=== PATIENT | male | born 1940 | race Caucasian/White ===

== ENCOUNTER 2023-10-03 14:05 | Outpatient (OUT) | payer SELFPAY ==
--- NOTE | 2023-10-03 | XR_ITS ---
[facility] [id number] Patient Name: JOJO LEWIS MRN: [id number] date: 1940 Sex: M Assigned Patient Location: RAD Current Patient Location: RAD Accession/Order Number: [id number] Exam Date: 10/03/2023 14:06 Report Date: 10/03/2023 15:14 At the request of: KATHY HERZOG Procedure: XR foot RT min 3V PROCEDURE: XR foot RT min 3V COMPARISON: None. HISTORY: RIGHT FOOT PAIN FINDINGS: BONES:No acute fracture or dislocation. Mild degenerative changes most significant at the first metatarsal-phalangeal joint with marginal osteophyte formation SOFT TISSUES:Negative. No visible soft tissue swelling. EFFUSION:None visible. OTHER: Scattered calcifications XR/XR foot RT min 3V IMPRESSION: Mild degenerative changes Electronically authenticated by: EUSEBIO WATTS Date: 10/03/2023 15:14
== END 2023-10-03 14:06 | disposition home or self-care (01) ==
LOC: RAD 14:05
PROVIDERS: Visit Provider Podiatrist Foot & Ankle Surgery
DX: M79.671 Pain in right foot (principal)
CPT/HCPCS: 73630

== ENCOUNTER 2023-11-17 06:52 | Outpatient (OUT) | payer MEDICARE, OTHER, SELFPAY ==
--- OUTSIDE RECORDS SUMMARY | 2023-11-15 10:13 | XMS_ITS | CCD ---
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 Name Role Phone ELTAHAWY, EHAB A Unavailable Unavailable ELTAHAWY, EHAB A Unavailable Unavailable CIFUENTES, KEYONNA Unavailable Unavailable CIFUENTES, KEYONNA Unavailable Unavailable Mandeep Owen Unavailable Sheree Ryan Primary Care Physician [phone] CIFUENTES ., DR KEYONNA Turner Consulting Unavailable CIFUENTES ., DR KEYONNA Turner Attending Unavailable CIFUENTES ., DR KEYONNA Turner Admitting Unavailable CIFUENTES ., DR KEYONNA Turner Primary Care Unavailable CIFUENTES ., DR KEYONNA Turner Attending Unavailable CIFUENTES ., DR KEYONNA Turner Admitting Unavailable CIFUENTES ., DR KEYONNA Turner Primary Care Unavailable BESSIE PRICE Consulting Unavailable CIFUENTES ., DR KEYONNA Turner Consulting Unavailable CIFUENTES ., DR KEYONNA Turner Attending Unavailable CIFUENTES ., DR KEYONNA Turner Admitting Unavailable CIFUENTES ., DR KEYONNA Turner Primary Care Unavailable BLESSING MARSHALL Consulting Unavailable CIFUENTES ., DR KEYONNA Turner Consulting Unavailable CIFUENTES ., DR KEYONNA Turner Attending Unavailable CIFUENTES ., DR KEYONNA Turner Admitting Unavailable CIFUENTES ., DR KEYONNA Turner Primary Care Unavailable ZIEBER, DR STACI Valdes Consulting Unavailable ELTAHAWY, EHAB Attending Unavailable ELTAHAWY, EHAB Attending Unavailable ALBERTBESSIE Attending Unavailable Connor, Sheree Hines Attending Unavailable Connor, Sheree Hines Attending Unavailable Connor, Sheree Hines Attending Unavailable Connor, Sheree Hines Attending Unavailable Connor, Sheree Hines Attending Unavailable Connor, Sheree Hines Attending Unavailable Connor, Sheree Hines Admitting Unavailable Connor, Sheree Hines Attending Unavailable Connor, Sheree Hines Admitting Unavailable Connor, Sheree Hines Attending Unavailable Connor, Sheree Hines Admitting Unavailable Connor, Sheree Hines Attending Unavailable Connor, Sheree Hines Admitting Unavailable Connor, Sheree Hines Admitting Unavailable Connor, Sheree Hines Attending Unavailable Connor, Sheree Hines Attending Unavailable Connor, Sheree Hines Attending Unavailable CIFUENTESKEYONNA Attending Unavailable Connor, Sheree Hines Attending Unavailable Connor, Sheree Hines Attending Unavailable Connor, Sheree Hines Attending Unavailable Allergies Allergy Classification Reported Allergen(s) Allergy Type Date of Onset Reaction(s) Facility (4 sources) glipiZIDE; Translations: [glipizide] Drug Allergy Unknown (qualifier value) [facility] (4 sources) Nuts (not including peanuts); Translations: [Nuts] Food allergy Unknown (qualifier value) [facility] (4 sources) Omeprazole; Translations: [omeprazole] Drug Allergy Unknown (qualifier value) [facility] Medications Current Medications Medication Drug Class(es) Dates Sig (Normalized) Sig (Original) Aspirin (1 source) Platelet Aggregation Inhibitor, Nonsteroidal Anti-inflammatory Drug Aspirin Active Aspirin Enteric Coated 81 mg oral delayed release tablet (3 sources) Start: 12-06-2022 take 1 tablet by mouth once daily Aspirin Enteric Coated 81 mg oral delayed release tablet 81 mg = 1 tab(s), Oral, Daily, Refills(s) 0 Start Date: 12/06/22 Status: Ordered atorvastatin 80 mg oral tablet (4 sources) HMG-CoA Reductase Inhibitor Start: 12-06-2022 take 1 tablet by mouth once daily atorvastatin 80 mg Tab 80 mg = 1 tab(s), Oral, Daily, # 90 tab(s), Refills(s) 3, Pharmacy: [facility] Start Date: 12/06/22 Status: Ordered Lipitor Active chlorthalidone 25 mg oral tablet (4 sources) Thiazide-like Diuretic Start: 12-28-2022 take 1 tablet by mouth once daily chlorthalidone 25 mg Tab 25 mg = 1 tab(s), Oral, Daily, # 90 tab(s), Refills(s) 3, Pharmacy: [facility], 169, cm, 12/28/22 8:48:00 EDT, Height/Length Dosing, 77.9, kg, 12/28/22 8:48:00 EDT, Weight Dosing Start Date: 12/28/22 Status: Ordered Chlorthalidone A ctive clopidogrel 75 mg oral tablet (4 sources) P2Y12 Platelet Inhibitor Start: 12-28-2022 take 1 tablet by mouth once daily clopidogrel 75 mg Tab 75 mg = 1 tab(s), Oral, Daily, # 90 tab(s), Refills(s) 3, Pharmacy: [facility], 169, cm, 12/28/22 8:48:00 EDT, Height/Length Dosing, 77.9, kg, 12/28/22 8:48:00 EDT, Weight Dosing Start Date: 12/28/22 Status: Ordered Clopidogrel Bisu lfate Active diclofenac sodium 75 mg delayed release oral tablet (1 source) Nonsteroidal Anti-inflammatory Drug take 1 tablet by mouth every twelve hours Diclofenac Sodium 75 MG 1 tablet with food or milk Orally Twice a day for 90 Active glyBURIDE 5 mg oral tablet (2 sources) Sulfonylurea take 1 tablet by mouth twice daily glyBURIDE 5 MG TAKE 1 TABLET BY MOUTH TWICE A DAY Oral for 90 Active glyBURIDE Active 3 ml insulin detemir 100 unt/ml pen injector (3 sources) Insulin Analog Start: 12-28-2022 inject 30 [IU] by subcutaneous injection twice daily, then inject 30 [IU] by subcutaneous injection twice daily at bedtime Levemir FlexTouch 100 units/mL subcutaneous solution 30 unit(s), SubCutaneous, BID, INJECT 30 UNITS TWICE A DAY ( IN THE MORNING AND AT BEDTIME ), # 15 mL, Refills(s) 3, Pharmacy: [facility], 169, cm, 12/28/22 8:48:00 EDT, Height/Length Dosing, 77.9, kg, 12/28/22 8:48:00 EDT, Weight Dosing Start Date: 12/28/22 Status: Ordered levothyroxine sodium 0.125 mg oral tablet (4 sources) l-Thyroxine Start: 12-28-2022 take 1 tablet by mouth once daily levothyroxine 125 mcg (0.125 mg) Tab 125 mcg = 1 tab(s), Oral, Daily, # 90 tab(s), Refills(s) 3, Pharmacy: [facility], 169, cm, 12/28/22 8:48:00 EDT, Height/Length Dosing, 77.9, kg, 12/28/22 8:48:00 EDT, Weight Dosing Start Date: 12/28/22 Status: Ordered Levothyroxine So dium Active lisinopril 20 mg oral tablet (2 sources) Angiotensin Converting Enzyme Inhibitor take 1 tablet by mouth once daily in the morning Lisinopril 20 MG TAKE 1 TABLET BY MOUTH EVERY MORNING Oral for 90 Active Lisinopril Activ e losartan potassium 100 mg oral tablet (3 sources) Angiotensin 2 Receptor Nila Start: 12-28-2022 take 1 tablet by mouth once daily losartan 100 mg Tab 100 mg = 1 tab(s), Oral, Daily, # 90 tab(s), Refills(s) 3, Pharmacy: [facility], 169, cm, 12/28/22 8:48:00 EDT, Height/Length Dosing, 77.9, kg, 12/28/22 8:48:00 EDT, Weight Dosing Start Date: 12/28/22 Status: Ordered metFORMIN hydrochloride 500 mg oral tablet (1 source) Biguanide Start: 04-04-2023 End: 03-29-2024 take 1 tablet by mouth twice daily metformin 500 mg Tab 500 mg = 1 tab(s), Oral, BID, X 90 day(s), # 180 tab(s), Refills(s) 3, Pharmacy: [facility], 169, cm, 04/04/23 9:12:00 EDT, Height/Length Dosing, 78.9, kg, 04/04/23 9:12:00 EDT, Weight Dosing Start Date: 04/04/23 Stop Date: 03/29/24 Status: Ordered 24 hr metoprolol succinate 50 mg extended release oral tablet (3 sources) beta-Adrenergic Nila Start: 12-28-2022 take 1 tablet by mouth once daily metoprolol 50 mg ER Tab 50 mg = 1 tab(s), Oral, Daily, # 90 tab(s), Refills(s) 0 Start Date: 12/28/22 Status: Ordered take 1 tablet by mouth twice trell ly Metoprolol Tartrate 25 MG TAKE ONE TABLET BY MOUTH TWICE DAILY Oral for 90 Active Vitamin D3 2000 intl units oral Tab (3 sources) Start: 12-28-2022 take 1 tablet by mouth once daily Vitamin D3 2000 intl units oral Tab 50 mcg, Oral, Daily, # 90 cap(s), Refills(s) 3, Pharmacy: [facility], 169, cm, 12/28/22 8:48:00 EDT, Height/Length Dosing, 77.9, kg, 12/28/22 8:48:00 EDT, Weight Dosing Start Date: 12/28/22 Status: Ordered Completed/Discontinued Medications Medication Drug Class(es) Dates Sig (Normalized) Sig (Original) carvedilol 12.5 mg oral tablet (1 source) alpha-Adrenergic Nila, beta-Adrenergic Nila Start: 04-04-2023 take 1 tablet by mouth twice daily at dinner carvedilol 12.5 mg Tab 180 EA, TAKE ONE TABLET BY MOUTH TWICE A DAY (WITH BREAKFAST AND EVENING MEAL), Refills(s) 0 Start Date: 04/04/23 Status: Ordered dexamethasone 1 mg/ml / neomycin 3.5 mg/ml / polymyxin b 60849 unt/ml ophthalmic suspension (1 source) Aminoglycoside Antibacterial, Polymyxin-class Antibacterial, Corticosteroid Neomycin-Polymyxi n-Dexameth [id number] PLACE 1 DROP INTO THE LEFT EYE FOUR TIMES A DAY FOR 1 WEEK Ophthalmic for 7 Not-Taking liothyronine sodium 0.005 mg oral tablet (4 sources) l-Triiodothyronine Start: 12-28-2022 take 2 tablets by mouth once daily in the morning liothyronine 5 mcg Tab 10 mcg = 2 tab(s), Oral, Daily, TAKE TWO TABLETS BY MOUTH ONCE DAILY IN THE MORNING, # 180 tab(s), Refills(s) 3, Pharmacy: [facility], 169, cm, 12/28/22 8:48:00 EDT, Height/Length Dosing, 77.9, kg, 12/28/22 8:48:00 EDT, Weight Dosing Start Date: 12/28/22 Status: Ordered take 1 tablet by mouth in the mo rning Liothyronine Sodium 5 MCG TAKE 1 TABLET BY MOUTH IN THE MORNING AND AFTERNOON Oral for 90 Active SITagliptin 100 mg oral tablet (1 source) Dipeptidyl Peptidase 4 Inhibitor take 1 tablet by mouth once daily Januvia 100 MG TAKE 1 TABLET BY MOUTH EVERY DAY Oral for 90 Not-Taking zzzzzeuflexxa (4 sources) Start: zzzzzeuflexxa January, 2 mL Start: 02-01-2017 zzzzzeuflexxa January, 2 mL Problems Active Problems Problem Classification Problem Date Documented Da te Episodic/Chronic Abdominal pain (1 source) Abdominal pain; Translations: [Unspecified abdominal pain] Episodic Aortic; peripheral; and visceral artery aneurysms (3 sources) Aortic aneurysm of unspecified site, without rupture; Translations: [Aneurysm of aortic root] Onset: 2 Chronic Comment on above: Noted in 12/27/[address] Cifuentes, added per outpatient CDI policy. Cardiac and circulatory congenital anomalies (4 sources) Congenital aneurysm of aorta; Translations: [CONGENITAL ANEURYSM OF AORTA] Onset: 3 Chronic Coronary atherosclerosis and other heart disease (3 sources) Atherosclerotic heart disease of [place] coronary artery with unspecified angina pectoris; Translations: [Atherosclerotic heart disease of [place] coronary artery without angina pectoris] Onset: 7 Chronic Deficiency and other anemia (1 source) Iron deficiency anemia; Translations: [Iron deficiency anemia, unspecified] Episodic Diabetes mellitus with complications (4 sources) Neuropathy due to diabetes mellitus; 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] Onset: 2 12-28-2022 Chronic Diabetes mellitus without complication (8 sources) Type 2 diabetes mellitus without complications; Translations: [Type 1 diabetes mellitus] Onset: 7 12-06-2022 Chronic Disorders of lipid metabolism (6 sources) Hyperlipidemia, unspecified; Translations: [Hypercholesterolemia] Onset: 7 12-06-2022 Chronic Diverticulosis and diverticulitis (4 sources) Diverticula of intestine; Translations: [Diverticulosis of intestine, part unspecified, without perforation or abscess with bleeding] 12-06-2022 Chronic Essential hypertension (5 sources) Essential hypertension; Translations: [Essential (primary) hypertension] Onset: 2 12-28-2022 Chronic Gout and other crystal arthropathies (4 sources) Gout, unspecified; Translations: [GOUT UNSPECIFIED] Onset: 2 Chronic Heart valve disorders (3 sources) Rheumatic disorders of both mitral and tricuspid valves; Translations: [Nonrheumatic aortic (valve) insufficiency] Onset: 2 Chronic Osteoarthritis (2 sources) Arthritis of right knee; Translations: [Unilateral primary osteoarthritis, right knee] Chronic Other gastrointestinal disorders (1 source) Constipation; Translations: [Constipation, unspecified] Episodic Other nutritional; endocrine; and metabolic disorders (1 source) Loss of appetite; Translations: [Anorexia] Episodic Peripheral and visceral atherosclerosis (3 sources) Arteriosclerotic vascular disease 12-06-2022 Chronic Thyroid disorders (3 sources) Hypothyroidism 12-06-2022 Chronic Unclassified (1 source) residential (current) use of oral hypoglycemic drugs; Translations: [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] Onset: 7 Unclassified (2 sources) Unknown / UNK(Unknown) Onset: 7 Unclassified (1 source) Stenosis of coronary artery stent, initial encounter; Translations: [STENOSIS OF CORONARY ARTERY STENT, INITIAL ENCOUNTER] Onset: 7 Unclassified (1 source) Patient encounter status 07-06-2023 Past or Other Problems Problem Classification Problem Date Documented Date Episodic/Chronic Cardiac dysrhythmias (3 sources) Tachycardia, unspecified; Translations: [TACHYCARDIA, UNSPECIFIED] Onset: 05-16-2017 Episodic Malaise and fatigue (4 sources) Weakness; Translations: [WEAKNESS] Onset: 02-16-2022 Episodic Other aftercare (2 sources) residential (current) use of aspirin; Translations: [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/antip latelets] Onset: 05-16-2017 Episodic Other connective tissue disease (1 source) Other bursitis of knee, right knee Onset: 01-18-2022 Resolved: 01-18-2022 Episodic Other connective tissue disease (1 source) Pain in left toe(s); Translations: [PAIN IN LEFT TOES] Onset: 02-17-2022 Episodic Other lower respiratory disease (1 source) Shortness of breath; Translations: [SHORTNESS OF BREATH] Onset: 05-16-2017 Episodic Other non-traumatic joint disorders (1 source) Pain in right knee Onset: 01-18-2022 Resolved: 01-18-2022 Episodic Screening or history of mental health and substance abuse (1 source) Personal history of nicotine dependence; Translations: [PERSONAL HISTORY OF NICOTINE DEPENDENCE] Onset: 05-16-2017 Episodic Unclassified (4 sources) Abnormal result of other cardiovascular function study; Translations: [ABNORMAL RESULT OF OTHER CARDIOVASCULAR FUNCTION STUDY] Onset: 05-16-2017 Episodic Results Test Name Value Interpretation Reference Range Facil ity Ambulatory Visit Summaryon 0 10-27-2023 Ambulatory Visit Summary JOJO LEWIS JR :1940 Visit Date:10/27/2023 Ambulatory Visit Instructions Your Diagnosis BMI 26.0-26.9,adult Former smoker Your Care Team Attending Physician - Sheree Caraballo Primary Care Physician - Sheree Caraballo [facility] (BD UF mini pen needle 5mm/31g) aspirin (Aspirin Enteric Coated 81 mg oral delayed release tablet) atorvastatin (atorvastatin 80 mg Tab) carvedilol (carvedilol 12.5 mg Tab) chlorthalidone (chlorthalidone 25 mg Tab) cholecalciferol (Vitamin D3 2000 intl units oral Tab) clopidogrel (clopidogrel 75 mg Tab) insulin detemir (Levemir FlexTouch 100 units/mL subcutaneous solution) levothyroxine (levothyroxine 125 mcg (0.125 mg) Tab) liothyronine (liothyronine 5 mcg Tab) losartan (losartan 100 mg Tab) metformin (metformin 500 mg Tab) Procedures Performed Colonoscopy (2017), EGD (esophagogastroduodenosc opy) gastric outlet reduction (2017), Cardiac catheter (2014), Cardiac catheter (2000), Appendectomy (1947). Discharge Vitals Heart Rate (Peripheral) 88 Respiratory Rate 18 Blood Pressure 130/74 Height 170 cm Height 67 in Weight 77.2 kg Weight 169.84 lb BMI 26.71 What to do next Scheduled Follow-Up Appointments Tuesday 8:40 AM EDT With: Sheree Carabalol Where: [facility] [address] [id number] \.br\ Medications\.br\ What How Much When Instructions\.br \ Unchanged aspirin (Aspirin Enteric Coated 81 mg oral delayed release tablet) 1 Tablets By Mouth Every day\.br\ Unchanged atorvastatin (atorvastatin 80 mg Tab) 1 Tablets By Mouth Every day\.br\ Unchanged carvedilol (carvedilol 12.5 mg Tab) 180 EA, TAKE ONE TABLET BY MOUTH TWICE A DAY (WITH BREAKFAST AND EVENING MEAL) \.br\ Unchanged chlorthalidone (chlorthalidone 25 mg Tab) 1 Tablets By Mouth Every day\.br\ Unchanged cholecalciferol (Vitamin D3 2000 intl units oral Tab) 50 Microgram By Mouth Every day\.br\ Unchanged clopidogrel (clopidogrel 75 mg Tab) 1 Tablets By Mouth Every day\.br\ Unchanged insulin detemir (Levemir FlexTouch 100 units/ mL subcutaneous solution) 30 Units Subcutaneous 2 times a day INJECT 30 UNITS TWICE A DAY ( IN THE MORNING AND AT BEDTIME ) \.br\ Unchanged levothyroxine (levothyroxine 125 mcg (0.125 mg) Tab) 1 Tablets By Mouth Every day\.br\ Unchanged liothyronine (liothyronine 5 mcg Tab) 2 Tablets By Mouth Every day TAKE TWO TABLETS BY MOUTH ONCE DAILY IN THE MORNING \.br\ Unchanged losartan (losartan 100 mg Tab) 1 Tablets By Mouth Every day\.br\ Unchanged metformin (metformin 500 mg Tab) 1 Tablets By Mouth 2 times a day Duration: 90 Days\.br\ Unchanged Misc Prescription (BD UF mini pen needle 5mm/ 31g) See instructions use twice daily \.br\ Allergies\.br\ Nuts (Unknown)\.br\ glipiZIDE (Unknown)\.br\ omeprazole (Unknown)\.br\ Problems\.br\ Ongoing - Any problem that you are currently receiving treatment for.\.br\ Aneurysm of aortic root\.br\ ASCVD (arterioscleroti c cardiovascular disease)\.br\ Diverticulosis\. br\ Encounter for diabetic foot exam\.br\ Essential hypertension\.br \ Hypercholesterol emia\.br\ Hypothyroid\.br\ Infected nail bed of toe\.br\ Type 1 diabetes mellitus with diabetic neuropathy\.br\ Type 1 diabetes mellitus with hypercholesterol emia\.br\ Patient Survey\.br\ You may receive a survey via text or e-mail asking about your office visit. Please share your experience with us by completing your survey. We appreciate your feedback and thank you for choosing us for your care.\.br\ \.br\ [facility] Family Medicine Office/Clini c Noteon 10-27-2023 Family Medicine Office/Clinic Note IVONE Amezcua is a 83 year old male presenting for 1 month follow up Infected Nail bed of right great toe: PARVIZ 09/29/23 started on Cephalexin 500mg QID x 7 days pt states not having anymore started walking 3 days ago. pt states it is looking a lot better pt brought in letter insurance is not longer covering levemir unless pt has tried basaglar/ lantus/ toujeo or tresiba. History of Present Illness pt presents today for follow up on infected ingrown toe nail and elevated BP Review of Systems PHQ Score Initial Depression Screen Score: 0 SCORE ROS - Provider Constitutional: no fever, no chills, no sweats, no fatigue Respiratory: no shortness of breath, no cough, no orthopnea, no wheezing. Cardiovascular: no chest pain, no palpitations, no edema. Neurologic: no headache, no dizziness, no numbness, no weakness. Physical Exam Vitals & Measurements HR: 88(Peripheral) RR: 18 BP: 130/74 SpO2: 99% HT: 67 in HT: 170 cm WT: 77.2 kg WT: 169.84 lb BMI: 26.71 General: alert, no acute distress ENMT: oral mucosa moist, no pharyngeal erythema or exudate Cardiovascular: regular rate and rhythm, normal peripheral perfusion Respiratory: Lungs CTA, respirations non labored Extremities: no deformity, no trauma Neurological: oriented x 4, LOC appropriate for age, CN II-XII intact, motor strength equal & normal bilaterally, speech normal right great toe healing well from toenail removal, no swelling , redness or oozing Assessment/Plan 1. Type 1 diabetes mellitus with diabetic neuropathy (E10.40: Type 1 diabetes mellitus with diabetic neuropathy, unspecified) pt brings in paper from insurance company stating that they won't cover the levemir he has been taking for years. will change it to lantus with same dosing. all questions answered. RTC as needed Ordered: insulin glargine, 30 unit(s), SubCutaneous, BID, # 15 mL, Refills(s) 3, Pharmacy: [facility], 170, cm, 10/27/23 9:53:00 EST, Height/Length Dosing, 77.2, kg, 10/27/23 9:53:00 EST, Weight Dosing 2. Infected nail bed of toe (L03.039: Cellulitis of unspecified toe) pt was seen by Keyonna HERNANDEZ at Dr. Sosa office and had toe nail removed. area has healed very well. no oozing 3. Former smoker (Z87.891: Personal history of nicotine dependence) continue not smoking Ordered: insulin glargine, 30 unit(s), SubCutaneous, BID, # 15 mL, Refills(s) 3, Pharmacy: [facility], 170, cm, 10/27/23 9:53:00 EST, Height/Length Dosing, 77.2, kg, 10/27/23 9:53:00 EST, Weight Dosing 4. BMI 26.0-26.9,adult (Z68.26: Body mass index [BMI] 26.0-26.9, adult) BMI education complete Ordered: insulin glargine, 30 unit(s), SubCutaneous, BID, # 15 mL, Refills(s) 3, Pharmacy: [facility], 170, cm, 10/27/23 9:53:00 EST, Height/Length Dosing, 77.2, kg, 10/27/23 9:53:00 EST, Weight Dosing 5. Essential hypertension (I10: Essential (primary) hypertension) BP at goal today. pt has been monitoring it at home and it has been running normal since he recovered from having influenza Follow-up No qualifying data available Problem List/Past Medical History Ongoing Aneurysm of aortic root ASCVD (arteriosclerotic cardiovascular disease) Diverticulosis Encounter for diabetic foot exam Essential hypertension Hypercholesterolemia Hypothyroid Infected nail bed of toe Type 1 diabetes mellitus with diabetic neuropathy Type 1 diabetes mellitus with hypercholesterolemia Historical No qualifying data Procedure/Surgical History Colonoscopy (2017), EGD (esophagogastroduodenosc opy) gastric outlet reduction (2017), Cardiac catheter (2014), Cardiac catheter (2000), Appendectomy (1947). Medications Aspirin Enteric Coated 81 mg oral delayed release tablet, 81 mg= 1 tab(s), Oral, Daily atorvastatin 80 mg Tab, 80 mg= 1 tab(s), Oral, Daily, 3 refills BD UF mini pen needle 5mm/31g, See Instructions, 1 refills carvedilol 12.5 mg Tab chlorthalidone 25 mg Tab, 25 mg= 1 tab(s), Oral, Daily, 3 refills clopidogrel 75 mg Tab, 75 mg= 1 tab(s), Oral, Daily, 3 refills Lantus Solostar Pen 100 units/mL subcutaneous solution, 30 unit(s), SubCutaneous, BID, 3 refills Levemir FlexTouch 100 units/mL subcutaneous solution, 30 unit(s), SubCutaneous, BID, 3 refills levothyroxine 125 mcg (0.125 mg) Tab, 125 mcg= 1 tab(s), Oral, Daily, 3 refills liothyronine 5 mcg Tab, 10 mcg= 2 tab(s), Oral, Daily, 3 refills losartan 100 mg Tab, 100 mg= 1 tab(s), Oral, Daily, 3 refills metformin 500 mg Tab, 500 mg= 1 tab(s), Oral, BID, 3 refills Vitamin D3 2000 intl units oral Tab, 50 mcg, Oral, Daily, 3 refills Allergies Nuts (Unknown) glipiZIDE (Unknown) omeprazole (Unknown) Social History Alcohol - Low Risk, 12/28/2022 Current, Beer, 1-2 times per week, Household alcohol concerns: No., 12/28/2022 Substance Abuse - Denies Substance Abuse, 12/28/2022 Household substance abuse concerns: No., 12/28/2022 Tobacco - Denies Tobacco Use, 12/28/2022 Never (less than 100 in lifetime) T (more content not included)... [facility] Comment on above: Result Comment: Elec tronically Signed By: Sheree Caraballo\.br\Date and Time Signed: 10/27/23 11:25 EST Consultation Noteon 10-20-19 Consultation Note [id number] [facility] Consultation Noteon 10-07-19 Consultation Note [id number]#[id number] [facility] Physician Referralon 024 Physician Referral [id number] F [facility] Family Medicine Office/Clini c Noteon 09-29-2023 Family Medicine Office/Clinic Note IVONE Amezcua is a 83 year old male presenting for acute visit started around 09/19/23 Right foot big nail is infected pt is feeling feverish. pt having yellow/clear drainage. Has been putting JOELLEN on toe. Pt states was cutting toes nails and was trying to get ingrown toenail out. pt doesn't see podiatry. Yesterday started having headache with uneasy dizziness . Blood sugar after breakfast was 140 History of Present Illness pt presents today with c/o right big toe being infected Review of Systems PHQ Score Initial Depression Screen Score: 0 SCORE ROS - Provider Constitutional: no fever, no chills, no sweats, no fatigue Respiratory: no shortness of breath, no cough, no orthopnea, no wheezing. Cardiovascular: no chest pain, no palpitations, no edema. Neurologic: no headache, no dizziness, no numbness, no weakness. Physical Exam Vitals & Measurements T: 38.3 ?C(Tympanic) HR: 102(Peripheral) RR: 20 BP: 180/88 SpO2: 92% HT: 67 in HT: 170 cm WT: 77.5 kg WT: 170.5 lb BMI: 26.82 General: alert, no acute distress ENMT: oral mucosa moist, no pharyngeal erythema or exudate Cardiovascular: regular rate and rhythm, normal peripheral perfusion Respiratory: Lungs CTA, respirations non labored Extremities: no deformity, no trauma Neurological: oriented x 4, LOC appropriate for age, CN II-XII intact, motor strength equal & normal bilaterally, speech normal Assessment/Plan 1. Infected nail bed of toe (L03.039: Cellulitis of unspecified toe) right great toe is red and swollen. pt is running a fever. 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 will refer to Dr. Michael. BP is elevated in office today. pt will monitor BP at home. will return in 4 weeks with BP log. may consider increasing or adding med. will send keflex for infection Ordered: cephalexin, 500 mg = 1 cap(s), Oral, QID, X 7 day(s), # 28 cap(s), Refills(s) 0, Pharmacy: [facility], 170, cm, 09/29/23 14:30:00 EST, Height/Length Dosing, 77.5, kg, 09/29/23 14:30:00 EST, Weight Dosing [facility] External Ambulatory Referral 2. Diabetes (E11.9: Type 2 diabetes mellitus without complications) pt referred to Dr. Michael. Ordered: cephalexin, 500 mg = 1 cap(s), Oral, QID, X 7 day(s), # 28 cap(s), Refills(s) 0, Pharmacy: [facility], 170, cm, 09/29/23 14:30:00 EST, Height/Length Dosing, 77.5, kg, 09/29/23 14:30:00 EST, Weight Dosing [facility] External Ambulatory Referral 3. BMI 26.0-26.9,adult (Z68.26: Body mass index [BMI] 26.0-26.9, adult) BMI education complete Ordered: cephalexin, 500 mg = 1 cap(s), Oral, QID, X 7 day(s), # 28 cap(s), Refills(s) 0, Pharmacy: [facility], 170, cm, 09/29/23 14:30:00 EST, Height/Length Dosing, 77.5, kg, 09/29/23 14:30:00 EST, Weight Dosing [facility] [place] [facility] External Ambulatory Referral 4. Non-smoker (Z78.9: Other specified health status) continue not smoking Ordered: cephalexin, 500 mg = 1 cap(s), Oral, QID, X 7 day(s), # 28 cap(s), Refills(s) 0, Pharmacy: [facility], 170, cm, 09/29/23 14:30:00 EST, Height/Length Dosing, 77.5, kg, 09/29/23 14:30:00 EST, Weight Dosing [facility] [place] External Ambulatory Referral Follow-up No qualifying data available Problem List/Past Medical History Ongoing Aneurysm of aortic root ASCVD (arteriosclerotic cardiovascular disease) Diverticulosis Encounter for diabetic foot exam Essential hypertension Hypercholesterolemia Hypothyroid Infected nail bed of toe Type 1 diabetes mellitus with diabetic neuropathy Type 1 diabetes mellitus with hypercholesterolemia Historical No qualifying data Procedure/Surgical History Colonoscopy (2017), EGD (esophagogastroduodenosc opy) gastric outlet reduction (2017), Cardiac catheter (2014), Cardiac catheter (2000), Appendectomy (194). Medications Aspirin Enteric Coated 81 mg oral delayed release tablet, 81 mg= 1 tab(s), Oral, Daily atorvastatin 80 mg Tab, 80 mg= 1 tab(s), Oral, Daily, 3 refills BD UF mini pen needle 5mm/31g, See Instructions, 1 refills carvedilol 12.5 mg Tab cephalexin 500 mg Cap, 500 mg= 1 cap(s), Oral, QID chlorthalidone 25 mg Tab, 25 mg= 1 tab(s), Oral, Daily, 3 refills clopidogrel 75 mg Tab, 75 mg= 1 tab(s), Oral, Daily, 3 refills Levemir FlexTouch 100 units/mL subcutaneous solution, 30 unit(s), SubCutaneous, BID, 3 refills levothyroxine 125 mcg (0.125 mg) Tab, 125 mcg= 1 tab(s), Oral, Daily, 3 refills liothyronine 5 mcg Tab, 10 mcg= 2 tab(s), Oral, Daily, 3 refills losartan 100 mg Tab, 100 mg= 1 tab(s), Oral, Daily, 3 refills metformin 500 mg Tab, 500 mg= 1 tab(s), Oral, BID, 3 refills Vitamin D3 2000 intl units oral Tab, 50 mcg, Oral, Daily, 3 refills Allergies Nuts (Unknown) glipiZIDE (Unknown) omeprazole (Unknown) Social History Alcohol - Low Risk, 12/28/2022 Current, Beer, 1-2 times per week, Household alcohol concerns: No., 12/28/2022 Substance Abuse - Denies Substance Abuse, 12/28/2022 Household substance abuse concerns: No. (more content not included)... [facility] Comment on above: Result Comment: Elec tronically Signed By: Sheree Caraballo\.br\Date and Time Signed: 09/29/23 14:49 EST Medication Refillon 08-25-20 23 Medication Refill [id number] F [facility] Pre-Visit Planningon 023 Pre-Visit Planning - From: Nunu Rodriguez RN To: Sheree Caraballo; Sent: 07/05/2023 08:28:06 EDT Subject: Pre-Visit Planning Due Date/Time: 07/05/2023 08:28:00 EDT Caller Name: JOSHUA JOJO LOUIS; Caller Number: , M Aiden Bentley, *Based on your response below, can you please update the chronic problem list and address during this visit if appropriate?* During a pre-visit planning chart review, I noted the following documentation in the medical record: Problem list- Diabetes mellitus type 1, Type 2 diabetes mellitus with diabetic neuropathy 12/28/2022 office note- History: Any previous diagnosis: Thyroid, DM2, HTN, hypothyroidism, hypercholesteremia, diabetic neuropathy Patient is here for follow up on Diabetes. Pt has a chronic dx of T1D. He currently takes 30 units of insulin BID however pt does not recall what type of insulin he is currently taking. Based on your medical judgment, can you further clarify the following since there is conflicting data on if type 1 or type 2? -Type 2 diabetes mellitus -Type 1 diabetes mellitus -Other (please specify): I can update the problem list with your specified response if you would like. In responding to this request, please exercise your independent professional judgement. The fact that a question is asked does not imply that any particular answer is desired or expected. If you have any questions, please feel free to contact me at extension [phone]. Thank you! KAVITHA Westbrook, RN, CCM, CCDS, CCDS-O From: Sheree Caraballo To: Jennifer PEREZ, Nunu; Sent: 08/03/2023 15:23:48 EST Subject: RE: Pre-Visit Planning Caller Name: JOJO LEWIS JR; Caller Number: , M Type 1 diabetes mellitus Normal [address] [facility] Ambulatory Visit Summaryon 1 Ambulatory Visit Summary JOJO LEWIS JR :1940 Visit Date:07/06/2023 Ambulatory Visit Instructions Your Diagnosis Diabetes mellitus type I Encounter for diabetic foot exam Your Care Team Attending Physician - Sheree Caraballo Primary Care Physician - Sheree Caraballo This Is Your Medications List Misc Prescription (BD PEN NEEDLE MINI ULTRA-FINE 31G X 5MM) aspirin (Aspirin Enteric Coated 81 mg oral delayed release tablet) atorvastatin (atorvastatin 80 mg Tab) carvedilol (carvedilol 12.5 mg Tab) chlorthalidone (chlorthalidone 25 mg Tab) cholecalciferol (Vitamin D3 2000 intl units oral Tab) clopidogrel (clopidogrel 75 mg Tab) insulin detemir (Levemir FlexTouch 100 units/mL subcutaneous solution) levothyroxine (levothyroxine 125 mcg (0.125 mg) Tab) liothyronine (liothyronine 5 mcg Tab) losartan (losartan 100 mg Tab) metformin (metformin 500 mg Tab) Procedures Performed Colonoscopy (2017), EGD (esophagogastroduodenosc opy) gastric outlet reduction (2017), Cardiac catheter (2014), Cardiac catheter (2000), Appendectomy (1947). Discharge Vitals Heart Rate (Peripheral) 70 Respiratory Rate 18 Blood Pressure 136/68 Height 170 cm Height 67 in Weight 78.19 kg Weight 172.018 lb BMI 27.06 What to do next Scheduled Follow-Up Appointments Tuesday 9:00 AM EDT With: Sheree Caraballo Where: [place] [id number]- \.br\ Medications\.br\ What How Much When Instructions\.br \ Unchanged aspirin (Aspirin Enteric Coated 81 mg oral delayed release tablet) 1 Tablets By Mouth Every day\.br\ Unchanged atorvastatin (atorvastatin 80 mg Tab) 1 Tablets By Mouth Every day\.br\ Unchanged carvedilol (carvedilol 12.5 mg Tab) 180 EA, TAKE ONE TABLET BY MOUTH TWICE A DAY (WITH BREAKFAST AND EVENING MEAL) \.br\ Unchanged chlorthalidone (chlorthalidone 25 mg Tab) 1 Tablets By Mouth Every day\.br\ Unchanged cholecalciferol (Vitamin D3 2000 intl units oral Tab) 50 Microgram By Mouth Every day\.br\ Unchanged clopidogrel (clopidogrel 75 mg Tab) 1 Tablets By Mouth Every day\.br\ Unchanged insulin detemir (Levemir FlexTouch 100 units/ mL subcutaneous solution) 30 Units Subcutaneous 2 times a day INJECT 30 UNITS TWICE A DAY ( IN THE MORNING AND AT BEDTIME ) \.br\ Unchanged levothyroxine (levothyroxine 125 mcg (0.125 mg) Tab) 1 Tablets By Mouth Every day\.br\ Unchanged liothyronine (liothyronine 5 mcg Tab) 2 Tablets By Mouth Every day TAKE TWO TABLETS BY MOUTH ONCE DAILY IN THE MORNING \.br\ Unchanged losartan (losartan 100 mg Tab) 1 Tablets By Mouth Every day\.br\ Unchanged metformin (metformin 500 mg Tab) 1 Tablets By Mouth 2 times a day Duration: 90 Days\.br\ Unchanged Misc Prescription (BD PEN NEEDLE MINI ULTRA-FINE 31G X 5MM) USE TWICE A DAY DIRECTED (DXE10.8) \.br\ Allergies\.br\ Nuts (Unknown)\.br\ glipiZIDE (Unknown)\.br\ omeprazole (Unknown)\.br\ Problems\.br\ Ongoing - Any problem that you are currently receiving treatment for.\.br\ Aneurysm of aortic root\.br\ ASCVD (arterioscleroti c cardiovascular disease)\.br\ Diabetes mellitus type I\.br\ Diabetic neuropathy\.br\ Diverticulosis\. br\ Encounter for diabetic foot exam\.br\ Essential hypertension\.br \ Hypercholesterol emia\.br\ Hypothyroid\.br\ \.br\ [facility] CHEMISTRYOrdered By: Linsey pierson on 07-06-2023 Albumin DL <= 20 mg/L (U) [Mass/Vol] 108.9 microgram/mL High 0.0 - 19.0 mcg/mL [facility] Albumin Elph (U) [Mass fraction] 18.6 mg/dL Invalid Interpretation Code [facility] Comment on above: Interpretive Data: T he reference range and other method performance specifications have not been established for this test; results should be integrated into the clinical context for interpretation. Creatinine (U) [Mass/Vol] 128.9 mg/dL Invalid Interpretation Code [facility] Comment on above: Interpretive Data: T he reference range and other method performance specifications have not been established for this test; results should be integrated into the clinical context for interpretation. U Prot/Creat Ratio 144.30 mg/gm Cr Normal 0.00 - 200.00 mg/gm Cr [facility] CHEMISTRYOrdered By: Shantal Vasquez on 07-06-2023 HbA1c (Bld) [Mass fraction] 6.3 % High <=5.9% [facility] ChemAutoSS Family Medicine Office/Clini c Noteon 07-06-2023 Family Medicine Office/Clinic Note HPI Staff Amezcua is a 83 year old male presenting for 3 month follow up Patient is here for follow up on Diabetes. How often are you checking your blood sugars? pt states doesn't hardly check blood sugars What are your average readings? today was 104 fasting Paresthesias, Ulcerations or sores? no Lisinopril, aspirin, statin therapy? Yes Foot Exam: due Eye Exam: 4 months ago Last A1c: Hgb A1C %: 8.1 % High (04/04/23 09:43:00) Microalbumin: U Microalb: 98.2 mcg/mL High (12/28/22 11:09:00) Started on Metformin 12/29/22 Questions/Concerns: none History of Present Illness pt presents today for follow up on diabetes Review of Systems PHQ Score Initial Depression Screen Score: 0 ROS - Provider Constitutional: no fever, no chills, no sweats, no fatigue Respiratory: no shortness of breath, no cough, no orthopnea, no wheezing. Cardiovascular: no chest pain, no palpitations, no edema. Neurologic: no headache, no dizziness, no numbness, no weakness. Physical Exam Vitals & Measurements HR: 70(Peripheral) RR: 18 BP: 136/68 SpO2: 98% HT: 67 in HT: 170 cm WT: 78.19 kg WT: 172.018 lb BMI: 27.06 General: alert, no acute distress ENMT: oral mucosa moist, no pharyngeal erythema or exudate Cardiovascular: regular rate and rhythm, normal peripheral perfusion Respiratory: Lungs CTA, respirations non labored Extremities: no deformity, no trauma Neurological: oriented x 4, LOC appropriate for age, CN II-XII intact, motor strength equal & normal bilaterally, speech normal Assessment/Plan 1. Diabetes mellitus type I (E10.9: Type 1 diabetes mellitus without complications) pt presents today for follow up on Diabetes. will draw HGBA1C in office today. pt is doing well denies needs. states fasting glucose this morning was 103. pt continues exercising and making good food choices. will notify pt of results. RTC 6 months Ordered: Diabetic Foot Exam HgbA1c Lab Specimen Collect [id number] Microalbumin Level Urine U Protein/Creat Ratio 2. Encounter for diabetic foot exam (E11.9: Type 2 diabetes mellitus without complications) mono filament test negative in all areas except 2nd toe and arch of both feet. Ordered: Diabetic Foot Exam Lab Specimen Collect [id number] 3. BMI 27.0-27.9,adult (Z68.27: Body mass index [BMI] 27.0-27.9, adult) BMI education complete Ordered: Diabetic Foot Exam 4. Non-smoker (Z78.9: Other specified health status) continue not smoking Ordered: Diabetic Foot Exam Follow-up No qualifying data available Problem List/Past Medical History Ongoing Aneurysm of aortic root ASCVD (arteriosclerotic cardiovascular disease) Diabetes mellitus type I Diabetic neuropathy Diverticulosis Encounter for diabetic foot exam Essential hypertension Hypercholesterolemia Hypothyroid Historical No qualifying data Procedure/Surgical History Colonoscopy (2017), EGD (esophagogastroduodenosc opy) gastric outlet reduction (2017), Cardiac catheter (2014), Cardiac catheter (2000), Appendectomy (1947). Medications Aspirin Enteric Coated 81 mg oral delayed release tablet, 81 mg= 1 tab(s), Oral, Daily atorvastatin 80 mg Tab, 80 mg= 1 tab(s), Oral, Daily, 3 refills BD PEN NEEDLE MINI ULTRA-FINE 31G X 5MM carvedilol 12.5 mg Tab chlorthalidone 25 mg Tab, 25 mg= 1 tab(s), Oral, Daily, 3 refills clopidogrel 75 mg Tab, 75 mg= 1 tab(s), Oral, Daily, 3 refills Levemir FlexTouch 100 units/mL subcutaneous solution, 30 unit(s), SubCutaneous, BID, 3 refills levothyroxine 125 mcg (0.125 mg) Tab, 125 mcg= 1 tab(s), Oral, Daily, 3 refills liothyronine 5 mcg Tab, 10 mcg= 2 tab(s), Oral, Daily, 3 refills losartan 100 mg Tab, 100 mg= 1 tab(s), Oral, Daily, 3 refills metformin 500 mg Tab, 500 mg= 1 tab(s), Oral, BID, 3 refills Vitamin D3 2000 intl units oral Tab, 50 mcg, Oral, Daily, 3 refills Allergies Nuts (Unknown) glipiZIDE (Unknown) omeprazole (Unknown) Social History Alcohol - Low Risk, 12/28/2022 Current, Beer, 1-2 times per week, Household alcohol concerns: No., 12/28/2022 Substance Abuse - Denies Substance Abuse, 12/28/2022 Household substance abuse concerns: No., 12/28/2022 Tobacco - Denies Tobacco Use, 12/28/2022 Never (less than 100 in lifetime) Tobacco Use:. Never Smokeless Tobacco Use:. Household tobacco concerns: No., 07/06/2023 Family History Alcoholism: Father. Congenital heart disease: Brother. Diabetes mellitus type 2: Father. Heart failure: Mother and Father. Immunizations Vaccine Date Status Comments influenza virus vaccine, inactivated 06/30/2022 Recorded SARS-CoV-2 (COVID-19) [id number] 06/15/2022 Recorded 2022-12-28: [id number] SARS-CoV-2 (COVID-19) mRNA-1273 vaccine 02/17/2022 Recorded 2022-12-28: TPV80 SARS-CoV-2 (COVID-19) mRNA-1273 vaccine 07/21/2021 Recorded 2022-12-28: [id number] influenza virus vaccine, inactivated 06/30/2021 Recorded SARS-CoV-2 (COVID-19) mRNA-1273 vaccine 11/18/2020 Recorded SARS-CoV-2 (COVI (more content not included)... Normal [facility] Comment on above: Result Comment: Elec tronically Signed By: Sheree Caraballo\.br\Date and Time Signed: 07/06/23 14:39 EDT [id number] 07-06-2023 HbA1c (Bld) [Mass fraction] 6.3 % High <=5.9 [facility] Comment on above: Performed By: #### [id number] ####[facility] [id number] [place] [address] U Microalbon 07-06-2023 Albumin DL <= 20 mg/L (U) [Mass/Vol] 108.9 microgram/mL High 0.0-19.0 [facility] Comment on above: Performed By: #### 1 [id number] ####[facility] [address] [place] [address] U Protein/Creat Ratioon 06-26 Albumin Elph (U) [Mass fraction] 18.6 mg/dL Invalid Interpretation Code [facility] Comment on above: Result Comment: The reference range and other method performance specifications have not been established for this test; results should be integrated into the clinical context for interpretation. Performed By: #### 1 [id number] ####[facility] [address] [place] [address] Creatinine (U) [Mass/Vol] 128.9 mg/dL Invalid Interpretation Code [facility] Comment on above: Result Comment: The reference range and other method performance specifications have not been established for this test; results should be integrated into the clinical context for interpretation. Performed By: #### 1 [id number], [id number] ####[facility] [address] [place] [address] U Prot/Creat Ratio 144.30 mg/gm Cr Normal .00-200.00 F [facility] Comment on above: Performed By: #### 1 [id number] ####[facility] [id number] [place] [address] Ambulatory Visit Summaryon 0 05-17-2023 Ambulatory Visit Summary JOJO LEWIS JR :1940 Visit Date:05/17/2023 Ambulatory Visit Instructions Your Diagnosis Annual visit for general adult medical examination without abnormal findings Diabetes mellitus type I Diabetic neuropathy ASCVD (arteriosclerotic cardiovascular disease) Essential hypertension Hypercholesterolemia Hypothyroid Overweight with body mass index (BMI) of 26 to 26.9 in adult Your Care Team Attending Physician - Sheree Caraballo Primary Care Physician - Sheree Caraballo This Is Your Medications List [facility] Prescription (BD PEN NEEDLE MINI ULTRA-FINE 31G X 5MM) aspirin (Aspirin Enteric Coated 81 mg oral delayed release tablet) atorvastatin (atorvastatin 80 mg Tab) carvedilol (carvedilol 12.5 mg Tab) chlorthalidone (chlorthalidone 25 mg Tab) cholecalciferol (Vitamin D3 2000 intl units oral Tab) clopidogrel (clopidogrel 75 mg Tab) insulin detemir (Levemir FlexTouch 100 units/mL subcutaneous solution) levothyroxine (levothyroxine 125 mcg (0.125 mg) Tab) liothyronine (liothyronine 5 mcg Tab) losartan (losartan 100 mg Tab) metformin (metformin 500 mg Tab) Procedures Performed Colonoscopy (2017), EGD (esophagogastroduodenosc opy) gastric outlet reduction (2018), Cardiac catheter (2014), Cardiac catheter (2000), Appendectomy (1948). Discharge Vitals Heart Rate (Peripheral) 56 Blood Pressure 132/64 Height 170 cm Height 67 in Weight 77 kg Weight 169.4 lb BMI 26.64 What to do next Scheduled Follow-Up Appointments Tuesday 9:00 AM EDT With: Sheree Caraballo Where: [address] [id number]- \.br\ Medications\.br\ What How Much When Instructions\.br \ Unchanged aspirin (Aspirin Enteric Coated 81 mg oral delayed release tablet) 1 Tablets By Mouth Every day\.br\ Unchanged atorvastatin (atorvastatin 80 mg Tab) 1 Tablets By Mouth Every day\.br\ Unchanged carvedilol (carvedilol 12.5 mg Tab) 180 EA, TAKE ONE TABLET BY MOUTH TWICE A DAY (WITH BREAKFAST AND EVENING MEAL) \.br\ Unchanged chlorthalidone (chlorthalidone 25 mg Tab) 1 Tablets By Mouth Every day\.br\ Unchanged cholecalciferol (Vitamin D3 2000 intl units oral Tab) 50 Microgram By Mouth Every day\.br\ Unchanged clopidogrel (clopidogrel 75 mg Tab) 1 Tablets By Mouth Every day\.br\ Unchanged insulin detemir (Levemir FlexTouch 100 units/ mL subcutaneous solution) 30 Units Subcutaneous 2 times a day INJECT 30 UNITS TWICE A DAY ( IN THE MORNING AND AT BEDTIME ) \.br\ Unchanged levothyroxine (levothyroxine 125 mcg (0.125 mg) Tab) 1 Tablets By Mouth Every day\.br\ Unchanged liothyronine (liothyronine 5 mcg Tab) 2 Tablets By Mouth Every day TAKE TWO TABLETS BY MOUTH ONCE DAILY IN THE MORNING \.br\ Unchanged losartan (losartan 100 mg Tab) 1 Tablets By Mouth Every day\.br\ Unchanged metformin (metformin 500 mg Tab) 1 Tablets By Mouth 2 times a day Duration: 90 Days\.br\ Unchanged Misc Prescription (BD PEN NEEDLE MINI ULTRA-FINE 31G X 5MM) USE TWICE A DAY DIRECTED (DXE10.8) \.br\ Allergies\.br\ Nuts (Unknown)\.br\ glipiZIDE (Unknown)\.br\ omeprazole (Unknown)\.br\ Problems\.br\ Ongoing - Any problem that you are currently receiving treatment for.\.br\ ASCVD (arterioscleroti c cardiovascular disease)\.br\ Diabetes mellitus type I\.br\ Diabetic neuropathy\.br\ Diverticulosis\. br\ Essential hypertension\.br \ Hypercholesterol emia\.br\ Hypothyroid\.br\ Education Materials\.br\ Fall Prevention in the Home, Adult\.br\ Falls can cause injuries and affect people of all ages. There are many simple things that you can do to make your home safe and to help prevent falls. Ask for help when making these changes, if needed.\.br\ What actions can I take to prevent falls?\.br\ General instructions\.br \ ? \.br\ Use good lighting in all rooms. Replace any light bulbs that burn out, turn on lights if it is dark, and use night-lights.\.b r\ ? \.br\ Place frequently used items in [id number] places. Lower the shelves around your home if necessary.\.br\ ? \.br\ Set up furniture so that there are clear paths around it. Avoid moving your furniture around.\.br\ ? \.br\ Remove throw rugs and other tripping hazards from the floor.\.br\ ? \.br\ Avoid walking on wet floors.\.br\ ? \.br\ Fix any uneven floor surfaces.\.br\ ? \.br\ Add color or contrast paint or tape to grab bars and handrails in your home. Place contrasting color strips on the first and last steps of staircases.\.br\ ? \.br\ When you use a stepladder, make sure that it is completely opened and that the sides and supports are firmly locked. Have someone hold the ladder while you are using it. Do not climb a closed stepladder.\.br\ ? \.br\ Know where your pets are when moving through your home.\.br\ What can I do in the bathroom?\.br\ \.br\ \.br\ ? \.br\ Keep the floor dry. Immediately clean up any water that is on the floor.\.br\ ? \.br\ Remove soap buildup in the tub or shower regularly.\.br\ ? \.br\ Use nonskid mats or decals on the floor of the tub or shower.\.br\ ? \.br\ Attach bath mats securely with double-sided, nonslip rug tape.\.br\ ? \.br\ If you need to sit down while you are in the shower, use a plastic, nonslip stool.\.br\ ? \.br\ Install grab bars by the toilet and in the tub and shower. Do not use towel bars as grab bars.\.br\ What can I do in the bedroom?\.br\ ? \.br\ Make sure that a bedside light is easy to reach.\.br\ ? \.br\ Do not use oversized bedding that reaches the floor.\.br\ ? \.br\ Have a firm chair that has side arms to use for getting dressed.\.br\ What can I do in the kitchen?\.br\ ? \.br\ Clean up any spills right away.\.br\ ? \.br\ If you need to reach for something above you, use a sturdy step stool that has a grab bar.\.br\ ? \.br\ Keep electrical cables out of the way.\.br\ ? \.br\ Do not use floor urdu or wax that makes floors slippery. If you must use wax, make sure that it is non-skid floor wax.\.br\ What can I do with my stairs?\.br\ ? \.br\ Do not leave any items on the stairs.\.br\ ? \.br\ Make sure that you have a light switch at the top and the bottom of the stairs. Have them installed if you do not have them.\.br\ ? \.br\ Make sure that there are handrails on both sides of the stairs. Fix handrails that are broken or loose. Make sure that handrails are as long as the staircases.\.br\ ? \.br\ Install non-slip stair treads on all stairs in your home.\.br\ ? \.br\ Avoid having throw rugs at the top or bottom of stairs, or secure the rugs with carpet tape to prevent them from moving.\.br\ ? \.br\ Choose a carpet design that does not hide the edge of steps on the stairs.\.br\ ? \.br\ Check any carpeting to make sure that it is firmly attached to the stairs. Fix any carpet that is loose or worn.\.br\ What can I do on the outside of my home?\.br\ ? \.br\ Use bright outdoor lighting.\.br\ ? \.br\ Regularly repair the edges of walkways and driveways and fix any cracks.\.br\ ? \.br\ Remove high doorway thresholds.\.br\ ? \.br\ Trim any shrubbery on the main path into your home.\.br\ ? \.br\ Regularly check that handrails are securely fastened and in good repair. Both sides of all steps should have handrails.\.br\ ? \.br\ Install guardrails along the edges of any raised decks or porches.\.br\ ? \.br\ Clear walkways of debris and clutter, including tools and rocks.\.br\ ? \.br\ Have leaves, snow, and ice cleared regularly.\.br\ ? \.br\ Use sand or salt on walkways during winter months.\.br\ ? \.br\ In the garage, clean up any spills right away, including grease or oil spills.\.br\ What other actions can I take?\.br\ ? \.br\ Wear closed-toe shoes that fit well and support your feet. Wear shoes that have rubber soles or low heels.\.br\ ? \.br\ Use mobility aids as needed, such as canes, walkers, scooters, and crutches.\.br\ ? \.br\ Review your medicines with your health care provider. Some medicines can cause dizziness or changes in blood pressure, which increase your risk of falling.\.br\ Talk with your health care provider about other ways that you can decrease your risk of falls. This may include working with a physical therapist or emr trainer to improve your strength, balance, and endurance.\.br\ Where to find more information\.br\ ? \.br\ Centers for Disease Control and Prevention, HAM: www.cdc.gov\.br\ ? \.br\ National [place] on Aging: www.gilberto.nih.gov\ .br\ Contact a health care provider if:\.br\ ? \.br\ You are afraid of falling at home.\.br\ ? \.br\ You feel weak, drowsy, or dizzy at home.\.br\ ? \.br\ You fall at home.\.br\ Summary\.br\ ? \.br\ There are many simple things that you can do to make your home safe and to help prevent falls.\.br\ ? \.br\ Ways to make your home safe include removing tripping hazards and installing grab bars in the bathroom.\.br\ ? \.br\ Ask for help when making these changes in your home.\.br\ This information is not [facility] Family Medicine Office/Clini c Noteon 05-17-2023 Family Medicine Office/Clinic Note Chief Complaint Subsequent Medicare Wellness Visit Review of Systems PHQ Score Initial Depression Screen Score: 0 Physical Exam Vitals & Measurements HR: 56(Peripheral) BP: 132/64 SpO2: 94% HT: 170 cm HT: 67 in WT: 77 kg WT: 169.4 lb BMI: 26.64 Assessment/Plan 1. Annual visit for general adult medical examination without abnormal findings (Z00.00: Encounter for general adult medical examination without abnormal findings) The patient was given a customized and personalized print out of all the current AHRQ USPSTF?s recommendations for preventative services and all current CDC recommended immunizations, relevant risk recommendations and the following patient brochures were given. Reviewed Medicare preventative services checklist. CDC-Falls Prevention and home safety screening reviewed. Patient denies any falls in last 12 months, voices no worry about falling, exhibits no problems with sitting and standing. Pt voices understanding with keeping walk way area free of clutter to prevent tripping and/or falling. [place] Advance Directives reviewed, patient has copy at home, encouraged to bring to office for scanning to chart. Patient denies any problems with ADL?s and Instrumental ADL?s. Cognitive screening completed with memory and clock face drawing, no deficits noted. Immunization Record reviewed with the patient. Discussed Shingrix vaccine with educational handout and availability. COVID vaccines have been administered, with 3 boosters, immunization record is up to date. Allergies and medications reviewed and up to date. Patient denies concerns with taking medication as prescribed, reviewed OTC medications with patient, medication list up to date. Blood tests were reviewed: up to date at this time. Colonoscopy up to date, aged out. Reviewed pain symptoms with patient: denies pain or discomfort concerns. Reviewed all outside providers that patient follows. Last visit summary notes available in chart and/or have been requested. Follow up scheduled, 07/04/2023 AWV has been scheduled, 05/17/2024 Medicare provides yearly screening for alcohol and depression concerns. This is completed during our Medicare Wellness visit for those who do not have a current diagnosis of depression or concerns with alcohol use. I spent a total of 17 minutes on this date of service which included preparing to see the patient, face to face patient care, completing clinical documentation, obtaining and/or reviewing separately obtained history, counseling and educating the patient with handouts. Explanations were provided with reviewing questionnaires. AUDIT risk assessment screening completed, risk score 3 with patient denying concerns with use. Completed PHQ-2 risk assessment for depression with risk score 0, negative findings. Patient has been reminded to notify the provider if there would be a change or concerns with symptoms with fear, unable to sleep, worrying too much or feeling down and/or sad with lost of interest with daily activities. Will continue to monitor with screening yearly during Medicare wellness visits. 2. Diabetes mellitus type I (E10.9: Type 1 diabetes mellitus without complications) Patient is compliant on current DM medications: Metformin and Levemir. Currently on an ARB, does monitors BS at home: DM stoplight handout reviewed with s/s to monitor for and report to PCP. Discussed ADA dietary recommendations with low carbs and reduce sugar intake. Patient encouraged to continue daily physical activity, adequate water intake and maintain a healthy weight. Pt follows up with PCP with yearly DM foot checks, is due at time of next office visit. Reminded patient to perform at home foot checks to prevent future complications, wash with soap and water, apply lotion to bilateral feet and in-between toes to prevent dryness and/or cracking. Wear proper fitting shoes and loose fitting socks and/or hose. Follows up with yearly DM eye exams at [facility], has yearly appointment in near future, last notes have been requested. 3. Diabetic neuropathy (E11.40: Type 2 diabetes mellitus with diabetic neuropathy, unspecified) Patient denies any pain or discomfort to extremities and remains active. Patient ambulates without concern. Patient will continue to follow with PCP as needed. 4. ASCVD (arteriosclerotic cardiovascular disease) (I25.10: Atherosclerotic heart disease of [place] coronary artery without angina pectoris) Patient follows up with [facility], every 6 months. Last visit summary notes are available in chart and have been reviewed. Denies concerns with SOB, chest pain, or tightness. Taking medications daily as directed. Reviewed Cardiac nutritional recommendations with handout provided. Patient voices understanding with signs and symptoms to monitor for and report to provider. Patient walks or rides his bike daily with out any issues or concerns. 5. Essential hypertension (I10: Essential (primary) hypertension) Patient is taking Losartan, Chlorthalidon (more content not included)... [facility] Comment on above: Result Comment: Elec tronically Signed By: Sheree Caraballo\.br\Date and Time Signed: 05/17/23 12:20 EDT\.br\Electronically Co-Signed By: Issa Payan\.br\Date and Time Co-Signed: 05/17/23 09:15 EDT Patient Educationon 05-17-20 23 Patient Education Caregiving Fall Prevention in the Home, Adult Falls can cause injuries and affect people of all ages. There are many simple things that you can do to make your home safe and to help prevent falls. Ask for help when making these changes, if needed. What actions can I take to prevent falls? General instructions ? Use good lighting in all rooms. Replace any light bulbs that burn out, turn on lights if it is dark, and use night-lights. ? Place frequently used items in pydo-cm-wjgik places. Lower the shelves around your home if necessary. ? Set up furniture so that there are clear paths around it. Avoid moving your furniture around. ? Remove throw rugs and other tripping hazards from the floor. ? Avoid walking on wet floors. ? Fix any uneven floor surfaces. ? Add color or contrast paint or tape to grab bars and handrails in your home. Place contrasting color strips on the first and last steps of staircases. ? When you use a stepladder, make sure that it is completely opened and that the sides and supports are firmly locked. Have someone hold the ladder while you are using it. Do not climb a closed stepladder. ? Know where your pets are when moving through your home. What can I do in the bathroom? ? Keep the floor dry. Immediately clean up any water that is on the floor. ? Remove soap buildup in the tub or shower regularly. ? Use nonskid mats or decals on the floor of the tub or shower. ? Attach bath mats securely with double-sided, nonslip rug tape. ? If you need to sit down while you are in the shower, use a plastic, nonslip stool. ? Install grab bars by the toilet and in the tub and shower. Do not use towel bars as grab bars. What can I do in the bedroom? ? Make sure that a bedside light is easy to reach. ? Do not use oversized bedding that reaches the floor. ? Have a firm chair that has side arms to use for getting dressed. What can I do in the kitchen? ? Clean up any spills right away. ? If you need to reach for something above you, use a sturdy step stool that has a grab bar. ? Keep electrical cables out of the way. ? Do not use floor urdu or wax that makes floors slippery. If you must use wax, make sure that it is non-skid floor wax. What can I do with my stairs? ? Do not leave any items on the stairs. ? Make sure that you have a light switch at the top and the bottom of the stairs. Have them installed if you do not have them. ? Make sure that there are handrails on both sides of the stairs. Fix handrails that are broken or loose. Make sure that handrails are as long as the staircases. ? Install non-slip stair treads on all stairs in your home. ? Avoid having throw rugs at the top or bottom of stairs, or secure the rugs with carpet tape to prevent them from moving. ? Choose a carpet design that does not hide the edge of steps on the stairs. ? Check any carpeting to make sure that it is firmly attached to the stairs. Fix any carpet that is loose or worn. What can I do on the outside of my home? ? Use bright outdoor lighting. ? Regularly repair the edges of walkways and driveways and fix any cracks. ? Remove high doorway thresholds. ? Trim any shrubbery on the main path into your home. ? Regularly check that handrails are securely fastened and in good repair. Both sides of all steps should have handrails. ? Install guardrails along the edges of any raised decks or porches. ? Clear walkways of debris and clutter, including tools and rocks. ? Have leaves, snow, and ice cleared regularly. ? Use sand or salt on walkways during winter months. ? In the garage, clean up any spills right away, including grease or oil spills. What other actions can I take? ? Wear closed-toe shoes that fit well and support your feet. Wear shoes that have rubber soles or low heels. ? Use mobility aids as needed, such as canes, walkers, scooters, and crutches. ? Review your medicines with your health care provider. Some medicines can cause dizziness or changes in blood pressure, which increase your risk of falling. Talk with your health care provider about other ways that you can decrease your risk of falls. This may include working with a physical therapist or emr trainer to improve your strength, balance, and endurance. Where to find more information ? Centers for Disease Control and Prevention, STEADI: www.cdc.gov ? National [place] on Aging: www.gilberto.nih.gov Contact a health care provider if: ? You are afraid of falling at home. ? You feel weak, drowsy, or dizzy at home. ? You fall at home. Summary ? There are many simple things that you can do to make your home safe and to help prevent falls. ? Ways to make your home safe include removing tripping hazards and installing grab bars in the bathroom. ? Ask for help when making these changes in your home. This information is not intended to replace advice given to you by your health ca (more content not included)... [facility] Screenson 05-17-2023 Screens [id number]: 127 [facility] Ambulatory Visit Summaryon 0 04-04-2023 Ambulatory Visit Summary JOJO LEWIS JR :1940 Visit Date:04/04/2023 Ambulatory Visit Instructions Your Diagnosis Diabetes mellitus type I BMI 27.0-27.9,adult Non-smoker Your Care Team Attending Physician - Sheree Caraballo Primary Care Physician - Sheree Caraballo [facility] Is [facility]ations [facility] (BD PEN NEEDLE MINI ULTRA-FINE 31G X 5MM) aspirin (Aspirin Enteric Coated 81 mg oral delayed release tablet) atorvastatin (atorvastatin 80 mg Tab) carvedilol (carvedilol 12.5 mg Tab) chlorthalidone (chlorthalidone 25 mg Tab) cholecalciferol (Vitamin D3 2000 intl units oral Tab) clopidogrel (clopidogrel 75 mg Tab) insulin detemir (Levemir FlexTouch 100 units/mL subcutaneous solution) levothyroxine (levothyroxine 125 mcg (0.125 mg) Tab) liothyronine (liothyronine 5 mcg Tab) losartan (losartan 100 mg Tab) metformin (metformin 500 mg Tab) Procedures Performed Colonoscopy (2017), EGD (esophagogastroduodenosc opy) gastric outlet reduction (2017), Cardiac catheter (2014), Cardiac catheter (2000), Appendectomy (1947). Discharge Vitals Temperature (Oral) 36.9 ?C Heart Rate (Peripheral) 60 Respiratory Rate 16 Blood Pressure 146/78 Height 169 cm Height 67 in Weight 78.9 kg Weight 173.58 lb BMI 27.63 What to do next Scheduled Follow-Up Appointments Tuesday 8:00 AM EDT With: Where: [facility] Normal [address] [place] [address]- \.br\ Medications\.br\ What How Much When Instructions\.br \ New metformin (metformin 500 mg Tab) 1 Tablets By Mouth 2 times a day Duration: 90 Days Refills: 3 Pickup at [facility]\.br\ Unchanged aspirin (Aspirin Enteric Coated 81 mg oral delayed release tablet) 1 Tablets By Mouth Every day\.br\ Unchanged atorvastatin (atorvastatin 80 mg Tab) 1 Tablets By Mouth Every day\.br\ Unchanged carvedilol (carvedilol 12.5 mg Tab) 180 EA, TAKE ONE TABLET BY MOUTH TWICE A DAY (WITH BREAKFAST AND EVENING MEAL) \.br\ Unchanged chlorthalidone (chlorthalidone 25 mg Tab) 1 Tablets By Mouth Every day\.br\ Unchanged cholecalciferol (Vitamin D3 2000 intl units oral Tab) 50 Microgram By Mouth Every day\.br\ Unchanged clopidogrel (clopidogrel 75 mg Tab) 1 Tablets By Mouth Every day\.br\ Unchanged insulin detemir (Levemir FlexTouch 100 units/ mL subcutaneous solution) 30 Units Subcutaneous 2 times a day INJECT 30 UNITS TWICE A DAY ( IN THE MORNING AND AT BEDTIME ) \.br\ Unchanged levothyroxine (levothyroxine 125 mcg (0.125 mg) Tab) 1 Tablets By Mouth Every day\.br\ Unchanged liothyronine (liothyronine 5 mcg Tab) 2 Tablets By Mouth Every day TAKE TWO TABLETS BY MOUTH ONCE DAILY IN THE MORNING \.br\ Unchanged losartan (losartan 100 mg Tab) 1 Tablets By Mouth Every day\.br\ Unchanged Misc Prescription (BD PEN NEEDLE MINI ULTRA-FINE 31G X 5MM) USE TWICE A DAY DIRECTED (DXE10.8) \.br\ Pharmacy Information\.br\ [facility]: [address], [place] [id number] [phone]\.br\ Allergies\.br\ Nuts (Unknown)\.br\ glipiZIDE (Unknown)\.br\ omeprazole (Unknown)\.br\ Problems\.br\ Ongoing - Any problem that you are currently receiving treatment for.\.br\ ASCVD (arterioscleroti c cardiovascular disease)\.br\ Diabetes mellitus type I\.br\ Diabetic neuropathy\.br\ Diverticulosis\. br\ Essential hypertension\.br \ Hypercholesterol emia\.br\ Hypothyroid\.br\ \.br\ [facility] Family Medicine Office/Clini c Fredy 04-04-2023 Family Medicine Office/Clinic Note Chief Complaint pt here for 3 month follow up HPI Staff Jojo is a 83 year old male presenting 3 month follow up Diabetes pt seen in office 12/29/22 labs reviewed pt was started on Metformin 500mg daily Patient is here for follow up on Diabetes. How often are you checking your blood sugars? pt checks blood sugar once a month What are your average readings? unknown Do you have low blood sugar readings/symptoms? will feel shakey and dizzy doesn't happen often Do you have high blood sugar readings/symptoms? Are you compliant with your diet? yes Do you exercise? yes Are you compliant with your medicationsyes Difficulty affording your medications? no Do you have any of the following symptoms? Vision problems? no Sexual dysfunction? no GI-Nausea/committing/blo ating? no Lightheadedness? no Paresthesias, Ulcerations or sores? no Lisinopril, aspirin, statin therapy? Yes Foot Exam: no Eye Exam: has appointment this month Microalbumin: U Microalb: 98.2 mcg/mL High (12/28/22 11:09:00) A1c: Hgb A1C %: 9.6 % High (12/28/22 09:21:00) Pt hasn't taken metformin in about 2-3 weeks states didn't have any refills on bottle History of Present Illness pt presents today for follow up on elevated HGBA1C. Review of Systems PHQ Score Initial Depression Screen Score: 0 ROS - Provider Constitutional: no fever, no chills, no sweats, no fatigue Respiratory: no shortness of breath, no cough, no orthopnea, no wheezing. Cardiovascular: no chest pain, no palpitations, no edema. Neurologic: no headache, no dizziness, no numbness, no weakness. Physical Exam Vitals & Measurements T: 36.9 ?C(Oral) HR: 60(Peripheral) RR: 16 BP: 146/78 SpO2: 98% HT: 67 in HT: 169 cm WT: 78.9 kg WT: 173.58 lb BMI: 27.63 General: alert, no acute distress ENMT: oral mucosa moist, no pharyngeal erythema or exudate Cardiovascular: regular rate and rhythm, normal peripheral perfusion Respiratory: Lungs CTA, respirations non labored Extremities: no deformity, no trauma Neurological: oriented x 4, LOC appropriate for age, CN II-XII intact, motor strength equal & normal bilaterally, speech normal Assessment/Plan 1. Diabetes mellitus type I (E10.9: Type 1 diabetes mellitus without complications) pt presents today for follow up on DM. Last HGBA1C was 9.6. pt states he is eating well, and exercises daily. he does not check his BS very often. He did not get refills on metformin. will send with refills. pt denies needs for any other refills. will drawn HGBA1C in office today. all questions answered. RTC 3 months. 2. BMI 27.0-27.9,adult (Z68.27: Body mass index [BMI] 27.0-27.9, adult) BMI education complete Ordered: HgbA1c 3. Non-smoker (Z78.9: Other specified health status) continue not smoking Ordered: HgbA1c Orders: metformin, 500 mg = 1 tab(s), Oral, BID, X 90 day(s), # 180 tab(s), Refills(s) 3, Pharmacy: [facility], 169, cm, 04/04/23 9:12:00 EDT, Height/Length Dosing, 78.9, kg, 04/04/23 9:12:00 EDT, Weight Dosing metformin, 500 mg = 1 tab(s), Oral, BID, # 60 tab(s), Refills(s) 0, Pharmacy: [facility], 169, cm, 12/28/22 8:48:00 EDT, Height/Length Dosing, 77.9, kg, 12/28/22 8:48:00 EDT, Weight Dosing Follow-up No qualifying data available Problem List/Past Medical History Ongoing ASCVD (arteriosclerotic cardiovascular disease) Diabetes mellitus type I Diabetic neuropathy Diverticulosis Essential hypertension Hypercholesterolemia Hypothyroid Historical No qualifying data Procedure/Surgical History Colonoscopy (2017), EGD (esophagogastroduodenosc opy) gastric outlet reduction (2017), Cardiac catheter (2014), Cardiac catheter (2000), Appendectomy (194). Medications Aspirin Enteric Coated 81 mg oral delayed release tablet, 81 mg= 1 tab(s), Oral, Daily atorvastatin 80 mg Tab, 80 mg= 1 tab(s), Oral, Daily, 3 refills BD PEN NEEDLE MINI ULTRA-FINE 31G X 5MM carvedilol 12.5 mg Tab chlorthalidone 25 mg Tab, 25 mg= 1 tab(s), Oral, Daily, 3 refills clopidogrel 75 mg Tab, 75 mg= 1 tab(s), Oral, Daily, 3 refills Levemir FlexTouch 100 units/mL subcutaneous solution, 30 unit(s), SubCutaneous, BID, 3 refills levothyroxine 125 mcg (0.125 mg) Tab, 125 mcg= 1 tab(s), Oral, Daily, 3 refills liothyronine 5 mcg Tab, 10 mcg= 2 tab(s), Oral, Daily, 3 refills losartan 100 mg Tab, 100 mg= 1 tab(s), Oral, Daily, 3 refills metformin 500 mg Tab, 500 mg= 1 tab(s), Oral, BID, 3 refills Vitamin D3 2000 intl units oral Tab, 50 mcg, Oral, Daily, 3 refills Allergies Nuts (Unknown) glipiZIDE (Unknown) omeprazole (Unknown) Social History Alcohol - Low Risk, 12/28/2022 Current, Beer, 1-2 times per week, Household alcohol concerns: No., 12/28/2022 Substance Abuse - Denies Substance Abuse, 12/28/2022 Household substance abuse concerns: No., 12/28/2022 Tobacco - Denies Tobacco Use, 12/28/2022 Never (less than 100 in lifetime) Tobacco Use:. Never Smokeless Tobacco Use:. Household tobacco concern (more content not included)... [facility] Comment on above: Result Comment: Elec tronically Signed By: Sheree Caraballo\.br\Date and Time Signed: 04/04/23 09:29 EDT [id number] 04-04-2023 HbA1c (Bld) [Mass fraction] 8.1 % High <=5.9 [facility] Comment on above: Performed By: #### [id number] ####[facility] [address] [place] [address] Office Visiton 03-21-2023 Follow-up visit [id number] Pillo Lewis Jr. 1940 M Date Provider Department Center 03/21/2023 LUCRETIA ACEVEDO [facility] Family History Problem Relation Age of Onset Heart disease Mother Heart disease Father Alcohol abuse Father Diabetes Brother Family Status - Relation Status Age at Mother Father Brother Level of Service:[address] [place] OFFICE/OUTPATIENT ESTABLISHED LOW MDM 20-29 MIN [facility] Coding Summary.on 01-06-2023 Coding Summary. CD:[id number] Ww+P GhlYWQ+HU4NQXRvC24zjXVpz F8xC8XXGZdSDecjDQQRWUuDQ cIwzuWcGZ8fqLZpHEXt IC8+OM7oYRHfAxopwMZwc2Q7 qHM3I85lza1lWWyezYQ4EINo HpPhjpinx5pezRw1BEyuHwrx OyBt VQGsgK78CSB5cI75Wj64gMZb zUTzb6hbrPz6BfDaZGPkZDM9 kWmmWOycd1ItCSMdD72tuCEv c2U6 RLXbqMzheQErUbRbgHI7kQ8q NXjwxszyt0qulqbgJlo2pi94 yGRpo7J1lNU6P4GuzcT5DCEc bGQg UmgrtUSRyR5xxobqr8aspzrs MnSeHHMvLQz2ZXc3VIKmoTaa XuYuXA98DNL2OAQpuaKyZ6Yz LWFs wLsrDkF0g0C2Sc1LD7PZKybu A3XZJVFICZnvmPY+JQ47os16 L9HfTbddCks9SEPdSBD5tUP6 aD0n YLQyYSsba4S4sYQ5D6MnikJa hk1du4wcUZLkFNiyT38ttMOv o8L8KDIqzNO0OTMipAfxZlSf aG93 Oyc+PRFyxRoid3NfCxmkz3qj e2auvKs6MvxbHIRcwaDlfVbq ZLO6h3NvBx5nTUHfmXL9lIV2 aD0i JdNuWbG1BMbxN846WeImkTUm KvczZ98yB4EhdGF+PHRyPjx0 ARJkyNvnSR0vK2BxEFRcchvn bGVm nXlhTI1fTYAeyjrrBZEifA5k MZSiT2i6UnVuPuX4BJitT9Mo GQQbirktWl11eG3rVeTtCwI3 MGlu A8CzzcG3TBHxtMFbOMlhAXQ4 O82zc4H4FZIsHBZlGWY7zFU7 pA7cxFzrvhxgoGXciGqaprMx dGlj KWotFEkeS868DGRmbSxyHdEw ZGluZyBEYXRlOiAgMDQvMTMv MjAyMzwvdGQ+CWDrTGX5jOra PSAn ySTzMCehZo1sqCwrzGeaGY7h IRSvuktmEWNhnH7eCHBlqFZz gHssKH2oKCLlgaxxd810ZnCw MHB0 SOFfgRZuV8ZspC1mHsXxODQa GKZvR0NooVDmQSsjO860NZtw FxG4RSVkdvYtH4RqWRFdxWmr OiB0 o4Q0Il7Xr9BipamtF1VihOWu VdPjLxjlQKy9K1BnMhxkvQN+ ZI31UIZbMN04DOi3BZO6tWsp PSdi PTQaU0DpjU6mOnMwNKRySODz Oyc+PHRhYmxlIHdpZHRoPScx CSWiQyDewOznDA3nDw1qSIKd LWNv aQblgSXuEfEqe4zhQXMiVYdb UM3swNvwO0QfjWY8BMQow7j7 Ji60Q24wU2OevLL+PGNvbCB3 aWR0 tY1dCrOqNvT6NBjbC074QjZu iUNcZengd8lfo1ktfOe4StT6 KWNgjtLpvDtxKUG5l0EjEk89 Y29s IHdpZHRoPSIxNSUiIHZhbGln qo7urW1cDk3+SURbnXP2nHT3 cP7vJnOfQjN7ZZrbV237MpVp cCIv Wjgae9olb1qkdWt0DzWxKBAr sfTjoTvlYSI3l7VhOs43I7Fi aVczl5NyAwh3kx67iVUjr7E5 bGU9 B7ZjTKUkbpoamMCboLfaDS5s NPRryzxnYPHoeB5pPVJuO2v0 UaMaNjF2CYbzN0LzxzP6VHYr bGQg HOPusBWJhZ3fybcwd4kfuunq ZdRoIFKiVVx9ZDz9NJAkgZwv QvNrYPK1LvX7YDB0gNKseL4e bGln hwqyxG3cNfn+RNJ3wJVsvUPY XY0tDvmagYQ+KJMyYGR6vTeu KGibPGJkyE9kZLPvO8t9McOm LjA1 TFrvY0MuquA6KKCrtBDtUWFy tSYTcY7ywwavd4bplorcQuHm CDFaLYb5RFa1YFHmzFzzGdRt ZWZ0 MrN9KGU1dROcvB3tyFhhtubh iM3qCcz+WxduwAedQIK1KHl7 V2RyQmb0CQRnmSulXJ3rrVSr ZGlu Pa5pfRmnhIgkLZ7aUENapvfv n664FaWda2ccGXKtqZKvLPkh AJT8L52ma0X6JSGoAIRpOXU5 dGV4 xL1wcVihzkfheYBetSlhnrGq qMdvSUcyIGjpS821URGmnCbr KfRiFFo1X6DlCmm6XACctXfw ZT0n dNKgKXqvXl9lvSggoGukER4j CLQucjxbi426SlIuw5qdLVAf bXQcSItbVPH9T59gv0W1HHDl MDAw WTB8oRQ9uE0iyObeniexfYDm bZkywhFtmDpxKFnpPFpnU784 KRNbcMxrGaEvoDf4I0KkVoz1 ZCBz eDznHH2cjIGjILiiJq3zyTfv lMafVZ9gYIDewxkrb497IaXt l5arTPHogSRiZZcnAKL3Y09z b3I6 JIFxCUCfEAB8zFJ7gY7lxXbn bjogbGVmdDsgdmVydGljYWwt GUxdN092EWFsoLzzSvXoaKgh bnQg ZSmvMLw2A2DuHrhbrTJ+PC90 ULEbBI38hXNsdTDzs6ffrPd5 ExRpVVRhLOT7eRblMZqpr2Fv ZXIt G18ehKHti4X3LTSjzQuhqBPf BtUseIC4qW4lOLkdpyjwf6mx pfkfEuafn2tjsv61wD64S91j IHdp GGUlOUVkNJVtQLOhiYcesh8v pR2eVw9+YNOnzHT0xFX2tB4y BWKhRnP4ZOaiK180EjFhjGDg Pjxj n4ing3hbvEu8QcT9VJEgleTi gOgiJAF5f8QdQu42Q02eXDxx FVUuATQaTMTmCYGcrJnhuy1l dG9w Ii8+BRWbkIW9nFB4rP6aUkLe MaI8EQvrE192YqRgdEEkQnld Z93mQ2HazZB+MDMkHrj9GXKq dHls SZ9yqNYiNWwjOh4kPYH9LbSd ItGtAHynM2XwSVBgnwdvpywl kYS9GPEcQQKkwD44Wo5ytByd MTBw lAZCcK7icqtnu4msczfgKtZd LZCkLWc1OYl9DSQfdThkEhUp TXV4TyX4VMS3mKHdqP7qkGtd bjog yF7yD7QuVYVzufheVt18gG1m SmZyIrA3EJanTvw+FaDGP15f SYESRL0IIVBZUaiaxXH+PHRk IHN0 nRapBDfkNKFfkH2sOZRrS0e5 YvFjBkN7ZUhdC0EqUZOtmwbz Vb40aU8iUdTkQpX9QAgjJ7Ht bnQ6 YMKdxLTiQFfhJPC1K91od4A1 RFNlQHNrZYA9hFR3kI6kpEwy bjogbGVmdDsgdmVydGljYWwt YWxp X845OCTeqXswYaF6AeH6NrR3 DOL9P2FrNrq2CWKywWzeCI6j iRRfMOgrYa4vbEtukGglCM6b NTBp ksadYELepK2cUIUngGRpbNhs OQ0rPJDhlzeht895HaZcBCF7 QDIloCHwJ9FaaO4pLvJkLSVz MDAw R4RspEEuOIrrY089TNfmJvX4 ETRbkxKdC9WdATXhnLvkHmF5 r0S6Wz75IaKMCWBaqrhopGU+ PHRk QPV6uTxlEPaeJLVngF2qMYCv E3m9UzPqWjB7FGkkU7StQNMw qolmBi01oK3pKkJrOuU9RLgy O2Zv gyD3WEHhqTJuZWefMRM6G31x v3R8KRUqZBNnLLB2pVE2rS1w bGlnbjogbGVmdDsgdmVydGlj YWwt PZktF372MXXkzNxjVu0vnRP9 R8CwHjs7BRPihSaeRC9ssYIa XQmpRe4foGngfLvqFF8rLDQu bjtw ZAQprX8vWCRywBCdfWhsQU2l YURuyllxl042UpIoGDL4JZFy mCUoS3SczY7iGrAcMTIhFOKc O3Rl uMXhZGjuM221IJahXtI6OPYc ysKhN3EbVUBkwVvdNrX0q3Y6 Vp5WWXQyVPVqnLPwIoW9A1Gw Pjwv dHI+EN67FOPaAI09zPFghSXe m1vgfOw7ZuEtFNItOMF1aZlz ZOpif6AhQMDtI96hkGEjr2T9 IGNv nUrjqSDkJwJvwXW5lR6sBUqd bncyx0abhqwxThmhb2pptg37 sM32I38kPNhhFPXaBCNcLNBl IHZh qUtukq0eyL0jNg3+PGNvbCB3 rDV6jN7yTsTuZkG8YCvcP828 BuLkrIJrOcqms3vim5vbiVh6 IjIw LSZzcnHqcJgpNFB9w7VaVx54 F44kBOgaOKPxWYRpJEUqSTKs eAnsit5fmS0dXu1+JJ7tj0dm cm91 fC04lTQ+GRGeHZJ3dFytNFsr SWWutC9dKHdqVyI1AQZzSyJt sH70iVAnTQdfQr6moUganTug MC4w WKZoqqmqd592HfXvm2iwYAUx fLKpIDmpJSB1R91nf0S5YWJm LTYnPFW7mFQ7zN9jyRjbulan bGVm iKtktlMjlMjgGKgrUHveO901 ELPhbAjtOqQrbYOaY1jsdfIZ PN9qMeuutTT+VCHyNMI1rGje PSdw HSRtjP5cYMYvT3j5MpXnByP9 HLwsQ3OhruC8PHTfyWDuCRAo sGMMcV4wbzequ2katpumDcIw MDAw QHi2CUj3IBGmeWtdVwFjRVC2 DtO1NUX0bKVtvT7mjMncgzhy jJ1rBwj+RklOOjwvdGQ+PHRk IHN0 qEhsQLmaEOOjoU7nVVZsN0l5 MfJbZrH2PRkbA7ZiafN4JUVx bBYnUQMesGFKvP5mxkxrp7ne cjog SwEtCGGrXFl4ZBq9EQEchNix JaZeGLW8ZjK6ELK2iSJtvW0r pDxcomyowS4sZsz+TVJOOjwv dGQ+ KMToUGS2cBnkTYdcYHKffI1i VLJdV0n3UtHqRiP4FDxjD6Hv mdA5AHTdlUFiMOOcqEJKaN5z cztj k0oecsfhZnHzQJItMRp4UTd6 IRQggCiyBeIdRLU7ZtV3ARN3 pPVfgQ1bbNzdlccswM3qZwd+ UGF5 WYC2BR83TK63Q6WjAoianJPs bGU+PHRhYmxlIHdpZHRoPScx NLYbZnKnmFqkFW1zWh6qMWWm LWNv bGxhcHNl (more content not included)... Normal [facility] Echocardiographyon Echocardiography [id number]: 127 Normal [facility] Follow-Upon 01-05-2023 Follow-Up [id number] Pillo Lewis Jr. 1940 Date Provider Department [place] 01/05/2023 271-EDWARD, LUCRETIA CARD Cecilia Hos Family History Problem Relation Age of Onset Heart disease Mother Heart disease Father Alcohol abuse Father Diabetes Brother Family Status - Relation Status Age at Mother Father Brother Level of Service:22413 [place] OFFICE/OUTPATIENT ESTABLISHED MOD MDM 30-39 MIN Reason for Visit and Comments: Coronary Artery Disease [187] Hypertension [981823] Hyperlipidemia [182] aneurysm of aortic root [Other] Valve Disorder [3372] Normal [facility] T3 Freeon 12-30-2022 Free T3 [Mass/Vol] 3.3 pg/mL Invalid Interpretation Code 2.0-4.4 [facility] Comment on above: Result Comment: Perf ormed at: CB [facility] [address] [id number] PhD Chandler Dacosta Performed By: #### 1 [id number], 1948255, 2620172, 8720434, 10677602, 09439530, 7641547, 6758356, [id number] ####[facility] [address] [place] [address] Ambulatory Visit Summaryon 0 12-28-2022 Ambulatory Visit Summary JOJO LEWIS :1940 Visit Date:12/28/2022 Ambulatory Visit Instructions Your Diagnosis Diabetes mellitus type I Essential hypertension Hypercholesterolemia Hypothyroid ASCVD (arteriosclerotic cardiovascular disease) BMI 27.0-27.9,adult Non-smoker Your Care Team Attending Physician - Sheree Caraballo Primary Care Physician - Sheree Caraballo This Is Your Medications List [facility] [place] Prescription (BD PEN NEEDLE MINI ULTRA-FINE 31G X 5MM) aspirin (Aspirin Enteric Coated 81 mg oral delayed release tablet) atorvastatin (atorvastatin 80 mg Tab) chlorthalidone (chlorthalidone 25 mg Tab) cholecalciferol (Vitamin D3 2000 intl units oral Tab) clopidogrel (clopidogrel 75 mg Tab) insulin detemir (Levemir FlexTouch 100 units/mL subcutaneous solution) levothyroxine (levothyroxine 125 mcg (0.125 mg) Tab) liothyronine (liothyronine 5 mcg Tab) losartan (losartan 100 mg Tab) metoprolol (metoprolol 50 mg ER Tab) Procedures Performed Colonoscopy (2017), EGD (esophagogastroduodenosc opy) gastric outlet reduction (2017), Cardiac catheter (2014), Cardiac catheter (2000), Appendectomy (1947). Discharge Vitals Heart Rate (Peripheral) 67 Blood Pressure 130/72 Height 169 cm Height 67 in Weight 77.9 kg Weight 171.38 lb BMI 27.27 Medications What How Much When Instructions Changed chlorthalidone (chlorthalidone 25 mg Tab) 1 Tablets By Mouth Every day Pickup at [facility] Changed cholecalciferol (Vitamin D3 2000 intl units oral Tab) 50 Microgram By Mouth Every day Pickup at [facility] Changed clopidogrel (clopidogrel 75 mg Tab) 1 Tablets By Mouth Every day Pickup at [facility] Changed insulin detemir (Levemir FlexTouch 100 units/ mL subcutaneous solution) 30 Units Subcutaneous 2 times a day INJECT 30 UNITS TWICE A DAY ( IN THE MORNING AND AT BEDTIME ) Pickup at [facility] Changed levothyroxine (levothyroxine 125 mcg (0.125 mg) Tab) 1 Tablets By Mouth Every day Pickup at [facility] Changed liothyronine (liothyronine 5 mcg Tab) 2 Tablets By Mouth Every day TAKE TWO TABLETS BY MOUTH ONCE DAILY IN THE MORNING Pickup at [facility] Changed losartan (losartan 100 mg Tab) 1 Tablets By Mouth Every [facility] Unchanged aspirin (Aspirin Enteric Coated 81 mg oral delayed release tablet) 1 Tablets By Mouth Every day Unchanged atorvastatin (atorvastatin 80 mg Tab) 1 Tablets By Mouth Every day Unchanged metoprolol (metoprolol 50 mg ER Tab) 1 Tablets By Mouth Every day Unchanged Misc Prescription (BD PEN NEEDLE MINI ULTRA-FINE 31G X 5MM) USE TWICE A DAY DIRECTED (DXE10.8) Pharmacy Information [facility]: [address], [place] [phone] Allergies Nuts (Unknown) glipiZIDE (Unknown) omeprazole (Unknown) Problems Ongoing - Any problem that you are currently receiving treatment for. ASCVD (arteriosclerotic cardiovascular disease) Diabetes mellitus type I Diabetic neuropathy Diverticulosis Essential hypertension Hypercholesterolemia Hypothyroid Normal [facility] Auto Diffon 12-28-2022 Basophils/100 WBC (Bld) 0.7 % Normal 0.0-2.0 [facility] Comment on above: Order Comment: Order Added by Discern Expert. Performed By: #### 1 4076277, 4268142, 5455268, 7545115, 55821507, 58065784, 7325984, 3250519, 020682948 ####[facility] [address] [place] [address] Basophils/Leukocyte s Auto (Bld) [Pure # fraction] 0.1 E9/L Normal 0.0-0.2 [facility] Comment on above: Order Comment: Order Added by Discern Expert. Performed By: #### 1 0074087, 3469212, 2912279, 3508574, 47071976, 09390908, 3053198, 0410505, 372602620 ####[facility] [address] [place] [address] Eosinophils/100 WBC (Bld) 11.6 % High 0.0-8.0 [facility] Comment on above: Order Comment: Order Added by Discern Expert. Performed By: #### 1 6627459, 6160491, 3618170, 5619332, 67444023, 92306258, 0596626, 1246275, 517523830 ####[facility] [address] [place] [address] Eosinophils/Leukocy patsy Auto (Bld) [Pure # fraction] 1.0 E9/L High 0.0-0.5 [facility] Comment on above: Order Comment: Order Added by Discern Expert. Performed By: #### 1 2602674, 4444083, 8475164, 0407023, 78201382, 14707796, 0963740, 5400420, 983641974 ####[address] [place] [address] Lymphocytes/100 WBC (Bld) 16.2 % Normal 14.0-50.0 [facility] Comment on above: Order Comment: Order Added by Discern Expert. Performed By: #### 1 1650803, 0805278, 8327411, 7789674, 93279466, 09889346, 7945428, 1923022, 883631777 ####[address] [place] [address] Lymphocytes/Leukocy patsy Auto (Bld) [Pure # fraction] 1.4 E9/L Normal 1.0-4.0 [facility] Comment on above: Order Comment: Order Added by Discern Expert. Performed By: #### 1 7621488, 9825991, 0324891, 0945457, 14474446, 21788940, 1497175, 6400816, 886130445 ####[facility] [address] [place] [address] Monocytes/100 WBC (Bld) 8.0 % Normal 4.0-14.0 [facility] Comment on above: Order Comment: Order Added by Yoselin Expert. Performed By: #### 1 8981855, 8383190, 7455046, 4383694, 40383510, 17436320, 5801925, 2964144, 864611309 ####[facility] [address] [place] [address] Monocytes/Leukocyte s Auto (Bld) [Pure # fraction] 0.7 E9/L Normal 0.2-1.0 [facility] Comment on above: Order Comment: Order Added by Discern Expert. Performed By: #### 1 2041260, 4357853, 3131855, 8520142, 58332008, 09237238, 0781340, 2564645, 580418002 ####[address] [place] [address] Neutrophils/100 WBC (Bld) 63.5 % Normal 36.0-75.0 [facility] Comment on above: Order Comment: Order Added by Discern Expert. Performed By: #### 1 3642101, 8269767, 0817757, 0533195, 19436456, 91348275, 7164522, 2362114, 967836788 ####[address] [place] [address] Neutrophils/Leukocy patsy Auto (Bld) [Pure # fraction] 5.6 E9/L Normal 2.0-7.5 [facility] Comment on above: Order Comment: Order Added by Discern Expert. Performed By: #### 1 9979009, 4864938, 6589523, 2590823, 55510955, 35730439, 5353687, 8296174, 341770032 ####[address] [place] [address] CBC w/ Auto Diffon 3 Erythrocyte distribution width (RBC) [Ratio] 14.0 % Normal 10.9-14.2 [facility] Comment on above: Performed By: #### 1 7463766, 7067774, 1068125, 2093517, 49984627, 62223012, 6959611, 8042930, 130848307 ####[address] [place] [address] Hematocrit (Bld) [Volume fraction] 38.2 % Normal 37.7-49.0 [facility] Comment on above: Performed By: #### 1 7900995, 4997270, 1218723, 5247310, 49419676, 26230635, 9806118, 6894958, 445492172 ####[facility] [address] [place] [address] Hemoglobin (Bld) [Mass/Vol] 12.9 g/dL Low 13.5-17.5 [facility] Comment on above: Performed By: #### 1 4072484, 6589034, 1241151, 0293093, 85932703, 85118916, 1451591, 3406622, 141923942 ####[address] [place] [address] MCH (RBC) [Entitic mass] 31.3 pg Normal 27.0-34.0 [facility] Comment on above: Performed By: #### 1 9859661, 7882518, 6373791, 4746145, 80041581, 66941964, 4526030, 5050613, 019531499 ####[facility] [address] [place] [address] MCHC (RBC) [Mass/Vol] 33.9 g/dL Normal 31.4-36.0 [facility] Comment on above: Performed By: #### 1 1782822, 4201589, 0974426, 3118645, 78001557, 35431948, 9500421, 5026310, 492985255 ####[address] [place] [address] MCV (RBC) [Entitic vol] 92.4 fL Normal 80.0-100.0 [facility] Comment on above: Performed By: #### 1 2694935, 2021788, 6392686, 8429256, 35239659, 03678448, 9933563, 8719210, 570185021 ####[facility] [address] [place] [address] Platelet mean volume (Bld) [Entitic vol] 8.7 fL Normal 6.4-10.8 [facility] Comment on above: Performed By: #### 1 1497616, 6276493, 1893092, 9453845, 33701081, 77443894, 2099441, 3167898, 556743788 ####[facility] [address] [place] [address] Platelets (Bld) [#/Vol] 303.0 E9/L Normal 150.0-500.0 [facility] Comment on above: Performed By: #### 1 6167866, 2046588, 8610568, 3314836, 51578984, 76038946, 5495969, 1795840, 676242354 ####[facility] [address] [place] [address] RBC (Bld) [#/Vol] 4.1 E12/L Low 4.3-5.9 [facility] Comment on above: Performed By: #### 1 5427478, 2046992, 1532673, 9368584, 86240333, 18395321, 3204013, 9369139, 079592593 ####[facility] [address] [place] [address] WBC corrected for nucl RBC Auto (Bld) [#/Vol] 8.8 E9/L Normal 4.0-11.0 [facility] Comment on above: Result Comment: Slid e reviewed by ts . Performed By: #### 1 9912988, 1242237, 8852990, 4749048, 48600610, 46569331, 0194092, 1282258, 548817166 ####[facility] [address] [place] [address] CHEMISTRYOrdered By: Juan arcoster on 12-28-2022 Albumin DL <= 20 mg/L (U) [Mass/Vol] 98.2 microgram/mL High 0.0 - 19.0 mcg/mL [facility] CHEMISTRYOrdered By: SYSTEM SYSTEM on 12-28-2022 Albumin [Mass/Vol] 4.5 g/dL Normal 3.3 - 5.0 gm/dL F [facility] Albumin/Globulin [Mass ratio] 1.4 {ratio} Normal 1.1 - 2.2 [facility] ALP [Catalytic activity/Vol] 95 [iU]/d Normal 21 - 98 Int._Unit/L [facility] ALT No additional P-5'-P [Catalytic activity/Vol] 13 [iU]/d Normal 6 - 46 Int._Unit/L [facility] Anion gap [Moles/Vol] 12 mmol/L Normal 6 - 16 mEq/L [facility] AST [Catalytic activity/Vol] 20 [iU]/d Normal 5 - 43 Int._Unit/L [facility] Bilirubin [Mass/Vol] 0.8 mg/dL Normal 0.0 - 1.1 mg/dL [facility] Calcium [Mass/Vol] 9.4 mg/dL Normal 8.9 - 11.1 mg/dL [facility] Chloride [Moles/Vol] 102 mmol/L Normal 101 - 111 mmol/L [facility] Cholesterol [Mass/Vol] 132 mg/dL Normal 120 - 200 mg/dL [facility] Cholesterol in HDL [Mass/Vol] 29 mg/dL Invalid Interpretation Code [facility] Cholesterol in LDL [Mass/Vol] 64 mg/dL Normal <=129mg/dL [facility] Cholesterol in VLDL [Mass/Vol] 35 mg/dL Normal 7 - 40 mg/dL [facility] CO2 [Moles/Vol] 26 mmol/L Normal 21 - 31 mmol/L [facility] Creatinine [Mass/Vol] 1.5 mg/dL High 0.5 - 1.3 mg/dL [facility] GFR/1.73 sq M.predicted among blacks MDRD (S/P/Bld) [Vol rate/Area] 54 mL/min/1.73 m2 Low >=59mL/min/1.73 m2 [facility] Chem S GFR/1.73 sq M.predicted among non-blacks MDRD (S/P/Bld) [Vol rate/Area] 45 mL/min/1.73 m2 Low >=59mL/min/1.73 m2 [facility] Chem S Globulin (S) [Mass/Vol] 3.2 g/dL Normal 1.4 - 4.0 gm/dL [facility] Glucose [Mass/Vol] 183 mg/dL Normal 55 - 199 mg/dL [facility] Potassium [Moles/Vol] 4.3 mmol/L Normal 3.5 - 5.3 mmol/L [facility] Prostate specific Ag [Mass/Vol] 1.2 ng/mL Normal 0.1 - 3.5 ng/mL [facility] Protein [Mass/Vol] 7.7 g/dL Normal 6.0 - 7.8 gm/dL F [facility] [place] Remisol Sodium [Moles/Vol] 136 mmol/L Normal 135 - 145 mmol/L [facility] Triglyceride [Mass/Vol] 176 mg/dL High <=149mg/dL [facility] TSH Qn 3.45 m[IU]/L Normal 0.34 - 5.60 mcIU/mL [facility] Urea nitrogen [Mass/Vol] 32 mg/dL High 5 - 21 mg/dL [facility] [place] Remisol Urea nitrogen/Creatinine [Mass ratio] 21 mg/mg High 10 - 20 [facility] CHEMISTRYOrdered By: Sena Jacobsen on 12-28-2022 HbA1c (Bld) [Mass fraction] 9.6 % High <=5.9% [facility] [place] ChemAutoSS CMPon 12-28-2022 Albumin [Mass/Vol] 4.5 g/dL Normal 3.3-5.0 [facility] Comment on above: Performed By: #### 1 1671743, 0523213, 2982266, 7020409, 49669768, 85384520, 6268378, 1365758, 649817150 ####[facility] [address] [place] [address] Albumin/Globulin (S) [Mass conc ratio] 1.4 Normal 1.1-2.2 [facility] Comment on above: Performed By: #### 1 7136649, 2601186, 2036667, 4952384, 41359263, 40891873, 8502100, 5680270, 694167351 ####[facility] [address] [place] [address] ALP [Catalytic activity/Vol] 95 Int._Unit/L Normal 21-98 [facility] Comment on above: Performed By: #### 1 0305984, 5008567, 3795402, 7310683, 12631364, 14028516, 5292793, 6936071, 373706471 ####[facility] [address] [place] [address] ALT No additional P-5'-P [Catalytic activity/Vol] 13 Int._Unit/L Normal 6-46 [facility] Comment on above: Performed By: #### 1 8776178, 5588404, 1015626, 9972767, 51756036, 69389032, 3987913, 2149161, 369364424 ####[address] [place] [address] Anion gap [Moles/Vol] 12 mmol/L Normal 6-16 [facility] Comment on above: Performed By: #### 1 5664110, 5646908, 7358912, 9755758, 91758786, 42101002, 3014655, 2524940, 498903512 ####[address] [place] [address] AST [Catalytic activity/Vol] 20 Int._Unit/L Normal 5-43 [facility] Comment on above: Performed By: #### 1 5581706, 1435692, 3417064, 4032064, 63245519, 38201056, 2007216, 4369276, 092351984 ####[address] [place] [address] Bilirubin [Mass/Vol] 0.8 mg/dL Normal 0.0-1.1 [facility] Comment on above: Performed By: #### 1 1678225, 5739033, 5289643, 0197047, 07748103, 06459225, 9853654, 5155935, 706768233 ####[facility] [address] [place] [address] Calcium [Mass/Vol] 9.4 mg/dL Normal 8.9-11.1 [facility] Comment on above: Performed By: #### 1 8340067, 5809124, 1628206, 1354565, 95360874, 00809960, 4368198, 1355614, 966938830 ####[facility] [address] [place] [address] Chloride [Moles/Vol] 102 mmol/L Normal 101-111 [facility] Comment on above: Performed By: #### 1 3621319, 0203773, 9443868, 0669422, 13783437, 74963569, 2374546, 9113564, 263308726 ####[facility] [address] [place] [address] CO2 [Moles/Vol] 26 mmol/L Normal 21-31 [facility] Comment on above: Performed By: #### 1 6921963, 9919229, 3745168, 2840675, 65554669, 32952611, 3518655, 3198260, 101762869 ####[facility] [address] [place] [address] Creatinine [Mass/Vol] 1.5 mg/dL High 0.5-1.3 [facility] Comment on above: Performed By: #### 1 0686098, 3648502, 5110084, 2373413, 57735903, 95266105, 5951289, 6372480, 908567837 ####[facility] [address] [place] [address] Globulin (S) [Mass/Vol] 3.2 g/dL Normal 1.4-4.0 [facility] Comment on above: Performed By: #### 1 2133177, 1841227, 1414629, 3685169, 30909385, 50852256, 8859532, 8759132, 037410646 ####[facility] [address] [place] [address] Glucose [Mass/Vol] 183 mg/dL Normal 55-199 [facility] Comment on above: Result Comment: If t his glucose result represents a fasting glucose, interpretation should refer to the following reference range: 55-99 mg/dL Performed By: #### 1 9085943, 9905297, 7859048, 3691442, 56659672, 48406971, 3920164, 5759356, 466710238 ####[facility] [address] [place] [address] Potassium [Moles/Vol] 4.3 mmol/L Normal 3.5-5.3 [facility] Comment on above: Performed By: #### 1 1515244, 6128899, 4354522, 2194110, 08914955, 11467697, 1644348, 1638780, 382983282 ####[address] [place] [address] Protein [Mass/Vol] 7.7 g/dL Normal 6.0-7.8 [facility] Comment on above: Performed By: #### 1 2664726, 6020050, 4721940, 7863378, 52258457, 58203848, 9500633, 2317796, 140621603 ####[address] [place] [address] Sodium [Moles/Vol] 136 mmol/L Normal 135-145 [facility] Comment on above: Performed By: #### 1 1796015, 5993378, 5076827, 3027454, 75133136, 60768579, 3546972, 0369044, 499736720 ####[address] [place] [address] Urea nitrogen [Mass/Vol] 32 mg/dL High 5-21 [facility] Comment on above: Performed By: #### 1 9561190, 0758059, 6980136, 0874181, 78249432, 52905989, 3237481, 1431245, 068603362 ####[facility] [address] [place] [address] Urea nitrogen/Creatinine [Mass ratio] 21 No Units High 10-20 [facility] Comment on above: Performed By: #### 1 8902403, 1445683, 1956812, 2205988, 09526540, 63312029, 7409807, 3682064, 527417793 ####[facility] [address] [place] [address] Family Medicine Office/Clini c Noteon 12-28-2022 Family Medicine Office/Clinic Note Chief Complaint establish care IVONE Amezcua is an 82 year old male who presents to establish care and discuss his chronic diagnosis. 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 Cifuentes Any recent labs: a long time pt cannot recall Acute: Current issues/complaints: He had a stress test completed with his glass edger yesterday at [facility]. He also reports having a rash on his skin that looks as though someone has scratched him on his legs and he had a small outbreak of a rash near the right side of the corner of his mouth Patient is here for follow up on Diabetes. Pt has a chronic dx of T1D. He currently takes 30 units of insulin BID however pt does not recall what type of insulin he is currently taking. How often are you checking your blood sugars? He admits to not checking this very often Are you compliant with your diet? yes Do you exercise? yes 5-7 days a week Are you compliant with your medications? yes Do you have any of the following symptoms? Vision problems? no GI-Nausea/vomitting/bloa ting? no Lightheadedness? no Paresthesias, Ulcerations or sores? no Lisinopril, aspirin, statin therapy? Okg07vd ASA and Atorvastatin 80mg QD Foot Exam: Due, pt has never had one completed Eye Exam: [facility] [place] every year around December, pt is due Microalbumin: Due A1C: Due Patient is here for follow up on Thyroid Disease. Do you have any of the following symptoms? Pt has a chronic dx of hypothyroidism, he currently takes 125mcg of levothyroxine QD and liothyronine 5mcg, two tablets QD as directed without adverse effects. Change in energy level? yes Pt states his energy is very low but relates this to his age. Weight change? no Heat/cold intolerance? no Hair/skin/nail changes? no Change in bowels? no Last TSH: Due Patient is here for follow up on hypertension. Chronic dx of HTN, he currently takes Chlorthalidone 25mg QD, Losartan 100mg QD, and Metoprolol 50mg QD as directed without adverse reactions. How often are you checking your blood pressure? not often Are you compliant with your diet? yes Do you exercise? yes Are you compliant with your medications?yes Difficulty affording your medications? no Do you have side effects from the medication? None Do you have any of the following symptoms? Chest Pain? no Palpitations? no YOUNGBLOOD/SOB? no Headache? no Peripheral Edema? no Light Headed-ness? no Health Maintenance UTD: Colonoscopy: 2018 PSA: Due History of Present Illness pt presents today to establish care. needs labs a refills on meds Review of Systems PHQ Score Initial Depression Screen Score: 0 ROS - Provider Constitutional: no fever, no chills, no sweats, no weakness. Skin: no Jaundice, no rash, no lesions, no petechiae. ENMT: no ear pain, no sore throat, no congestion, no hoarseness,no swelling of lymph nodes Respiratory: no shortness of breath, no cough, no orthopnea, no wheezing. Cardiovascular: no chest pain, no palpitations, no edema. Gastrointestinal: no nausea, no vomiting, no diarrhea, no GI bleeding. Genitourinary: no dysuria, no hematuria, no discharge, no pain. Musculoskeletal: no back pain, no trauma. Neurologic: no headache, no dizziness, no numbness, no weakness. Psychiatric: noDepressionno Anxietyno sleeping problems, no Suicidal thoughts or ideationsno mood swings Additional ROS info: Except as noted in the above Review of Systems and in the History of Present Illness all other systems have been reviewed and are negative or noncontributory. Physical Exam Vitals & Measurements HR: 67(Peripheral) BP: 130/72 SpO2: 99% HT: 67 in HT: 169 cm WT: 77.9 kg WT: 171.38 lb BMI: 27.27 General: alert, no acute distress Skin: warm, dry Head: no trauma, normocephalic Neck: Trachea midline, thyroid not enlarged Eye: normal conjunctiva, sclera clear ENMT: oral mucosa moist, yes Cardiovascular: regular rate and rhythm, normal Respiratory: respirations non labored Chest wall: no deformity. Gastrointestinal: soft, non distended, no tenderness Back: No tenderness Extremities: no edema, no wound Neurological: awake, alert, oriented, speech normal Psychiatric: cooperative, affect appropriate for age Assessment/Plan 1. Annual visit for general adult medical examination without abnormal findings (Z00.00: Encounter for general adult medical examination without abnormal findings) 2. Diabetes mellitus type I (E10.9: Type 1 diabetes mellitus without complications) pt presents today for lab work and to establish care. pt denies symptoms at this time. he states he eats right and exercises daily. Labs drawn in office. meds refilled. all questions answered. RTC as needed Ordered: CBC w/ Auto Diff Comprehensive Metabolic Panel (more content not included)... Normal [facility] Comment on above: Result Comment: Elec tronically Signed By: Sheree Caraballo\.br\Date and Time Signed: 12/28/22 11:08 EDT HEMATOLOGYOrdered By: SYSTEM SYSTEM on 12-28-2022 Basophils/100 WBC (Bld) 0.7 % Normal 0.0 - 2.0 % [facility] HemeAutoSS Basophils/Leukocyte s Auto (Bld) [Pure # fraction] 0.1 E9/L Normal 0.0 - 0.2 E9/L [facility]eAutoSS Eosinophils/100 WBC (Bld) 11.6 % High 0.0 - 8.0 % [facility]eAutoSS Eosinophils/Leukocy patsy Auto (Bld) [Pure # fraction] 1.0 E9/L High 0.0 - 0.5 E9/L [facility]eAutoSS Lymphocytes/100 WBC (Bld) 16.2 % Normal 14.0 - 50.0 % [facility] HemeAutoSS Lymphocytes/Leukocy patsy Auto (Bld) [Pure # fraction] 1.4 E9/L Normal 1.0 - 4.0 E9/L [facility]eAutoSS Monocytes/100 WBC (Bld) 8.0 % Normal 4.0 - 14.0 % [facility] HemeAutoSS Monocytes/Leukocyte s Auto (Bld) [Pure # fraction] 0.7 E9/L Normal 0.2 - 1.0 E9/L [facility]eAutoSS Neutrophils/100 WBC (Bld) 63.5 % Normal 36.0 - 75.0 % [facility] HemeAutoSS Neutrophils/Leukocy patsy Auto (Bld) [Pure # fraction] 5.6 E9/L Normal 2.0 - 7.5 E9/L [facility] HemeAutoSS HEMATOLOGYOrdered By: Ping Arellano on 12-28-2022 Erythrocyte distribution width (RBC) [Ratio] 14.0 % Normal 10.9 - 14.2 % [facility]eAutoSS Hematocrit (Bld) [Volume fraction] 38.2 % Normal 37.7 - 49.0 % [facility] HemeAutoSS Hemoglobin (Bld) [Mass/Vol] 12.9 g/dL Low 13.5 - 17.5 gm/dL [facility] HemeAutoSS MCH (RBC) [Entitic mass] 31.3 pg Normal 27.0 - 34.0 pg [facility]eAutoSS MCHC (RBC) [Mass/Vol] 33.9 g/dL Normal 31.4 - 36.0 gm/dL [facility]eAutoSS MCV (RBC) [Entitic vol] 92.4 fL Normal 80.0 - 100.0 fL [facility]eAuto[facility] Platelet mean volume (Bld) [Entitic vol] 8.7 fL Normal 6.4 - 10.8 fL [facility]eAutoSS Platelets (Bld) [#/Vol] 303.0 E9/L Normal 150.0 - 500.0 E9/L [facility]eAutoSS RBC (Bld) [#/Vol] 4.1 E12/L Low 4.3 - 5.9 E12/L [facility] HemeAutoSS WBC corrected for nucl RBC Auto (Bld) [#/Vol] 8.8 E9/L Normal 4.0 - 11.0 E9/L [facility] HemeAutoSS Comment on above: Result Comment: Slid e reviewed by valentina Kilpatrick [id number] 12-28-2022 HbA1c (Bld) [Mass fraction] 9.6 % High <=5.9 [facility] Comment on above: Performed By: #### 1 [id number], 6233097, 0282400, 3467396, 50002947, 39571572, 4445895, 7680490, [id number] ####[facility] [address] [place] [address] Lipid Panelon 12-28-2022 Cholesterol [Mass/Vol] 132 mg/dL Normal 120-200 [facility] Comment on above: Performed By: #### 1 [id number], 9700416, 4634150, 3244794, 36093433, 09358707, 6618263, 3941120, [id number] ####[facility] [address] [place] [address] Cholesterol in HDL [Mass/Vol] 29 mg/dL Invalid Interpretation Code [facility] Comment on above: Result Comment: HDL > or equal to 60 mg/dL: Low cardiovascular risk HDL < 40 mg/dL : High cardiovascular risk Performed By: #### 1 [id number], 0890396, 6678692, 8467400, 47275405, 62707908, 0497552, 8303217, 824173075 ####[facility] [address] [place] [address] Cholesterol in LDL [Mass/Vol] 64 mg/dL Normal <=129 [facility] Comment on above: Performed By: #### 1 9578373, 1651924, 2533681, 1070785, 38872912, 95847127, 5205872, 0807889, [id number] ####[facility] [address] [place] [address] Cholesterol in VLDL [Mass/Vol] 35 mg/dL Normal 7-40 [facility] Comment on above: Performed By: #### 1 0999623, 5471164, 0287763, 6470903, 72777904, 14678322, 9780474, 7250729, 167564948 ####[facility] [address] [place] [address] Triglyceride [Mass/Vol] 176 mg/dL High <=149 [facility] Comment on above: Performed By: #### 1 4403360, 9046618, 7721345, 7339978, 84999479, 95044032, 3858109, 8137573, [id number] ####[facility] [address] [place] [address] PSA Screen, Totalon 12-29-19 23 Prostate specific Ag [Mass/Vol] 1.2 ng/mL Normal 0.1-3.5 [facility] Comment on above: Result Comment: The concentration of PSA determined by different manufacturers can vary due to differences in assay methods and reagent specificity. Values obtained from different assay methods cannot be used interchangeably. The methodology used for this result was chemiluminescence using [employer]'s Access Hy[employer]itech PSA reagent. Performed By: #### 1 1006816, 1478436, 1153966, 2986339, 05629968, 49600884, 5451323, 8506887, [id number] ####[facility] [address] [place] [address] TSH With T4fr Reflexon 12-28 TSH Qn 3.45 m[IU]/L Normal 0.34-5.60 [facility] Comment on above: Performed By: #### 1 8897567, 9735560, 4392955, 6342799, 01009538, 07672113, 7611168, 8961431, 335886393 ####[facility] [address] [place] [address] U Microalbon 12-28-2022 Albumin DL <= 20 mg/L (U) [Mass/Vol] 98.2 microgram/mL High 0.0-19.0 [facility] Comment on above: Performed By: #### 1 [id number] ####[facility] [address] [place] [address] eGFRon 12-28-2022 GFR/1.73 sq M.predicted among blacks MDRD (S/P/Bld) [Vol rate/Area] 54 mL/min/1.73 m2 Low >=59 [facility] Comment on above: Order Comment: Order added by Discern Expert. Result Comment: eGFR is race adjusted. AA=. Performed By: #### 1 8641055, 7760345, 1987844, 1492653, 97467272, 47036970, 2604675, 6025098, [id number] ####[facility] [address] [place] [address] GFR/1.73 sq M.predicted among non-blacks MDRD (S/P/Bld) [Vol rate/Area] 45 mL/min/1.73 m2 Low >=59 [facility] Comment on above: Order Comment: Order added by Discern Expert. Result Comment: Leather Sprayer estrada kidney disease could be indicated at eGFR's of less than 60 mL/min/1.73m2. Kidney failure is indicated at less than 15 mL/min/1.73m2. Performed By: #### 1 9454176, 3656461, 4062890, 8599568, 88207602, 62487854, 4872798, 3404859, 617466616 ####[facility] [address] [place] [address] ECHOCARDIO M/2D COMPLETEon 0 12-27-2022 ECHOCARDIO M/2D COMPLETE Patient: JOJO LEWIS Exam Date: 12/27/2022 : 1940 Gender:M Ordering : BESSIE PRICE Admission #: [id number] Family : DR KEYONNA CIFUENTES . Order #: [id number] CLICK HERE TO VIEW EXAM ECHOCARDIOGRAM REPORT PROCEDURE: CARDIO PULMONARY ECHOCARDIO M/2D COMP INDICATIONS: Aneurysm of arotic root COMPARISON: None. DESCRIPTION: COMPLETE ECHOCARDIOGRAM Real-time transthoracic echocardiography with 2D, M-mode, spectral and color flow Doppler performed. QUALITY: Technical quality was good. LEFT VENTRICLE: Normal chamber size. Moderate concentric left ventricular hypertrophy. Global left ventricular systolic function is normal. LV EF: Visual estimation of left ventricular ejection fraction is 55-60% DIASTOLIC: ATRIAL SEPTUM: LEFT ATRIUM: Mild dilatation. RIGHT ATRIUM: Mild dilatation. RIGHT VENTRICLE: Normal chamber size. Normal right ventricular systolic function. TRICUSPID VALVE: Normal mobility and thickness. No stenosis with mild regurgitation. No evidence of pulmonary hypertension. RVSP 31 mmHg MITRAL VALVE: Normal mobility and thickness. No mitral valve prolapse. No evidence of mitral valve stenosis. There is no mitral annular calcification. Mild mitral regurgitation. AORTIC VALVE: Bicuspid appearance Ale type I, with fusion of the right and left coronary cusps. Mildly calcified aortic valve. Mildly diminished mobility. Doppler velocity suggest no significant aortic valve stenosis. Mild aortic regurgitation. AORTIC ROOT: Mildly moderately dilated measuring 4.1 cm, Ascending aorta is normal in size measuring 3.6 cm. PULMONIC VALVE: Normal thickness and mobility. No stenosis. Trivial regurgitation. PERICARDIUM: No evidence of pericardial effusion. IVC: Collapses with inspirations. Normal size, PLEURA: CONCLUSION: 1. Left ventricle exhibits moderate concentric hypertrophy. Systolic function is normal. LVEF is 55 to 60%. 2. The right ventricle is normal in size with normal systolic function. 3. Bicuspid aortic valve, Ale type I, with mild regurgitation and no significant stenosis. 4. Mild to moderate dilatation of the aortic root, measuring 4.1 cm with normal size ascending aorta. 5. Mild mitral and tricuspid regurgitation. 6. Normal right-sided pressures. Adult Echocardiography Procedure Report Left Ventricle LVEDD (3.7 - 5.6 cm): 4.43 cm LVESD (2.2 - 4.0 cm): 3.21 cm LVIVS thickness (0.6 - 1.2 cm): 1.57 cm LVPW thickness (0.5 - 1.0 cm): 1.40 cm e': 0.08 m/s E - e': 10.46 LVOT Max Gradient: 1.85 mm[Hg], 2.03 mm[Hg] Peak Velocity (LVOT): 0.68 m/s, 0.71 m/s Mean Velocity (LVOT): 0.48 m/s, 0.54 m/s LVOT Diameter 2.26 cm Left Ventricular Ejection Fraction: 55-60 % Left Atrium LA Volume Index (2D A2C): 90.26 ml, 90.26 ml Left Atrium Systolic Dimension: 3.71 cm Mitral Valve MV E to A Ratio: 0.86 Mitral Valve A-Wave Peak Velocity: 0.94 m/s Mitral Valve E-Wave Peak Velocity: 0.80 m/s Right Ventricle RV Internal Diastolic Dimension: 3.05 cm Aorta AO Root Diam: 4.12 cm Ascending Ao Diam: 3.61 cm Aortic Valve AoV Area (Peak Vijay): 1.93 cm2, 1.89 cm2 AoV Area (VTI): 1.82 cm2, 1.88 cm2 Deceleration Crawford: 1.50 m/s2 Pressure Half-Time: 594.47 ms Peak Velocity(Antegrade Flow): 1.45 m/s Peak Gradient(Antegrade Flow): 8.40 mm[Hg] Mean Velocity(Antegrade Flow): 1.05 m/s Mean Gradient(Antegrade Flow): 4.97 mm[Hg] Velocity Time Integral: 39.82 cm Tricuspid Valve Peak Velocity (Regurgitant Flow): 2.20 m/s, 2.66 m/s, 2.50 m/s Pulmonic Valve Mean Gradient: 2.32 mm[Hg], 2.40 mm[Hg] Mean Velocity: 0.71 m/s, 0.73 m/s Peak Velocity: 1.01 m/s, 1.01 m/s Peak Gradient: 4.10 mm[Hg], 4.10 mm[Hg] Right Atrium Right Atrium Systolic Pressure: 36.55 ml, 36.55 ml Dictated by: Nj Moore M.D. on 12/30/2022 at 13:18 Approved by: Nj Moore M.D. on 12/30/2022 at 13:24 [facility] Follow-Upon 06-23-2022 Follow-Up [id number] Pillo Leiws [facility] 1940 [facility] Provider Department Center 06/23/2022 BESSIE COPE ANDREW [facility] Family History Problem Relation Age of Onset Heart disease Mother Heart disease Father Alcohol abuse Father Diabetes Brother Family Status - Relation Status Age at Mother Father Brother Level of Service:42746 [place] OFFICE/OUTPATIENT ESTABLISHED MOD MDM 30-39 MIN Reason for Visit and Comments: Coronary Artery Disease [187] Hypertension [422685] Hyperlipidemia [182] Valve Disorder [3372] Normal [facility] Abstracton 06-03-2022 Abstract [id number] Pillo Lewis [facility] 1940 Date Provider Department Center 06/03/2022 MUMTAZ PENA ANDREW Luna Family History Problem Relation Age of Onset Heart disease Mother Heart disease Father Alcohol abuse Father Diabetes Brother Family Status - Relation Status Age at Mother Father Brother Normal [facility] Abstracton 05-28-2022 Abstract [id number] Pillo Lewis [facility] 1940 Date Provider Department Center 05/28/2022 MUMTAZ PENA ANDREW Luna Family History Problem Relation Age of Onset Heart disease Mother Heart disease Father Alcohol abuse Father Diabetes Brother Family Status - Relation Status Age at Mother Father Brother Normal [facility] MRI BRAIN WO CONon MRI BRAIN WO CON EXAM: MRI BRAIN WO C ON HISTORY: Weakness of right hand COMPARISON: None. TECHNIQUE: T1 sagittal, axial flair, T2, gradient echo axial and diffusion weighted images FINDINGS: The ventricles and basilar cisterns are mildly dilated consistent with atrophy with mild bitemporal atrophy. Marked areas of T2/FLAIR signal hyperintensity within the periventricular regions and centrum semiovale and subcortical white matter of the bilateral frontoparietal lobes consistent with microangiopathic change and previous vascular insult Gradient echo images demonstrate susceptibility artifact involving the basal ganglion likely relates to mineralization. Susceptibility artifact within the left cerebral peduncle may relate to mineralization. 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 The cervical medullary junction is normal. Cerebellar tonsils are in normal position. Diffusion-weighted images demonstrate no restricted diffusion to suggest acute infarct 8-10 days of age or less. The 7th and 8th nerve complexes are normal Paranasal sinuses are clear Normal flow void within the distal vertebral and basilar arteries and distal internal carotid artery IMPRESSION: Atrophy and microangiopathic change. No acute hemorrhage No acute infarct. Electronically authenticated by: BLESSING MARSHALL Date: 2022-02-16 10:31 Normal [facility] URIC ACID SERUMon 02-12-2022 Urate [Mass/Vol] 7.9 mg/dL Critically high 3.5-7.2 [facility] Comment on above: Performed By: #### U SHAWANDA #### [facility] [address] [address] [address] Ale So XR knee RT 2Von 01-18-2022 XR knee RT 2V [facility] [address] [place] [address] XRay Report Signed Patient: Jojo Lewis MR#: [id number] : 1940 Acct:[id number] Age/Sex: 81 / M ADM Date: 01/18/22 Loc: SOXD Room: Type: [facility] CLI Attending Dr: Mandeep Owen MD Ordering Provider: Mandeep Owen MD Date of Service: 01/18/22 XR/XR knee RT 2V: Acute pain of right knee Copies to: Mandeep Owen MD RIGHT KNEE - 2 views COMPARISON: 01/25/2017 CLINICAL DATA: Medial right knee pain, greater with weightbearing. No reported injury. AP and lateral standing views were obtained. There is osteopenia. There is no acute fracture or dislocation. There is minor marginal spurring, greatest at the posterior patella. There is an enthesophyte at the insertion of the quadriceps tendon. There is no knee effusion or focal soft tissue swelling. Atherosclerotic disease is visualized at the leg. XR/XR knee RT 2V IMPRESSION: MINOR DEGENERATIVE CHANGE. Impression dictated by: Claudia Boone M.D.01/18/2022 4:46 PM Dictation Location: [place] [address] Transcribed By: [facility] 01/18/221645 Dictated By: Claudia Boone MD 01/18/221643 Signed By: 01/18/221645 [facility] GLYCOHEMOGLOBIN A1Con 2021 ADA RECOMMENDATION ADA THERAPEUTIC TARG ET 6.0 - 7.0 ACTION SUGGESTED > 7.0 Normal [facility] Comment on above: Performed By: #### A 1C #### [facility] [address] [address] [address] Ale So Glucose [Mass/Vol] 194 mg/dL Normal [facility] Comment on above: Performed By: #### A 1C #### [facility] [address] [address] [address] Ale So HbA1c (Bld) [Mass fraction] 8.4 % Critically high <=6.0 [facility] Comment on above: Performed By: #### A 1C #### [facility] [address] [address] [address] Ale So POC GLUCOSE LABon 05-17-2017 Glucose mass conc 149 mg/dL High 70-100 [facility] Comment on above: Performed By: #### 8 5499 ####[facility] Cardiovascular Lab Reporton 05-16-2017 Cardiovascular Lab Report [facility] Patient Name: Joshua [facility] MR #: [id number] Physician: Lucretia Leno,Department of M.D.Medicine Service Date: 05/16/2017Division of Birthdate: 1940Cardiology Room #: 3CD [id number] [facility]Services[facility] [facility], [place] [address]Skzjn Fax Cardiovascular Laboratory ReportFINAL IMPRESSION:1. Severe stenosis of the right coronary artery successfully treated by balloon angioplasty and Synergy drug-eluting stent placement.2. Patent stents in the left anterior descending and left circumflex coronary artery with mild to moderate in-stent restenosis.3. Moderate disease of the proximal left anterior descending.4. Severe disease of a moderate-sized 2nd obtuse marginal branch and the distal left anterior descending in a small caliber portion of the vessel.RECOMMENDATIONS:1 . Aspirin 81 mg lifelong.2. Plavix 75 mg daily for a minimum of 6 months preferably long-term.3. Aggressive cardiovascular risk factor modification.4. Optimization of medical management; a beta-nila, a statin and an angiotensin-converting enzyme inhibitor are indicated.5. Follow up with me in the [facility] in the next 2-4 weeks; should the patient's symptoms persist, the second obtuse marginal may be a target for revascularization.6. Follow up with Dr. Cifuentes as scheduled.PROCEDURES: Limited femoral angiography, bilateral selective coronaryangiography, percutaneous balloon angioplasty and Synergy drug-elutingstent placement in the right coronary artery, placement of a 6-Niuean VIPAngio-Seal device.METHODS: After risks, benefits, and alternatives were explained, writteninformed consent was obtained. The patient was prepped and draped in theusual sterile fashion over both groins. Using 1% lidocaine solution, localinfiltration anesthesia was achieved. Using a modified Seldingertechnique, access to the right common femoral artery was obtained and a6-Niuean 11 cm sheath inserted without difficulty. Baseline femoralangiography was performed.Bilateral selective coronary angiography was then performed using JL4 andJR4 catheters. After reviewing the images, it was elected to proceed withan interventional procedure.A 6-Niuean JR4 guide catheter was advanced over a J-tip guidewire and coagsengaged into the right coronary ostium. A 0.014 run-through NS wire wasadvanced through the catheter across the target lesion and positioneddistally. A 0.014 run-through NS wire was advanced through the catheteracross the target lesion and positioned distally. Balloon angioplasty wasperformed using a 2.0 x 15 mm noncompliant balloon followed by 2.5 x 15 mmnoncompliant balloon. An inadequate result was treated using a 3.0 x 32 mmSynergy drug-eluting stent with postdilation using a 3.5 x 15 mmnoncompliant balloon. Repeat imaging showed an optimal result. The wirewas removed. Final images showed JOANNA-3 flow with no dissection, thrombus,or distal wire trauma. At this point, it was elected to conclude theprocedure.A 6-Niuean VIP Angio-Seal device was deployed per protocol achievingoptimal hemostasis. Overall, the patient tolerated the procedure well.There were no overt complications. He was to be [facility] the [facility] in stable condition.FINDINGS: Hemodynamics:AO 154/56 (95).Left ventriculography:This was not performed. Ejection fraction is normal by noninvasiveimaging.Coron bailey arteries:Left main coronary artery. This arises from the left coronary cusp. Itbifurcates into the left anterior descending and left circumflex coronaryarteries. It shows plaque disease.Left anterior descending coronary artery:This shows a long segment 50% stenosis proximally followed by a patentstent in the midportion of the vessel with mild to moderate in-stentrestenosis estimated to be 30-40%. The diagonal branches are of extremelysmall caliber with diffuse disease. The distal left anterior descendingshows a 90-95% stenosis in a small caliber portion of the vessel.Left circumflex coronary artery:This is a codominant vessel giving rise to posterolateral branches. Theproximal to mid portion shows a 30% to 40% stenosis. A moderate-sizedbranching 2nd obtuse marginal shows a 70-80% proximal stenosis, which iscalcific. There is a stent in the distal portion of the left circumflexwhich is widely patent.Right coronary artery:This is a codominant vessel giving rise to the posterior descending artery.Baseline imaging shows a long segment stenosis in the midportion of thevessel with maximum stenosis of 80% in the distal end of the narrowing.This segment was reduced to 0% by balloon angioplasty placement of a 3.0 x32 mm Synergy stent and postdilation as described above. Final imagesshowed JOANNA-3 flow with no dissection, thrombus, or distal wire trauma.The posterior descending artery shows a 50% to 60% proximal stenosis.Limited femoral angiography:This shows mild plaque and anatomy suitable for closure device.INDICATIONS: Angina and abnormal stress test.Electronically Signed by:Lucretia Leon M.D. 05/17/2017 08:19 A Lucretia Leon M.D.Date Dict: 05/16/2017/09:33 A/Lucretia Leon M.D.Date Trans: 05/16/2017 11:11 A/[id number]: Keyonna Cifuentes M.D. [address] [place] [address] Chris Palomino M.D. [address] [place] [address] Normal [facility] POC GLUCOSE LABon 05-16-2017 Glucose mass conc 139 mg/dL High 70-100 [facility] Comment on above: Performed By: #### 8 5499 ####[facility] [place] [address], [facility] Glucose mass conc 161 mg/dL High 70-100 [facility] Comment on above: Performed By: #### 8 5499 ####[facility] [place] [address], [facility] Glucose mass conc 149 mg/dL High 70-100 [facility] Comment on above: Performed By: #### 8 5499 ####[facility] [place] [address], [facility] Vital Signs Date Time Vital Sign Value Performing Clinician Germaine zhang 01-18-2022 14:30-0400 Body height 172.72 cm Mandeep Owen Other Source MDx Other Encounters Encounter Date Encounter Type Care Provider Facility Start: 05-18-2024 ambulatory Sheree L Connor Facility: [facility] Start: 01-04-2024 ambulatory Sheree L Connor Facility: [facility] Cecilia Start: 11-15-2023 ambulatory Sheree L Connor Facility: [facility] Start: 10-27-2023 End: 10-28-2023 ambulatory Sheree L Connor Facility:[facility] Cherry mary Start: 09-29-2023 End: 09-30-2023 ambulatory Sheere L Connor Facility:[facility] Cherry mary Start: 07-06-2023 End: 07-07-2023 ambulatory Sheree L Connor Facility:[facility] Start: 07-06-2023 End: 07-06-2023 Lab Drop off Sheree L Connor [facility] Start: 05-17-2023 End: 05-18-2023 ambulatory Sheree L Connor Facility:[facility] Cherry mary Start: 04-04-2023 End: 04-05-2023 ambulatory Sheree L Connor Facility:[facility] Start: 03-31-2023 End: 04-01-2023 ambulatory Sheree L Connor Facility:[facility] Cherry hernandez Start: 03-21-2023 End: 03-21-2023 ambulatory [address] [facility] Start: 01-05-2023 End: 01-05-2023 ambulatory [facility] Start: 12-28-2022 End: 12-29-2022 ambulatory Sheree L Connor Facility:[facility] [place] Start: 12-28-2022 End: 12-28-2022 Lab Drop off Sheree L Connor [facility] Start: 12-28-2022 End: 12-29-2022 ambulatory Sheree L Connor Facility:[facility] [place] Start: 12-28-2022 End: 12-28-2022 Lab Drop off Sheree L Connor [facility] Start: 12-27-2022 End: 12-28-[address] KEYONNA CIFUENTES . Facility:[facility] Start: 12-06-2022 ambulatory KEYONNA CIFUENTES Facility:[facility] Start: 06-23-2022 End: 06-23-2022 ambulatory BESSIE PRICE [facility] Start: 02-16-2022 End: 02-17-[address] KEYONNA CIFUENTES . Facility:[facility] Start: 02-12-2022 End: 02-13-[address] KEYONNA CIFUENTES . Facility:[facility] Start: 01-18-2022 End: 01-18-2022 ambulatory Mandeep Owen Other Source MDx Other Start: 01-18-2022 Office outpatient ne w 30 minutes Mandeep Owen [facility] Start: 01-05-2022 End: 01-06-[address] KEYONNA CIFUENTES . Facility:[facility] Start: 05-16-2017 End: 05-17-2017 Ambulatory LUCRETIA LEON Facility:[facility] Procedures Date Procedure Procedure Detail Performing Clinician Start: 09-26-2017 Colonoscopy [employer] Start: 09-26-2017 Esophagogastroduodenoscopy gastric outlet reduction [employer] Start: 09-26-2014 Cardiac catheter (physical object) [employer] Comment on above: stent X 2 Start: 09-26-2000 Cardiac catheter (physical object) [employer] Comment on above: LAD stent Start: 09-26-1947 Appendectomy [employer] Immunizations Immunization Date Immunization Notes Care Provider Fa cili 06-30-2022 influenza virus vaccine, unspecified formulation [employer] [facility] 06-15-2022 SARS-CoV-2 (COVID-19 ) [id number] [employer] [facility] Comment on above: Result Comment: 2022: [id number] 02-17-2022 SARS-CoV-2 (COVID-19 ) mRNA-1273 vaccine Sheree Connor [facility] Comment on above: Result Comment: 2022: [id number] 07-21-2021 SARS-CoV-2 (COVID-19 ) mRNA-1273 vaccine Sheree Connor [facility] Comment on above: Result Comment: 2022: [id number] 06-30-2021 influenza virus vaccine, unspecified formulation Shreee Connor [facility] 11-18-2020 SARS-CoV-2 (COVID-19 ) mRNA-1273 vaccine Sheree Connor [facility] 10-22-2020 SARS-CoV-2 (COVID-19 ) mRNA-1273 vaccine Sheree Connor [facility] 06-11-2020 influenza virus vaccine, unspecified formulation Sheree Connor [facility] 08-28-2019 influenza virus vaccine, unspecified formulation Sheree Connor [facility] Payers Date Payer Category Payer Medicare [id number] 2.1 [id number] 1959 Private Health Insurance [id number] 1940 Unknown [id number] 2.16.84 [id number] 1940 Unknown [id number] 2.16.84 [id number] 1940 Unknown [id number] 2.16.84 0.1.105123.3.579.2.593 1940 Unknown [id number] 2.16.84 0.1.143305.3.579.2.593 1940 Unknown [id number] 2.16.8 40.1.192622.3.579.2.727 1940 Unknown [id number] 2.16.8 40.1.114050.3.579.2.727 1940 Unknown [id number] 2.16.8 40.1.489240.3.579.2.727 1940 Unknown [id number] 2.16.8 40.1.455615.3.579.2.727 1940 Unknown [id number] 2.16.8 40.1.568750.3.579.2.727 1940 Unknown [id number] 2.16.8 40.1.939742.3.579.2.727 1940 Unknown [id number] 2.16.8 40.1.567389.3.579.2.727 1940 Unknown [id number] 2.16.8 40.1.397255.3.579.2.727 1940 Unknown [id number] 2.16.8 40.1.275111.3.579.2.727 1940 Unknown [id number] 2.16.8 40.1.826076.3.579.2.727 1940 Unknown [id number] 2.16.8 40.1.432566.3.579.2.727 1940 Unknown [id number] 2.16.8 40.1.799873.3.579.2.727 1940 Unknown [id number] 2.16.8 40.1.944686.3.579.2.727 1940 Unknown [id number] 2.16.8 40.1.905262.3.579.2.727 1940 Unknown [id number] 2.16.8 40.1.644893.3.579.2.727 Medicare [id number] Social History Date Type Detail Facility Unknown if ever smoked Source MDx Other Sex Assigned At [facility] Start: 12-28-2022 End: 07-06-2023 Tobacco smoking status Never smoked tobacco (finding) [facility] Tobacco smoking status Never [facility] Medical Equipment Procedure Code Equipment Code Equipment Origin al Text Equipment Identifier Dates USE TWICE A DAY DIRECTED (DXE10.8) Start: 12-28-2022 USE TWICE A DAY DIRECTED (DXE10.8) Start: 12-28-2022 USE TWICE A DAY DIRECTED (DXE10.8) Start: 12-28-2022 Clinical Notes 01-18-2022 to 03-21-2023 Note Date & Type Note Facility 03-21-2023 Note [facility] Cardiology Clinic Note Chief Complaint: Patient here for 2 mo follow up hypertension and CAD. He was switched from metoprolol to carvedilol at last apt in December 2022. Says his BP still goes high and low . HPI: Jojo Lewis Jr. is a 83 y.o. male With a history of hypertension coronary artery disease. He is here in follow-up. He is doing well. He has no significant symptoms. He denies chest pain, shortness of breath, orthopnea, paroxysmal tunnel dyspnea or lower extremity edema Cardiology ROS: Review of Systems Neurological: Positive for light-headedness (not often). All other systems reviewed and are negative. Past Medical History He has a past medical history of Aneurysm ([facility]), CAD (coronary artery disease) (05/11/2022), Cardiovascular stress test abnormal (05/11/2022), Diabetes mellitus (CMS/HCC) (05/11/2022), Dyslipidemia (05/11/2022), Heart valve disease, Hyperlipidemia, Hypertension, Single vessel coronary artery disease (05/11/2022), Sinus tachycardia (05/11/2022), Stented coronary artery (05/11/2022), and Tachycardia, unspecified (05/11/2022). Surgical History He has a past surgical history that includes Cardiac catheterization (05/16/2017); Cataract extraction, extracapsular w/ intraocular lens implant (Bilateral); and Coronary stent placement. Social History He reports that he has quit smoking. His smoking use included cigarettes. He does not have any smokeless tobacco history on file. He reports that he does not currently use alcohol. No history on file for drug use. Family History Family History Problem Relation Name Age of Onset Heart disease Mother Heart disease Father Alcohol abuse Father Diabetes Brother Allergies Patient has no known allergies. Medications Current Outpatient Medications: aspirin 81 mg EC tablet, Take 81 mg by mouth in the morning., Disp: , Rfl: atorvastatin (Lipitor) 80 mg tablet, Take 80 mg by mouth in the evening., Disp: , Rfl: carvedilol (Coreg) 12.5 mg tablet, Take 1 tablet (12.5 mg) by mouth with breakfast and with evening meal., Disp: 180 tablet, Rfl: 3 chlorthalidone (Hygroton) 25 mg tablet, Take by mouth in the morning., Disp: , Rfl: cholecalciferol (Vitamin D-3) 50 MCG (2000 UT) tablet, Take by mouth in the morning., Disp: , Rfl: clopidogrel (Plavix) 75 mg tablet, Take 1 tablet by mouth in the morning., Disp: , Rfl: insulin detemir (Levemir) 100 unit/mL (3 mL) pen, Inject under the skin at bedtime., Disp: , Rfl: levothyroxine (Synthroid, Levoxyl) 125 mcg tablet, Take 125 mcg by mouth before breakfast., Disp: , Rfl: liothyronine (Cytomel) 5 mcg tablet, Take 2 tablets by mouth in the morning., Disp: , Rfl: losartan (Cozaar) 100 mg tablet, Take 100 mg by mouth in the morning., Disp: , Rfl: metFORMIN (Glucophage) 500 mg tablet, Take 500 mg by mouth with breakfast and with evening meal., Disp: , Rfl: metoprolol succinate XL (Toprol-XL) 50 mg 24 hr tablet, Take 1 tablet (50 mg) by mouth in the morning. Do not crush or chew., Disp: 90 tablet, Rfl: 3 Last Recorded Vitals BP 132/72 (BP Location: Left arm, Patient Position: Sitting) Pulse 61 Ht 1.676 m (5' 6 ) Wt 78.5 kg (173 lb) SpO2 99% BMI 27.92 kg/m??? Physical Examination: GENERAL: alert and oriented x3, well developed, in no acute distress. HEAD: atraumatic, normocephalic. EYES: ETTA, EOMI. NECK: trachea midline, no JVD present, no carotid bruits present. CARDIAC: S1, S2 present. RRR. No murmur, rubs, or gallops. RESPIRATORY: CTAB, no increased effort of breathing, no rales, rhonchi, or wheezing. ABDOMEN: soft, nontender, nondistended. EXTREMITIES: no lower extremity edema, peripheral pulses are 2+ bilaterally. No rash/skin discoloration present. NEURO: strength/sensation equal and symmetric in bilateral upper and lower extremities. PSYCH: appropriate mood, affect, and judgement. Assessment: coronary arteriosclerosis - PCI/stents in LAD, LCx and RCA dyslipidemia diabetes mellitus essential hypertension - Uncontrolled aortic root dilatation aortic valve regurgitation Plan: His blood pressure appears to be better controlled; continue current medical regimen. Consider increasing Coreg to 25 mg p.o. twice daily as needed. Guideline directed medical therapy should include continued dual antiplatelet therapy, high intensity statin therapy, beta-nila and given his diabetic status a RAAS inhibitor Given diabetes mellitus and history of coronary artery disease, would strongly recommend addition of an SGLT2 inhibitor or a GLP-1 receptor agonist; will defer to his family physician Return to clinic in a year or sooner should problems arise Lucretia Leon MD, MPH, FACC, [facility], [facility] Interventional Cardiology Pager Email: [email or web address] 01-05-2023 Note [facility] Cardiology Clinic Note Chief Complaint: Patient here for follow up echo done last week. Denies chest pain, SOB, and palpitations. HPI: Jojo Lewis is a 82 y.o. male here for Coronary Artery Disease, Hypertension, Hyperlipidemia, and Valve Disorder HPI Patient here for 1 year follow up CAD, hypertension, hyperlipidemia, and aortic valve regurgitation. Had labs in Oct 2021. Denies chest pain and SOB. Doing very well. HR is elevated in the office today. He thinks he's only taking metoprolol once daily in the morning. Denied chest pain, shortness of breath, orthopnea, palpitations. Does admit the his heart rate has been faster lately and b/p elevated at home. Denied any recent illness, hospitalization. Denied lightheadedness/dizziness or syncope. Cardiology ROS: Review of Systems All other systems reviewed and are negative. Past Medical History He has a past medical history of Tachycardia, unspecified (05/11/2022), CAD (coronary artery disease) (05/11/2022), Cardiovascular stress test abnormal (05/11/2022), Diabetes mellitus (CMS/HCC) (05/11/2022), Dyslipidemia (05/11/2022), Hyperlipidemia, Hypertension, Single vessel coronary artery disease (05/11/2022), Sinus tachycardia (05/11/2022), and Stented coronary artery (05/11/2022). Surgical History He has a past surgical history that includes Cardiac catheterization (05/16/2017); Cataract extraction, extracapsular w/ intraocular lens implant (Bilateral); and Coronary stent placement. Social History He reports that he has quit smoking. His smoking use included cigarettes. He does not have any smokeless tobacco history on file. He reports that he does not currently use alcohol. No history on file for drug use. Family History Family History Problem Relation Name Age of Onset Heart disease Mother Heart disease Father Alcohol abuse Father Diabetes Brother Allergies Patient has no known allergies. Medications Current Outpatient Medications: aspirin 81 mg EC tablet, Take 81 mg by mouth in the morning., Disp: , Rfl: atorvastatin (Lipitor) 80 mg tablet, Take 80 mg by mouth in the evening., Disp: , Rfl: chlorthalidone (Hygroton) 25 mg tablet, Take by mouth in the morning., Disp: , Rfl: clopidogrel (Plavix) 75 mg tablet, Take 1 tablet by mouth in the morning., Disp: , Rfl: insulin detemir (Levemir) 100 unit/mL (3 mL) pen, Inject under the skin at bedtime., Disp: , Rfl: levothyroxine (Synthroid, Levoxyl) 125 mcg tablet, Take 125 mcg by mouth before breakfast., Disp: , Rfl: liothyronine (Cytomel) 5 mcg tablet, Take 2 tablets by mouth in the morning., Disp: , Rfl: losartan (Cozaar) 100 mg tablet, Take 100 mg by mouth in the morning., Disp: , Rfl: metoprolol succinate XL (Toprol-XL) 50 mg 24 hr tablet, Take 1 tablet (50 mg) by mouth in the morning. Do not crush or chew., Disp: 90 tablet, Rfl: 3 Last Recorded Vitals Patient Vitals for the past 24 hrs: BP Pulse SpO2 Height Weight 01/05/23 1404 (!) 187/79 84 96 % 1.676 m (5' 6 ) 78.5 kg (173 lb) Physical Examination: GENERAL: alert and oriented x3, well developed, in no acute distress. HEAD: atraumatic, normocephalic. EYES: ETTA, EOMI. NECK: trachea midline, no JVD present, no carotid bruits present. CARDIAC: S1, S2 present. RRR. No murmur, rubs, or gallops. RESPIRATORY: CTAB, no increased effort of breathing, no rales, rhonchi, or wheezing. ABDOMEN: soft, nontender, nondistended. EXTREMITIES: no lower extremity edema, peripheral pulses are 2+ bilaterally. No rash/skin discoloration present. NEURO: strength/sensation equal and symmetric in bilateral upper and lower extremities. PSYCH: appropriate mood, affect, and judgement. Investigations: Echocardiogram 12/27/2022: Global left ventricular systolic function is normal; EF 55 to 60%. Moderate left ventricular hypertrophy. The right ventricle is normal in size and systolic function. Bicuspid aortic valve Ale type I with mild regurgitation. No significant stenosis. Mild to moderate dilatation of the aortic root measuring 4.1 cm. Mild mitral and tricuspid regurgitation. Normal right-sided pressures. Assessment: coronary arteriosclerosis - PCI/stents in LAD, LCx and RCA dyslipidemia diabetes mellitus essential hypertension - Uncontrolled aortic root dilatation aortic valve regurgitation Plan: We will discontinue Toprol and start Coreg 12.5 mg p.o. twice daily Continue optimal medical therapy for coronary artery disease including aspirin, statin, beta-nila and an angiotensin receptor nila. He is also on Plavix. He is to monitor his blood pressure at home a.m. and p.m. an hour after medications and to keep a log. Return to clinic in 2 months to evaluate his response to the above change. Lucretia Leon MD, MPH, FACC, [facility], [facility] Interventional Cardiology Pager Email: [email or web address] 12-28-2022 Evaluation + Plan note Diagnostic Tests PendingT3 Free 12/28/22 [facility] 06-23-2022 Note Increase metoprolol to toprol 50 mg daily, will re-evaluate at next visit ECG today- Sinus tachycardia with 1st degree AV block, with PVC and non specific ST-T wave changes No acute concerns. HR 104 bpm at rest. [facility] 06-23-2022 Note Continue lipitor Staff to ask Dr Cifuentes's office for recent labs, lipid profile this year. [facility] 06-23-2022 Note B/P remains uncontro lled with metoprolol tartrate- he is only taking once daily, chlorthalidone, losartan. Will change metoprolol tartrate to toprol 50 mg- considered coreg but I don't believe he will take coreg bid. RTC 1 month to review b/p log and re-evaluate Renal function stable for him with CR 1.4-1.5- continue to monitor. [facility] 06-23-2022 Note Continue GDMT- ASA, lipitor, plavix, toprol No concerning symptoms today, good functional/aerobic capacity- walks a 5K daily without limiting symptoms. [facility] 06-23-2022 Note Will increase and ch elenita metoprolol to toprol 50mg in light he is only taking once a day, to better manage HTN. Repeat echo to evaluate AO root in light of uncontrolled HTN since last visit [facility] 06-23-2022 Note HPI: Jojo Lewis is a 82 y.o. male here for Coronary Artery Disease, Hypertension, Hyperlipidemia, and Valve Disorder HPI Patient here for 1 year follow up CAD, hypertension, hyperlipidemia, and aortic valve regurgitation. Had labs in Oct 2021. Denies chest pain and SOB. Doing very well. HR is elevated in the office today. He thinks he's only taking metoprolol once daily in the morning. Denied chest pain, shortness of breath, orthopnea, palpitations. Does admit the his heart rate has been faster lately and b/p elevated at home. Denied any recent illness, hospitalization. Denied lightheadedness/dizziness or syncope. Review of Systems All other systems reviewed and are negative Visit Vitals BP 177/83 (BP Location: Left arm, Patient Position: Sitting) Pulse (!) 111 Ht 1.676 m (5' 6 ) Wt 78.5 kg (173 lb) SpO2 98% BMI 27.92 kg/m??? Smoking Status Former BSA 1.91 m??? Medications: Current Outpatient Medications on File Prior to Visit Medication Sig Dispense Refill aspirin 81 mg EC tablet Take 81 mg by mouth in the morning. atorvastatin (Lipitor) 80 mg tablet Take 80 mg by mouth in the evening. chlorthalidone (Hygroton) 25 mg tablet Take by mouth in the morning. clopidogrel (Plavix) 75 mg tablet Take 1 tablet by mouth in the morning. insulin detemir (Levemir) 100 unit/mL (3 mL) pen Inject under the skin at bedtime. levothyroxine (Synthroid, Levoxyl) 125 mcg tablet Take 125 mcg by mouth before breakfast. liothyronine (Cytomel) 5 mcg tablet Take 2 tablets by mouth in the morning. losartan (Cozaar) 100 mg tablet Take 100 mg by mouth in the morning. [DISCONTINUED] metoprolol tartrate (Lopressor) 25 mg tablet Take 25 mg by mouth in the morning. [DISCONTINUED] glipiZIDE (Glucotrol) 10 mg tablet Take 10 mg by mouth before breakfast and before evening meal. No current facility-administered medications on file prior to visit. Physical Exam: Constitutional: Appearance: Normal appearance. Without apparent distress HENT: Head: Normocephalic and atraumatic. Nose: Nose normal. Mouth/Throat: Mouth: Mucous membranes are moist. Eyes: Extraocular Movements: Extraocular movements intact. Conjunctiva/sclera: Conjunctivae normal. Neck: Vascular: No JVD. Cardiovascular: Heart sounds: Normal heart sounds, S1 normal and S2 normal. Tachycardia. Pulses: Dorsalis pedis pulses are 3 on the right side and 3on the left side. Posterior tibial pulses are 3 on the right side and 3 on the left side. Pulmonary: Effort: Pulmonary effort is normal. Breath sounds: Normal breath sounds. Abdominal: General: Bowel sounds are normal. Palpations: Abdomen is soft. Musculoskeletal: General: Normal range of motion. Cervical back: Normal range of motion. Right lower leg: No edema. Left lower leg: No edema. Skin: General: Skin is warm and dry. Capillary Refill: Capillary refill takes less than 2 seconds. Neurological: General: No focal deficit present. Mental Status: She is alert and oriented to person, place, and time. Psychiatric: Mood and Affect: Mood normal. Behavior: Behavior normal. Thought Content: Thought content normal. Judgment: Judgment normal. Labs: 11/04/21- BUN 35, CR 1.51, K+ 4.7 LFT normal TSH normal CBC stable Last lab values have been reviewed CV Testing: Investigations: 05/27/21 Echo Normal LVSF Mild LVH Mild AO stenosis/Regurg Mod Dilatation AO root 4.3 cm, Ascending aorta 3.8 cm Echocardiogram 2014 Global left ventricular systolic function is normal. Mild left ventricular hypertrophy. Mild diastolic dysfunction. Mildly calcific aortic valve with mild regurgitation. Mildly dilated aortic root. Stress test 01/2020 nonischemic Assessment/Plan: Aneurysm of aortic root (CMS/HCC) Will increase and change metoprolol to toprol 50mg in light he is only taking once a day, to better manage HTN. Repeat echo to evaluate AO root in light of uncontrolled HTN since last visit CAD, multiple vessel Continue GDMT- ASA, lipitor, plavix, toprol No concerning symptoms today, good functional/aerobic capacity- walks a 5K daily without limiting symptoms. Hypertensive disorder B/P remains uncontrolled with metoprolol tartrate- he is only taking once daily, chlorthalidone, losartan. Will change metoprolol tartrate to toprol 50 mg- considered coreg but I don't believe he will take coreg bid. RTC 1 month to review b/p log and re-evaluate Renal function stable for him with CR 1.4-1.5- continue to monitor. Dyslipidemia Continue lipitor Staff to ask Dr Cifuentes's office for recent labs, lipid profile this year. Sinus tachycardia Increase metoprolol to toprol 50 mg daily, will re-evaluate at next visit ECG today- Sinus tachycardia with 1st degree AV block, with PVC and non specific ST-T wave changes No acute concerns. HR 104 bpm at rest. RTC 1 month [facility] 06-23-2022 Note Subjective Jojo Lewis is a 82 y.o. male. Chief Complaint: Patient here for 1 year follow up CAD, hypertension, hyperlipidemia, and aortic valve regurgitation. Had labs in Oct 2021. Denies chest pain and SOB. Doing very well. HR is elevated in the office today. He thinks he's only taking metoprolol once daily in the morning. Review of Systems All other systems reviewed and are negative. Objective Physical Exam Vital Signs Ht 1.676 m (5' 6 ) BMI 28.89 kg/m??? Lab Review: Assessment/Plan There were no encounter diagnoses. [facility] 02-12-2022 Note PROCEDURE: XR FOOT R T MIN 3 VIEWS HISTORY: Polyneuropathy due to type 1 diabetes mellitus ; acute right foot and first toe pain; no known injury COMPARISON: None. FINDINGS: BONES:Slight narrowing of the first metatarsophalangeal joint. No fracture, dislocation, bone lesion. Small calcaneal degenerative enthesophytes. SOFT TISSUES: Moderate marked atherosclerotic disease. No visible soft tissue swelling. EFFUSION:None visible. OTHER: Negative. IMPRESSION: 1. No acute bone abnormality or suspicious findings to account for patient's symptoms. 2. Mild early degenerative changes of the first metatarsophalangeal joint. 3. Atherosclerotic disease.. Electronically authenticated by: STACI KLEIN Date: 2022-02-12 16:27 [facility] 01-18-2022 Evaluation note Encounter Date Diagnosis Assessment Notes Dec, Acute pain of right knee (ICD-10 - M25.561) Dec, Bursitis of right knee, unspecified bursa (ICD-10 - M70.51) Radiographs reviewed with patient. Advised that based on his described history, he may have been experiencing a bursitis that has resolved. Continue motion and strengthening. Activity as tolerated. Call with questions/chaya rns. Source MDx Other Evaluation + Plan note Future Appointments Appointment Date:01/04/2024 09:00:00 AM Scheduled Provider:Sheree Caraballo Location:[facility] Appointment Type: Open Appointment Date:05/18/2024 08:00:00 AM Scheduled Provider: Location:[facility] Appointment Type: Medicare Wellness [facility] - Reported* Type Description Date Medical History Diabetic Medical History Heart attack Medical History Hypertension Surgical History Heart Stent Surgical History Appendectomy Hospitalization History see above Source MDx Other Hospital course Narrative No data available for this section [facility] No data available for this section [facility] No data available for this section [facility] Summary Purpose Family History No Family History Records FoundNo Family History Records FoundNo Family History Records FoundNo Family History Records Found No data available for this section No Family History Records Found Advance Directives No Advanced Directives Records FoundNo Advanced Directives Records FoundNo Advanced Directives Records FoundNo Advanced Directives Records FoundNo Advanced Directives Records Found Additional Source Comments (unrecognized sect ion and content) No Status Records FoundNo Status Records FoundNo Status Records FoundNo Status Records FoundNo Status Records Found INFORMATION SOURCE (unrecogn ized section and content) DATE CREATED AUTHOR 03/22/2018 [facility] DATE CREATED AUTHOR AUTHOR'S ORGANIZ ATION 01/19/2022 [facility] DATE CREATED AUTHOR AUTHOR'S ORGANIZ ATION 01/01/2023 [facility] DATE CREATED AUTHOR AUTHOR'S ORGANIZ ATION 03/21/2023 [facility] DATE CREATED AUTHOR AUTHOR'S ORGANIZ ATION 11/15/2023 [facility] REASON FOR VISIT (unrecogniz ed section and content) Right Knee Pain Patient Care team informatio n (unrecognized section and content) Personnel Name: Sheree Caraballo Address: Address: [address] [place] [address]- Personnel Name: Sheree Caraballo Address: Address: [address] [place] [address]- Personnel Name: Sheree Caraballo Address: Address: [address] [place] [address]- FOR RECORDS PERTAINING TO PATIENTS WHO ARE OR HAVE BEEN ENROLLED IN A CHEMICAL DEPENDENCY/SUBSTANCEABUSE PROGRAM, SOME INFORMATION MAY BE OMITTED. This clinical summary was aggregated from multiple sources. Caution should be exercised in using it in the provision of clinical care. This summary normalizes information from multiple sources, and as a consequence, information in this document may materially change the coding, format and clinical context of patient data. In addition, data may be omitted in some cases. CLINICAL DECISIONS SHOULD BE BASED ON THE PRIMARY CLINICAL RECORDS. [facility]. provides no warranty or guarantee of the accuracy or completeness of information in this document.
--- OUTSIDE RECORDS SUMMARY | 2023-11-17 06:55 | XMS_ITS | CCD ---
Author Name Unknown Address [address] 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 Name Role Phone ELTAHAWY, EHAB A Unavailable Unavailable ELTAHAWY, EHAB A Unavailable Unavailable CIFUENTES, DEEPA Unavailable Unavailable CIFUENTES, DEEPA Unavailable Unavailable Mandeep Owen Unavailable Sheree Ryan Primary Care Physician CIFUENTES ., DR DEEPA Turner Consulting Unavailable CIFUENTES ., DR DEEPA Turner Attending Unavailable CIFUENTES ., DR DEEPA Turner Admitting Unavailable CIFUENTES ., DR DEEPA Turner Primary Care Unavailable CIFUENTES ., DR DEEPA Turner Attending Unavailable CIFUENTES ., DR DEEPA Turner Admitting Unavailable CIFUENTES ., DR DEEPA Turner Primary Care Unavailable BESSIE PRICE Consulting Unavailable CIFUENTES ., DR DEEPA Turner Consulting Unavailable CIFUENTES ., DR DEEPA Turner Attending Unavailable CIFUENTES ., DR DEEPA Turner Admitting Unavailable CIFUENTES ., DR DEEPA Turner Primary Care Unavailable BLESSING MARSHALL Consulting Unavailable CIFUENTES ., DR DEEPA Turner Consulting Unavailable CIFUENTES ., DR DEEPA Turner Attending Unavailable CIFUENTES ., DR DEEPA Turner Admitting Unavailable CIFUENTES ., DR DEEPA Turner Primary Care Unavailable ZIEBER, DR STACI [...] Attending Unavailable Connor, Sheree Hines Attending Unavailable CIFUENTESDEEPA Attending Unavailable Connor, Sheree Hines Attending Unavailable Connor, Sheree Hines Attending Unavailable Connor, Sheree Hines Attending Unavailable Allergies Allergy Classification Reported Allergen(s) Allergy Type Date of Onset Reaction(s) Facility (4 sources) glipiZIDE; Translations: [glipizide] Drug Allergy Unknown (qualifier value) [facility] (4 sources) Nuts (not including peanuts); Translations: [Nuts] Food allergy Unknown (qualifier value) [facility] (4 sources) Omeprazole; Translations: [omeprazole] Drug Allergy Unknown (qualifier value) [facility] Medications Current Medications Medication Drug Class(es) [...] Daily, # 90 tab(s), Refills(s) 3, Pharmacy: [facility] Start Date: 12/06/22 Status: Ordered Lipitor Active chlorthalidone 25 mg oral tablet (4 sources) Thiazide-like Diuretic Start: 12-28-2022 take 1 tablet by mouth once daily chlorthalidone 25 mg Tab 25 mg = 1 tab(s), Oral, Daily, # 90 tab(s), Refills(s) 3, Pharmacy: [facility], 169, cm, 12/28/22 8:48:00 EDT, Height/Length Dosing, 77.9, kg, 12/28/22 8:48:00 EDT, Weight Dosing Start Date: 12/28/22 Status: Ordered Chlorthalidone A ctive clopidogrel 75 mg oral tablet (4 sources) P2Y12 Platelet Inhibitor Start: 12-28-2022 take 1 tablet by mouth once daily clopidogrel 75 mg Tab 75 mg = 1 tab(s), Oral, Daily, # 90 tab(s), Refills(s) 3, Pharmacy: [facility], 169, cm, 12/28/22 8:48:00 EDT, [...] ), # 15 mL, Refills(s) 3, Pharmacy: [facility], 169, cm, 12/28/22 8:48:00 EDT, Height/Length Dosing, 77.9, kg, 12/28/22 8:48:00 EDT, Weight Dosing Start Date: 12/28/22 Status: Ordered levothyroxine sodium 0.125 mg oral tablet (4 sources) l-Thyroxine Start: 12-28-2022 take 1 tablet by mouth once daily levothyroxine 125 mcg (0.125 mg) Tab 125 mcg = 1 tab(s), Oral, Daily, # 90 tab(s), Refills(s) 3, Pharmacy: [facility], 169, cm, 12/28/22 8:48:00 EDT, [...] oral tablet (3 sources) Angiotensin 2 Receptor Isi Start: 12-28-2022 take 1 tablet by mouth once daily losartan 100 mg Tab 100 mg = 1 tab(s), Oral, Daily, # 90 tab(s), Refills(s) 3, [facility]acy: [email or web address], 169, cm, 12/28/22 8:48:00 EDT, Height/Length Dosing, 77.9, kg, 12/28/22 8:48:00 EDT, Weight Dosing Start Date: 12/28/22 Status: Ordered metFORMIN hydrochloride 500 mg oral tablet (1 source) Biguanide Start: 04-04-2023 End: 03-29-2024 take 1 tablet by mouth twice daily metformin 500 mg Tab 500 mg = 1 tab(s), Oral, BID, X 90 day(s), # 180 tab(s), Refills(s) 3, [facility], 169, cm, 04/04/23 9:12:00 EDT, Height/Length Dosing, 78.9, kg, 04/04/23 9:12:00 EDT, Weight Dosing Start Date: 04/04/23 Stop Date: 03/29/24 Status: Ordered 24 hr metoprolol succinate 50 mg extended release oral tablet (3 sources) beta-Adrenergic Isi Start: 12-28-2022 take 1 tablet by mouth [...] 12.5 mg oral tablet (1 source) alpha-Adrenergic Isi, beta-Adrenergic Isi Start: 04-04-2023 take 1 tablet by mouth twice daily at dinner carvedilol 12.5 mg Tab 180 EA, TAKE ONE TABLET BY MOUTH TWICE A DAY (WITH BREAKFAST AND EVENING MEAL), Refills(s) 0 Start Date: 04/04/23 Status: Ordered dexamethasone 1 mg/ml / neomycin 3.5 mg/ml / polymyxin b 42938 unt/ml ophthalmic suspension (1 source) Aminoglycoside Antibacterial, Polymyxin-class Antibacterial, Corticosteroid Neomycin-Polymyxi n-Dexameth 3.5-70522-1.1 PLACE 1 DROP INTO THE LEFT EYE [...] disease (3 sources) Atherosclerotic heart disease of [place] coronary artery with unspecified angina pectoris; Translations: [Atherosclerotic heart disease of [place] coronary artery without angina pectoris] Onset: 7 [...] sources) Hypothyroidism 12-06-2022 Chronic Unclassified (1 source) senior living (current) use of oral hypoglycemic drugs; Translations: [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 (CURRENT) USE OF ORAL HYPOGLYCEMIC DRUGS] Onset: [...] Onset: 02-16-2022 Episodic Other aftercare (2 sources) senior living (current) use of aspirin; Translations: [medical terminologist (current) use of antithrombotics/antip latelets] Onset: 05-16-2017 [...] Range Facil ity Ambulatory Visit Summaryon 0 11-15-2023 Ambulatory Visit Summary JOJO LEWIS JR :1940 Visit Date:11/15/2023 Ambulatory Visit Instructions Your Diagnosis Overweight (BMI 25.0-29.9) Your Care Team Attending Physician - Sheree Caraballo Primary Care Physician - Sheree Caraballo This Is Your Medications List [facility] [place] (BD UF mini pen needle 5mm/31g) aspirin (Aspirin Enteric Coated 81 mg oral delayed release tablet) atorvastatin (atorvastatin 80 mg Tab) carvedilol (carvedilol 12.5 mg Tab) chlorthalidone (chlorthalidone 25 mg Tab) cholecalciferol (Vitamin D3 2000 intl units oral Tab) clopidogrel (clopidogrel 75 mg Tab) insulin glargine (Lantus Solostar Pen 100 units/mL subcutaneous solution) levothyroxine (levothyroxine 125 mcg (0.125 mg) Tab) liothyronine (liothyronine 5 mcg Tab) losartan (losartan 100 mg Tab) metformin (metformin 500 mg Tab) Procedures Performed Colonoscopy (2017), EGD (esophagogastroduodenosc opy) gastric outlet reduction (2017), Cardiac catheter (2014), Cardiac catheter (2000), Appendectomy (1947). Discharge Vitals Heart Rate (Peripheral) 64 Blood Pressure 132/60 Height 170 cm Height 67 in Weight 74.70 kg Weight 164.34 lb BMI 25.85 What to do next Scheduled Follow-Up Appointments Tuesday 8:40 AM EDT With: Sheree Caraballo Where: [facility] [address] [place] [address]- \.br\ Medications\.br\ What How Much When Why Instructions\.br \ Unchanged aspirin (Aspirin Enteric Coated [...] Tablets By Mouth Every day\.br\ Unchanged insulin glargine (Lantus Solostar Pen 100 units/ mL subcutaneous solution) 30 Units Subcutaneous 2 times a day BMI 26.0-26.9,adult Former smoker Type 1 diabetes mellitus with diabetic neuropathy\.br\ Unchanged levothyroxine (levothyroxine 125 mcg (0.125 mg) [...] aortic root\.br\ ASCVD (arterioscleroti c cardiovascular disease)\.br\ Cardiovascular stress test abnormal\.br\ Coronary arteriosclerosis \.br\ Diabetes mellitus\.br\ Diverticulosis\. br\ Dyslipidemia\.br \ Encounter for diabetic foot exam\.br\ Essential hypertension\.br \ Hypercholesterol emia\.br\ Hypothyroid\.br\ Infected nail bed of toe\.br\ Overweight (BMI 25.0-29.9)\.br\ Secondary diabetes mellitus\.br\ Single coronary vessel disease\.br\ Sinus tachycardia\.br\ Stented artery\.br\ Tachycardia\.br\ Type 1 diabetes mellitus with diabetic neuropathy\.br\ Type 1 diabetes mellitus with hypercholesterol emia\.br\ Patient Survey\.br\ You may receive a survey via text or e-mail asking about your office visit. Please share your experience with us by completing your survey. We appreciate your feedback and thank you for choosing us for your care.\.br\ \.br\ [facility] Medicine Office/Clini c Noteon 11-15-2023 Family Medicine Office/Clinic Note Chief Complaint leg cramping HPI Staff Patient presents for leg cramping. Pain characteristics: Pain location: left calf -more with an incline Intensity:6/10 Onset: week ago Medication used: heating pain, tylenol prescise cream- not effective Opioids prescribed: Medication agreement UTD: _ Urine drug screen performed:_ History of Present Illness pt presents today for left calf pain Review of Systems PHQ Score Initial Depression Screen Score: 0 SCORE ROS - Provider Constitutional: no fever, no chills, no sweats, no fatigue Respiratory: no shortness of breath, no cough, no orthopnea, no wheezing. Cardiovascular: no chest pain, no palpitations, no edema. Neurologic: no headache, no dizziness, no numbness, no weakness. Physical Exam Vitals & Measurements HR: 64(Peripheral) BP: 132/60 SpO2: 98% HT: 67 in HT: 170 cm WT: 74.70 kg WT: 164.34 lb BMI: 25.85 General: alert, no acute distress ENMT: oral mucosa moist, no pharyngeal erythema or exudate Cardiovascular: regular rate and rhythm, normal peripheral perfusion Respiratory: Lungs CTA, respirations non labored Extremities: no deformity, no trauma Neurological: oriented x 4, LOC appropriate for age, CN II-XII intact, motor strength equal & normal bilaterally, speech normal Assessment/Plan 1. Pain of left calf (M79.662: Pain in left lower leg) patient was walking the other day and had severe calf pain (spasm) so much that he couldn't continue his walk. he has tried going for walks since this happened and it continues to hurt too much to take his daily walk. + patty's sign. will send to [facility] for doppler to rule of DVT. pt given voltaran cream. offered anti inflammatory but he declines at this time. all meds refilled. RTC in December for annual wellness visit and labs. 2. Overweight (BMI 25.0-29.9) (E66.3: Overweight) BMI education complete Ordered: Body Mass Index (BMI) documented 3008F Current tobacco non-user 1036F Depression Screening Negative 3352F Medication list documented in medical record 1159F Patient screen for fall risk: no falls in last year or 1 fall with no injury in last year 1101F Orders: atorvastatin, 80 mg = 1 tab(s), Oral, Daily, # 90 tab(s), Refills(s) 0, Pharmacy: [facility], 170, cm, 11/15/23 9:08:00 EST, Height/Length Dosing, 74.7, kg, 11/15/23 9:08:00 EST, Weight Dosing atorvastatin, 80 mg = 1 tab(s), Oral, Daily, # 90 tab(s), Refills(s) 3, Pharmacy: [facility] carvedilol, 12.5 mg = 1 tab(s), Oral, BID, # 180 tab(s), Refills(s) 0, [facility], 170, cm, 11/15/23 9:08:00 EST, Height/Length Dosing, 74.7, kg, 11/15/23 9:08:00 EST, Weight Dosing chlorthalidone, 25 mg = 1 tab(s), Oral, Daily, # 90 tab(s), Refills(s) 0, [facility], 170, cm, 11/15/23 9:08:00 EST, Height/Length Dosing, 74.7, kg, 11/15/23 9:08:00 EST, Weight Dosing chlorthalidone, 25 mg = 1 tab(s), Oral, Daily, # 90 tab(s), Refills(s) 3, [facility], 169, cm, 12/28/22 8:48:00 EDT, Height/Length Dosing, 77.9, kg, 12/28/22 8:48:00 EDT, Weight Dosing clopidogrel, 75 mg = 1 tab(s), Oral, Daily, # 90 tab(s), Refills(s) 0, [facility], 170, cm, 11/15/23 9:08:00 EST, Height/Length Dosing, 74.7, kg, 11/15/23 9:08:00 EST, Weight Dosing clopidogrel, 75 mg = 1 tab(s), Oral, Daily, # 90 tab(s), Refills(s) 3, [facility]: [facility], 169, cm, 12/28/22 8:48:00 EDT, Height/Length Dosing, 77.9, kg, 12/28/22 8:48:00 EDT, Weight Dosing levothyroxine, 125 mcg = 1 tab(s), Oral, Daily, # 90 tab(s), Refills(s) 3, Pharmacy: [facility], 169, cm, 12/28/22 8:48:00 EDT, Height/Length Dosing, 77.9, kg, 12/28/22 8:48:00 EDT, Weight Dosing levothyroxine, 125 mcg = 1 tab(s), Oral, Daily, # 90 tab(s), Refills(s) 0, Pharmacy: [facility], 170, cm, 11/15/23 9:08:00 EST, Height/Length Dosing, 74.7, kg, 11/15/23 9:08:00 EST, Weight Dosing losartan, 100 mg = 1 tab(s), Oral, Daily, # 90 tab(s), Refills(s) 3, Pharmacy: [facility], 169, cm, 12/28/22 8:48:00 EDT, Height/Length Dosing, 77.9, kg, 12/28/22 8:48:00 EDT, Weight Dosing losartan, 100 mg = 1 tab(s), Oral, Daily, # 90 tab(s), Refills(s) 0, Pharmacy: [facility], 170, cm, 11/15/23 9:08:00 EST, Height/Length Dosing, 74.7, kg, 11/15/23 9:08:00 EST, Weight Dosing Follow-up No qualifying data available Problem List/Past Medical History Ongoing Aneurysm of aortic root ASCVD (arteriosclerotic cardiovascular disease) Cardiovascular stress test abnormal Coronary arteriosclerosis Diabetes mellitus Diverticulosis Dyslipidemia Encounter for diabetic foot exam Essential hypertension Hypercholesterolemia Hypothyroid Infected nail bed of toe Overweight (BMI 25.0-29.9) Pain of left calf Secondary diabetes mellitus Single coronary vessel disease Sinus tachycardia Stented artery Tachycardia Type 1 diabetes mellitus with diabetic neuropathy Type 1 diabetes mellitus with hypercholesterolemia (more content not included)... Normal [facility] Comment on above: Result Comment: Elec tronically Signed By: Sheree Caraballo\.br\Date and Time Signed: 11/15/23 09:51 EST Physician Orderon 11-15-2023 Physician Order [id number] [id number]#1.00TIF F [facility] Ambulatory Visit Summaryon 0 10-27-2023 Ambulatory Visit Summary JOJO LEWIS JR :1940 Visit Date:10/27/2023 Ambulatory Visit Instructions Your Diagnosis BMI 26.0-26.9,adult Former smoker Your Care Team Attending Physician - Sheree Caraballo Primary Care Physician - Sheree Caraballo [facility] (BD [facility]F mini pen [...] Appointments Tuesday 8:40 AM EDT With: Sheree Caraballo Where: [facility] [place] [facility] [address] [place] [phone]- \.br\ Medications\.br\ What How Much When Instructions\.br [...] for choosing us for your care.\.br\ \.br\ [facility] Family Medicine Office/Clini c Noteon 10-27-2023 Family Medicine Office/Clinic Note HPI Staff Amezcua [...] of unspecified toe) pt was seen by Deepa HERNANDEZ at Dr. Sosa office and had toe nail removed. area has healed very well. no oozing 3. Former smoker (Z87.891: Personal history of nicotine dependence) continue not smoking Ordered: insulin glargine, 30 unit(s), SubCutaneous, BID, # 15 mL, Refills(s) 3, Pharmacy: [facility], 170, cm, 10/27/23 9:53:00 EST, Height/Length Dosing, 77.2, kg, 10/27/23 9:53:00 EST, Weight Dosing 4. BMI 26.0-26.9,adult (Z68.26: Body mass index [BMI] 26.0-26.9, adult) BMI education complete Ordered: insulin glargine, 30 unit(s), SubCutaneous, BID, # 15 mL, Refills(s) 3, Pharmacy: [facility], 170, cm, 10/27/23 9:53:00 EST, Height/Length [...] in lifetime) T (more content not included)... [facility] Comment on above: Result Comment: Elec tronically Signed By: Sheree Caraballo\.br\Date and Time Signed: 10/27/23 11:25 EST Consultation Noteon 10-20-19 Consultation Note [id number]#[id number] [facility] Consultation Noteon 10-07-19 Consultation Note [id number]#[id number] [facility] Physician Referralon 024 Physician Referral [id number]#1.00TIF F [facility] Family Medicine Office/Clini c Noteon 09-29-2023 Family Medicine Office/Clinic Note HPI Staff Jojo is a 83 year [...] educated pt on 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 will refer [...] 09/29/23 14:30:00 EST, Height/Length Dosing, 77.5, kg, 01/04/24 14:30:00 EST, Weight Dosing [facility] External Ambulatory Referral 2. Diabetes (E11.9: Type 2 diabetes mellitus without complications) pt referred to Dr. Michael. Ordered: cephalexin, 500 mg = 1 cap(s), Oral, QID, X 7 day(s), # 28 cap(s), Refills(s) 0, Pharmacy: [facility], 170, cm, 09/29/23 14:30:00 EST, Height/Length Dosing, 77.5, kg, 09/29/23 14:30:00 EST, Weight Dosing [facility] External Ambulatory Referral 3. BMI 26.0-26.9,adult (Z68.26: Body mass index [BMI] 26.0-26.9, adult) BMI education complete Ordered: cephalexin, 500 mg = 1 cap(s), Oral, QID, X 7 day(s), # 28 cap(s), Refills(s) 0, Pharmacy: [facility], 170, cm, 09/29/23 14:30:00 EST, Height/Length Dosing, 77.5, kg, 09/29/23 14:30:00 EST, Weight Dosing [facility] External Ambulatory Referral 4. Non-smoker (Z78.9: Other specified health status) continue not smoking Ordered: cephalexin, 500 mg = 1 cap(s), Oral, QID, X 7 day(s), # 28 cap(s), Refills(s) 0, Pharmacy: [facility], 170, cm, 09/29/23 14:30:00 EST, Height/Length Dosing, 77.5, kg, 09/29/23 14:30:00 EST, Weight Dosing [facility] External Ambulatory Referral Follow-up No qualifying data [...] abuse concerns: No. (more content not included)... [facility] Comment on above: Result Comment: Elec tronically Signed By: Sheree Caraballo\.br\Date and Time Signed: 09/29/23 14:49 EST Medication Refillon 08-25-20 23 Medication Refill [id number]#1.00TIF F [facility] Pre-Visit Planningon 023 Pre-Visit Planning - From: Jennifer PEREZ, Nunu To: Sheree Caraballo; Sent: 07/05/2023 08:28:06 EDT Subject: Pre-Visit Planning Due Date/Time: 07/05/2023 08:28:00 EDT Caller Name: JOJO LEWIS JR; Caller Number: Kayla , M Aiden Bentley, *Based on your [...] feel free to contact me at extension [phone]. Thank you! KAVITHA Westbrook, RN, CCM, CCDS, CCDS-O From: Sheree Caraballo To: Jennifer PEREZ, Nunu; Sent: 08/03/2023 15:23:48 EST Subject: RE: Pre-Visit Planning Caller Name: JOJO LEWIS JR; Caller Number: Kayla , Enedina Type 1 diabetes mellitus Normal [address] [facility] Ambulatory Visit Summaryon 1 Ambulatory Visit Summary JOJO LEWIS JR :1940 Visit Date:07/06/2023 Ambulatory Visit Instructions Your Diagnosis Diabetes mellitus type I Encounter for diabetic foot exam Your Care Team Attending Physician - Sheree Caraballo Primary Care Physician - Sheree Caraballo This Is Your Medications List [facility] [place] (BD PEN NEEDLE MINI ULTRA-FINE 31G [...] 9:00 AM EDT With: Sheree Caraballo [place] [phone]- \.br\ Medications\.br\ What How Much When Instructions\.br [...] Essential hypertension\.br \ Hypercholesterol emia\.br\ Hypothyroid\.br\ \.br\ [facility] CHEMISTRYOrdered By: Linsey pierson on 07-06-2023 Albumin DL <= 20 mg/L (U) [Mass/Vol] 108.9 microgram/mL High 0.0 - 19.0 mcg/mL [facility] Remisol Albumin Elph (U) [Mass fraction] 18.6 mg/dL Invalid Interpretation Code [facility] Remisol Comment on above: Interpretive Data: T he reference range and other method performance specifications have not been established for this test; results should be integrated into the clinical context for interpretation. Creatinine (U) [Mass/Vol] 128.9 mg/dL Invalid Interpretation Code [facility] Remiso Comment on above: Interpretive Data: T he reference range and other method performance specifications have not been established for this test; results should be integrated into the clinical context for interpretation. U Prot/Creat Ratio 144.30 mg/gm Cr Normal 0.00 - 200.00 mg/gm Cr [facility] Remisol CHEMISTRYOrdered By: Shantal Vasquez on 07-06-2023 HbA1c (Bld) [Mass fraction] 6.3 % High <=5.9% [facility] ChemAutoSS Family Medicine Office/Clini c Noteon 07-06-2023 [...] Diabetic Foot Exam HgbA1c Lab Specimen Collect [id number] Microalbumin Level Urine U Protein/Creat Ratio 2. Encounter for diabetic foot exam (E11.9: Type 2 diabetes mellitus without complications) mono filament test negative in all areas except 2nd toe and arch of both feet. Ordered: Diabetic Foot Exam Lab Specimen Collect [id number] 3. BMI 27.0-27.9,adult (Z68.27: Body mass index [...] virus vaccine, inactivated 06/30/2022 Recorded SARS-CoV-2 (COVID-19) [id number] 06/15/2022 Recorded 2022-12-28: TPV80 SARS-CoV-2 (COVID-19) mRNA-1273 vaccine 02/17/2022 Recorded 2022-12-28: TPV80 SARS-CoV-2 (COVID-19) mRNA-1273 vaccine 07/21/2021 Recorded 2022-12-28: TPV80 influenza virus vaccine, inactivated 06/30/2021 Recorded SARS-CoV-2 (COVID-19) mRNA-1273 vaccine 11/18/2020 Recorded SARS-CoV-2 (COVI (more content not included)... Normal [facility] Comment on above: Result Comment: Elec tronically Signed By: Sheree Caraballo\.jan\Date and Time Signed: 07/06/23 14:39 EDT [id number] 07-06-2023 HbA1c (Bld) [Mass fraction] 6.3 % High <=5.9 [facility] Comment on above: Performed By: #### 7 [id number] ####[facility] [address] [place] [address] U Microalbon 07-06-2023 Albumin DL <= 20 mg/L (U) [Mass/Vol] 108.9 microgram/mL High 0.0-19.0 [facility] Comment on above: Performed By: #### 1 [id number] ####[facility] [address] [place] [address] U Protein/Creat Ratioon 10 Albumin Elph (U) [Mass fraction] 18.6 mg/dL Invalid Interpretation Code [facility] Comment on above: Result Comment: The reference range and other method performance specifications have not been established for this test; results should be integrated into the clinical context for interpretation. Performed By: #### 1 [id number], [id number] ####[facility] [address] [place] [address] Creatinine (U) [Mass/Vol] 128.9 mg/dL Invalid Interpretation Code [facility] Comment on above: Result Comment: The reference range and other method performance specifications have not been established for this test; results should be integrated into the clinical context for interpretation. Performed By: #### 1 [id number], [id number] ####[facility] [address] [place] [address] U Prot/Creat Ratio 144.30 mg/gm Cr Normal .00-200.00 [facility] Comment on above: Performed By: #### 1 [id number], [id number] ####[facility] [address] [place] [address] Ambulatory Visit Summaryon 0 05-17-2023 Ambulatory Visit [...] 9:00 AM EDT With: Sheree Caraballo Where: [place] [phone] \.br\ Medications\.br\ What How Much When Instructions\.br [...] ? \.br\ Place frequently used items in mieg-st-jtatf places. Lower the shelves around your home [...] way.\.br\ ? \.br\ Do not use floor thai or wax that makes floors slippery. If [...] include working with a physical therapist or sap trainer to improve your strength, balance, and endurance.\.br\ Where to find more information\.br\ ? \.br\ Centers for Disease Control and Prevention, [place]: www.cdc.gov\.br\ ? \.br\ National [place] on Aging: www.gilberto.nih.gov\ .br\ Contact a health [...] your home.\.br\ This information is not [facility] Family Medicine Office/Clini c Noteon 05-17-2023 [...] of clutter to prevent tripping and/or falling. [place] Advance Directives reviewed, patient has copy at [...] up with yearly DM eye exams at [facility], has yearly appointment in near future, last notes have been requested. 3. Diabetic neuropathy (E11.40: Type 2 diabetes mellitus with diabetic neuropathy, unspecified) Patient denies any pain or discomfort to extremities and remains active. Patient ambulates without concern. Patient will continue to follow with PCP as needed. 4. ASCVD (arteriosclerotic cardiovascular disease) (I25.10: Atherosclerotic heart disease of [place] coronary artery without angina pectoris) Patient follows up with [facility] Foreman, every 6 months. Last visit summary notes [...] Losartan, Chlorthalidon (more content not included)... Normal [facility] Comment on above: Result Comment: Elec tronically [...] night-lights. ? Place frequently used items in aaya-cc-imuxz places. Lower the shelves around your home [...] the way. ? Do not use floor thai or wax that makes floors slippery. If [...] include working with a physical therapist or sap trainer to improve your strength, balance, and endurance. Where to find more information ? Centers for Disease Control and Prevention, [place]: www.cdc.gov ? National [place] on Aging: www.gilberto.nih.gov Contact a health care [...] health ca (more content not included)... Normal [facility] Screenson 05-17-2023 Screens [id number]: [address] [facility] Ambulatory Visit Summaryon 0 04-04-2023 Ambulatory Visit Summary JOJO LEWIS JR :1940 Visit Date:04/04/2023 Ambulatory Visit Instructions Your Diagnosis Diabetes mellitus type I BMI 27.0-27.9,adult Non-smoker Your Care Team Attending Physician - Sheree Caraballo Primary Care Physician - Sheree Caraballo This Is Your Medications List [facility] [place] (BD PEN NEEDLE MINI ULTRA-FINE 31G [...] Appointments Tuesday 8:00 AM EDT With: Where: [facility] Normal [address] [place] [address]- \.br\ Medications\.br\ What How Much When Instructions\.br [...] \.br\ Pharmacy Information\.br\ [facility]: [address] [place], [place] [id number] [phone]\.br\ Allergies\.br\ Nuts (Unknown)\.br\ glipiZIDE (Unknown)\.br\ omeprazole (Unknown)\.br\ Problems\.br\ Ongoing - Any problem that you are currently receiving treatment for.\.br\ ASCVD (arterioscleroti c cardiovascular disease)\.br\ Diabetes mellitus type I\.br\ Diabetic neuropathy\.br\ Diverticulosis\. br\ Essential hypertension\.br \ Hypercholesterol emia\.br\ Hypothyroid\.br\ \.br\ [facility] Medicine Office/Clini c Noteon 04-04-2023 Family Medicine Office/Clinic Note Chief Complaint pt here for 3 month follow up HPI Staff Amezcua is a 83 year [...] day(s), # 180 tab(s), Refills(s) 3, Pharmacy: [facility], 169, cm, 04/04/23 9:12:00 EDT, Height/Length Dosing, 78.9, kg, 04/04/23 9:12:00 EDT, Weight Dosing metformin, 500 mg = 1 tab(s), Oral, BID, # 60 tab(s), Refills(s) 0, Pharmacy: [facility], 169, cm, 12/28/22 8:48:00 EDT, Height/Length Dosing, 77.9, kg, 12/28/22 8:48:00 EDT, Weight Dosing Follow-up No qualifying data available Problem List/Past Medical History Ongoing ASCVD (arteriosclerotic cardiovascular disease) Diabetes mellitus type I Diabetic neuropathy Diverticulosis Essential hypertension Hypercholesterolemia Hypothyroid Historical No qualifying data Procedure/Surgical History Colonoscopy (2017), EGD (esophagogastroduodenosc opy) gastric outlet reduction (2017), Cardiac catheter (2014), Cardiac catheter (2000), Appendectomy (1948). Medications Aspirin Enteric Coated 81 mg oral [...] tobacco concern (more content not included)... Normal [facility] Comment on above: Result Comment: Elec tronically Signed By: Sheree Caraballo\.br\Date and Time Signed: 04/04/23 09:29 EDT [id number] 04-04-2023 HbA1c (Bld) [Mass fraction] 8.1 % High <=5.9 [facility] Comment on above: Performed By: #### 7 [id number] ####[facility] [address] [place] [address] Office Visiton 03-21-2023 Follow-up visit [id number] Pillo Lewis Jr. 1940 M Date Provider Department Center 03/21/2023 [facility]YWARRENKulwinderDELF[facility] Family History Problem Relation Age of Onset Heart disease Mother Heart disease Father Alcohol abuse Father Diabetes Brother Family Status - Relation Status Age at Mother Father Brother Level of Service:29011 [place] OFFICE/OUTPATIENT ESTABLISHED LOW MDM 20-29 MIN Normal [facility] Coding Summary.on 01-06-2023 Coding Summary. CD:[id number] Ww+P GhlYWQ+VK0GODTxS13qcHNik C9qQ5WMNVjSJqsxHFPZTPeMA wUmaxRpXG1vhJSjMJTg IC8+IB3rAGXxPchavLAxb3R9 iOA2O03edc3tYBuehAB8GPTf PmWzrirez6suqWk7IAxmSobh OyBt DUOojE35PJS1jM86Xf50kSJx pEJnx8gqgMd0QlFcQMElKRX7 kDjxFMunq9QeFBFbV00xuEMv c2U6 WRRpjPrkrJHgOyApuRX4xZ1p EDtpfydkp4zrmcedHkb5kj98 kZEhb1F2tJW7E2WejkT5DUGq bGQg SodlwSGTdG9egqcze1lwhlyo IuPhUKHaKXp4CCm5FDZqxAuk WcZrUP23WQZ3PZQtupGjJ9Rw LWFs qIjiMpN4d3U5Bz4QL2ANWihd F3REDRIDWAjvvNR+KP41kj46 N6OhFohvJob4CDRyHSI9uPW3 aD0n RBTkQEdtu8O6bEV6N1WronXp nq0gg5axAZMsRKbhC51dvYHd q2L8VJXytUC0PRZfhQnzYpEy aG93 Oyc+ZYUgvViye8EfUmxor4po l9hxfJw3WllqLNEjkbSjiRqo YYR1c6RuBf4eYJIsiLT5mTA1 aD0i UiMsHqC3CHiyI029OqYeeHTa JwtuQ19eJ3LagCU+PHRyPjx0 LXOakLfmQL4oK3VoRAXrfnkw bGVm oRogXB4bRCSyvoffIUXcrK6a ZKNmC4a3VgGbQjR6ZDkpL9Nh LIAchyzrIm65dW5rTpNyTdG0 MGlu L1AataA4UNJgsKEnRSieBVH3 D02ip2J3VLGoCYObWWK3fNF5 wT7phVmhrjurhQHwlMrafbHz dGlj CEctSBmcK574AXGdjPwfRrMp ZGluZyBEYXRlOiAgMDQvMTMv MjAyMzwvdGQ+OVKmLXW4pWoc PSAn vIBsQAnnVq5kzHtqkGdeQC9q VSNvjjhwLOWtiS4wYUGpoRLw iMjnEW2fDMFspneqa255FhUm MHB0 VZJlbFQsE5IovR8dSqUmQQGg HRPqH9BgqZZwWUedP433HLni OfK1TAIlfeHsZ1SxWRCbxJnm OiB0 s7N8Xl9Xb5NylidzJ7TnkREw BoHoKxklUIs2N7OuHsdbgEI+ BG13SLPdOF74TTr6ELX3wNry PSdi UDKxX4FvpL2dZeMqFYAwHYRo Oyc+PHRhYmxlIHdpZHRoPScx BCPsOeWpbWumMU7tZv9mNXPt LWNv gJaooHLzRbEpf8gaHKUpWQwe ZA2knXwaY0XbdPD0ZUBgi1j6 Im78X50mA1WhbFK+PGNvbCB3 aWR0 dB4rGkTeArS7MFsxG846TrLg dPMlXfhpu6ujx3qsuGm3VwP7 SBUqhyUkdEgkQAV8t8NzAz19 Y29s IHdpZHRoPSIxNSUiIHZhbGln vm9riY3nRs2+NZQdsVG3gIY9 iI4gUrWlGvI4KBxlS551UdFm cCIv Qdehc4mjf1ylxNb5UiCwAGCd lxLzsKbeGAK6w3RuZf27E3Ij bMkbs8JvXog9cu12nPXjp4V5 bGU9 X5XiLCRsqderlKDbuSweCD8o LQHfzazmAMNxeK9iIGDvS3z8 HvXeCjQ8UIchL8VnauF3WTEm bGQg USErtRCFwO8xytydx1zeztil EdYnIWAvNQy4KPc0CTNvhPgh CpOwWUE3BoD4UYH9rWNvuA3d bGln qgwtbY4bPrc+HLG1dVBbkZRN BL4cNmblbPH+GRExBED5rJur JHehZBXprO7bJILfQ0y9RsRc LjA1 PXnmA3IptaO0SRVuoNQyCIVl qGXSkV4jvsdhz5vgvutcAsDp ZJIjLWa5RIv6MHDxhMjhTnSo ZWZ0 RkM9BPM0iBVveE6wtMmbjsly vS5vGfg+EjoojEfaZYG9KTe6 H4JpFwu4IBPdtTusMM8xcEIu ZGlu Bs7taTivfLiuWW4tEUBpanil b173CaWii3hnYFLgzYMjYOpy VPD8N96ah0K3SXRsQADnFNR1 dGV4 mP9paKdshouehEYwmOsedqZn yMnqYNfnYAhoV792RZBlnGku KaEmPYj2I9SuAyi5KCOezDmf ZT0n dHSnFCwoJs1xtUoqdVkfCR7p LWNudkjca790QwSjh1mkWCSt jGBbYPogVGF0E41cq1T1YBRq MDAw XBC7uSZ5gY1jgAldrtsbkNUf jMuzgoEaqSzlZFduSZkeD251 UYZvyXkoBnZobSr8U1ZeFoy9 ZCBz zUjdQZ1pfGXrFPubTa5exVnc cMdeDM5yQRAkoaudp828OkOa w5qjETNzdAXhYZynHYG6Q93r b3I6 TOYoJUThLXZ6rCB5yO0ufKbd bjogbGVmdDsgdmVydGljYWwt GKelG058HZZlbXlhKaAzxFht bnQg OYjbCFw7F1NtUguwmKB+PC90 LFDiWN75nIYsoDZkj8ewjHy6 FgTqDGKeQDD8qYftKIydv0Kt ZXIt G31ayBEbg6W3GAElrZlvnKDu UyPiyTD3iF8sUQjtogllh6kv nvxrHedel5nkip90pP35A12r IHdp ZIWeGROkZNWjHZWwiSouzv8t mD9lRf6+QVBhkZM2hRO0kT3p MAWsOxG9VUqeT619MtLxmIYe Pjxj c8dmk4scxXu1SjS8ATAjoxSm fNekOEB8w1NmZk54T06nNDox SZGwPBIyMXUiTMFbdDjzew1h dG9w Ii8+MDXkyCE0eRA3lD6sFhAw OrC8TKhoC159KwCpzIRlRzcr L25rY9ZkyZG+XVPhCxo5LTGn dHls TR6awQJgNXmvOe9xHHZ0OcPg SwJnHIjwK0BbPUNccnzhoghi lBZ2UOHgEKKvzD21Rq5vlHwi MTBw bONRlG0jcnies4qqekreNoXl TDCgONx5LTm2QZMaaNqkTyHf CGO1HzF7ETL7vYSuoZ1zxJmk bjog aU8nL7CbBJUpndnrXu88gG6q ReWnTcV1LOzkFdy+LwQOM37w JBSXZI8LLNTIZzzsfWC+PHRk IHN0 zObvVZmlHUYacE1oYLInY5u9 BmSmNxC8POnfI4UdLUDpnqdx Rt81zF5iCtWpYwE4TSxzQ4Ip bnQ6 TXIlpWQnMIhwTIK9K17ty7Q9 WODzIQEbUBC8tIV1qR6rgJfk bjogbGVmdDsgdmVydGljYWwt YWxp S431SPHvhYdoYkQ5HfK9GgP0 ZJC8Z0WzZtq8HCNdgWttPN0v dHGePOhrNd7tdMchfQgaER6d NTBp rhejUIIbxF3hYGAegCLcxGcg NA9oPMWgxoumv791EfPoVIA2 VEUlaJDfW5OxbV9jFcXjIKGt MDAw E7PczPUnYEbcR386HHmlHcE6 SUNnjmKuY2TxIWRwvDrsQdD3 k5X3Ds11TnQTVBWaqoskwDT+ PHRk NFJ9kXbpMCprENQobM8uBXLa I1w9UsXxFxN2NLfeG9RwBVXe qwcjYp22fR8zGmAcMjV6TIbq O2Zv kmY0AXYypJOvDHreEEM2H73b e0P5WPOqVPCaZBW0bED7zB7s bGlnbjogbGVmdDsgdmVydGlj YWwt GFceY462OORzyFrxHx4rsIG4 Q9VxVag4MCUvcItgPL0rlBAd DRfuPa8ryKlnnWppDP4oEOSp bjtw CPAmmA1xHVDnmGZgjVcmYY9o TRUtqcogd336YgVpHXZ3BWJc bQIfS4KerE9wMjZsTLQoMAGt O3Rl uUEhCHdvI017UTznUwR7WUAm sdYyG9OnUACidCfuGvE8e8U0 Lj7KZZTqSOWcwFLaLtS6Y4Up Pjwv dHI+YK39WVSlNC14iQUpkKIe k7gzzTn2AaYqNGMyKHS1lPfx WTpnw8BjACXqC62vvJFcf9L8 IGNv qSvbfNVlFvXcoQM0aY7pHZfm vqgpr5gkktgoNueqx6zyzp16 lS40Y78wUVheXBZiZCZsQYWv IHZh fPfgwa4dtU9tBo4+PGNvbCB3 iRM1qV8lOrRfLoA0ASyeG248 NwSwyFWoUffmw4ovi3fqbMg8 IjIw EOXoycFhdJkcZJW3y5OnWn19 Z20fUIpcBPOlTIOnBWAyPJVx yJmnvr8qfS1pFz6+IO4wf7wz cm91 hA91mDZ+FMEgJQI1zTkmSFzf NMCteP0tDVxvBpE3PWXcSmBp dK52xRRdWOddDn4gsXdcrWbf MC4w OVIqaceqn705ToDgm8mqQGLd sVCyMDdvOMC1B64hm1D5BHLz IPHqHRI2bZI3mS6dvZvtyihh bGVm dAimxyUypPcwCXzjJHpqV443 EWMotPrsKlKwlPZoP7fdmmKR ND8jDlcsfNZ+YCJaKHZ0eEts PSdw LBXxwY1mPIFzX6d1WdEaUpD9 VRsfJ5SjnkX8IBSdwSDlNTEj oVMBoN0oxlabd0uuaqcoAbMt MDAw CCt7UFr7KLRocImaWvJuIZT7 MuB3OEY5mSVqjU8wrKqdotwf kT2pKoa+RklOOjwvdGQ+PHRk IHN0 gAgeKTivEKUfcZ7zFMTeC6x5 HmVeCjD2EObwI0SpjbZ3FRZk wULyDSEbvSAUfS2mxgncb8za cjog NdUlFQLtNUi3SKl0AHAsoDvw QxBcEQE6PbF8HDQ3xHKkiH4d zOjxczsahC3iMmj+TVJOOjwv dGQ+ NCWrZLL9oCsqOJndNXOsxE1o XNGiB6c6EvOwGjR7WMdeS1Xy vpN7VAVimHGtWJSldXGMiW8x cztj o9ughyyzOdHsKFVdHYb5UZr1 AITgcKpqOuCtOZC5RrI0EXA1 oOMioF0amZiisfcapA9pLgn+ UGF5 GMZ0AY70CY90J4FfBiburFRv bGU+PHRhYmxlIHdpZHRoPScx LCMcCmRgyVpuYG7oIw3rLSEx LWNv bGxhcHNl (more content not included)... Normal [facility] Echocardiographyon Echocardiography [id number]: [address] [facility] Follow-Upon 01-05-2023 Follow-Up [id number] Pillo Lewis Jr. 1940 M Date Provider Department Center 01/05/2023 [facility]-LUCRETIA [facility] Family History Problem Relation Age of Onset Heart disease Mother Heart disease Father Alcohol abuse Father Diabetes Brother Family Status - Relation Status Age at Mother Father Brother Level of Service:60721 [place] OFFICE/OUTPATIENT ESTABLISHED MOD MDM 30-39 MIN Reason for Visit and Comments: Coronary Artery Disease [187] Hypertension [637732] Hyperlipidemia [182] aneurysm of aortic root [Other] Valve Disorder [3372] Normal [facility] T3 Freeon 12-30-2022 Free T3 [Mass/Vol] 3.3 pg/mL Invalid Interpretation Code 2.0-4.4 [facility] Comment on above: Result Comment: Perf ormed at: [facility] [id number] PhD Chandler Dacosta Performed By: #### 1 [id number], 5243224, 4629497, 8141615, 09156792, 16047953, 6895814, 3325323, [id number] ####[facility] [address] [place] [address] Ambulatory Visit Summaryon 0 12-28-2022 Ambulatory Visit Summary JOJO LEWIS :1940 Visit Date:12/28/2022 Ambulatory Visit Instructions Your Diagnosis Diabetes mellitus type I Essential hypertension Hypercholesterolemia Hypothyroid ASCVD (arteriosclerotic cardiovascular disease) BMI 27.0-27.9,adult Non-smoker Your Care Team Attending Physician - Sheree Caraballo Primary Care Physician - Sheree Caraballo This Is Your Medications List [facility] [place] (BD PEN NEEDLE MINI ULTRA-FINE 31G [...] MORNING AND AT BEDTIME ) Pickup at [place] [address] Changed levothyroxine (levothyroxine 125 mcg (0.125 mg) Tab) 1 Tablets By Mouth Every day Pickup at [place] [address] Changed liothyronine (liothyronine 5 mcg Tab) 2 Tablets By Mouth Every day TAKE TWO TABLETS BY MOUTH ONCE DAILY IN THE MORNING Pickup at [place] [address] Changed losartan (losartan 100 mg Tab) 1 [facility] [place] [address] Unchanged aspirin (Aspirin Enteric Coated 81 mg oral delayed release tablet) 1 Tablets By Mouth Every day Unchanged atorvastatin (atorvastatin 80 mg Tab) 1 Tablets By Mouth Every day Unchanged metoprolol (metoprolol 50 mg ER Tab) 1 Tablets By Mouth Every day Unchanged Misc Prescription (BD PEN NEEDLE MINI ULTRA-FINE 31G X 5MM) USE TWICE A DAY DIRECTED (DXE10.8) Pharmacy Information [place] [address]: [address] [place], [place] [id number] [phone] Allergies Nuts (Unknown) glipiZIDE (Unknown) omeprazole (Unknown) Problems Ongoing - Any problem that you are currently receiving treatment for. ASCVD (arteriosclerotic cardiovascular disease) Diabetes mellitus type I Diabetic neuropathy Diverticulosis Essential hypertension Hypercholesterolemia Hypothyroid Normal [facility] Auto Diffon 12-28-2022 Basophils/100 WBC (Bld) 0.7 % Normal 0.0-2.0 [facility] Comment on above: Order Comment: Order Added by Discern Expert. Performed By: #### 1 [id number], 7040424, 9673324, 4218026, 17162055, 71458324, 4755812, 9516648, 146713802 ####[facility] [address] [place] [address] Basophils/Leukocyte s Auto (Bld) [Pure # fraction] 0.1 E9/L Normal 0.0-0.2 [facility] Comment on above: Order Comment: Order Added by Discern Expert. Performed By: #### 1 1280284, 1209012, 6493362, 1599810, 55708871, 08640196, 0175597, 3133389, 694851216 ####[facility] [address] [place] [address] Eosinophils/100 WBC (Bld) 11.6 % High 0.0-8.0 [facility] Comment on above: Order Comment: Order Added by Discern Expert. Performed By: #### 1 8514107, 9155985, 4301445, 2480611, 30198296, 96576825, 6982675, 4297147, 752838112 ####[place] [address] [place] [address] Eosinophils/Leukocy patsy Auto (Bld) [Pure # fraction] 1.0 E9/L High 0.0-0.5 [facility] Comment on above: Order Comment: Order Added by Discern Expert. Performed By: #### 1 3942907, 3777464, 4419985, 3643501, 36645055, 37897901, 2489143, 8821391, 874136928 ####[place] [address] [place] [address] Lymphocytes/100 WBC (Bld) 16.2 % Normal 14.0-50.0 [facility] Comment on above: Order Comment: Order Added by Discern Expert. Performed By: #### 1 3216118, 6918772, 4147197, 3720816, 94956135, 41960802, 5215325, 8707800, 827706736 ####[place] [address] [place] [address] Lymphocytes/Leukocy patsy Auto (Bld) [Pure # fraction] 1.4 E9/L Normal 1.0-4.0 [facility] Comment on above: Order Comment: Order Added by Discern Expert. Performed By: #### 1 1184067, 3762950, 3088933, 7255366, 57941268, 98200752, 6873575, 4900135, 930541363 ####[place] [address] [place] [address] Monocytes/100 WBC (Bld) 8.0 % Normal 4.0-14.0 [facility] Comment on above: Order Comment: Order Added by Discern Expert. Performed By: #### 1 6978098, 9657651, 1807978, 6827506, 07912671, 68762250, 4044241, 0256787, [id number] ####[facility] [address] [place] [address] Monocytes/Leukocyte s Auto (Bld) [Pure # fraction] 0.7 E9/L Normal 0.2-1.0 [facility] Comment on above: Order Comment: Order Added by Discern Expert. Performed By: #### 1 5650215, 6870524, 9209724, 7590083, 03674746, 59991937, 8484617, 8793383, 624351683 ####[address] [address] Neutrophils/100 WBC (Bld) 63.5 % Normal 36.0-75.0 [facility] Comment on above: Order Comment: Order Added by Discern Expert. Performed By: #### 1 8564348, 5492181, 2805513, 9506264, 55537931, 44718593, 1046851, 1488309, 560728837 ####[place] [address] [place] [address] Neutrophils/Leukocy patsy Auto (Bld) [Pure # fraction] 5.6 E9/L Normal 2.0-7.5 [facility] Comment on above: Order Comment: Order Added by Discern Expert. Performed By: #### 1 2954694, 8007183, 9423371, 2389930, 68889421, 75373429, 0266654, 2391589, 207805139 ####[place] [address] [place] [address] CBC w/ Auto Diffon 3 Erythrocyte distribution width (RBC) [Ratio] 14.0 % Normal 10.9-14.2 [facility] Comment on above: Performed By: #### 1 8348802, 8215248, 3564479, 4608256, 46511461, 24195405, 8512063, 1259633, 140506431 ####[place] [address] [place] [address] Hematocrit (Bld) [Volume fraction] 38.2 % Normal 37.7-49.0 [facility] Comment on above: Performed By: #### 1 8960093, 7381332, 9010036, 6388799, 20757861, 89140197, 8702087, 9707858, 815552958 ####[place] [address] [place] [address] Hemoglobin (Bld) [Mass/Vol] 12.9 g/dL Low 13.5-17.5 [facility] Comment on above: Performed By: #### 1 0446133, 6486566, 0099249, 4427841, 97786660, 19934501, 3246690, 9289156, 559681749 ####[address] [address] MCH (RBC) [Entitic mass] 31.3 pg Normal 27.0-34.0 [facility] Comment on above: Performed By: #### 1 8557425, 0362908, 3110447, 8079610, 56592280, 20442730, 7446317, 8132439, 603741043 ####[address] [address] MCHC (RBC) [Mass/Vol] 33.9 g/dL Normal 31.4-36.0 [facility] Comment on above: Performed By: #### 1 2393070, 9337968, 4602667, 7091212, 81181165, 28239479, 0698050, 4519749, 390432566 ####[place] [address] [place] [address] MCV (RBC) [Entitic vol] 92.4 fL Normal 80.0-100.0 [facility] Comment on above: Performed By: #### 1 6830494, 9171057, 0486783, 6387063, 38775569, 67117626, 1818736, 2468012, 055254549 ####[facility] [address] [place] [address] Platelet mean volume (Bld) [Entitic vol] 8.7 fL Normal 6.4-10.8 [facility] Comment on above: Performed By: #### 1 8713737, 2221829, 1293399, 8373041, 59176093, 46921923, 1411416, 5297714, 843384117 ####[facility] [address] [place] [address] Platelets (Bld) [#/Vol] 303.0 E9/L Normal 150.0-500.0 [facility] Comment on above: Performed By: #### 1 4847217, 1148812, 2891637, 3547183, 78728204, 85768141, 0391472, 3413256, 590819297 ####[facility] [address] [place] [address] RBC (Bld) [#/Vol] 4.1 E12/L Low 4.3-5.9 [facility] Comment on above: Performed By: #### 1 3800307, 3805776, 5627344, 9379496, 42769689, 88926580, 2733686, 4686544, 563572840 ####[facility] [address] [place] [address] WBC corrected for nucl RBC Auto (Bld) [#/Vol] 8.8 E9/L Normal 4.0-11.0 [facility] Comment on above: Result Comment: Slid e reviewed by ts . Performed By: #### 1 9303719, 4883898, 5425220, 4793105, 81479881, 82906347, 3713401, 9174012, 690552784 ####[facility] [address] [place] [address] CHEMISTRYOrdered By: Juan palafox on 12-28-2022 Albumin DL <= 20 mg/L [...] rate/Area] 45 mL/min/1.73 m2 Low >=59mL/min/1.73 m2 [facility] Chem S Globulin (S) [Mass/Vol] 3.2 g/dL Normal 1.4 - 4.0 gm/dL FT [facility] Glucose [Mass/Vol] 183 mg/dL Normal 55 - 199 mg/dL FT [facility] Potassium [Moles/Vol] 4.3 mmol/L Normal 3.5 - 5.3 mmol/L FT [facility] Prostate specific Ag [Mass/Vol] 1.2 ng/mL Normal 0.1 - 3.5 ng/mL FT [facility] Protein [Mass/Vol] 7.7 g/dL Normal 6.0 - 7.8 gm/dL F [facility] Remisol Sodium [Moles/Vol] 136 mmol/L Normal 135 - 145 mmol/L FT [facility] Triglyceride [Mass/Vol] 176 mg/dL High <=149mg/dL [facility] TSH Qn 3.45 m[IU]/L Normal 0.34 - 5.60 mcIU/mL [facility] Urea nitrogen [Mass/Vol] 32 mg/dL High 5 - 21 mg/dL [facility] Urea nitrogen/Creatinine [Mass ratio] 21 mg/mg High 10 - 20 [facility] CHEMISTRYOrdered By: Sena Jacobsen on 12-28-2022 HbA1c (Bld) [Mass fraction] 9.6 % High <=5.9% [facility] ChemAutoSS CMPon 12-28-2022 Albumin [Mass/Vol] 4.5 g/dL Normal 3.3-5.0 [facility] Comment on above: Performed By: #### 1 9769135, 1231446, 1551990, 7238544, 15087295, 64261860, 9611541, 7954028, 396905080 ####[facility] [address] [place] [address] Albumin/Globulin (S) [Mass conc ratio] 1.4 Normal 1.1-2.2 [facility] Comment on above: Performed By: #### 1 2869112, 3704849, 4184425, 6998565, 05973496, 02646190, 8015317, 2650937, 108610973 ####[facility] [address] [place] [address] ALP [Catalytic activity/Vol] 95 Int._Unit/L Normal 21-98 [facility] Comment on above: Performed By: #### 1 3686815, 8111287, 5481746, 8903676, 37684141, 22114940, 7452283, 2834392, 622190859 ####[address] [place] [address] ALT No additional P-5'-P [Catalytic activity/Vol] 13 Int._Unit/L Normal 6-46 [facility] Comment on above: Performed By: #### 1 9984824, 9100588, 5338499, 2039923, 15239556, 46654845, 5946365, 2989127, 607381768 ####[address] [address] Anion gap [Moles/Vol] 12 mmol/L Normal 6-16 [facility] Comment on above: Performed By: #### 1 1813576, 8501521, 1696970, 4398894, 24664802, 67928952, 7974179, 9119610, 430243398 ####[address] [place] [address] AST [Catalytic activity/Vol] 20 Int._Unit/L Normal 5-43 [facility] Comment on above: Performed By: #### 1 0808995, 1743568, 8726531, 0335636, 65644041, 44439998, 0785584, 0171619, 803569508 ####[address] [place] [address] Bilirubin [Mass/Vol] 0.8 mg/dL Normal 0.0-1.1 [facility] Comment on above: Performed By: #### 1 1604037, 0336542, 1333136, 5074196, 93797441, 89717413, 2231053, 0344120, 966906377 ####[facility] [address] [place] [address] Calcium [Mass/Vol] 9.4 mg/dL Normal 8.9-11.1 [facility] Comment on above: Performed By: #### 1 5724885, 3217373, 8928788, 2305896, 43633620, 24381921, 9931537, 0834275, 980503820 ####[facility] [address] [place] [address] Chloride [Moles/Vol] 102 mmol/L Normal 101-111 [facility] Comment on above: Performed By: #### 1 2934560, 6351316, 8436781, 6531481, 29225290, 02963922, 1597091, 5499039, 933688164 ####[facility] [address] [place] [address] CO2 [Moles/Vol] 26 mmol/L Normal 21-31 [facility] Comment on above: Performed By: #### 1 4646061, 1811129, 7088492, 9607703, 00908174, 12220386, 6185139, 9397673, 724090237 ####[facility] [address] [place] [address] Creatinine [Mass/Vol] 1.5 mg/dL High 0.5-1.3 [facility] Comment on above: Performed By: #### 1 2619280, 8175533, 8316062, 1292038, 14429857, 63190697, 2245119, 1126615, 362486356 ####[facility] [address] [place] [address] Globulin (S) [Mass/Vol] 3.2 g/dL Normal 1.4-4.0 [facility] Comment on above: Performed By: #### 1 3758917, 2980342, 8566143, 7395271, 11783559, 53188080, 9591386, 0788631, 482086576 ####[facility] [address] [place] [address] Glucose [Mass/Vol] 183 mg/dL Normal 55-199 [facility] Comment on above: Result Comment: If t his glucose result represents a fasting glucose, interpretation should refer to the following reference range: 55-99 mg/dL Performed By: #### 1 2213905, 1349796, 9188526, 5563124, 54644185, 89963036, 1130311, 1661626, 546156654 ####[facility] [address] [place] [address] Potassium [Moles/Vol] 4.3 mmol/L Normal 3.5-5.3 [facility] Comment on above: Performed By: #### 1 0092938, 2232832, 7632278, 8821910, 14392780, 53509290, 7538897, 3013831, 696219673 ####[facility] [address] [place] [address] Protein [Mass/Vol] 7.7 g/dL Normal 6.0-7.8 [facility] Comment on above: Performed By: #### 1 8822144, 0209506, 9350121, 6690997, 60842521, 67423882, 5436984, 8798362, 734264725 ####[facility] [address] [place] [address] Sodium [Moles/Vol] 136 mmol/L Normal 135-145 [facility] Comment on above: Performed By: #### 1 8492755, 5754035, 6645334, 7389131, 78434268, 96881948, 6251098, 0973335, 814243714 ####[facility] [address] [place] [address] Urea nitrogen [Mass/Vol] 32 mg/dL High 5-21 [facility] Comment on above: Performed By: #### 1 1360251, 7210042, 0172148, 9179008, 88432629, 96448682, 1034925, 8307046, 691060048 ####[facility] [address] [place] [address] Urea nitrogen/Creatinine [Mass ratio] 21 No Units High 10-20 [facility] Comment on above: Performed By: #### 1 4829979, 2287408, 9951041, 2739418, 38334236, 24288394, 5449773, 5076123, 327577886 ####[facility] [address] [place] [address] Family Medicine Office/Clini c Noteon 12-28-2022 Family Medicine Office/Clinic Note Chief Complaint establish care HPI Staff Amezcua is an 82 year old male who presents to [facility] and discuss his chronic diagnosis. Establish Care: History: Any previous diagnosis: Thyroid, DM2, HTN, hypothyroidism, hypercholesteremia, diabetic neuropathy History of seeing any specialist: Carpenter Foreman When was your last doctors visit: Over a year ago Last provider: Dr. Cifuentes Any recent labs: a long time pt cannot recall Acute: Current issues/complaints: He had a stress test completed with his rn surgical yesterday at [facility]. He also reports having a rash on [...] or sores? no Lisinopril, aspirin, statin therapy? [id number] ASA and Atorvastatin 80mg QD Foot Exam: Due, pt has never had one completed Eye Exam: [facility] [place] every year around December, pt is due [...] Metabolic Panel (more content not included)... Normal [facility] Comment on above: Result Comment: Elec tronically [...] 38.2 % Normal 37.7 - 49.0 % [facility] HemeAutoSS Hemoglobin (Bld) [Mass/Vol] 12.9 g/dL Low 13.5 - 17.5 gm/dL [facility] HemeAutoSS MCH (RBC) [Entitic mass] 31.3 pg Normal 27.0 - 34.0 pg [facility] HemeAutoSS MCHC (RBC) [Mass/Vol] 33.9 g/dL Normal 31.4 - 36.0 gm/dL [facility] HemeAutoSS MCV (RBC) [Entitic vol] 92.4 fL Normal 80.0 - 100.0 fL [facility]Auto[facility] Platelet mean volume (Bld) [Entitic vol] 8.7 fL Normal 6.4 - 10.8 fL [facility]eAutoSS Platelets (Bld) [#/Vol] 303.0 E9/L Normal 150.0 - 500.0 E9/L [facility]eAuto[facility] RBC (Bld) [#/Vol] 4.1 E12/L Low 4.3 - 5.9 E12/L [facility] HemeAutoSS WBC corrected for nucl RBC Auto (Bld) [#/Vol] 8.8 E9/L Normal 4.0 - 11.0 E9/L [facility] Comment on above: Result Comment: Slid e reviewed by valentina Kilpatrick [email or web address] 12-28-2022 HbA1c (Bld) [Mass fraction] 9.6 % High <=5.9 [facility] Comment on above: Performed By: #### 1 [id number], 9077949, 1478389, 0817989, 39332257, 37708571, 1548435, 3679822, [id number] ####[facility] [address] [place] [address] Lipid Panelon 12-28-2022 Cholesterol [Mass/Vol] 132 mg/dL Normal 120-200 [facility] Comment on above: Performed By: #### 1 8549307, 8730948, 9229536, 5120365, 93453774, 74813874, 8439589, 9025361, [id number] ####[facility] [address] [place] [address] Cholesterol in HDL [Mass/Vol] 29 mg/dL Invalid Interpretation Code [facility] Comment on above: Result Comment: HDL > or equal to 60 mg/dL: Low cardiovascular risk HDL < 40 mg/dL : High cardiovascular risk Performed By: #### 1 [id number], 4284583, 8454418, 0784273, 53795116, 78338152, 3280713, 9758819, 798463901 ####[facility] [address] [place] [address] Cholesterol in LDL [Mass/Vol] 64 mg/dL Normal <=129 [facility] Comment on above: Performed By: #### 1 7667432, 8576236, 5837200, 2932353, 52059103, 25379367, 1318684, 8670626, 549913372 ####[facility] [address] [place] [address] Cholesterol in VLDL [Mass/Vol] 35 mg/dL Normal 7-40 [facility] Comment on above: Performed By: #### 1 8995128, 5765244, 5258579, 0672387, 05474010, 23741632, 9657703, 0138148, 852815130 ####[facility] [address] [place] [address] Triglyceride [Mass/Vol] 176 mg/dL High <=149 [facility] Comment on above: Performed By: #### 1 9420050, 8752617, 0810916, 1918204, 08190920, 46725406, 1562906, 5121324, 167945172 ####[facility] [address] [place] [address] PSA Screen, Totalon 12-29-19 23 Prostate specific Ag [Mass/Vol] 1.2 ng/mL Normal 0.1-3.5 [facility] Comment on above: Result Comment: The concentration of PSA determined by different manufacturers can vary due to differences in assay methods and reagent specificity. Values obtained from different assay methods cannot be used interchangeably. The methodology used for this result was chemiluminescence using [employer]'s Access Hybritech PSA reagent. Performed By: #### 1 3387033, 1053157, 6566153, 7210964, 94924715, 55507513, 2618019, 8046649, [id number] ####[facility] [address] [place] [address] TSH With T4fr Reflexon 12-28 TSH Qn 3.45 m[IU]/L Normal 0.34-5.60 [facility] Comment on above: Performed By: #### 1 4261545, 1435331, 7382460, 1268450, 86637683, 61793530, 5576473, 3026165, 444909479 ####[facility] [address] [place] [address] U Microalbon 12-28-2022 Albumin DL <= 20 mg/L (U) [Mass/Vol] 98.2 microgram/mL High 0.0-19.0 [facility] Comment on above: Performed By: #### 1 4361100 ####[facility] [address] [place] [address] eGFRon 12-28-2022 GFR/1.73 sq M.predicted among blacks MDRD (S/P/Bld) [Vol rate/Area] 54 mL/min/1.73 m2 Low >=59 [facility] Comment on above: Order Comment: Order added by Discern Expert. Result Comment: eGFR is race adjusted. AA=. Performed By: #### 1 9806212, 8211754, 2352507, 3219343, 48480248, 49259324, 0907372, 2526641, 195687379 ####[facility] [address] [place] [address] GFR/1.73 sq M.predicted among non-blacks MDRD (S/P/Bld) [Vol rate/Area] 45 mL/min/1.73 m2 Low >=59 [facility] Comment on above: Order Comment: Order added by Discern Expert. Result Comment: Communications Professor estrada kidney disease could be indicated at eGFR's of less than 60 mL/min/1.73m2. Kidney failure is indicated at less than 15 mL/min/1.73m2. Performed By: #### 1 4115570, 9548791, 1603807, 6326706, 17261536, 15002122, 5527709, 1003783, 545650256 ####[facility] [address] [place] [address] ECHOCARDIO M/2D COMPLETEon 0 12-27-2022 ECHOCARDIO M/2D COMPLETE Patient: JOJO LEWIS Exam Date: 12/27/2022 : 1940 Gender:M Ordering : BESSIE TresaShonna PRICE Admission #: [id number] Family : DR DEEPA CIFUENTES . Order #: [id number] CLICK HERE TO VIEW EXAM ECHOCARDIOGRAM REPORT [...] Area (VTI): 1.82 cm2, 1.88 cm2 Deceleration [place]: 1.50 m/s2 Pressure Half-Time: 594.47 ms Peak [...] Nj Moore M.D. on 12/30/2022 at 13:24 [facility] Follow-Upon 06-23-2022 Follow-Up [id number] Pillo [facility] 1940 Date Provider Department Center 06/23/2022 BESSIE COPE ANDREW [facility] Family History Problem Relation Age of Onset Heart disease Mother Heart disease Father Alcohol abuse Father Diabetes Brother Family Status - Relation Status Age at Mother Father Brother Level of Service:89741 [place] OFFICE/OUTPATIENT ESTABLISHED MOD MDM 30-39 MIN Reason for Visit and Comments: Coronary Artery Disease [187] Hypertension [312770] Hyperlipidemia [182] Valve Disorder [3372] Normal [facility] Abstracton 06-03-2022 Abstract [id number] Pillo [facility] 1940 M Date Provider Department Center 06/03/2022 MUMTAZ PENA Family History Problem Relation Age of Onset Heart disease Mother Heart disease Father Alcohol abuse Father Diabetes Brother Family Status - Relation Status Age at Mother Father Brother Normal [facility] Abstracton 05-28-2022 Abstract [id number] Pillo [facility] 1940 M Date Provider Department Center 05/28/2022 MUMTAZ PENA CARD [facility] Family History Problem Relation Age of Onset Heart disease Mother Heart disease Father Alcohol abuse Father Diabetes Brother Family Status - Relation Status Age at Mother Father Brother Normal [facility] MRI BRAIN WO CONon 2 MRI BRAIN WO CON EXAM: MRI BRAIN [...] by: BLESSING MARSHALL Date: 2022-02-16 10:31 Normal [facility] URIC ACID SERUMon 02-12-2022 Urate [Mass/Vol] 7.9 mg/dL Critically high 3.5-7.2 [facility] Comment on above: Performed By: #### U SHAWANDA #### [facility] [address] [address] [address] Ale So XR knee RT 2Von 01-18-2022 XR knee RT [address]V [facility] [place] [address] [place] [address] XRay Report Signed Patient: Jojo Lewis MR#: [id number] : 1940 Acct:[id number] Age/Sex: 81 / M ADM Date: 01/18/22 Loc: SOXD Room: Type: [facility] CLI Attending Dr: Mandeep Owen MD [...] Claudia Boone M.D.01/18/2022 4:46 PM Dictation Location: [place] [address] Transcribed By: [facility] 01/18/221645 Dictated By: Claudia Boone MD 01/18/221643 Signed By: 01/18/221645 [facility] GLYCOHEMOGLOBIN A1Con 2021 ADA RECOMMENDATION ADA THERAPEUTIC TARG ET 6.0 - 7.0 ACTION SUGGESTED > 7.0 Normal [facility] Comment on above: Performed By: #### A 1C #### [facility] [address] [place] [address] Dr. Ale So Glucose [Mass/Vol] 194 mg/dL Normal [facility] Comment on above: Performed By: #### A 1C #### [facility] [address] [place] [address] Dr. Ael So HbA1c (Bld) [Mass fraction] 8.4 % Critically high <=6.0 [facility] Comment on above: Performed By: #### A 1C #### [facility] [address] [address] [address] Ale So POC GLUCOSE LABon 05-17-2017 Glucose mass conc 149 mg/dL High 70-100 [facility] Comment on above: Performed By: #### 8 5499 ####[place] [address] Cardiovascular Lab Reporton 05-16-2017 Cardiovascular Lab Report [facility] Patient Name: [facility] MR #: [id number] Physician: Lucretia Truong,Department of M.D.Medicine Service Date: 05/16/2017Division of Birthdate: 1940Cardiology Room #: 3CD [id number] [facility] [place], [place] [address]Llqvg Fax Cardiovascular Laboratory ReportFINAL IMPRESSION:1. Severe stenosis [...] factor modification.4. Optimization of medical management; a beta-isi, a statin and an angiotensin-converting enzyme inhibitor are indicated.5. Follow up with me in the [facility] in the next 2-4 weeks; should the patient's symptoms persist, the second obtuse marginal may be a target for revascularization.6. Follow up with Dr. Cifuentes as scheduled.PROCEDURES: Limited femoral angiography, bilateral selective coronaryangiography, percutaneous balloon angioplasty and Synergy drug-elutingstent placement in the right coronary artery, placement of a 6-Monegasque VIPAngio-Seal device.METHODS: After risks, benefits, and alternatives were explained, writteninformed consent was obtained. The patient was prepped and draped in theusual sterile fashion over both groins. Using 1% lidocaine solution, localinfiltration anesthesia was achieved. Using a modified Seldingertechnique, access to the right common femoral artery was obtained and a6-Monegasque 11 cm sheath inserted without difficulty. Baseline femoralangiography was performed.Bilateral selective coronary angiography was then performed using JL4 andJR4 catheters. After reviewing the images, it was elected to proceed withan interventional procedure.A 6-Monegasque JR4 guide catheter was advanced over a [...] point, it was elected to conclude theprocedure.A 6-Monegasque VIP Angio-Seal device was deployed per protocol achievingoptimal hemostasis. Overall, the patient tolerated the procedure well.There were no overt complications. He was to be transferred to the [facility] in stable condition.FINDINGS: Hemodynamics:AO 154/56 (95).Left [...] Angina and abnormal stress test.Electronically Signed by:Lucretia Truong M.D. 05/17/2017 08:19 A Lucretia Truong M.D.Date Dict: 05/16/2017/09:33 Carlie/Lucretia Truong M.D.Date Trans: 05/16/2017 11:11 A/Audra_JN:[id number] 1cc: Deepa Cifuentes M.D. [address] [place], [place] [address] Chris Palomino M.D. [facility] [place] [address] Normal [facility] POC GLUCOSE LABon 05-16-2017 Glucose mass conc 139 mg/dL High 70-100 [facility] Comment on above: Performed By: #### 8 5499 ####[place] [address] [facility] [place] [address], [facility] Glucose mass conc 161 mg/dL High 70-100 [facility] Comment on above: Performed By: #### 8 5499 ####[facility] [facility] [place] [address], [facility] Glucose mass conc 149 mg/dL High 70-100 [facility] Comment on above: Performed By: #### 8 5499 ####[facility] [facility] [place] [address], [facility] Vital Signs Date Time Vital Sign Value Performing Clinician Faci lity 01-18-2022 14:30-4920 Body height 172.72 cm Mandeep Castellanoschani Other [place] [employer] Other Encounters Encounter Date Encounter Type Care Provider Facility Start: 11-15-2023 End: 11-16-2023 ambulatory Sheree L Connor [facility] Start: 10-27-2023 End: 10-28-2023 ambulatory Sheree L Connor [facility] Start: 09-29-2023 End: 09-30-2023 ambulatory Sheree L Connor [facility] Start: 07-06-2023 End: 07-07-2023 ambulatory Sheree L Connor Facility:[facility] Start: 07-06-2023 End: 07-06-2023 Lab Drop off Sheree L Connor [facility] Start: 05-17-2023 End: 05-18-2023 ambulatory Sheree L Connor [facility] Start: 04-04-2023 End: 04-05-2023 ambulatory Sheree L Connor Facility:[facility] Start: 03-31-2023 End: 04-01-2023 ambulatory Sheree L Connor Facility:[facility] Start: 03-21-2023 End: 03-21-2023 ambulatory E[facility] Start: 01-05-2023 End: 01-05-2023 ambulatory AB [facility] Start: 12-28-2022 End: 12-29-2022 ambulatory Sheere L Connor Facility:[facility] Start: 12-28-2022 End: 12-28-2022 Lab Drop off Sheree L Connor [facility] Start: 12-28-2022 End: 12-29-2022 ambulatory Sheree L Connor Facility:[facility] Start: 12-28-2022 End: 12-28-2022 Lab Drop off Sheree L Connor [facility] Start: 12-27-2022 End: 12-28-[address] DEEPA CIFUENTES . Facility:[facility] Start: 12-06-2022 ambulatory DEEPA CIFUENTES Facility:[facility] Start: 06-23-2022 End: 06-23-[address] [facility] Start: 02-16-2022 End: 02-17-[address] DEEPA CIFUENTES . Facility:[facility] Start: 02-12-2022 End: 02-13-[address] DEEPA CIFUENTES . Facility:[facility] Start: 01-18-2022 End: 01-18-2022 ambulatory Mandeep Owen Other [employer] Other Start: 01-18-2022 Office outpatient ne w 30 minutes Mandeep Owen [facility] Start: 01-05-2022 End: 01-06-[address] DEEPA CIFUENTES . Facility: Start: 05-16-2017 End: 05-17-2017 Ambulatory LUCRETIA TRUONG Facility:[facility] Procedures Date Procedure Procedure Detail Performing Clinician Start: 09-26-2017 Colonoscopy Sheree Connor Start: 09-26-2017 Esophagogastroduodenoscopy gastric outlet reduction Sheree Connor Start: 09-26-2014 Cardiac catheter (physical object) Sheree Connor Comment on above: stent X 2 Start: 09-26-2000 Cardiac catheter (physical object) Shreee Connor Comment on above: LAD stent Start: 09-26-1947 Appendectomy Sheree Connor Plan of Treatment Date Care Activity Detail Author Start: 05-18-2024 ambulatory Ambulatory Facility:[facility] Start: 01-04-2024 ambulatory Ambulatory Facility:[facility] Immunizations Immunization Date Immunization Notes Care Provider Fa cility 06-30-2022 influenza virus vaccine, unspecified formulation Sheree Connor [facility] 06-15-2022 SARS-CoV-2 (COVID-19 ) [id number] Sheree Connor [facility] Comment on above: Result Comment: 2022: [id number] 02-17-2022 SARS-CoV-2 (COVID-19 ) mRNA-1273 vaccine Sheree Connor [facility] Comment on above: Result Comment: 2022: [id number] 07-21-2021 SARS-CoV-2 (COVID-19 ) mRNA-1273 vaccine Sheree Connor [facility] Comment on above: Result Comment: 2022: [id number] 06-30-2021 influenza virus vaccine, unspecified formulation Sheree Connor [facility] 11-18-2020 SARS-CoV-2 (COVID-19 ) mRNA-1273 vaccine Sheree Connor [facility] 10-22-2020 SARS-CoV-2 (COVID-19 ) mRNA-1273 vaccine Sheree Connor [facility] 06-11-2020 influenza virus vaccine, unspecified formulation Sheree Connor [facility] 08-28-2019 influenza virus vaccine, unspecified formulation Sheree Connor [facility] Payers Date Payer Category Payer Medicare [id number] 2.1 [id number] 1959 Private Health Insurance [id number] 1940 Unknown [id number] 2.16.84 0.1.945892.3.579.2.593 1940 Unknown [id number] 2.16.84 0.1.670323.3.579.2.593 1940 Unknown [id number] 2.16.84 0.1.326166.3.579.2.593 1940 Unknown [id number] 2.16.84 0.1.902762.3.579.2.593 1940 Unknown [id number] 2.16.8 40.1.022092.3.579.2.727 1940 Unknown [id number] 2.16.8 40.1.042038.3.579.2.727 1940 Unknown [id number] 2.16.8 40.1.229670.3.579.2.727 1940 Unknown [id number] 2.16.8 40.1.410015.3.579.2.727 1940 Unknown [id number] 2.16.8 40.1.861503.3.579.2.727 1940 Unknown [id number] 2.16.8 40.1.006251.3.579.2.727 1940 Unknown [id number] 2.16.8 40.1.193665.3.579.2.727 1940 Unknown [id number] 2.16.8 40.1.677837.3.579.2.727 1940 Unknown [id number] 2.16.8 40.1.033804.3.579.2.727 1940 Unknown [id number] 2.16.8 40.1.182137.3.579.2.727 1940 Unknown [id number] 2.16.8 40.1.095957.3.579.2.727 1940 Unknown [id number] 2.16.8 40.1.125636.3.579.2.727 1940 Unknown [id number] 2.16.8 40.1.636930.3.579.2.727 1940 Unknown [id number] 2.16.8 40.1.955230.3.579.2.727 1940 Unknown [id number] 2.16.8 40.1.971363.3.579.2.727 Medicare [id number] Social History Date Type Detail Facility Unknown if ever smoked [employer] Other Sex Assigned At [facility] Start: 12-28-2022 End: 07-06-2023 Tobacco smoking status Never smoked tobacco (finding) [facility] Tobacco smoking status Never [facility] Medical Equipment Procedure Code Equipment Code Equipment Origin al Text Equipment Identifier Dates USE TWICE A DAY DIRECTED (DXE10.8) Start: 12-28-2022 USE TWICE A DAY DIRECTED (DXE10.8) Start: 12-28-2022 USE TWICE A DAY DIRECTED (DXE10.8) Start: 12-28-2022 Clinical Notes 01-18-2022 to 03-21-2023 Note Date & Type Note Facility 03-21-2023 Note [facility] Cardiology Clinic Note Chief Complaint: Patient here [...] has a past medical history of Aneurysm (CMS/HCC), CAD (coronary artery disease) (05/11/2022), Cardiovascular stress [...] dual antiplatelet therapy, high intensity statin therapy, beta-isi and given his diabetic status a RAAS inhibitor Given diabetes mellitus and history of coronary artery disease, would strongly recommend addition of an SGLT2 inhibitor or a GLP-1 receptor agonist; will defer to his family physician Return to clinic in a year or sooner should problems arise Lucretia Truong MD, MPH, [facility], [facility], [facility] Interventional Cardiology Pager Email: [email or web address] 01-05-2023 Note [facility] Cardiology Clinic Note Chief Complaint: Patient here [...] for coronary artery disease including aspirin, statin, beta-isi and an angiotensin receptor isi. He is also on Plavix. He is to monitor his blood pressure at home a.m. and p.m. an hour after medications and to keep a log. Return to clinic in 2 months to evaluate his response to the above change. Lucretia Truong MD, MPH, [facility], [facility], [facility] Interventional Cardiology Pager Email: [email or web address] 12-28-2022 Evaluation + Plan note Diagnostic Tests PendingT3 Free 12/28/22 [facility] 06-23-2022 Note Increase metoprolol to toprol 50 mg daily, will re-evaluate at next visit ECG today- Sinus tachycardia with 1st degree AV block, with PVC and non specific ST-T wave changes No acute concerns. HR 104 bpm at rest. [facility] 06-23-2022 Note Continue lipitor Staff to ask Dr Cifuentes's office for recent labs, lipid profile this year. [facility] 06-23-2022 Note B/P remains uncontro lled with metoprolol tartrate- he is only taking once daily, chlorthalidone, losartan. Will change metoprolol tartrate to toprol 50 mg- considered coreg but I don't believe he will take coreg bid. RTC 1 month to review b/p log and re-evaluate Renal function stable for him with CR 1.4-1.5- continue to monitor. [facility] 06-23-2022 Note Continue GDMT- ASA, lipitor, plavix, toprol No concerning symptoms today, good functional/aerobic capacity- walks a 5K daily without limiting symptoms. [facility] 06-23-2022 Note Will increase and ch elenita metoprolol to toprol 50mg in light he is only taking once a day, to better manage HTN. Repeat echo to evaluate AO root in light of uncontrolled HTN since last visit [facility] 06-23-2022 Note HPI: Jojo Lewis is [...] 104 bpm at rest. RTC 1 month [facility] 06-23-2022 Note Natalya Lewis is a 82 y.o. male. Chief [...] Review: Assessment/Plan There were no encounter diagnoses. [facility] 02-12-2022 Note PROCEDURE: XR FOOT R [...] authenticated by: STACI KLEIN Date: 2022-02-12 16:27 [facility] 01-18-2022 Evaluation note Encounter Date Diagnosis Assessment Notes Dec, Acute pain of right knee (ICD-10 - M25.561) Dec, Bursitis of right knee, unspecified bursa (ICD-10 - M70.51) Radiographs reviewed with patient. Advised that based on his described history, he may have been experiencing a bursitis that has resolved. Continue motion and strengthening. Activity as tolerated. Call with questions/chaya rns. [employer] Other Evaluation + Plan note Future Appointments Appointment Date:01/04/2024 09:00:00 AM Scheduled Provider:Sheree Caraballo Location:[facility] Appointment Type: Open Appointment Date:05/18/2024 08:00:00 AM Scheduled Provider: Location:[facility] Appointment Type:FM Medicare Wellness Subsequent [facility] N[facility]ative - Reported* Type Description Date Medical History Diabetic Medical History Heart attack Medical History Hypertension Surgical History Heart Stent Surgical History Appendectomy Hospitalization History see above [employer] Other Hospital course Narrative No data available for this section [facility] instructions No data available for this section [facility] No data available for this section [facility] Summary Purpose Family History No Family History [...] section and content) DATE CREATED AUTHOR 03/22/2018 [facility] DATE CREATED AUTHOR AUTHOR'S ORGANIZ ATION 01/19/2022 [facility] DATE CREATED AUTHOR AUTHOR'S ORGANIZ ATION 01/01/2023 [facility] DATE CREATED AUTHOR AUTHOR'S ORGANIZ ATION 03/21/2023 [facility] DATE CREATED AUTHOR AUTHOR'S ORGANIZ ATION 11/16/2023 [facility] REASON FOR VISIT (unrecogniz ed section and content) Right Knee Pain Patient Care team informatio n (unrecognized section and content) Personnel Name: Sheree Caraballo Address: Address: [address] [place] [address]- Personnel Name: Sheree Caraballo Address: Address: [address] [place] [address]- Personnel Name: Sheree Caraballo Address: Address: [address] [place] [address]- FOR RECORDS PERTAINING TO PATIENTS WHO ARE [...] BE BASED ON THE PRIMARY CLINICAL RECORDS. [facility] [employer] [facility]. provides no warranty or guarantee of the accuracy or completeness of information in this document.
--- NOTE | 2023-11-17 06:56 | US_ITS ---
The [address] [address] Patient Name: JOJO LEWIS MRN: [id number] date: 1940 Sex: M Assigned Patient Location: US Current Patient Location: Accession/Order Number: [id number] Exam Date: 11/17/2023 07:01 Report Date: 11/17/2023 09:34 At the request of: NAT CHAWLA Procedure: US venous doppler LE LT EXAMINATION: US venous doppler LE LT HISTORY: Left Calf Pain COMPARISON: No relevant comparison available. FINDINGS: REGION: Left lower extremity THROMBI: None. COMPRESSIBILITY: Normal compressibility. FLOW: Normal waveform and antegrade flow between 5 and 20 cm/s. OTHER: None. US/US venous doppler LE LT IMPRESSION: 1. No deep vein thrombus within the left lower extremity. Electronically authenticated by: STACI KLEIN Date: 11/17/2023 09:34
== END 2023-11-17 06:53 | disposition home or self-care (01) ==
LOC: US 06:52
PROVIDERS: Visit Provider Nurse Practitioner
DX: M79.662 Pain in left lower leg (principal)
CPT/HCPCS: 93971

== ENCOUNTER 2024-03-08 12:35 | Outpatient (OUT) | payer MEDICARE, OTHER, SELFPAY ==
--- OUTSIDE RECORDS SUMMARY | 2024-03-08 12:54 | XMS_ITS | CCD ---
Author Organization [facility] Care Team Providers Care Insurance Policy Clerk Name Role Phone ELTAHAWY, EHAB A Unavailable Unavailable ELTAHAWY, EHAB A Unavailable Unavailable CIFUENTES, KEYONNA Unavailable Unavailable CIFUENTES, KEYONNA Unavailable Unavailable Mandeep Owen Unavailable Sheree Ryan Primary Care Physician CIFUENTES ., DR KEYONNA Callejas Consulting Unavailable CIFUENTES ., DR KEYONNA Callejas Attending Unavailable CIFUENTES ., DR KEYONNA Callejas Admitting Unavailable CIFUENTES ., DR KEYONNA Callejas Primary Care Unavailable CIFUENTES ., DR KEYONNA Callejas Attending Unavailable CIFUENTES ., DR KEYONNA Callejas Admitting Unavailable CIFUENTES ., DR KEYONNA Callejas Primary Care Unavailable BESSIE PRICE Consulting Unavailable CIFUENTES ., DR KEYONNA Callejas Consulting Unavailable CIFUENTES ., DR KEYONNA Callejas Attending Unavailable CIFUENTES ., DR KEYONNA Callejas Admitting Unavailable CIFUENTES ., DR KEYONNA Callejas Primary Care Unavailable BLESSING MARSHALL Consulting Unavailable CIFUENTES ., DR KEYONNA Callejas Consulting Unavailable CIFUENTES ., DR KEYONNA Callejas Attending Unavailable CIFUENTES ., DR KEYONNA Callejas Admitting Unavailable CIFUENTES ., DR KEYONNA Callejas Primary Care Unavailable ZIEBER, DR STACI Valdes Consulting Unavailable ELTAHAWY, EHAB Attending Unavailable ELTAHAWY, EHAB Attending Unavailable Connor, ELECTRONIC WARFARE LINGUIST Sheree L Attending Unavailable Connor, ELECTRONIC WARFARE LINGUIST Sheree L Attending Unavailable Connor, ELECTRONIC WARFARE LINGUIST Sheree L Attending Unavailable Connor, ELECTRONIC WARFARE LINGUIST Sheree L Attending Unavailable Connor, ELECTRONIC WARFARE LINGUIST Sheree L Attending Unavailable Connro, ELECTRONIC WARFARE LINGUIST Sheree L Admitting Unavailable Connor, ELECTRONIC WARFARE LINGUIST Sheree L Attending Unavailable Connor, ELECTRONIC WARFARE LINGUIST Sheree L Attending Unavailable Connor, ELECTRONIC WARFARE LINGUIST Sheree L Admitting Unavailable Connor, ELECTRONIC WARFARE LINGUIST Sheree L Attending Unavailable Connor, ELECTRONIC WARFARE LINGUIST Sheree L Admitting Unavailable Connor, ELECTRONIC WARFARE LINGUIST Sheree L Attending Unavailable Connor, ELECTRONIC WARFARE LINGUIST Sheree L Admitting Unavailable Connor, ELECTRONIC WARFARE LINGUIST Sheree L Attending Unavailable Connor, ELECTRONIC WARFARE LINGUIST Sheree L Attending Unavailable Connor, ELECTRONIC WARFARE LINGUIST Sheree L Attending Unavailable Connor, ELECTRONIC WARFARE LINGUIST Sheree L Attending Unavailable Connor, ELECTRONIC WARFARE LINGUIST Sheree L Attending Unavailable Connor, ELECTRONIC WARFARE LINGUIST Sheree L Attending Unavailable Connor, ELECTRONIC WARFARE LINGUIST Sheree L Attending Unavailable Allergies Allergy Classification Reported Allergen(s) Allergy Type Date of Onset Reaction(s) Facility (5 sources) glipiZIDE; Translations: [glipizide] Drug Allergy Unknown (qualifier value) [facility] (5 sources) Nuts (not including peanuts); Translations: [Nuts] Food allergy Unknown (qualifier value) [facility] (5 sources) Omeprazole; Translations: [omeprazole] Drug Allergy Unknown (qualifier value) [facility] Medications Current Medications Medication Drug Class(es) Dates Sig (Normalized) Sig (Original) Aspirin (1 source) Platelet Aggregation Inhibitor, Nonsteroidal Anti-inflammatory Drug Aspirin Active Aspirin Enteric Coated 81 mg oral delayed release tablet (4 sources) Start: 12-06-2022 take 1 tablet by mouth once daily Aspirin Enteric Coated 81 mg oral delayed release tablet 81 mg = 1 tab(s), Oral, Daily, Refills(s) 0 Start Date: 12/06/22 Status: Ordered atorvastatin 80 mg oral tablet (5 sources) HMG-CoA Reductase Inhibitor Start: 11-15-2023 take 1 tablet by mouth once daily atorvastatin 80 mg Tab 80 mg = 1 tab(s), Oral, Daily, # 90 tab(s), Refills(s) 0, Pharmacy: [facility], 170, cm, 11/15/23 9:08:00 EST, Height/Length Dosing, 74.7, kg, 11/15/23 9:08:00 EST, Weight Dosing Start Date: 11/15/23 Status: Ordered Start: 12-06-2022 take 1 tablet by marly th once daily atorvastatin 80 mg Tab 80 mg = 1 tab(s), Oral, Daily, # 90 tab(s), Refills(s) 3, Pharmacy: [facility] Start Date: 12/06/22 Status: Ordered Lipitor Active carvedilol 12.5 mg oral tablet (2 sources) alpha-Adrenergic Nila, beta-Adrenergic Nila Start: 11-15-2023 take 1 tablet by mouth twice daily carvedilol 12.5 mg Tab 12.5 mg = 1 tab(s), Oral, BID, # 180 tab(s), Refills(s) 0, Pharmacy: [facility], 170, cm, 11/15/23 9:08:00 EST, Height/Length Dosing, 74.7, kg, 11/15/23 9:08:00 EST, Weight Dosing Start Date: 11/15/23 Status: Ordered Start: 04-04-2023 take 1 tablet by marly th twice daily at dinner carvedilol 12.5 mg Tab 180 EA, TAKE ONE TABLET BY MOUTH TWICE A DAY (WITH BREAKFAST AND EVENING MEAL), Refills(s) 0 Start Date: 04/04/23 Status: Ordered chlorthalidone 25 mg oral tablet (5 sources) Thiazide-like Diuretic Start: 11-15-2023 take 1 tablet by mouth once daily chlorthalidone 25 mg Tab 25 mg = 1 tab(s), Oral, Daily, # 90 tab(s), Refills(s) 0, Pharmacy: [facility], 170, cm, 11/15/23 9:08:00 EST, Height/Length Dosing, 74.7, kg, 11/15/23 9:08:00 EST, Weight Dosing Start Date: 11/15/23 Status: Ordered Start: 12-28-2022 take 1 tablet by marly th once daily chlorthalidone 25 mg Tab 25 mg = 1 tab(s), Oral, Daily, # 90 tab(s), Refills(s) 3, Pharmacy: [facility], 169, cm, 12/28/22 8:48:00 EDT, Height/Length Dosing, 77.9, kg, 12/28/22 8:48:00 EDT, Weight Dosing Start Date: 12/28/22 Status: Ordered Chlorthalidone A ctive clopidogrel 75 mg oral tablet (5 sources) [id number] Platelet Inhibitor Start: 11-15-2023 take 1 tablet by mouth once daily clopidogrel 75 mg Tab 75 mg = 1 tab(s), Oral, Daily, # 90 tab(s), Refills(s) 0, Pharmacy: [facility], 170, cm, 11/15/23 9:08:00 EST, Height/Length Dosing, 74.7, kg, 11/15/23 9:08:00 EST, Weight Dosing Start Date: 11/15/23 Status: Ordered Start: 12-28-2022 take 1 tablet by marly th once daily clopidogrel 75 mg Tab 75 mg = 1 tab(s), Oral, Daily, # 90 tab(s), Refills(s) 3, Pharmacy: [facility], 169, cm, 12/28/22 8:48:00 EDT, Height/Length Dosing, 77.9, kg, 12/28/22 8:48:00 EDT, Weight Dosing Start Date: 12/28/22 Status: Ordered Clopidogrel Bisu lfate Active colchicine 0.6 mg oral tablet (1 source) Start: 12-14-2023 take 1 tablet by mouth three times daily as needed for pain colchicine 0.6 mg Tab See Instructions, TAKE ONE TABLET BY MOUTH THREE TIMES A DAY NEEDED FOR GOUT PAIN, # 30 EA, Refills(s) 1, Pharmacy: [facility], 170, cm, 12/14/23 12:50:00 EDT, Height/Length Dosing, 76.2, kg, 12/14/23 12:46:00 EDT, Weight Dosing Start Date: 12/14/23 Status: Ordered cyclobenzaprine hydrochloride 7.5 mg oral tablet (1 source) Muscle Relaxant Start: 11-18-2023 take 1 tablet by mouth twice daily as needed for muscle spasms cyclobenzaprine 7.5 mg oral tablet 7.5 mg = 1 tab(s), Oral, BID, PRN for spasm, # 20 tab(s), Refills(s) 0, Pharmacy: [facility], 170, cm, 11/15/23 9:08:00 EST, Height/Length Dosing, 74.7, kg, 11/15/23 9:08:00 EST, Weight Dosing Start Date: 11/18/23 Status: Ordered diclofenac sodium 75 mg delayed release oral [...] DAY Oral for 90 Active glyBURIDE Active indomethacin 50 mg oral capsule (1 source) Nonsteroidal Anti-inflammatory Drug Start: 12-14-2023 take 1 capsule by mouth three times daily as needed for pain indomethacin 50 mg oral capsule 50 mg = 1 cap(s), Oral, TID, PRN for pain, # 30 cap(s), Refills(s) 0, Pharmacy: [facility], 170, cm, 12/14/23 12:50:00 EDT, Height/Length Dosing, 76.2, kg, 12/14/23 12:46:00 EDT, Weight Dosing Start Date: 12/14/23 Status: Ordered 3 ml insulin detemir 100 unt/ml pen injector (3 sources) Insulin Analog Start: 12-28-2022 inject 30 [IU] by subcutaneous injection twice daily, then inject 30 [IU] by subcutaneous injection twice daily at bedtime Levemir FlexTouch 100 units/mL subcutaneous solution 30 unit(s), SubCutaneous, BID, INJECT 30 UNITS TWICE A DAY ( IN THE MORNING AND AT BEDTIME ), # 15 mL, Refills(s) 3, Pharmacy: [facility], 169, cm, 12/28/22 8:48:00 EDT, Height/Length Dosing, 77.9, kg, 12/28/22 8:48:00 EDT, Weight Dosing Start Date: 12/28/22 Status: Ordered 3 ml insulin glargine 100 unt/ml pen injector (1 source) Insulin Analog Start: 10-27-2023 Lantus Solostar Pen 100 units/mL subcutaneous solution 30 unit(s), SubCutaneous, BID, # 15 mL, Refills(s) 3, Pharmacy: [facility], 170, cm, 10/27/23 9:53:00 EST, Height/Length Dosing, 77.2, kg, 10/27/23 9:53:00 EST, Weight Dosing Start Date: 10/27/23 Status: Ordered levothyroxine sodium 0.125 mg oral tablet (5 sources) l-Thyroxine Start: 11-15-2023 take 1 tablet by mouth once daily levothyroxine 125 mcg (0.125 mg) Tab 125 mcg = 1 tab(s), Oral, Daily, # 90 tab(s), Refills(s) 0, Pharmacy: [facility], 170, cm, 11/15/23 9:08:00 EST, Height/Length Dosing, 74.7, kg, 11/15/23 9:08:00 EST, Weight Dosing Start Date: 11/15/23 Status: Ordered Start: 12-28-2022 take 1 tablet by marly th once daily levothyroxine 125 mcg (0.125 mg) [...] e losartan potassium 100 mg oral tablet (4 sources) Angiotensin 2 Receptor Nila Start: 11-15-2023 take 1 tablet by mouth once daily losartan 100 mg Tab 100 mg = 1 tab(s), Oral, Daily, # 90 tab(s), Refills(s) 0, Pharmacy: [facility], 170, cm, 11/15/23 9:08:00 EST, Height/Length Dosing, 74.7, kg, 11/15/23 9:08:00 EST, Weight Dosing Start Date: 11/15/23 Status: Ordered Start: 12-28-2022 take 1 tablet by marly th once daily losartan 100 mg Tab 100 mg = 1 tab(s), Oral, Daily, # 90 tab(s), Refills(s) 3, Pharmacy: [facility], 169, cm, 12/28/22 8:48:00 EDT, Height/Length Dosing, 77.9, kg, 12/28/22 8:48:00 EDT, Weight Dosing Start Date: 12/28/22 Status: Ordered metFORMIN hydrochloride 500 mg oral tablet (2 sources) Biguanide Start: 04-04-2023 End: 03-29-2024 take 1 tablet by mouth twice daily metformin 500 mg Tab 500 mg = 1 tab(s), Oral, BID, X 90 day(s), # 180 tab(s), Refills(s) 3, Pharmacy: [facility], 169, cm, 04/04/23 9:12:00 EDT, Height/Length [...] Vitamin D3 2000 intl units oral Tab (4 sources) Start: 12-28-2022 take 1 tablet by mouth once daily Vitamin D3 2000 intl units oral Tab 50 mcg, Oral, Daily, # 90 cap(s), Refills(s) 3, Pharmacy: [facility], 169, cm, 12/28/22 8:48:00 EDT, Height/Length Dosing, 77.9, kg, 12/28/22 8:48:00 EDT, Weight Dosing Start Date: 12/28/22 Status: Ordered Completed/Discontinued Medications Medication Drug Class(es) Dates Sig (Normalized) Sig (Original) dexamethasone 1 mg/ml / neomycin 3.5 mg/ml / polymyxin b 61634 unt/ml ophthalmic suspension (1 source) Aminoglycoside Antibacterial, Polymyxin-class Antibacterial, Corticosteroid Neomycin-Polymyxi n-Dexameth [id number] PLACE 1 DROP INTO THE LEFT EYE FOUR TIMES A DAY FOR 1 WEEK Ophthalmic for 7 Not-Taking liothyronine sodium 0.005 mg oral tablet (5 sources) l-Triiodothyronine Start: 12-28-2022 take 2 tablets by mouth once daily in the morning liothyronine 5 mcg Tab 10 mcg = 2 tab(s), Oral, Daily, TAKE TWO TABLETS BY MOUTH ONCE DAILY IN THE MORNING, # 180 tab(s), Refills(s) 3, Pharmacy: [facility], [...] for 90 Not-Taking zzzzzeuflexxa (4 sources) Start: 7 zzzzzeuflexxa January, 2 mL Start: 02-01-2017 zzzzzeuflexxa January, 2 mL Problems Active Problems Problem Classification Problem Date Documented Da te Episodic/Chronic Abdominal pain (1 source) Abdominal pain; Translations: [Unspecified abdominal pain] Episodic Aortic; peripheral; and visceral artery aneurysms (2 sources) 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 Cifuentes, added per outpatient CDI policy. Cardiac and circulatory congenital anomalies (4 sources) Congenital aneurysm of aorta; Translations: [CONGENITAL ANEURYSM OF AORTA] Onset: 3 Chronic Cardiac dysrhythmias (3 sources) Tachycardia, unspecified; Translations: [Sinus tachycardia] Onset: 7 11-14-2023 Episodic Coronary atherosclerosis and other heart disease (5 sources) Atherosclerotic heart disease of [place] coronary artery with unspecified angina pectoris; Translations: [Coronary arteriosclerosis] Onset: 7 11-14-2023 Chronic Deficiency and other anemia (1 source) Iron deficiency anemia; Translations: [Iron deficiency anemia, unspecified] Episodic Diabetes mellitus with complications (4 sources) Neuropathy due to diabetes mellitus; 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] Onset: 2 12-28-2022 Chronic Diabetes mellitus without complication (12 sources) Type 2 diabetes mellitus without complications; Translations: [Type 1 diabetes mellitus] Onset: 7 12-06-2022 Chronic Disorders of lipid metabolism (6 sources) Hyperlipidemia, unspecified; Translations: [Hypercholesterolemia] Onset: 7 12-06-2022 Chronic Diverticulosis and diverticulitis (5 sources) Diverticula of intestine; Translations: [Diverticulosis of intestine, part unspecified, without perforation or abscess with bleeding] 12-06-2022 Chronic Essential hypertension (6 sources) Essential hypertension; Translations: [Essential (primary) hypertension] Onset: 4 12-28-2022 Chronic Gout and other crystal arthropathies (5 sources) Gout, unspecified; 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 Heart valve disorders (1 source) Rheumatic disorders of both mitral and tricuspid valves; Translations: [RHEUMATIC D/O MITRAL TRICUSPID VALV] Onset: 3 Chronic Osteoarthritis (2 sources) Arthritis of right knee; Translations: [Unilateral primary osteoarthritis, right knee] Chronic Other circulatory disease (1 source) Stented artery Onset: 1 11-14-2023 Chronic Comment on above: Outside Source Comme nt: AVE Coronary Stent Implant Other connective tissue disease (1 source) Pain in calf 11-15-2023 Episodic Other gastrointestinal disorders (1 source) Constipation; Translations: [Constipation, unspecified] Episodic Other nutritional; endocrine; and metabolic disorders (1 source) Loss of appetite; Translations: [Anorexia] Episodic Other nutritional; endocrine; and metabolic disorders (1 source) Body mass index 25-29 - overweight 11-15-2023 Episodic Peripheral and visceral atherosclerosis (4 sources) Arteriosclerotic vascular disease 12-06-2022 Chronic Skin and subcutaneous tissue infections (1 source) Infection of toe 09-29-2023 Episodic Thyroid disorders (4 sources) Hypothyroidism 12-06-2022 Chronic Unclassified (5 sources) Abnormal result of other cardiovascular function study; Translations: [Cardiovascular stress test abnormal] Onset: 7 11-14-2023 Episodic Unclassified (1 source) 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; Translations: [NURSING HOME (CURRENT) USE OF ORAL HYPOGLYCEMIC DRUGS] Onset: 7 Unclassified (2 sources) Unknown / UNK(Unknown) Onset: 7 Unclassified (1 source) Stenosis of coronary artery stent, initial encounter; Translations: [STENOSIS OF CORONARY ARTERY STENT, INITIAL ENCOUNTER] Onset: 7 Unclassified (6 sources) Patient encounter status 07-06-2023 Unclassified (1 source) Non-smoker 01-04-2024 Past or Other Problems Problem Classification Problem Date Documented Da te Episodic/Chronic Malaise and fatigue (4 sources) Weakness; Translations: [WEAKNESS] Onset: 02-16-2022 Episodic Other aftercare (2 sources) 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 Does take insulin. BID. Sugar levels have been running low. Admits to doing a lot of exercise, then gets fatigued. Ongoing for the past month. History of Present Illness pt presents today having difficulty regulating blood sugars Review of Systems PHQ Score Initial Depression Screen Score: 0 SCORE Physical Exam Vitals & Measurements HR: 68(Peripheral) RR: 16 BP: 110/78 HT: 67 in HT: 170 cm WT: 79.7 kg WT: 175.34 lb BMI: 27.58 General: alert, no acute distress ENMT: oral mucosa moist, no pharyngeal erythema or exudate Cardiovascular: regular rate and rhythm, normal peripheral perfusion Respiratory: Lungs CTA, respirations non labored Extremities: no deformity, no trauma Neurological: oriented x 4, LOC appropriate for age, CN II-XII intact, motor strength equal & normal bilaterally, speech normal Assessment/Plan 1. Type 1 diabetes mellitus with diabetic neuropathy (E10.40: Type 1 diabetes mellitus with diabetic neuropathy, unspecified) pt presents today having difficulty regulating blood sugars. has had a few episodes that his blood sugar was too low. down to the 60's. and he was symptomatic. encouraged him to decrease insulin to 27units BID instead of 30 units. also encouraged him to eat protein before taking his daily walk and before bed. pt will continue checking blood sugars. refills sent to pharmacy. RTC as needed if insulin needs adjusted. repeat HGBA1C in March. Ordered: Misc Prescription, LANCETS OF CHOICE OR SPECIFIED BY INSURANCE., See Instructions, 100 EA, 11, USE TO TEST BLOOD GLUCOSE ONCE DAILY FOR DX E11.9, [facility], [facility], 170, cm, 02/24/24 8:06:00 EDT, Height/Length Dosing, 79.7, kg, 02/24/24 8:06:00 EDT, Weight... Misc Prescription, contour test strips, See Instructions, 100 EA, 1, check blood sugar daily and as needed, [facility], 170, cm, 02/24/24 8:06:00 EDT, Height/Length Dosing, 79.7, kg, 02/24/24 8:06:00 EDT, Weight Dosing 2. Overweight (BMI 25.0-29.9) (E66.3: Overweight) pt making good food choices. Orders: atorvastatin, 80 mg = 1 tab(s), Oral, Daily, # 90 tab(s), Refills(s) 0, Pharmacy: [facility], 170, cm, 11/15/23 9:08:00 EST, Height/Length Dosing, 74.7, kg, 11/15/23 9:08:00 EST, Weight Dosing atorvastatin, 80 mg = 1 tab(s), Oral, Daily, X 90 day(s), # 90 tab(s), Refills(s) 3, Pharmacy: [facility], 170, cm, 02/24/24 8:06:00 EDT, Height/Length Dosing, 79.7, kg, 02/24/24 8:06:00 EDT, Weight Dosing chlorthalidone, 25 mg = 1 tab(s), Oral, Daily, # 90 tab(s), Refills(s) 0, Pharmacy: [facility], 170, cm, 11/15/23 9:08:00 EST, Height/Length Dosing, 74.7, kg, 11/15/23 9:08:00 EST, Weight Dosing chlorthalidone, 25 mg = 1 tab(s), Oral, Daily, X 90 day(s), # 90 tab(s), Refills(s) 3, Pharmacy: [facility], 170, cm, 02/24/24 8:06:00 EDT, Height/Length Dosing, 79.7, kg, 02/24/24 8:06:00 EDT, Weight Dosing clopidogrel, 75 mg = 1 tab(s), Oral, Daily, # 90 tab(s), Refills(s) 0, Pharmacy: [facility], 170, cm, 11/15/23 9:08:00 EST, Height/Length Dosing, 74.7, kg, 11/15/23 9:08:00 EST, Weight Dosing clopidogrel, 75 mg = 1 tab(s), Oral, Daily, X 90 day(s), # 90 tab(s), Refills(s) 3, Pharmacy: [facility], 170, cm, 02/24/24 8:06:00 EDT, Height/Length Dosing, 79.7, kg, 02/24/24 8:06:00 EDT, Weight Dosing liothyronine, 10 mcg = 2 tab(s), Oral, Daily, TAKE TWO TABLETS BY MOUTH ONCE DAILY IN THE MORNING, X 90 day(s), # 180 tab(s), Refills(s) 3, Pharmacy: [facility], 170, cm, 02/24/24 8:06:00 EDT, Height/Length Dosing, 79.7, kg, 02/24/24 8:06:00 EDT, Weight D... liothyronine, 10 mcg = 2 tab(s), Oral, Daily, TAKE TWO TABLETS BY MOUTH ONCE DAILY IN THE MORNING, # 180 tab(s), Refills(s) 3, Pharmacy: [facility], 169, cm, 12/28/22 8:48:00 EDT, Height/Length Dosing, 77.9, kg, 12/28/22 8:48:00 EDT, Weight Dosing Follow-up No qualifying data available Problem List/Past Medical History Ongoing Aneurysm of aortic root ASCVD (arteriosclerotic cardiovascular disease) Cardiovascular stress test abnormal Coronary arteriosclerosis Diabetes mellitus Diverticulosis Dyslipidemia Encounter for diabetic foot exam Essential hypertension Gout of knee Hypercholesterolemia Hypothyroid Infected nail bed of toe Non-smoker Overweight (BMI 25.0-29.9) Pain of left calf Screening for hyperlipidemia Screening for prostate cancer Screening for thyroid disorder Secondary diabetes mellitus Single coronary vessel disease Sinus tachycardia Stented artery Tachycardia Type 1 diabetes mellitus with diabetic neuropathy Type 1 diabetes mellitus with hypercholesterolemia Wellness examination Historical No qualifying data Procedure/Surgical History Colonoscopy (2018), EGD (esophagogastroduodenosco py) gastric outlet reduct (more content not included)... Normal [facility] Comment on above: Result Comment: Elec tronically Signed By: Sheree Carabalol\.br\Date and Time Signed: 02/24/24 08:51 EDT Office Visiton 02-21-2024 Follow-up visit [id number] Pillo Lewis Jr. 1940 M Date Provider Department Center 02/21/2024 [place] TRUONG Family History Problem Relation Age of Onset Heart disease Mother Heart disease Father Alcohol abuse Father Diabetes Brother Family Status - Relation Status Age at Mother Father Brother Level of Service:[id number] [place] OFFICE/OUTPATIENT ESTABLISHED MOD MDM 30 MIN [facility] Orders Onlyon 02-17-2024 Orders Only [id number] Pillo Lewis Jr. 1940 M Date Provider Department Center 02/17/2024 [id number], HISTORICAL ANDREW Luna Family History Problem Relation Age of Onset Heart disease Mother Heart disease Father Alcohol abuse Father Diabetes Brother Family Status - Relation Status Age at Mother Father Brother [facility] Reminderson 01-05-2024 Reminders - From: Sheree Caraballo To: [facility] - Clinical; Sent: 01/05/2024 08:21:15 EDT Show up: 01/05/2024 08:22:00 EDT Subject: Ambulatory Reminder Due Date/Time: 01/06/2024 08:21:00 EDT Labs look great! Results: Date Result Name Ind Value Ref Range 01/04/2024 8:58 WBC 7.5 E9/L (4.0 - 11.0) 01/04/2024 8:58 RBC ((L)) 4.1 E12/L (4.3 - 5.9) 01/04/2024 8:58 HGB ((L)) 12.9 gm/dL (13.5 - 17.5) 01/04/2024 8:58 Hct 38.0 % (37.7 - 49.0) 01/04/2024 8:58 MCV 91.7 fL (80.0 - 100.0) 01/04/2024 8:58 MCH 31.0 pg (27.0 - 34.0) 01/04/2024 8:58 MCHC 33.8 gm/dL (31.4 - 36.0) 01/04/2024 8:58 RDW ((H)) 14.5 % (10.9 - 14.2) 01/04/2024 8:58 Platelet 238.0 E9/L (150.0 - 500.0) 01/04/2024 8:58 MPV 8.4 fL (6.4 - 10.8) 01/04/2024 8:58 Neutro Auto 60.6 % (36.0 - 75.0) 01/04/2024 8:58 Lymph Auto 16.1 % (14.0 - 50.0) 01/04/2024 8:58 [place] Auto 8.3 % (4.0 - 14.0) 01/04/2024 8:58 Eos Auto ((H)) 14.2 % (0.0 - 8.0) 01/04/2024 8:58 Basophil Auto 0.8 % (0.0 - 2.0) 01/04/2024 8:58 Neutro Absolute 4.6 E9/L (2.0 - 7.5) 01/04/2024 8:58 Lymph Absolute 1.2 E9/L (1.0 - 4.0) 01/04/2024 8:58 [place] Absolute 0.6 E9/L (0.2 - 1.0) 01/04/2024 8:58 Eos Absolute ((H)) 1.1 E9/L (0.0 - 0.5) 01/04/2024 8:58 Basophil Absolute 0.1 E9/L (0.0 - 0.2) 01/04/2024 8:58 Poikilocytosis PRESENT 01/04/2024 8:58 Acanthocytes PRESENT 01/04/2024 8:58 Glucose Lvl 96 mg/dL (55 - 199) 01/04/2024 8:58 BUN 21 mg/dL (5 - 21) 01/04/2024 8:58 Creatinine 1.2 mg/dL (0.5 - 1.3) 01/04/2024 8:58 eGFR 60 mL/min/1.73 m2 (>=59 - ) 01/04/2024 8:58 BUN/Creat Ratio 18 (10 - 20) 01/04/2024 8:58 Sodium Lvl 139 mmol/L (135 - 145) 01/04/2024 8:58 Potassium Lvl 4.6 mmol/L (3.5 - 5.3) 01/04/2024 8:58 Chloride 105 mmol/L (101 - 111) 01/04/2024 8:58 CO2 26 mmol/L (21 - 31) 01/04/2024 8:58 AGAP 13 mEq/L (6 - 16) 01/04/2024 8:58 Calcium Lvl 9.0 mg/dL (8.9 - 11.1) 01/04/2024 8:58 Alk Phos 87 Int._Unit/L (21 - 98) 01/04/2024 8:58 ALT 7 Int._Unit/L (6 - 46) 01/04/2024 8:58 AST 13 Int._Unit/L (5 - 43) 01/04/2024 8:58 Total Protein 6.8 gm/dL (6.0 - 7.8) 01/04/2024 8:58 Albumin Lvl 4.2 gm/dL (3.3 - 5.0) 01/04/2024 8:58 Globulin 2.6 gm/dL (1.4 - 4.0) 01/04/2024 8:58 A/G Ratio 1.6 (1.1 - 2.2) 01/04/2024 8:58 Bili Total 0.6 mg/dL (0.0 - 1.1) 01/04/2024 8:58 Hgb A1C % 5.8 % ( - <=5.9) 01/04/2024 8:58 Chol 126 mg/dL (120 - 200) 01/04/2024 8:58 Trig 119 mg/dL ( - <=149) 01/04/2024 8:58 HDL 35 mg/dL 01/04/2024 8:58 LDL Direct 70 mg/dL ( - <=129) 01/04/2024 8:58 VLDL 24 mg/dL (7 - 40) 01/04/2024 8:58 TSH 2.04 mcIU/mL (0.34 - 5.60) 01/04/2024 8:58 PSA Scrn Tot. 1.6 ng/mL (0.1 - 3.5) Patient informed and voiced understanding. Normal [facility] Ambulatory Visit Summaryon 0 01-04-2024 Ambulatory Visit Summary JOJO LEWIS JR :1940 Visit Date:01/04/2024 Ambulatory Visit Instructions Your Diagnosis Wellness examination Diabetes mellitus Type 1 diabetes mellitus with diabetic neuropathy Screening for hyperlipidemia Screening for thyroid disorder Screening for prostate cancer BMI 26.0-26.9,adult Non-smoker Your Care Team Attending Physician - Sheree Caraballo Primary Care Physician - Sheree Caraballo This Is Your Medications List [facility] [place] Prescription (BD UF mini pen needle 5mm/31g) aspirin (Aspirin Enteric Coated 81 mg oral delayed release tablet) atorvastatin (atorvastatin 80 mg Tab) carvedilol (carvedilol 12.5 mg Tab) chlorthalidone (chlorthalidone 25 mg Tab) cholecalciferol (Vitamin D3 2000 intl units oral Tab) clopidogrel (clopidogrel 75 mg Tab) colchicine (colchicine 0.6 mg Tab) cyclobenzaprine (cyclobenzaprine 7.5 mg oral tablet) indomethacin (indomethacin 50 mg oral capsule) insulin glargine (Lantus Solostar Pen 100 units/mL subcutaneous solution) levothyroxine (levothyroxine 125 mcg (0.125 mg) Tab) liothyronine (liothyronine 5 mcg Tab) losartan (losartan 100 mg Tab) metformin (metformin 500 mg Tab) Procedures Performed Colonoscopy (2018), EGD (esophagogastroduodenosco py) gastric outlet reduction (2018), Cardiac catheter (2015), Cardiac catheter (2000), Appendectomy (1948). Discharge Vitals Heart Rate (Peripheral) 62 Respiratory Rate 18 Blood Pressure 146/64 Height 170.0 cm Height 67 in Weight 77.6 kg Weight 170.72 lb BMI 26.85 What to do next Scheduled Follow-Up Appointments Tuesday 8:00 AM EDT With: Where: [address] [address] \.br\ Medications\.br\ What How Much When Why Instructions\.br \ Unchanged aspirin (Aspirin Enteric Coated 81 mg oral delayed release tablet) 1 Tablets By Mouth Every day\.br\ Unchanged atorvastatin (atorvastatin 80 mg Tab) 1 Tablets By Mouth Every day\.br\ Unchanged carvedilol (carvedilol 12.5 mg Tab) 1 Tablets By Mouth 2 times a day\.br\ Unchanged chlorthalidone (chlorthalidone 25 mg Tab) 1 Tablets By Mouth Every day\.br\ Unchanged cholecalciferol (Vitamin D3 2000 intl units oral Tab) 50 Microgram By Mouth Every day\.br\ Unchanged clopidogrel (clopidogrel 75 mg Tab) 1 Tablets By Mouth Every day\.br\ Unchanged colchicine (colchicine 0.6 mg Tab) See instructions TAKE ONE TABLET BY MOUTH THREE TIMES A DAY NEEDED FOR GOUT PAIN \.br\ Unchanged cyclobenzaprine (cyclobenzaprine 7.5 mg oral tablet) 1 Tablets By Mouth 2 times a day as needed for for spasm\.br\ Unchanged indomethacin (indomethacin 50 mg oral capsule) 1 Capsules By Mouth 3 times a day as needed for for pain Gout of knee BMI 25.0-25.9,adult\ .br\ Unchanged insulin glargine (Lantus Solostar Pen 100 [...] for diabetic foot exam\.br\ Essential hypertension\.br \ Gout of knee\.br\ Hypercholesterol emia\.br\ Hypothyroid\.br\ Infected nail bed of toe\.br\ Non-smoker\.br\ Overweight (BMI 25.0-29.9)\.br\ Pain of left calf\.br\ Screening for hyperlipidemia\. br\ Screening for prostate cancer\.br\ Screening for thyroid disorder\.br\ Secondary diabetes mellitus\.br\ Single coronary vessel disease\.br\ Sinus tachycardia\.br\ Stented artery\.br\ Tachycardia\.br\ Type 1 diabetes mellitus with diabetic neuropathy\.br\ Type 1 diabetes mellitus with hypercholesterol emia\.br\ Wellness examination\.br\ Patient Survey\.br\ You may receive a survey via text or e-mail asking about your office visit. Please share your experience with us by completing your survey. We appreciate your feedback and thank you for choosing us for your care.\.br\ \.br\ [facility] CBC w/ Auto Diffon 4 Acanthocytes LM Ql (Bld) PRESENT Invalid Interpretation Code [facility] Comment on above: Performed By: #### 7 [id number], 8965511, 80720479, 35695351, 6241818, 8535091, 3425893 ####[address] [address] Basophils/100 WBC (Bld) 0.8 % Normal 0.0-2.0 [facility] Comment on above: Performed By: #### 7 85077896, 2914599, 61808798, 38173459, 8336053, 8280104, 5382537 ####[address] [address] Basophils/Leukocyt es Auto (Bld) [Pure # fraction] 0.1 E9/L Normal 0.0-0.2 [facility] Comment on above: Performed By: #### 7 [id number], 2402478, 09934951, 67559944, 3192942, 4523453, 1230798 ####[address] [address] Eosinophils (Bld) [#/Vol] 1.1 E9/L High 0.0-0.5 [facility] Comment on above: Performed By: #### 7 [id number], 6409398, 01044574, 34325599, 0474456, 8092379, 5518598 ####[address] [address] Eosinophils/100 WBC (Bld) 14.2 % High 0.0-8.0 [facility] Comment on above: Performed By: #### 7 [id number], 8961081, 61596537, 96131287, 9188319, 8443443, 7943215 ####[address] [address] Erythrocyte distribution width (RBC) [Ratio] 14.5 % High 10.9-14.2 [facility] Comment on above: Performed By: #### 7 46929743, 7349017, 49926394, 67344775, 6290486, 5193607, 1628829 ####[facility] [address] [place] [address] Hematocrit (Bld) [Volume fraction] 38.0 % Normal 37.7-49.0 [facility] Comment on above: Performed By: #### 7 73697831, 6163578, 92055163, 16363460, 8255844, 1743029, 1429086 ####[address] [place] [address] Hemoglobin (Bld) [Mass/Vol] 12.9 g/dL Low 13.5-17.5 [facility] Comment on above: Performed By: #### 7 61491851, 8554856, 87777897, 26787909, 6446896, 3008692, 1182340 ####[address] [address] Lymphocytes (Bld) [#/Vol] 1.2 E9/L Normal 1.0-4.0 [facility] Comment on above: Performed By: #### 7 86297259, 0761366, 71697201, 71740682, 9200787, 5962196, 0397066 ####[address] [address] Lymphocytes/100 WBC (Bld) 16.1 % Normal 14.0-50.0 [facility] Comment on above: Performed By: #### 7 16017285, 8110083, 69812452, 17510927, 9565776, 0352532, 1284989 ####[address] [address] MCH (RBC) [Entitic mass] 31.0 pg Normal 27.0-34.0 [facility] Comment on above: Performed By: #### 7 15676270, 7914420, 45322392, 08976107, 0802286, 4264677, 3142488 ####[facility] [address] [place] [address] MCHC (RBC) [Mass/Vol] 33.8 g/dL Normal 31.4-36.0 [facility] Comment on above: Performed By: #### 7 42491104, 0664355, 38312724, 83406146, 9966853, 8668644, 5209236 ####[facility] [address] [place] [address] MCV (RBC) [Entitic vol] 91.7 fL Normal 80.0-100.0 [facility] Comment on above: Performed By: #### 7 58091347, 9994890, 02968677, 78099721, 1882979, 4471430, 4841851 ####[address] [place] [address] Monocytes (Bld) [#/Vol] 0.6 E9/L Normal 0.2-1.0 [facility] Comment on above: Performed By: #### 7 36130020, 8650960, 90905908, 57645489, 5790301, 0824402, 9570637 ####[address] [address] Neutrophils (Bld) [#/Vol] 4.6 E9/L Normal 2.0-7.5 [facility] Comment on above: Performed By: #### 7 43507696, 7522739, 34769851, 58864227, 1253792, 5641982, 8576222 ####[address] [address] Neutrophils/100 WBC (Bld) 60.6 % Normal 36.0-75.0 [facility] Comment on above: Performed By: #### 7 96046671, 3566387, 42978734, 89389957, 5240002, 7986553, 6756122 ####[address] [address] Platelet mean volume (Bld) [Entitic vol] 8.4 fL Normal 6.4-10.8 [facility] Comment on above: Performed By: #### 7 91389461, 7921005, 45091041, 98640680, 8399289, 3481491, 3109433 ####[facility] [address] [place] [address] Platelets (Bld) [#/Vol] 238.0 E9/L Normal 150.0-500.0 [facility] Comment on above: Performed By: #### 7 96050605, 1259417, 01129543, 02411677, 2757749, 4634593, 2649486 ####[facility] [address] [place] [address] Poikilocytosis Auto Ql (Bld) PRESENT Invalid Interpretation Code [facility] Comment on above: Performed By: #### 7 46678424, 8094921, 33600305, 72994980, 9764290, 2702904, 1225186 ####[facility] [address] [place] [address] RBC (Bld) [#/Vol] 4.1 E12/L Low 4.3-5.9 [facility] Comment on above: Performed By: #### 7 21733423, 2194603, 07953178, 31629358, 2353209, 0484095, 3394015 ####[facility] [address] [place] [address] WBC corrected for nucl RBC Auto (Bld) [#/Vol] 7.5 E9/L Normal 4.0-11.0 [facility] Comment on above: Performed By: #### 7 33966081, 0812864, 34134033, 31189923, 4709991, 8811789, 1600045 ####[facility] [address] [place] [address] CHEMISTRYOrdered By: SYSTEM SYSTEM on 01-04-2024 Albumin [Mass/Vol] 4.2 g/dL Normal 3.3 - 5.0 gm/dL R emisol Chem Albumin/Globulin [Mass ratio] 1.6 {ratio} Normal 1.1 - 2.2 [facility] Chem ALP [Catalytic activity/Vol] 87 [iU]/d Normal 21 - 98 Int._Unit/L [facility] Chem ALT No additional P-5'-P [Catalytic activity/Vol] 7 [iU]/d Normal 6 - 46 Int._Unit/L [facility] Chem Anion gap [Moles/Vol] 13 mmol/L Normal 6 - 16 mEq/L [facility] AST [Catalytic activity/Vol] 13 [iU]/d Normal 5 - 43 Int._Unit/L [facility] Chem Bilirubin [Mass/Vol] 0.6 mg/dL Normal 0.0 - 1.1 mg/dL [facility] Calcium [Mass/Vol] 9.0 mg/dL Normal 8.9 - 11.1 mg/dL [facility] Chloride [Moles/Vol] 105 mmol/L Normal 101 - 111 mmol/L [facility] Cholesterol [Mass/Vol] 126 mg/dL Normal 120 - 200 mg/dL [facility] Cholesterol in HDL [Mass/Vol] 35 mg/dL Invalid Interpretation Code [facility] Comment on above: Result Comment: '>= 60 LOW RISK' '<= 40 HIGH RISK' Cholesterol in LDL [Mass/Vol] 70 mg/dL Normal <=129mg/dL [facility] Cholesterol in VLDL [Mass/Vol] 24 mg/dL Normal 7 - 40 mg/dL [facility] CO2 [Moles/Vol] 26 mmol/L Normal 21 - 31 mmol/L Remis ol Chem Creatinine [Mass/Vol] 1.2 mg/dL Normal 0.5 - 1.3 mg/dL [facility] Chem eGFR 60 mL/min/1.73 m2 Normal >=59mL/min /1.73 m2 [facility] Globulin (S) [Mass/Vol] 2.6 g/dL Normal 1.4 - 4.0 gm/dL [facility] Glucose [Mass/Vol] 96 mg/dL Normal 55 - 199 mg/dL Re misol Chem Potassium [Moles/Vol] 4.6 mmol/L Normal 3.5 - 5.3 mmol/L [facility] Chem Prostate specific Ag [Mass/Vol] 1.6 ng/mL Normal 0.1 - 3.5 ng/mL [facility] Comment on above: Interpretive Data: T he concentration of PSA determined by different manufacturers can vary due to differences in assay methods and reagent specificity. Values obtained from different assay methods cannot be used interchangeably. The methodology used for this result was chemiluminescence using [employer] Access [employer] PSA reagent. Protein [Mass/Vol] 6.8 g/dL Normal 6.0 - 7.8 gm/dL R emisol Chem Sodium [Moles/Vol] 139 mmol/L Normal 135 - 145 mmol/L [facility] Triglyceride [Mass/Vol] 119 mg/dL Normal <=149mg/dL [facility] Chem TSH Qn 2.04 m[IU]/L Normal 0.34 - 5.60 mcIU/mL [facility] Urea nitrogen [Mass/Vol] 21 mg/dL Normal 5 - 21 mg/dL [facility] Chem Urea nitrogen/Creatinin e [Mass ratio] 18 mg/mg Normal 10 - 20 [facility] Chem CHEMISTRYOrdered By: Jesus gallardo on 01-04-2024 HbA1c (Bld) [Mass fraction] 5.8 % Normal <=5.9% [facility] ChemAutoSS CMPon 01-04-2024 Albumin [Mass/Vol] 4.2 g/dL Normal 3.3-5.0 [facility] Comment on above: Performed By: #### 7 [id number], 9790609, 50107784, 78122256, 1297744, 2737890, 2777416 ####[facility] [address] [place] [address] Albumin/Globulin (S) [Mass conc ratio] 1.6 Normal 1.1-2.2 [facility] Comment on above: Performed By: #### 7 91335145, 4722875, 63819291, 26605971, 7897090, 3990120, 0645986 ####[facility] [address] [place] [address] ALP [Catalytic activity/Vol] 87 Int._Unit/L Normal 21-98 [facility] Comment on above: Performed By: #### 7 09258388, 8010189, 27665250, 41297294, 5637828, 2682793, 6922405 ####[facility] [address] [place] [address] ALT No additional P-5'-P [Catalytic activity/Vol] 7 Int._Unit/L Normal 6-46 [facility] Comment on above: Performed By: #### 7 52784831, 5869102, 91482055, 12395981, 6209417, 3077931, 0307600 ####[facility] [address] [place] [address] Anion gap [Moles/Vol] 13 mmol/L Normal 6-16 [facility] Comment on above: Performed By: #### 7 39384713, 6170366, 13172610, 87347851, 8323958, 6983644, 2880083 ####[facility] [address] [place] [address] AST [Catalytic activity/Vol] 13 Int._Unit/L Normal 5-43 [facility] Comment on above: Performed By: #### 7 41213542, 3254457, 00777585, 55029431, 1237083, 7329646, 8505132 ####[facility] [address] [place] [address] Bilirubin [Mass/Vol] 0.6 mg/dL Normal 0.0-1.1 [facility] Comment on above: Performed By: #### 7 46780013, 8337264, 47895294, 96149278, 3414426, 4196561, 6304031 ####[facility] [address] [place] [address] Calcium [Mass/Vol] 9.0 mg/dL Normal 8.9-11.1 [facility] Comment on above: Performed By: #### 7 18355271, 3288767, 69900741, 10261982, 2842645, 0537263, 6082377 ####[facility] [address] [place] [address] Chloride [Moles/Vol] 105 mmol/L Normal 101-111 [facility] Comment on above: Performed By: #### 7 09396592, 3295207, 46838384, 26750849, 0605463, 7529689, 5917191 ####[facility] [address] [place] [address] CO2 [Moles/Vol] 26 mmol/L Normal 21-31 [facility] Comment on above: Performed By: #### 7 77379176, 6584754, 86811633, 08569003, 4841300, 8100478, 4960700 ####[facility] [address] [place] [address] Creatinine [Mass/Vol] 1.2 mg/dL Normal 0.5-1.3 [facility] Comment on above: Performed By: #### 7 34420879, 2569465, 71648226, 23914908, 8776966, 9925644, 3427241 ####[facility] [address] [place] [address] Globulin (S) [Mass/Vol] 2.6 g/dL Normal 1.4-4.0 [facility] Comment on above: Performed By: #### 7 44522807, 8577192, 28354073, 19307363, 8760063, 8349777, 7516607 ####[facility] [address] [place] [address] Glucose [Mass/Vol] 96 mg/dL Normal 55-199 [facility] Comment on above: Performed By: #### 7 46847808, 6697905, 30601034, 26930693, 0570553, 7515417, 0794914 ####[facility] [address] [place] [address] Potassium [Moles/Vol] 4.6 mmol/L Normal 3.5-5.3 [facility] Comment on above: Performed By: #### 7 23004892, 9562459, 25836323, 31387144, 3408174, 1658762, 9913081 ####[facility] [address] [place] [address] Protein [Mass/Vol] 6.8 g/dL Normal 6.0-7.8 [facility] Comment on above: Performed By: #### 7 52144730, 2423152, 51220479, 93462400, 3460172, 4115325, 8974525 ####[facility] [address] [place] [address] Sodium [Moles/Vol] 139 mmol/L Normal 135-145 [facility] Comment on above: Performed By: #### 7 06863009, 9684505, 42698199, 24351253, 2647362, 5322144, 2707744 ####[facility] [address] [place] [address] Urea nitrogen [Mass/Vol] 21 mg/dL Normal 5-21 [facility] Comment on above: Performed By: #### 7 66590640, 1523625, 51619616, 28676789, 4767260, 0038373, 6524454 ####[facility] [address] [place] [address] Urea nitrogen/Creatinin e [Mass ratio] 18 No Units Normal 10-20 [facility] Comment on above: Performed By: #### 7 03564573, 7176172, 82643635, 07365825, 1365329, 5593793, 7210945 ####[facility] [address] [place] [address] Family Medicine Office/Clini c Noteon 01-04-2024 Family Medicine Office/Clinic Note HPI Staff Yung is a 83 year old male presenting for 6 month follow up Patient is here for follow up on Diabetes. How often are you checking your blood sugars? once a week or once a month What are your average readings? today was 76 Paresthesias, Ulcerations or sores? no Lisinopril, aspirin, statin therapy? Yes Foot Exam: due Eye Exam: has appointment this year set up Last A1c: Hgb A1C %: 6.3 % High (07/06/23 09:22:00) Last yearly labs: 12/28/22 Patient is here for follow up on hypertension. How often are you checking your blood pressure? hardly ever What are your average readings? _ Gout: medications work well when needed Questions/Concerns: none History of Present Illness pt presents today for wellness visit and diabetes follow up. Will draw labs today Review of Systems PHQ Score Initial Depression Screen Score: 0 SCORE Physical Exam Vitals & Measurements HR: 62(Peripheral) RR: 18 BP: 146/64 SpO2: 96% HT: 67 in HT: 170.0 cm WT: 77.6 kg WT: 170.72 lb BMI: 26.85 General: alert, no acute distress ENMT: oral mucosa moist, no pharyngeal erythema or exudate Cardiovascular: regular rate and rhythm, normal peripheral perfusion Respiratory: Lungs CTA, respirations non labored Extremities: no deformity, no trauma Neurological: oriented x 4, LOC appropriate for age, CN II-XII intact, motor strength equal & normal bilaterally, speech normal Assessment/Plan 1. Wellness examination (Z00.00: Encounter for general adult medical examination without abnormal findings) pt presents today for wellness visit. pt is doing well. much better than last visit when he had gout flare up. denies needs today. labs drawn. all questions answered. RTC 6 months for diabetes follow up. Ordered: CBC w/ Auto Diff Comprehensive Metabolic Panel HgbA1c Lipid Panel PSA Screen, Total Thyroid Stimulating Hormone 2. Diabetes mellitus (E11.9: Type 2 diabetes mellitus without complications) pt follows strict diet and walks several miles per day Ordered: CBC w/ Auto Diff Comprehensive Metabolic Panel HgbA1c Lipid Panel PSA Screen, Total Thyroid Stimulating Hormone 3. Type 1 diabetes mellitus with diabetic neuropathy (E10.40: Type 1 diabetes mellitus with diabetic neuropathy, unspecified) HGBA1C drawn today Ordered: CBC w/ Auto Diff Comprehensive Metabolic Panel HgbA1c Lipid Panel PSA Screen, Total Thyroid Stimulating Hormone 4. Screening for hyperlipidemia (Z13.220: Encounter for screening for lipoid disorders) Lipid drawn today Ordered: CBC w/ Auto Diff Comprehensive Metabolic Panel HgbA1c Lipid Panel PSA Screen, Total Thyroid Stimulating Hormone 5. Screening for thyroid disorder (Z13.29: Encounter for screening for other suspected endocrine disorder) TSH drawn in office today Ordered: CBC w/ Auto Diff Comprehensive Metabolic Panel HgbA1c Lipid Panel PSA Screen, Total Thyroid Stimulating Hormone 6. Screening for prostate cancer (Z12.5: Encounter for screening for malignant neoplasm of prostate) PSA drawn in office today Ordered: CBC w/ Auto Diff Comprehensive Metabolic Panel HgbA1c Lipid Panel PSA Screen, Total Thyroid Stimulating Hormone 7. BMI 26.0-26.9,adult (Z68.26: Body mass index [BMI] 26.0-26.9, adult) BMI eduction complete Ordered: CBC w/ Auto Diff Comprehensive Metabolic Panel HgbA1c Lipid Panel PSA Screen, Total Thyroid Stimulating Hormone 8. Non-smoker (Z78.9: Other specified health status) continue not smoking Ordered: CBC w/ Auto Diff Comprehensive Metabolic Panel HgbA1c Lipid Panel PSA Screen, Total Thyroid Stimulating Hormone Follow-up No qualifying data available Problem List/Past Medical History Ongoing Aneurysm of aortic root ASCVD (arteriosclerotic cardiovascular disease) Cardiovascular stress test abnormal Coronary arteriosclerosis Diabetes mellitus Diverticulosis Dyslipidemia Encounter for diabetic foot exam Essential hypertension Gout of knee Hypercholesterolemia Hypothyroid Infected nail bed of toe Non-smoker Overweight (BMI 25.0-29.9) Pain of left calf Screening for hyperlipidemia Screening for prostate cancer Screening for thyroid disorder Secondary diabetes mellitus Single coronary vessel disease Sinus tachycardia Stented artery Tachycardia Type 1 diabetes mellitus with diabetic neuropathy Type 1 diabetes mellitus with hypercholesterolemia Wellness examination Historical No qualifying data Procedure/Surgical History Colonoscopy (2017), EGD (esophagogastroduodenosco py) gastric outlet reduction (2017), Cardiac catheter (2014), Cardiac catheter (2000), Appendectomy (1947). Medications Aspirin Enteric Coated 81 mg oral delayed release tablet, 81 mg= 1 tab(s), Oral, Daily atorvastatin 80 mg Tab, 80 mg= 1 tab(s), Oral, Daily BD UF mini pen needle 5mm/31g, See Instructions, 1 refills carvedilol 12.5 mg Tab, 12.5 mg= 1 tab(s), Oral, (more content not included)... Normal [facility] Comment on above: Result Comment: Elec tronically Signed By: Sheree Caraballo\.br\Date and Time Signed: 01/04/24 08:49 EDT HEMATOLOGYOrdered By: SYSTEM SYSTEM on 01-04-2024 Acanthocytes LM Ql (Bld) PRESENT *NA* (01/04/24 8:58 AM) Invalid Interpretation Code Remisol Heme Basophils/100 WBC (Bld) 0.8 % Normal 0.0 - 2.0 % Remisol Heme Basophils/Leukocyt es Auto (Bld) [Pure # fraction] 0.1 E9/L Normal 0.0 - 0.2 E9/L Rem[facility] Heme Eosinophils (Bld) [#/Vol] 1.1 E9/L High 0.0 - 0.5 E9/L Rem[facility] Heme Eosinophils/100 WBC (Bld) 14.2 % High 0.0 - 8.0 % Rem[facility] Heme Erythrocyte distribution width (RBC) [Ratio] 14.5 % High 10.9 - 14.2 % [facility] Heme Hematocrit (Bld) [Volume fraction] 38.0 % Normal 37.7 - 49.0 % [facility] Heme Hemoglobin (Bld) [Mass/Vol] 12.9 g/dL Low 13.5 - 17.5 gm/dL Rem[facility] Heme Lymphocytes (Bld) [#/Vol] 1.2 E9/L Normal 1.0 - 4.0 E9/L Rem[facility] Heme Lymphocytes/100 WBC (Bld) 16.1 % Normal 14.0 - 50.0 % Remisol Heme MCH (RBC) [Entitic mass] 31.0 pg Normal 27.0 - 34.0 pg Remisol Heme MCHC (RBC) [Mass/Vol] 33.8 g/dL Normal 31.4 - 36.0 gm/dL Remisol Heme MCV (RBC) [Entitic vol] 91.7 fL Normal 80.0 - 100.0 fL Rem[facility] Heme Monocytes (Bld) [#/Vol] 0.6 E9/L Normal 0.2 - 1.0 E9/L Rem[facility] Heme Monocytes/100 WBC (Bld) 8.3 % Normal 4.0 - 14.0 % [facility] Heme Neutrophils (Bld) [#/Vol] 4.6 E9/L Normal 2.0 - 7.5 E9/L Rem[facility] Heme Neutrophils/100 WBC (Bld) 60.6 % Normal 36.0 - 75.0 % Rem[facility] Heme Platelet mean volume (Bld) [Entitic vol] 8.4 fL Normal 6.4 - 10.8 fL Rem[facility] Heme Platelets (Bld) [#/Vol] 238.0 E9/L Normal 150.0 - 500.0 E9/L Rem[facility] Heme Poikilocytosis Auto Ql (Bld) PRESENT *NA* (01/04/24 8:58 AM) Invalid Interpretation Code Remisol Heme RBC (Bld) [#/Vol] 4.1 E12/L Low 4.3 - 5.9 E12/L Re misol Heme WBC corrected for nucl RBC Auto (Bld) [#/Vol] 7.5 E9/L Normal 4.0 - 11.0 E9/L Remisol Heme [id number] 01-04-2024 HbA1c (Bld) [Mass fraction] 5.8 % Normal <=5.9 [facility] Comment on above: Performed By: #### 7 [id number], 5773804, 00737342, 20413941, 0216604, 8897681, 8538569 ####[facility] [address] [place] [address] Lipid Panelon 01-04-2024 Cholesterol [Mass/Vol] 126 mg/dL Normal 120-200 [facility] Comment on above: Performed By: #### 7 21224797, 1271543, 29423579, 41797351, 0569625, 5239539, 3737652 ####[facility] [address] [place] [address] Cholesterol in HDL [Mass/Vol] 35 mg/dL Invalid Interpretation Code [facility] Comment on above: Result Comment: '>= 60 LOW RISK' '<= 40 HIGH RISK' Performed By: #### 7 87225190, 0266257, 04813791, 69246113, 3339382, 8268975, 6924185 ####[facility] [address] [place] [address] Cholesterol in LDL [Mass/Vol] 70 mg/dL Normal <=129 [facility] Comment on above: Performed By: #### 7 40986128, 1437678, 52388911, 71300711, 1259929, 0682527, 0264274 ####[facility] [address] [facility] [place] [address] Cholesterol in VLDL [Mass/Vol] 24 mg/dL Normal 7-40 [facility] Comment on above: Performed By: #### 7 31120645, 3169451, 50096779, 09211345, 1093712, 5552026, 0618353 ####[facility] [address] [place] [address] Triglyceride [Mass/Vol] 119 mg/dL Normal <=149 [facility] Comment on above: Performed By: #### 7 59004975, 6735763, 40636682, 55002517, 3802793, 3557377, 9942991 ####[facility] [address] [place] [address] PSA Screen, Totalon 01-04-20 24 Prostate specific Ag [Mass/Vol] 1.6 ng/mL Normal 0.1-3.5 [facility] Comment on above: Result Comment: The concentration of PSA determined by different manufacturers can vary due to differences in assay methods and reagent specificity. Values obtained from different assay methods cannot be used interchangeably. The methodology used for this result was chemiluminescence using [employer]'s Access Hybritech PSA reagent. Performed By: #### 7 [id number] ####[facility] [address] [place] [address] TSHon 01-04-2024 TSH Qn 2.04 m[IU]/L Normal 0.34-5.60 [facility] Comment on above: Performed By: #### 7 [id number] ####[facility] [address] [place] [address] eGFRon 01-04-2024 eGFR 60 mL/min/1.73 m2 Normal >=59 [facility] Comment on above: Order Comment: Order added by Discern Expert. Performed By: #### 7 [id number] ####[facility] [address] [place] [address] Medication Refillon 12-27-19 24 Medication Refill [id number] Normal [facility] Ambulatory Visit Summaryon 0 12-14-2023 Ambulatory Visit Summary JOJO LEWIS JR :1940 Visit Date:12/14/2023 Ambulatory Visit Instructions Your Diagnosis Gout of knee BMI 25.0-25.9,adult Your Care Team Attending Physician - Sheree Caraballo Primary Care Physician - Sheree Caraballo This Is Your Medications List [facility] Prescription (BD UF mini pen needle 5mm/31g) aspirin (Aspirin Enteric Coated 81 mg oral delayed release tablet) atorvastatin (atorvastatin 80 mg Tab) carvedilol (carvedilol 12.5 mg Tab) carvedilol (carvedilol 12.5 mg Tab) chlorthalidone (chlorthalidone 25 mg Tab) cholecalciferol (Vitamin D3 2000 intl units oral Tab) clopidogrel (clopidogrel 75 mg Tab) cyclobenzaprine (cyclobenzaprine 7.5 mg oral tablet) insulin glargine (Lantus Solostar Pen 100 units/mL subcutaneous solution) levothyroxine (levothyroxine 125 mcg (0.125 mg) Tab) liothyronine (liothyronine 5 mcg Tab) losartan (losartan 100 mg Tab) metformin (metformin 500 mg Tab) Procedures Performed Colonoscopy (2017), EGD (esophagogastroduodenosco py) gastric outlet reduction (2017), Cardiac catheter (2014), Cardiac catheter (2000), Appendectomy (1947). Discharge Vitals Heart Rate (Peripheral) 64 Blood Pressure 150/80 Height 170 cm Height 67 in Weight 76.2 kg Weight 167.64 lb BMI 26.37 What to do next Scheduled Follow-Up Appointments Tuesday 8:40 AM EDT With: Sheree Caraballo Where: [facility] Normal [address] [place], [place] [id number]- \.br\ Medications\.br\ What How Much When Why Instructions\.br \ Unchanged aspirin (Aspirin Enteric Coated 81 mg oral delayed release tablet) 1 Tablets By Mouth Every day\.br\ Unchanged atorvastatin (atorvastatin 80 mg Tab) 1 Tablets By Mouth Every day\.br\ Unchanged carvedilol (carvedilol 12.5 mg Tab) 180 EA, TAKE ONE TABLET BY MOUTH TWICE A DAY (WITH BREAKFAST AND EVENING MEAL) \.br\ Unchanged carvedilol (carvedilol 12.5 mg Tab) 1 Tablets By Mouth 2 times a day\.br\ Unchanged chlorthalidone (chlorthalidone 25 mg Tab) 1 Tablets By Mouth Every day\.br\ Unchanged cholecalciferol (Vitamin D3 2000 intl units oral Tab) 50 Microgram By Mouth Every day\.br\ Unchanged clopidogrel (clopidogrel 75 mg Tab) 1 Tablets By Mouth Every day\.br\ Unchanged cyclobenzaprine (cyclobenzaprine 7.5 mg oral tablet) 1 Tablets By Mouth 2 times a day as needed for for spasm\.br\ Unchanged insulin glargine (Lantus Solostar Pen 100 [...] for diabetic foot exam\.br\ Essential hypertension\.br \ Gout of knee\.br\ Hypercholesterol emia\.br\ Hypothyroid\.br\ Infected nail bed of toe\.br\ Overweight (BMI 25.0-29.9)\.br\ Pain of left calf\.br\ Secondary diabetes mellitus\.br\ Single coronary vessel disease\.br\ [...] choosing us for your care.\.br\ \.br\ [facility] Family Medicine Office/Clini c Noteon 12-14-2023 Family Medicine Office/Clinic Note Chief Complaint left knee pain HPI Staff Amezcua is a 83 year old male presenting for acute visit Pain characteristics: Pain location: left knee Intensity:8/10 Onset: 3/4 days ago Medication used: Tylenol-not effective Was down on knee and then it started hurting. Patient reports that it has happened before, but it usually resolves on it's own. Patient has put cold packs on, but did not help. History of Present Illness c/o left knee pain Review of Systems PHQ Score Initial Depression Screen Score: 0 SCORE Physical Exam Vitals & Measurements HR: 64(Peripheral) BP: 150/80 SpO2: 98% HT: 67 in HT: 170 cm WT: 76.2 kg WT: 167.64 lb BMI: 26.37 General: alert, no acute distress ENMT: oral mucosa moist, no pharyngeal erythema or exudate Cardiovascular: regular rate and rhythm, normal peripheral perfusion Respiratory: Lungs CTA, respirations non labored Extremities: no deformity, no trauma Neurological: oriented x 4, LOC appropriate for age, CN II-XII intact, motor strength equal & normal bilaterally, speech normal left knee is red, swollen and very tender just to light touch Assessment/Plan 1. Gout of knee (M10.9: Gout, unspecified) left knee very red, warm to touch, swollen and tender to touch. pt states he has had gout for year. is not taking medication daily for it. will treat with steroid, indomethacin and colchicine Ordered: indomethacin, 50 mg = 1 cap(s), Oral, TID, PRN for pain, # 30 cap(s), Refills(s) 0, Pharmacy: [facility], 170, cm, 12/14/23 12:50:00 EDT, Height/Length Dosing, 76.2, kg, 12/14/23 12:46:00 EDT, Weight Dosing methylPREDNISolone, = 1 packet(s), Oral, As Directed, as directed on package labeling, X 6 day(s), # 21 tab(s), Refills(s) 0, Pharmacy: [facility], 170, cm, 12/14/23 12:50:00 EDT, Height/Length Dosing, 76.2, kg, 12/14/23 12:46:00 EDT, Weight Dosing Body Mass Index (BMI) documented 3008F Current tobacco non-user 1036F Depression Screening Negative 3352F Medication list documented in medical record 1159F Patient screen for fall risk: no falls in last year or 1 fall with no injury in last year 1101F 2. BMI 25.0-25.9,adult (Z68.25: Body mass index [BMI] 25.0-25.9, adult) bmi education complete Ordered: indomethacin, 50 mg = 1 cap(s), Oral, TID, PRN for pain, # 30 cap(s), Refills(s) 0, Pharmacy: [facility], 170, cm, 12/14/23 12:50:00 EDT, Height/Length Dosing, 76.2, kg, 12/14/23 12:46:00 EDT, Weight Dosing methylPREDNISolone, = 1 packet(s), Oral, As Directed, as directed on package labeling, X 6 day(s), # 21 tab(s), Refills(s) 0, Pharmacy: [facility], 170, cm, 12/14/23 12:50:00 EDT, Height/Length Dosing, 76.2, kg, 12/14/23 12:46:00 EDT, Weight Dosing Body Mass Index (BMI) documented 3008F Current tobacco non-user 1036F Depression Screening Negative 3352F Medication list documented in medical record 1159F Patient screen for fall risk: no falls in last year or 1 fall with no injury in last year 1101F Orders: colchicine, See Instructions, TAKE ONE TABLET BY MOUTH THREE TIMES A DAY NEEDED FOR GOUT PAIN, # 30 EA, Refills(s) 1, Pharmacy: [facility], 170, cm, 12/14/23 12:50:00 EDT, Height/Length Dosing, 76.2, kg, 12/14/23 12:46:00 EDT, Weight Dosing Follow-up No qualifying data available Problem List/Past Medical History Ongoing Aneurysm of aortic root ASCVD (arteriosclerotic cardiovascular disease) Cardiovascular stress test abnormal Coronary arteriosclerosis Diabetes mellitus Diverticulosis Dyslipidemia Encounter for diabetic foot exam Essential hypertension Gout of knee Hypercholesterolemia Hypothyroid Infected nail bed of toe Overweight (BMI 25.0-29.9) Pain of left calf Secondary diabetes mellitus Single coronary vessel disease Sinus tachycardia Stented artery Tachycardia Type 1 diabetes mellitus with diabetic neuropathy Type 1 diabetes mellitus with hypercholesterolemia Historical No qualifying data Procedure/Surgical History Colonoscopy (2017), EGD (esophagogastroduodenosco py) gastric outlet reduction (2017), Cardiac catheter (2014), Cardiac catheter (2000), Appendectomy (1947). Medications Aspirin Enteric Coated 81 mg oral delayed release tablet, 81 mg= 1 tab(s), Oral, Daily atorvastatin 80 mg Tab, 80 mg= 1 tab(s), Oral, Daily BD UF mini pen needle 5mm/31g, See Instructions, 1 refills carvedilol 12.5 mg Tab, 12.5 mg= 1 tab(s), Oral, BID carvedilol 12.5 mg Tab chlorthalidone 25 mg Tab, 25 mg= 1 tab(s), Oral, Daily clopidogrel 75 mg Tab, 75 mg= 1 tab(s), Oral, Daily colchicine 0.6 mg Tab, See Instructions, 1 refills cyclobenzaprine 7.5 mg oral tablet, 7.5 mg= 1 tab(s), Oral, BID, PRN indomethacin 50 mg oral capsule, 50 mg= 1 cap(s), Oral, TID, PRN Lantus Solostar Pen 100 units/mL subcutaneous solution, 30 unit(s), SubCutaneous, BID, 3 refills levothyroxine 125 mcg (0.125 mg) Tab, 125 mcg= 1 tab(s), Oral, Daily liothyronine 5 mcg Tab, 10 mcg= 2 tab(s), Or (more content not included)... Normal [facility] Comment on above: Result Comment: Elec tronically Signed By: Connor PERDOMO, Sheree Hines\.br\Date and Time Signed: 12/14/23 13:27 EDT RAD - Ultrasound Reporton RAD - Ultrasound Report [id number]#1.00TIFF [facility] Ambulatory Visit Summaryon 0 11-15-2023 Ambulatory Visit Summary JOJO LEWIS JR :1940 Visit Date:11/15/2023 Ambulatory Visit Instructions Your Diagnosis Overweight (BMI 25.0-29.9) Your Care Team Attending Physician - Sheree Caraballo Primary Care Physician - Sheree Caraballo This Is Your Medications List [facility] Prescription (BD UF mini pen needle 5mm/31g) [...] mg Tab) Procedures Performed Colonoscopy (2017), EGD (esophagogastroduodenosco py) gastric outlet reduction (2017), Cardiac catheter (2014), Cardiac catheter (2000), Appendectomy (1947). Discharge Vitals Heart Rate (Peripheral) 64 Blood Pressure 132/60 Height 170 cm Height 67 in Weight 74.70 kg Weight 164.34 lb BMI 25.85 What to do next Scheduled Follow-Up Appointments Tuesday 8:40 AM EDT With: Sheree Caraballo Where: [facility] Normal [address] [place] [phone]- \.br\ Medications\.br\ What How Much When Why [...] for choosing us for your care.\.br\ \.br\ [facility] Medicine Office/Clini c Noteon 11-15-2023 [facility] Medicine Office/Clinic Note Chief Complaint leg cramping [...] walk. + patty's sign. will send to [facility] for doppler to rule of DVT. pt [...] BID, # 180 tab(s), Refills(s) 0, Pharmacy: [facility], [...] # 90 tab(s), Refills(s) 0, [facility], 170, cm, 11/15/23 9:08:00 EST, Height/Length Dosing, 74.7, kg, 11/15/23 9:08:00 EST, Weight Dosing losartan, 100 mg = 1 tab(s), Oral, Daily, # 90 tab(s), Refills(s) 3, Pharmacy[facility], 169, cm, 12/28/22 8:48:00 EDT, Height/Length Dosing, 77.9, kg, 12/28/22 8:48:00 EDT, Weight Dosing losartan, 100 mg = 1 tab(s), Oral, Daily, # 90 tab(s), Refills(s) 0, Pharmacy: [facility], 170, cm, 11/15/23 9:08:00 EST, Height/Length [...] with hypercholesterolemia (more content not included)... Normal [facility] Comment on above: Result Comment: Elec tronically Signed By: Sheree Caraballo\.br\Date and Time Signed: 11/15/23 09:51 EST Physician Orderon 11-15-2023 Physician Order [id number]#1.00TIFF Normal [facility] Ambulatory Visit Summaryon 0 10-27-2023 Ambulatory Visit Summary JOJO LEWIS JR :1940 Visit Date:10/27/2023 Ambulatory Visit Instructions Your Diagnosis BMI 26.0-26.9,adult Former smoker Your Care Team Attending Physician - Sheree Caraballo Primary Care Physician - Sheree Caraballo This Is Your Medications List Misc Prescription (BD UF mini pen needle 5mm/31g) [...] mg Tab) Procedures Performed Colonoscopy (2017), EGD (esophagogastroduodenosco py) gastric outlet reduction (2017), Cardiac catheter (2014), Cardiac catheter (2000), Appendectomy (194). Discharge Vitals Heart Rate (Peripheral) 88 Respiratory Rate 18 Blood Pressure 130/74 Height 170 cm Height 67 in Weight 77.2 kg Weight 169.84 lb BMI 26.71 What to do next Scheduled Follow-Up Appointments Tuesday 8:40 AM EDT With: Sheree Caraballo Where: [facility] Normal [address] [place] [address]- \.br\ Medications\.br\ What How Much When Instructions\.br [...] choosing us for your care.\.br\ \.br\ [facility] Family Medicine Office/Clinbharathi c Noteon 10-27-2023 Family Medicine Office/Clinic Note [...] qualifying data Procedure/Surgical History Colonoscopy (2017), EGD (esophagogastroduodenosco py) gastric outlet reduction (2017), Cardiac catheter (2014), [...] in lifetime) T (more content not included)... [facility] Comment on above: Result Comment: Elec tronically Signed By: Sheree Caraballo\.jan\Date and Time Signed: 10/27/23 11:25 EST Consultation Noteon 10-20-19 Consultation Note [id number]#1.00TIFF [facility] Consultation Noteon 10-07-19 Consultation Note [id number]#1.00TIFF [facility] Physician Referralon 024 Physician Referral [id number]#1.00TIFF Normal [facility] Medicine Office/Clini c Noteon 09-29-2023 Family Medicine Office/Clinic Note HPI Staff Amezcua [...] educated pt on annual foot exam with [employer] sales consultant especially because he is diabetic. will refer [...] 77.5, kg, 09/29/23 14:30:00 EST, Weight Dosing [facility] External Ambulatory Referral 2. Diabetes (E11.9: Type 2 diabetes mellitus without complications) pt referred to Dr. Michael. Ordered: cephalexin, 500 mg = 1 cap(s), Oral, QID, X 7 day(s), # 28 cap(s), Refills(s) 0, Pharmacy: [facility], 170, cm, 09/29/23 14:30:00 EST, Height/Length Dosing, 77.5, kg, 09/29/23 14:30:00 EST, Weight Dosing [facility] External Ambulatory Referral 3. BMI 26.0-26.9,adult (Z68.26: Body mass index [BMI] 26.0-26.9, adult) BMI education complete Ordered: cephalexin, 500 mg = 1 cap(s), Oral, QID, X 7 day(s), # 28 cap(s), Refills(s) 0, Pharmacy: [facility], 170, cm, 09/29/23 14:30:00 EST, Height/Length Dosing, 77.5, kg, 09/29/23 14:30:00 EST, Weight Dosing [facility] External Ambulatory Referral 4. Non-smoker (Z78.9: Other specified health status) continue not smoking Ordered: cephalexin, 500 mg = 1 cap(s), Oral, QID, X 7 day(s), # 28 cap(s), Refills(s) 0, Pharmacy: [facility], 170, cm, 09/29/23 14:30:00 EST, Height/Length Dosing, 77.5, kg, 09/29/23 14:30:00 EST, Weight Dosing [facility] External Ambulatory Referral Follow-up No qualifying data available Problem List/Past Medical History Ongoing Aneurysm of aortic root ASCVD (arteriosclerotic cardiovascular disease) Diverticulosis Encounter for diabetic foot exam Essential hypertension Hypercholesterolemia Hypothyroid Infected nail bed of toe Type 1 diabetes mellitus with diabetic neuropathy Type 1 diabetes mellitus with hypercholesterolemia Historical No qualifying data Procedure/Surgical History Colonoscopy (2018), EGD (esophagogastroduodenosco py) gastric outlet reduction (2018), Cardiac catheter (2015), Cardiac catheter (2000), Appendectomy (1948). Medications Aspirin [...] abuse concerns: No. (more content not included)... [facility] Comment on above: Result Comment: Elec tronically Signed By: Sheree Caraballo\.jan\Date and Time Signed: 09/29/23 14:49 EST Medication Refillon 08-25-20 23 Medication Refill [id number]#1.00TIFF [facility] Pre-Visit Planningon 023 Pre-Visit Planning - From: [...] feel free to contact me at extension [phone]. Thank you! EMPERATRIZ WestbrookN, RN, CCM, CCDS, CCDS-O From: Sheree Caraballo To: Nunu Rodriguez RN; Sent: 08/03/2023 15:23:48 EST Subject: RE: Pre-Visit Planning Caller Name: JOJO LEWIS JR; Caller Number: Kayla , M Type 1 [facility] mellitus [facility] [address] [facility] 0 Ambulatory Visit Summary JOJO LEWIS JR :1940 Visit Date:07/06/2023 Ambulatory Visit Instructions Your Diagnosis Diabetes mellitus type I Encounter for diabetic foot exam Your Care Team Attending Physician - Sheree Caraballo Primary Care Physician - Sheree Caraballo This Is Your Medications List [facility] Prescription (BD PEN NEEDLE MINI ULTRA-FINE 31G [...] mg Tab) Procedures Performed Colonoscopy (2017), EGD (esophagogastroduodenosco py) gastric outlet reduction (2017), Cardiac catheter (2014), Cardiac catheter (2000), Appendectomy (1947). Discharge Vitals Heart Rate (Peripheral) 70 Respiratory Rate 18 Blood Pressure 136/68 Height 170 cm Height 67 in Weight 78.19 kg Weight 172.018 lb BMI 27.06 What to do next Scheduled Follow-Up Appointments Tuesday 9:00 AM EDT With: Sheree Caraballo Where: [place] [phone] \.br\ Medications\.br\ What How Much When Instructions\.br [...] Essential hypertension\.br \ Hypercholesterol emia\.br\ Hypothyroid\.br\ \.br\ [facility] CHEMISTRYOrdered By: Linsey pierson on 07-06-2023 Albumin DL <= 20 mg/L (U) [Mass/Vol] 108.9 microgram/mL High 0.0 - 19.0 mcg/mL [facility] Remisol Albumin Elph (U) [Mass fraction] 18.6 mg/dL Invalid Interpretation Code [facility] Remiso Comment on above: Interpretive Data: Dio jasso reference range and other method performance specifications have not been established for this test; results should be integrated into the clinical context for interpretation. Creatinine (U) [Mass/Vol] 128.9 mg/dL Invalid Interpretation Code [facility] Remisol Comment on above: Interpretive Data: T he reference range and other method performance specifications have not been established for this test; results should be integrated into the clinical context for interpretation. U Prot/Creat Ratio 144.30 mg/gm Cr Normal 0.00 - 200.00 mg/gm Cr [facility] Remisol CHEMISTRYOrdered By: Shantal Vasquez on 07-06-2023 HbA1c (Bld) [Mass fraction] 6.3 % High <=5.9% [facility] ChemAutoSS Family Medicine Office/Clini c Noteon 07-06-2023 [...] Diabetic Foot Exam HgbA1c Lab Specimen Collect [id number] Microalbumin Level Urine U Protein/Creat Ratio 2. Encounter for diabetic foot exam (E11.9: Type 2 diabetes mellitus without complications) mono filament test negative in all areas except 2nd toe and arch of both feet. Ordered: Diabetic Foot Exam Lab Specimen Collect [id number] 3. BMI 27.0-27.9,adult (Z68.27: Body mass index [...] qualifying data Procedure/Surgical History Colonoscopy (2017), EGD (esophagogastroduodenosco py) gastric outlet reduction (2017), Cardiac catheter (2014), [...] virus vaccine, inactivated 06/30/2022 Recorded SARS-CoV-2 (COVID-19) [id number] 06/15/2022 Recorded 2022-12-28: TPV80 SARS-CoV-2 (COVID-19) mRNA-1273 vaccine 02/17/2022 Recorded 2022-12-28: TPV80 SARS-CoV-2 (COVID-19) mRNA-1273 vaccine 07/21/2021 Recorded 2022-12-28: TPV80 influenza virus vaccine, inactivated 06/30/2021 Recorded SARS-CoV-2 (COVID-19) mRNA-1273 vaccine 11/18/2020 Recorded SARS-CoV-2 (COVI (more content not included)... Normal [facility] Comment on above: Result Comment: Elec tronically Signed By: Sheree Caraballo\.br\Date and Time Signed: 07/06/23 14:39 EDT [id number] 07-06-2023 HbA1c (Bld) [Mass fraction] 6.3 % High <=5.9 [facility] Comment on above: Performed By: #### 7 [id number] ####[facility] [address] [facility] [place] [address] U Microalbon 07-06-2023 Albumin DL <= 20 mg/L (U) [Mass/Vol] 108.9 microgram/mL High 0.0-19.0 [facility] Comment on above: Performed By: #### 1 [id number] ####[facility] [address] [place] [address] U Protein/Creat Ratioon 06-26 Albumin Elph (U) [Mass fraction] 18.6 mg/dL Invalid Interpretation Code [facility] Comment on above: Result Comment: The reference range and other method performance specifications have not been established for this test; results should be integrated into the clinical context for interpretation. Performed By: #### 1 [id number] ####[facility] [address] [place] [address] Creatinine (U) [Mass/Vol] 128.9 mg/dL Invalid Interpretation Code [facility] Comment on above: Result Comment: The reference range and other method performance specifications have not been established for this test; results should be integrated into the clinical context for interpretation. Performed By: #### 1 [id number], [id number] ####[facility] [address] [place] [address] U Prot/Creat Ratio 144.30 mg/gm Cr Normal .00-200.00 [facility] Comment on above: Performed By: #### 1 [id number] ####[facility] [address] [place] [address] Ambulatory Visit Summaryon 0 05-17-2023 Ambulatory Visit Summary JOSHUA JOJO :1940 Visit Date:05/17/2023 Ambulatory Visit Instructions Your Diagnosis Annual visit for general adult medical examination without abnormal findings Diabetes mellitus type I Diabetic neuropathy ASCVD (arteriosclerotic cardiovascular disease) Essential hypertension Hypercholesterolemia Hypothyroid Overweight with body mass index (BMI) of 26 to 26.9 in adult Your Care Team Attending Physician - Sheree Caraballo Primary Care Physician - Connor ELECTRONIC WARFARE LINGUIST, Sheree L This Is Your Medications List [facility] Prescription (BD PEN NEEDLE MINI ULTRA-FINE 31G [...] mg Tab) Procedures Performed Colonoscopy (2017), EGD (esophagogastroduodenosco py) gastric outlet reduction (2017), Cardiac catheter (2014), Cardiac catheter (2000), Appendectomy (194). Discharge Vitals Heart Rate (Peripheral) 56 Blood Pressure 132/64 Height 170 cm Height 67 in Weight 77 kg Weight 169.4 lb BMI 26.64 What to do next Scheduled Follow-Up Appointments Tuesday 9:00 AM EDT With: Sheree Caraballo Where: [address] \.br\ Medications\.br\ What How Much When Instructions\.br [...] ? \.br\ Place frequently used items in otll-zy-jrskq places. Lower the shelves around your home [...] way.\.br\ ? \.br\ Do not use floor libyan or wax that makes floors slippery. If [...] include working with a physical therapist or product trainer to improve your strength, balance, and endurance.\.br\ Where to find more information\.br\ ? \.br\ Centers for Disease Control and PreventionHAM: www.cdc.gov\.br\ ? \.br\ National [employer] on Aging: www.gilberto.nih.gov\ .br\ Contact a health [...] your home.\.br\ This information is not [facility] Family Medicine Office/Clini c Noteon 05-17-2023 Family [...] of clutter to prevent tripping and/or falling. [place] Advance Directives reviewed, patient has copy at [...] up with yearly DM eye exams at [facility], has yearly appointment in near future, last notes have been requested. 3. Diabetic neuropathy (E11.40: Type 2 diabetes mellitus with diabetic neuropathy, unspecified) Patient denies any pain or discomfort to extremities and remains active. Patient ambulates without concern. Patient will continue to follow with PCP as needed. 4. ASCVD (arteriosclerotic cardiovascular disease) (I25.10: Atherosclerotic heart disease of [place] coronary artery without angina pectoris) Patient follows up with Survey Statistician, every 6 months. Last visit summary notes [...] Losartan, Chlorthalidon (more content not included)... Normal [facility] Comment on above: Result Comment: Elec [...] night-lights. ? Place frequently used items in pxhb-zo-snvhi places. Lower the shelves around your home [...] the way. ? Do not use floor libyan or wax that makes floors slippery. If [...] include working with a physical therapist or product trainer to improve your strength, balance, and endurance. Where to find more information ? Centers for Disease Control and Prevention, HAM: www.cdc.gov ? National Petros on Aging: www.gilberto.nih.gov Contact a health care [...] health ca (more content not included)... Normal [facility] Screenson 05-17-2023 Screens [id number] Normal [facility] Ambulatory Visit Summaryon 0 04-04-2023 Ambulatory Visit Summary JOJO LEWIS JR :1940 Visit Date:04/04/2023 Ambulatory Visit Instructions Your Diagnosis Diabetes mellitus type I BMI 27.0-27.9,adult Non-smoker Your Care Team Attending Physician - Sheree Caraballo Primary Care Physician - Sheree Caraballo This Is Your Medications List [facility] Prescription (BD PEN NEEDLE MINI ULTRA-FINE 31G [...] mg Tab) Procedures Performed Colonoscopy (2017), EGD (esophagogastroduodenosco py) gastric outlet reduction (2017), Cardiac catheter (2014), Cardiac catheter (2000), Appendectomy (194). Discharge Vitals Temperature (Oral) 36.9 ?C Heart Rate (Peripheral) 60 Respiratory Rate 16 Blood Pressure 146/78 Height 169 cm Height 67 in Weight 78.9 kg Weight 173.58 lb BMI 27.63 What to do next Scheduled Follow-Up Appointments Tuesday 8:00 AM EDT With: Where: [facility] Normal [address] [place] [address]- \.br\ Medications\.br\ What How Much When Instructions\.br \ New metformin (metformin 500 mg Tab) 1 Tablets By Mouth 2 times a day Duration: 90 Days Refills: 3 Pickup at [facility]\.br\ Unchanged aspirin (Aspirin Enteric Coated 81 mg [...] DIRECTED (DXE10.8) \.br\ Pharmacy Information\.br\ [facility]: [address], [place] [id number] [phone]\.br\ Allergies\.br\ Nuts (Unknown)\.br\ glipiZIDE (Unknown)\.br\ omeprazole (Unknown)\.br\ Problems\.br\ Ongoing - Any problem that you are currently receiving treatment for.\.br\ ASCVD (arterioscleroti c cardiovascular disease)\.br\ Diabetes mellitus type I\.br\ Diabetic neuropathy\.br\ Diverticulosis\. br\ Essential hypertension\.br \ Hypercholesterol emia\.br\ Hypothyroid\.br\ \.br\ [facility] Medicine Office/Clini c Noteon 04-04-2023 Family Medicine [...] symptoms? Vision problems? no Sexual dysfunction? no GI-Nausea/committing/bloa ting? no Lightheadedness? no Paresthesias, Ulcerations or [...] day(s), # 180 tab(s), Refills(s) 3, Pharmacy: [facility], 169, cm, 04/04/23 9:12:00 EDT, Height/Length Dosing, 78.9, kg, 04/04/23 9:12:00 EDT, Weight Dosing metformin, 500 mg = 1 tab(s), Oral, BID, # 60 tab(s), Refills(s) 0, Pharmacy: [facility], 169, cm, 12/28/22 8:48:00 EDT, Height/Length Dosing, 77.9, kg, 12/28/22 8:48:00 EDT, Weight Dosing Follow-up No qualifying data available Problem List/Past Medical History Ongoing ASCVD (arteriosclerotic cardiovascular disease) Diabetes mellitus type I Diabetic neuropathy Diverticulosis Essential hypertension Hypercholesterolemia Hypothyroid Historical No qualifying data Procedure/Surgical History Colonoscopy (2017), EGD (esophagogastroduodenosco py) gastric outlet reduction (2017), Cardiac catheter (2014), [...] tobacco concern (more content not included)... Normal [facility] Comment on above: Result Comment: Elec tronically Signed By: Sheree Caraballo.br\Date and Time Signed: 04/04/23 09:29 EDT [id number] 04-04-2023 HbA1c (Bld) [Mass fraction] 8.1 % High <=5.9 [facility] Comment on above: Performed By: #### [id number] ####[facility] [address] [place] [address] Office Visiton 03-21-2023 Follow-up visit [id number] Pillo Lewsi JrShonna 1940 M Date Provider Department Center 03/21/2023 271-LUCRETIA TRUONG C[facility] Family History Problem Relation Age of Onset Heart disease Mother Heart disease Father Alcohol abuse Father Diabetes Brother Family Status - Relation Status Age at Mother Father Brother Level of Service:88797 [place] OFFICE/OUTPATIENT ESTABLISHED LOW MDM 20-29 MIN Normal [facility] CHEMISTRYOrdered By: Juan palafox on 12-28-2022 Albumin [...] rate/Area] 54 mL/min/1.73 m2 Low >=59mL/min/1.73 m2 FT Chem S GFR/1.73 sq M.predicted among non-blacks MDRD (S/P/Bld) [Vol rate/Area] 45 mL/min/1.73 m2 Low >=59mL/min/1.73 m2 FT Chem S Globulin (S) [Mass/Vol] 3.2 g/dL Normal 1.4 - 4.0 gm/dL [facility] Remisol Glucose [Mass/Vol] 183 mg/dL Normal 55 - 199 mg/dL [facility] Remisol Potassium [Moles/Vol] 4.3 mmol/L Normal 3.5 - 5.3 mmol/L [facility] Remisol Prostate specific Ag [Mass/Vol] 1.2 ng/mL Normal 0.1 - 3.5 ng/mL [facility] Remisol Protein [Mass/Vol] 7.7 g/dL Normal 6.0 - 7.8 gm/dL F [facility] Remisol Sodium [Moles/Vol] 136 mmol/L Normal 135 - 145 mmol/L [facility] Remisol Triglyceride [Mass/Vol] 176 mg/dL High <=149mg/dL [facility] TSH Qn 3.45 m[IU]/L Normal 0.34 - 5.60 mcIU/mL [facility] Urea nitrogen [Mass/Vol] 32 mg/dL High 5 - 21 mg/dL [facility] Rem[facility] Urea nitrogen/Creatinin e [Mass ratio] 21 mg/mg High 10 - 20 [facility] Remisol CHEMISTRYOrdered By: Sena Jacobsen on 12-28-2022 HbA1c (Bld) [Mass fraction] 9.6 % High <=5.9% FT [facility] HEMATOLOGYOrdered By: SYSTEM SYSTEM on 12-28-2022 Basophils/100 WBC (Bld) 0.7 % Normal 0.0 - 2.0 % [facility] HemeAutoSS Basophils/Leukocyt es Auto (Bld) [Pure # fraction] 0.1 E9/L Normal 0.0 - 0.2 E9/L [facility] HemeAutoSS Eosinophils/100 WBC (Bld) 11.6 % High 0.0 - 8.0 % [facility] HemeAutoSS Eosinophils/Leukoc ytes Auto (Bld) [Pure # fraction] 1.0 E9/L High 0.0 - 0.5 E9/L [facility] HemeAutoSS Lymphocytes/100 WBC (Bld) 16.2 % Normal 14.0 - 50.0 % [facility] HemeAutoSS Lymphocytes/Leukoc ytes Auto (Bld) [Pure # fraction] 1.4 E9/L Normal 1.0 - 4.0 E9/L [facility] HemeAutoSS Monocytes/100 WBC (Bld) 8.0 % Normal 4.0 - 14.0 % [facility] HemeAutoSS Monocytes/Leukocyt es Auto (Bld) [Pure # fraction] 0.7 E9/L Normal 0.2 - 1.0 E9/L [facility] HemeAutoSS Neutrophils/100 WBC (Bld) 63.5 % Normal 36.0 - 75.0 % [facility] HemeAutoSS Neutrophils/Leukoc ytes Auto (Bld) [Pure # fraction] 5.6 E9/L Normal 2.0 - 7.5 E9/L [facility] HemeAutoSS HEMATOLOGYOrdered By: Ping Arellano on 12-28-2022 [...] [facility] Comment on above: Result Comment: Ema callejas reviewed by ts . ECHOCARDIO M/2D COMPLETEon 0 12-27-2022 ECHOCARDIO M/2D COMPLETE Patient: JOJO LEWIS Exam Date: 12/27/2022 : 1940 Gender:M Ordering : BESSIE GtzShonna PRICE Admission #: [id number] Family : DR KEYONNA CIFUENTES . Order #: [id number] CLICK HERE TO VIEW EXAM ECHOCARDIOGRAM REPORT [...] Area (VTI): 1.82 cm2, 1.88 cm2 Deceleration Ju[place] Diaz: 1.50 m/s2 Pressure Half-Time: 594.47 ms Peak [...] Nj Moore M.D. on 12/30/2022 at 13:24 Normal [facility] MRI BRAIN WO CONon 2 MRI BRAIN [...] by: BLESSING MARSHALL Date: 2022-02-16 10:31 Normal [facility] URIC ACID SERUMon 02-12-2022 Urate [Mass/Vol] 7.9 mg/dL Critically high 3.5-7.2 [facility] Comment on above: Performed By: #### U SHAWANDA #### [facility] [address] [address] [address] Ale So XR knee RT 2Von 01-18-2022 XR knee RT 2V [facility] Main [place] [address] [place] [address] XRay Report Signed Patient: Jojo Lewis MR#: [id number] : 1940 Acct:[id number] Age/Sex: 81 / M ADM Date: 01/18/22 Loc: [facility] Room: Type: [facility] Attending Dr: Mandeep Owen MD Ordering Provider: [...] Claudia Boone M.D.01/18/2022 4:46 PM Dictation Location: [place] [address] Transcribed By: [facility] 01/18/22 164 Dictated By: Claudia Boone MD 01/18/22 1644 Signed By: 01/18/22 164 Normal [facility] GLYCOHEMOGLOBIN A1Con 2021 ADA RECOMMENDATION ADA THERAPEUTIC TARG ET 6.0 - 7.0 ACTION SUGGESTED > 7.0 Normal [facility] Comment on above: Performed By: #### A 1C #### [facility] [address] [address] [address] Ale So Glucose [Mass/Vol] 194 mg/dL Normal [facility] Comment on above: Performed By: #### A 1C #### [facility] [address] [place], [place] [address] Dr[address] Ale So HbA1c (Bld) [Mass fraction] 8.4 % Critically high <=6.0 [facility] Comment on above: Performed By: #### A 1C #### [facility] [address] [place], [place] [address] Dr. Ale So POC GLUCOSE LABon 05-17-2017 Glucose mass conc 149 mg/dL High 70-100 [facility] Comment on above: Performed By: #### 8 5499 ####[facility] Cardiovascular Lab Reporton 05-16-2017 Cardiovascular Lab Report [facility]: [id number] Physician: Lucretia Truong,Department of M.D.Medicine Service Date: 05/16/2017Division of Birthdate: 1940Cardiology Room #: 3CD [id number] [facility] [place] [address]Phone Fax Cardiovascular Laboratory ReportFINAL IMPRESSION:1. Severe stenosis [...] in a small caliber portion of the vessel.RECOMMENDATIONS:1. Aspirin 81 mg lifelong.2. Plavix 75 mg daily for a minimum of 6 months preferably long-term.3. Aggressive cardiovascular risk factor modification.4. Optimization of medical management; a beta-nila, a statin and an angiotensin-converting enzyme inhibitor are indicated.5. Follow up with me in [facility] in the next 2-4 weeks; should the patient's symptoms persist, the second obtuse marginal may be a target for revascularization.6. Follow up with Dr. Cifuentes as scheduled.PROCEDURES: Limited femoral angiography, bilateral selective coronaryangiography, percutaneous balloon angioplasty and Synergy drug-elutingstent placement in the right coronary artery, placement of a 6-Palauan VIPAngio-Seal device.METHODS: After risks, benefits, and alternatives were explained, writteninformed consent was obtained. The patient was prepped and draped in theusual sterile fashion over both groins. Using 1% lidocaine solution, localinfiltration anesthesia was achieved. Using a modified Seldingertechnique, access to the right common femoral artery was obtained and a6-Palauan 11 cm sheath inserted without difficulty. Baseline femoralangiography was performed.Bilateral selective coronary angiography was then performed using JL4 andJR4 catheters. After reviewing the images, it was elected to proceed withan interventional procedure.A 6-Palauan JR4 guide catheter was advanced over a [...] point, it was elected to conclude theprocedure.A 6-Palauan VIP Angio-Seal device was deployed per protocol achievingoptimal hemostasis. Overall, the patient tolerated the procedure well.There were no overt complications. [facility] was to [facility] condition.FINDINGS: Hemodynamics:AO 154/56 (95).Left ventriculography:This was not performed. Ejection fraction is normal by noninvasiveimaging.Pederson ry arteries:Left main coronary artery. This arises from [...] 08:19 A Lucretia Truong M.D.Date Dict: 05/16/2017/09:33 Santiago Truong M.D.Date Trans: 05/16/2017 11:11 Carlie/Audra_JN:[id number] cc: Keyonna Cifuentes M.D. [address] [place] [id number] Chris Palomino M.D. [address] [facility] [address] Normal The [facility] POC GLUCOSE LABon 05-16-2017 Glucose mass conc 139 mg/dL High 70-100 [facility] Comment on above: Performed By: #### 8 5499 ####[facility] [place] [address], [facility] Glucose mass conc 161 mg/dL High 70-100 [facility] Comment on above: Performed By: #### 8 5499 ####[facility] [place] [address], [facility] Glucose mass conc 149 mg/dL High 70-100 [facility] Comment on above: Performed By: #### 8 5499 ####[facility] [place] [address], [facility] Vital Signs Date Time Vital Sign Value Performing Clinician eGrmaine zhang 01-18-2022 14:30-0400 Body height 172.72 cm Mandeep Castellanos Other [facility] Other Encounters Encounter Date Encounter Type Care Provider Facility Start: 02-24-2024 End: 02-24-2024 ambulatory ELECTRONIC [employer] LINGUIST Sheree L Connor Facility:[facility] hernandez Start: 02-21-2024 End: 02-21-2024 ambulatory EHAB [facility] Start: 01-04-2024 End: 01-04-2024 Lab Drop off Sheree L Connor [facility] Start: 01-04-2024 End: 01-04-2024 ambulatory ELECTRONIC [employer]ARFARE LINGUIST Sheree L Connor Facility:[facility] Start: 12-14-2023 End: 12-14-2023 ambulatory ELECTRONIC WARFARE LINGUIST Sheree L Connor Facility:[facility] Cherry hernandez Start: 11-15-2023 End: 11-15-2023 ambulatory ELECTRONIC WARFARE LINGUIST Sheree L Connor Facility:[facility] Cherry mary Start: 10-27-2023 End: 10-27-2023 ambulatory ELECTRONIC WARFARE LINGUIST Sheree L Connor Facility:[facility] Cherry mary Start: 09-29-2023 End: 09-29-2023 ambulatory ELECTRONIC WARFARE LINGUIST Sheree L Connor Facility: [facility] Start: 07-06-2023 End: 07-06-2023 Lab Drop off Sheree L Connor [facility] Start: 07-06-2023 End: 07-06-2023 ambulatory ELECTRONIC [employer]ARFARE LINGUIST Sheree L Connor Facility:[facility] Start: 05-17-2023 End: 05-17-2023 ambulatory ELECTRONIC WARFARE LINGUIST Sheree L Connor Facility:[facility] Cherry hernandez Start: 04-04-2023 End: 04-04-2023 ambulatory ELECTRONIC WARFARE LINGUIST Sheree L Connor Facility:[facility] Start: 03-31-2023 End: 03-31-2023 ambulatory ELECTRONIC WARFARE LINGUIST Sheree L Connor Facility:[facility] Cherry hernandez Start: 03-21-2023 End: 03-21-2023 ambulatory AB [facility] Start: 12-28-2022 End: 12-28-2022 Lab Drop off Sheree L Connor [facility] Start: 12-28-2022 End: 12-28-2022 Lab Drop off Sheree L Connor [facility] Start: 12-27-2022 End: 12-28-[address] KEYONNA CIFUENTES . Facility:[facility] Start: 02-16-2022 End: 02-17-[address] KEYONNA CIFUENTES . Facility:[facility] Start: 02-12-2022 End: 02-13-[address] KEYONNA CIFUENTES . Facility:[facility] Start: 01-18-2022 End: 01-18-2022 ambulatory Mandeep Owen Other [facility] Other Start: 01-18-2022 Office outpatient ne w 30 minutes Mandeep Owen [facility] Start: 01-05-2022 End: 01-06-[address] KEYONNA CIFUENTES . Facility:[facility] Start: 05-16-2017 End: 05-17-2017 Ambulatory EHAB A SERGEYHAWY Facility:[facility] Procedures Date Procedure Procedure Detail Performing Clinician Start: 09-26-2017 Colonoscopy Sheree Connor Start: 09-26-2017 Esophagogastroduodenoscopy gastric outlet reduction Sheree Connor Start: 09-26-2014 Cardiac catheter (physical object) Sheree Connor Comment on above: stent X 2 Start: 09-26-2000 Cardiac catheter (physical object) Sheree Connor Comment on above: LAD stent Start: 09-26-1947 Appendectomy Sheree Connor Plan of Treatment Date Care Activity Detail Author Start: 07-04-2024 ambulatory Ambulatory Facility:[facility] Start: 05-18-2024 ambulatory Ambulatory Facility:[facility] Immunizations Immunization Date Immunization Notes Care Provider Fa daniel 05-17-2023 zoster vaccine recombinant Sheree Connor [facility] 06-30-2022 influenza virus vaccine, unspecified formulation Sheree Connor [facility] 06-15-2022 SARS-CoV-2 (COVID-19 ) [id number] Sheree Connor [facility] Comment on above: Result Comment: 2022: [id number] 02-17-2022 SARS-CoV-2 (COVID-19 ) mRNA-1273 vaccine Sheree Connor [facility] Comment on above: Result Comment: 2022: [id number] 07-21-2021 SARS-CoV-2 (COVID-19 ) mRNA-1273 vaccine Sheree Connor [facility] Comment on above: Result Comment: 2022: [id number] 06-30-2021 influenza virus vaccine, unspecified formulation Sheree Connor [facility] 11-18-2020 SARS-CoV-2 (COVID-19 ) mRNA-1273 vaccine Sheree Connor [facility] 10-22-2020 SARS-CoV-2 (COVID-19 ) mRNA-1273 vaccine Sheree Connor [facility] 06-11-2020 influenza virus vaccine, unspecified formulation Sheree Connor [facility] 08-28-2019 influenza virus vaccine, unspecified formulation Sheree Connor [facility] Payers Date Payer Category Payer Medicare [id number] 2.1 [id number] 1959 Private Health Insurance [id number] 1940 Unknown [id number] 2.16.84 0.1.625862.3.579.2.593 1940 Unknown [id number] 2.16.84 0.1.379981.3.579.2.593 1940 Unknown [id number] 2.16.84 0.1.845518.3.579.2.593 1940 Unknown [id number] 2.16.84 0.1.770080.3.579.2.593 1940 Unknown [id number] 2.16.8 40.1.029115.3.579.2.727 1940 Unknown [id number] 2.16.8 40.1.955779.3.579.2.727 1940 Unknown [id number] 2.16.8 40.1.803570.3.579.2.727 1940 Unknown [id number] 2.16.8 40.1.570453.3.579.2.727 1940 Unknown [id number] 2.16.8 40.1.217953.3.579.2.727 1940 Unknown [id number] 2.16.8 40.1.172651.3.579.2.727 1940 Unknown [id number] 2.16.8 40.1.402784.3.579.2.72 1940 Unknown [id number] 2.16.8 40.1.965253.3.579.2.72 1940 Unknown [id number] 2.16.8 40.1.063328.3.579.2.72 1940 Unknown [id number] 2.16.8 40.1.765874.3.579.2.72 1940 Unknown [id number] 2.16.8 40.1.059352.3.579.2.72 1940 Unknown [id number] 2.16.8 40.1.724197.3.579.2.727 1940 Unknown [id number] 2.16.8 40.1.797961.3.579.2. 1940 Unknown [id number] 2.16.8 40.1.736067.3.579.2.727 1940 Unknown [id number] 2.16.8 40.1.906056.3.579.2.72 1940 Unknown [id number] 2.16.8 40.1.194711.3.579.2.727 Medicare [id number] Social History Date Type Detail Facility Unknown if ever smoked [facility] Other Sex Assigned At [facility] Start: 12-28-2022 End: 01-04-2024 Tobacco smoking status Never smoked tobacco (finding) [facility] Tobacco smoking status Never [facility] Medical Equipment Procedure Code Equipment Code Equipment Origin al Text Equipment Identifier Dates USE TWICE A DAY DIRECTED (DXE10.8) Start: 12-28-2022 USE TWICE A DAY DIRECTED (DXE10.8) Start: 12-28-2022 USE TWICE A DAY DIRECTED (DXE10.8) Start: 12-28-2022 BD UF mini pen needle 5mm/31g, See Instructions, 100 EA, 1, use twice daily, [facility], Supply, 170, cm, 07/06/23 8:54:00 EDT, Height/Length Dosing, 78.2, kg, 07/06/23 8:54:00 EDT, Weight Dosing Start: 08-25-2023 Clinical Notes 01-18-2022 to 02-21-2024 Note Date & Type Note Facility 02-21-2024 Note [facility] Cardiology Clinic Note Chief Complaint: Patient here for 1 year follow up CAD, dyslipidemia, hypertension, and aortic valve disorder. Had routine labs with lipid panel in December 2023. He denies chest pain, SOB, palpitations, and lightheadedness/syncope. BP very elevated today in the office. BP was 146/64 when he saw PCP in December 2023. HPI: Jojo Lewis Jr. is a 83 y.o. male Here in routine follow-up Doing well apart from mild lightheadedness Blood pressure is not checked at home Cardiology ROS: Review of Systems Neurological: Positive for light-headedness (not often). All other systems reviewed and are negative. Past Medical History He has a past medical history of Aneurysm ([facility]), CAD (coronary artery disease) (05/11/2022), Cardiovascular stress [...] and with evening meal., Disp: , Rfl: Last Recorded Vitals BP (!) 196/70 (BP Location: Left arm, Patient Position: Sitting) Pulse 68 Ht 1.676 m (5' 6 ) Wt 78.5 kg (173 lb) SpO2 97% BMI 27.92 kg/m??? Physical Examination: GENERAL: alert [...] extremities. PSYCH: appropriate mood, affect, and judgement. Labs/06/2024: Serum creatinine is 1.2, AST and ALT are normal HbA1c is 5.8 Cholesterol is 126, triglycerides 119, HDL is 35, LDL is 70 Echocardiogram 05/2021: Global left ventricular systolic function is normal. Mild concentric hypertrophy. Mild aortic valve stenosis and regurgitation. Moderately dilated aortic root at 4.3 cm and mildly dilated ascending aorta at 3.8 cm. Normal right-sided pressures. Assessment: coronary arteriosclerosis - PCI/stents in LAD, LCx and RCA dyslipidemia diabetes mellitus essential hypertension - Uncontrolled aortic root dilatation aortic valve stenosis/regurgitation Plan: His blood pressure Is still poorly controlled: Increase Coreg to 25 mg p.o. twice daily. Guideline directed medical therapy should include continued dual antiplatelet therapy, high intensity statin therapy, beta-nila and given his diabetic status a RAAS inhibitor Given diabetes mellitus and history of coronary artery disease, would strongly recommend addition of an SGLT2 inhibitor or a GLP-1 receptor agonist; will defer to his family physician Will repeat an echocardiogram to evaluate his valvular heart disease as well as aortic root and ascending (more content not included)... [facility] 03-21-2023 Note [facility] Cardiology Clinic Note Chief Complaint: [...] Cardiovascular stress test abnormal (05/11/2022), Diabetes mellitus ([facility]) (05/11/2022), Dyslipidemia (05/11/2022), Heart valve disease, Hyperlipidemia, [...] should problems arise Lucretia Truong MD, MPH, [facility], [facility], [facility] Interventional Cardiology Pager Email: [email or web address] 12-28-2022 Evaluation + Plan note Diagnostic Tests PendingT3 Free 12/28/22 [facility] 02-12-2022 Note PROCEDURE: XR FOOT R [...] authenticated by: STACI KLEIN Date: 2022-02-12 16:27 [facility] 01-18-2022 Evaluation note Encounter Date Diagnosis Assessment Notes Dec, Acute pain of right knee (ICD-10 - M25.561) Dec, Bursitis of right knee, unspecified bursa (ICD-10 - M70.51) Radiographs reviewed with patient. Advised that based on his described history, he may have been experiencing a bursitis that has resolved. Continue motion and strengthening. Activity as tolerated. Call with questions/chaya rns. [facility] Other Evaluation + Plan note Future Appointments Appointment Date:01/04/2024 09:00:00 AM Scheduled Provider:Sheree Caraballo Location:[facility] Appointment Type: Open Appointment Date:05/18/2024 08:00:00 AM Scheduled Provider: Location:[facility] Appointment Type:FM Medicare Wellness [facility] Future Appointments Appointment Date:05/18/2024 08:00:00 AM Scheduled Provider: Location:[facility] Appointment Type:FM Medicare Wellness Subsequent Appointment Date:07/04/2024 08:20:00 AM Scheduled Provider:Sheree Caraballo Location:[facility] Appointment Type: Open [facility] - Reported* Type Description Date Medical History Diabetic Medical History Heart attack Medical History Hypertension Surgical History Heart Stent Surgical History Appendectomy Hospitalization History see above [facility] Other Hospital course Narrative No data available for this section [facility] No data available for this section [facility] No data available for this section [facility] Summary Purpose Family History No Family History Records FoundNo Family History Records FoundNo Family History Records Found No data available for this section No data available for this section No Family History Records FoundNo Family History Records Found Advance Directives No Advanced Directives Records FoundNo Advanced Directives Records FoundNo Advanced Directives Records FoundNo Advanced Directives Records FoundNo Advanced Directives Records Found Additional Source Comments (unrecognized sect ion and content) No Status Records FoundNo Status Records FoundNo Status Records FoundNo Status Records FoundNo Status Records Found INFORMATION SOURCE (unrecogn ized section and content) DATE CREATED AUTHOR 03/22/2018 The [facility] DATE CREATED AUTHOR AUTHOR'S ORGANIZ ATION 01/19/[address] [facility] DATE CREATED AUTHOR AUTHOR'S ORGANIZ ATION 01/01/2023 [facility] DATE CREATED AUTHOR AUTHOR'S ORGANIZ ATION 02/21/2024 [facility] DATE CREATED AUTHOR AUTHOR'S ORGANIZ ATION 02/25/2024 [facility] REASON FOR VISIT (unrecogniz ed section and content) Right Knee Pain Patient Care team informatio n (unrecognized section and content) Personnel Name: Sheere Caraballo Address: Address: [address] [place] [address]- Personnel Name: Sheree Caraballo Address: Address: [address] [place] [address]- Personnel Name: Sheree Caraballo Address: Address: [address] [place] [address]- Personnel Name: Sheree Caraballo Address: Address: [address] [place] [address]- FOR RECORDS PERTAINING TO PATIENTS WHO ARE [...] BE BASED ON THE PRIMARY CLINICAL RECORDS. [facility]. provides no warranty or guarantee of the accuracy or completeness of information in this document.
--- NOTE | 2024-03-08 12:59 | CA_ITS ---
Patient Name: JOJO LEWIS MR#: [id number] : 1940 Exam Date: 03/08/2024 Ordering Doctor: DR CAROLINE LEON M.D. ECHOCARDIOGRAM REPORT PROCEDURE: CA ECHO DOPPLER COMPLETE INDICATIONS: Abnormal EKG COMPARISON: None. DESCRIPTION: COMPLETE ECHOCARDIOGRAM Real-time transthoracic echocardiography with 2D, M-mode, spectral and color flow Doppler performed. QUALITY: Technical quality was good. LEFT VENTRICLE: Normal chamber size. Moderate concentric left ventricular hypertrophy. Global left ventricular systolic function is normal. LV EF: Estimated left ventricular ejection fraction is 60-65% DIASTOLIC: Diastolic function is indeterminate. ATRIAL SEPTUM: LEFT ATRIUM: Moderate dilatation. RIGHT ATRIUM: Mild dilatation. RIGHT VENTRICLE: Normal chamber size. Normal right ventricular systolic function. TRICUSPID VALVE: Normal mobility and thickness. No stenosis with trivial regurgitation. No evidence of pulmonary hypertension. RVSP 19 mmHg MITRAL VALVE: Normal mobility and thickness. No evidence of mitral valve stenosis. There is no mitral annular calcification. Mild mitral regurgitation. AORTIC VALVE: Bicuspid valve, Ale type I with fusion of the right and left cusps. Mildly calcified aortic valve. Mildly diminished mobility. Doppler velocity suggest mild aortic valve stenosis. DVI 0.4, LAURO 1.7 cm2. Mild aortic regurgitation. AORTIC ROOT: Moderately dilated, measuring 4.4 cm. The ascending aorta is mildly dilated measuring 3.7 cm. PULMONIC VALVE: Normal thickness and mobility. No stenosis. Trivial regurgitation. PERICARDIUM: No evidence of pericardial effusion. IVC: Collapses with inspirations. Normal size. PLEURA: CONCLUSION: 1. Moderate concentric left ventricular hypertrophy with normal systolic function. Estimated LVEF is 60 to 65%. 2. Normal right ventricular size and systolic function. 3. Mild to moderate biatrial dilatation. 4. Bicuspid aortic valve, Ale type I with fusion of the right and left cusps. Mild aortic valve stenosis and regurgitation. 5. Moderate dilatation of the aortic root [4.4 cm] with mild dilatation of the ascending aorta [3.7 cm]. Adult Echocardiography Procedure Report Left Ventricle LVEDD (3.7 - 5.6 cm): 4.95 cm LVESD (2.2 - 4.0 cm): 3.60 cm LVIVS thickness (0.6 - 1.2 cm): 1.46 cm LVPW thickness (0.5 - 1.0 cm): 1.28 cm e': 0.09 m/s E - e': 9.02 LVOT Max Gradient: 1.77 mm[Hg] LVOT Area (cm2): 0.67 m/s Peak Velocity (LVOT): 0.67 m/s Mean Velocity (LVOT): 0.43 m/s LVOT Diameter 2.26 cm Left Ventricular Ejection Fraction: 60-65 % Left Atrium LA Volume Index (2D A2C): 47.53 ml/m2 Left Atrium Systolic Dimension: 4.12 cm Mitral Valve MV E to A Ratio: 1.07 Mitral Valve A-Wave Peak Velocity: 0.79 m/s Mitral Valve E-Wave Peak Velocity: 0.84 m/s Right Ventricle RV Internal Diastolic Dimension: 3.28 cm Aorta AO Root Diam: 4.36 cm Ascending Ao Diam: 3.72 cm Aortic Valve AoV Area (Peak Vijay): 1.83 cm2, 1.75 cm2 AoV Area (VTI): 1.85 cm2, 1.79 cm2 Peak Velocity(Antegrade Flow): 1.52 m/s, 1.40 m/s Peak Gradient(Antegrade Flow): 9.30 mm[Hg], 7.84 mm[Hg] Mean Velocity(Antegrade Flow): 1.06 m/s, 0.96 m/s Mean Gradient(Antegrade Flow): 4.92 mm[Hg], 4.27 mm[Hg] Velocity Time Integral: 37.88 cm, 35.40 cm Tricuspid Valve Peak Velocity (Regurgitant Flow): 2.03 m/s, 1.60 m/s, 1.85 m/s Pulmonic Valve Mean Gradient: 2.75 mm[Hg], 1.89 mm[Hg] Mean Velocity: 0.78 m/s, 0.65 m/s Peak Velocity: 1.00 m/s Peak Gradient: 5.06 mm[Hg], 3.06 mm[Hg] Right Atrium Right Atrium Systolic Pressure: 33.95 ml, 33.95 ml Dictated by: Nj Moore M.D. on 03/12/2024 at 17:08 Approved by: Nj Moore M.D. on 03/12/2024 at 17:18
== END 2024-03-08 12:36 | disposition home or self-care (01) ==
LOC: CARD 12:36
PROVIDERS: PCP Nurse Practitioner; Visit Provider Internal Medicine Interventional Cardiology
DX: I77.810 Thoracic aortic ectasia (principal); R94.31 Abnormal electrocardiogram [ECG] [EKG]
CPT/HCPCS: 93306

== ENCOUNTER 2025-02-14 08:46 | Outpatient (OUT) | payer MEDICARE, OTHER, SELFPAY ==
--- OUTSIDE RECORDS SUMMARY | 2023-10-03 09:00 | XMS_ITS ---
Author Organization [facility] in [place] Address [address] [place] [address] Care Team Providers Care Tube Balancer Name Role Phone Sheree Tang Primary Care Provider Unavail cheryle Angelique Bagley Unavailable [phone] Allergies No Known Allergies Results Component Value Reference Range Notes XR Foot RT (3 views) * Reviewed date:10/24/2023 11:17:44 AM Interpretation: Performing Lab: Notes/Report: REASON FOR VISIT Referral from Sheree Ryan for infected ingrown, diabetic Medications Medication SIG (Take, Route, Frequency, Duration) Notes Start Date End Date Status Carvedilol 12.5 MG 1 tablet with food O rally Twice a day Active metFORMIN HCl 500 MG 1 tablet with a keyon l Orally Once a day Active Atorvastatin Calcium 80 MG 1 tablet Oral ly Once a day Active Losartan Potassium 100 MG 1 tablet Orall y Once a day Active Liothyronine Sodium 5 MCG 1 tablet on an empty stomach Orally Once a day Active Low-Dose Aspirin Act tracie Cephalexin 500 MG 1 capsule Orally BID for 10 days 10/03/2023 Active Vitamin D Active Social History Tobacco Use: Social History Observation Description Date Details (start date - stop date) Never Smoker NA - NA Tobacco Use/Smoking Question Answer Notes Patient is a nonsmoker Vital Signs Temperature 98.8 degrees Fahrenheit 10/03/19 24 Heart Rate 88 /min 10/03/2023 Height 68 in 10/03/2023 Weight 160 lbs 10/03/2023 BMI 24.33 kg/m2 10/03/2023 Procedures Procedure Date Ordered Date Performed Result Body Sit e I & D Abscess Complicated- performed 10/03/2023 N/A Encounters Encounter Location Date Provider Diagnosis [facility] [place] (PODIATRY) [address] [place] [address] 10/03/2023 Angelique Bagley Ingrowing nail L60.0 ; Cellulitis of right toe L03.031 ; Cutaneous abscess of right foot L02.611 and Toe pain, right M79.674 Assessments Encounter Date Diagnosis (ICD Code) Assessment Notes Treatment Notes Treatment Clinical Notes Section Notes 10/03/2023 Ingrowing nail (ICD-10 - L60.0) Mr. Lewis presents for evaluation of infected ingrown toenail of the right hallux. He was started on antibiotics by his PCP. He was able to dig at the nail and express some pus. He noted relief after that. Today there is some dried bloody drainage and maceration of the medial nail fold. I recommend partial nail avulsion. He is in agreement. Post procedure the tuft of the distal phalanx was exposed at the procedure site. No gross purulence. XR revelaed no convinving evidence of osteomyelitis or subcutaneous gas. I recommend he continue keflex for now. Wash daily with soap and water, paint with betadine and cover with DSD. Followup with Dr. Michael in 2 weeks, sooner if any issues arise. 10/03/2023 Cellulitis of right toe (ICD-10 - L03.031) 10/03/2023 Cutaneous abscess of right foot (ICD-10 - L02.611) After verbal consent, the skin over the hallux was prepped using alcohol. A digital block was performed using lidocaine 2% plain. After adequate anesthesia was verified, a nail elevator and soft tissue nippers were used to lift the offending nail border, which was then removed using a hemostat. The nail folds were then thoroughly curetted and all foreign material was removed. The tuft of the distal phalax was visualized in the nail fold. The site was then dressed with a dry sterile dressing placed loosely on the toe. Wound care and dressing instructions were given to the patient. 10/03/2023 Toe pain, right (ICD-10 - M79.674) Plan Of Treatment Medication Medication Name Sig Start Date Stop Date Notes Cephalexin 500 MG 1 capsule Orally BID for 10 days 024 Vitamin D Treatment Notes Assessment Notes Ingrowing nail Mr. Lewis presents for evaluation of infected ingrown toenail of the right hallux. He was started on antibiotics by his PCP. He was able to dig at the nail and express some pus. He noted relief after that. Today there is some dried bloody drainage and maceration of the medial nail fold. I recommend partial nail avulsion. He is in agreement. Post procedure the tuft of the distal phalanx was exposed at the procedure site. No gross purulence. XR revelaed no convinving evidence of osteomyelitis or subcutaneous gas. I recommend he continue keflex for now. Wash daily with soap and water, paint with betadine and cover with DSD. Followup with Dr. Michael in 2 weeks, sooner if any issues arise. Cutaneous abscess of right foot After ve rbal consent, the skin over the hallux was prepped using alcohol. A digital block was performed using lidocaine 2% plain. After adequate anesthesia was verified, a nail elevator and soft tissue nippers were used to lift the offending nail border, which was then removed using a hemostat. The nail folds were then thoroughly curetted and all foreign material was removed. The tuft of the distal phalax was visualized in the nail fold. The site was then dressed with a dry sterile dressing placed loosely on the toe. Wound care and dressing instructions were given to the patient. Pending Test Test Name Order Date I & D Abscess Complicated- performed 04/2024 Next Appt Details Follow Up: 2 Weeks, Reason: Dr. Michael Progress Notes * Seven LEWISDOB:[birth year] (83 yo M)Acc No.[id number]:10/03/2023 New Patient Patient: Seven Persaud Provider: Tresa Bagley PA-C :1940 A ge:83 Y S ex:Male Date:10/03/2023 Address:[address] [place], [place] [id number] Pcp:JOHN Bernal Check In:12:54 PM ESTCheck O ut:01:45 PM EST Subjective: * Chief Complaints: * R eferral from Sheree Ryan for infected ingrown, diabetic * HPI: G eneral: Pt has a ingrown right big toenail. He did pick and pull some of it out. He did have some blood and pus come out. His pcp put him on a antibotic. * ROS: G eneral/Constitutional: Chills d enies. F ever d enies. W eight gain?denies. W eight loss d enies. S kin: Skin Ulcers d enies. S kin lesion(s) d enies. ? C ardiovascular: Difficulty breathing on exertion d enies. L eg cramps?denies. E abdulkadir d enies. C hest pain d enies. R espiratory: Difficulty breathing d enies. D yspnea d enies.?Cough d enies. G astrointestinal: Diarrhea d enies. N ausea d enies. V omiting?denies. M usculoskeletal: Bone/Joint Symptoms d enies. C retirement Pain d enies.?Leg cramps d enies. N eurologic: Numbness d enies. T ingling d enies . G ait abnormality d enies. ? H ematology: Anemia D enies. E asy bruising d enies. ? A ll Other Systems: Review of Systems (ROS) S ee HPI for details,All others negative except those mentioned in HPI. * Active Problem List ?Problem List has not been verified* Medical History: * Surgical History: D enies Past Surgical History * Hospitalization/Major Diagno stic Procedure: D enies Past Hospitalization * Family History: N on-Contributory. * Social History: T obacco Use: T obacco Use/Smoking P atient is a n onsmoker * Medications: T akingAtorvastatin Calcium 80 MG Tablet 1 tablet Orally Once a dayCarvedilol 12.5 MG Tablet 1 tablet with food Orally Twice a dayLiothyronine Sodium 5 MCG Tablet 1 tablet on an empty stomach Orally Once a dayLosartan Potassium 100 MG Tablet 1 tablet Orally Once a dayLow-Dose Aspirin metFORMIN HCl 500 MG Tablet 1 tablet with a meal Orally Once a dayVitamin D Medication List reviewed and reconciled with the patientTaking Atorvastatin Calcium 80 MG Tablet 1 tablet Orally Once a dayTaking Carvedilol 12.5 MG Tablet 1 tablet with food Orally Twice a dayTaking Liothyronine Sodium 5 MCG Tablet 1 tablet on an empty stomach Orally Once a dayTaking Losartan Potassium 100 MG Tablet 1 tablet Orally Once a dayTaking Low-Dose Aspirin Taking metFORMIN HCl 500 MG Tablet 1 tablet with a meal Orally Once a dayTaking Vitamin D Medication List reviewed and reconciled with the patient * Allergies: N .K.D.A.no[Allergies Verified] Objective: * Vitals: W t:160 lbs, Ht: 68 in, Temp:98.8 F, HR:88 /min, BMI:24.33 Index, Pain scale:2 1- 10, Ht-cm: 172.72 cm, Wt-k.57 kg. * Examination: P odiatry Examination: SKIN: r ight hallux medial nail border is ingrown with evidence of paronychia: dried bloody drainage, tenderness and maceration of the adjacent nail fold..? MUSCULOSKELETAL: M ild pain on palpation right hallux, Range of motion of ankle and foot is within normal limits, Muscle strength is 5/5 in all planes. NEUROLOGICAL: L ight touch sensation is intact in all nerve distributions, Negative Tinel sign. VASCULAR: P alpable pedal pulses bilaterally, No swelling, No calf pain on squeeze. X R 3 view foot: no evidence of osteomyelitis in the hallux. Assessment: * Assessment: 1. I ngrowing nail - L60.0 (Primary) 2 . C ellulitis of right toe - L03.031 3 .?Cutaneous abscess of right foot - L02.611 4 . T oe pain, right - M79.674 Plan: * Treatment: 2. C utaneous abscess of right foot P rocedure: I & D Abscess Complicated- performed Notes: After verbal consent, the skin over the hallux was prepped using alcohol. A digital block was performed using lidocaine 2% plain. After adequate anesthesia was verified, a nail elevator and soft tissue nippers were used to lift the offending nail border, which was then removed using a hemostat. The nail folds were then thoroughly curetted and all foreign material was removed. The tuft of the distal phalax was visualized in the nail fold. The site was then dressed with a dry sterile dressing placed loosely on the toe. Wound care and dressing instructions were given to the patient. ? 3. T oe pain, right I maging: XR Foot RT (3 views) * 4. O thers Start Cephalexin Capsule, 500 MG, 1 capsule, Orally, BID, 10 days, 20 Capsule, Refills 0; R efill Vitamin D. * Procedure Codes: 1 0061 I&D ABSCESS COMPLICATED * Follow Up: 2 Weeks (Reason: Dr. Michael) * * Sign off status: Completed Visit Status: C HK (Check Out) true * Provider: Tresa Bagley PA-C Date: 0 10/03/2023 Generated for Julien albright/Julian/Cathyitting on: 0 02/14/2025 08:48 AM EDT History and Physical Notes * Examination Category Sub-Category Detail Notes Category Not es Podiatry Examination SKIN: right hallux medial nail bor lary is ingrown with evidence of paronychia: dried bloody drainage, tenderness and maceration of the adjacent nail fold. XR 3 view foot: no evidence of osteomyelitis in the hallux MUSCULOSKELETAL: Mild pain on palpati on right hallux, Range of motion of ankle and foot is within normal limits, Muscle strength is 5/5 in all planes NEUROLOGICAL: Light touch sensatio n is intact in all nerve distributions, Negative Tinel sign VASCULAR: Palpable pedal pulse s bilaterally, No swelling, No calf pain on squeeze
--- OUTSIDE RECORDS SUMMARY | 2023-10-18 05:30 | XMS_ITS ---
Author Organization [facility] [place] Address [address] [place] [address] Care Team Providers Care Journeyman Pipe Fitter Name Role Phone Sheree Tang Primary Care Provider Jeff Quintana Unavailable [phone] Allergies No Known Allergies REASON FOR VISIT toenail, PH Medications Medication SIG (Take, Route, Frequency, Duration) Notes Start Date End Date Status Atorvastatin Calcium 80 MG 1 tablet Oral ly Once a day Active Carvedilol 12.5 MG 1 tablet with food O rally Twice a day Active Low-Dose Aspirin Act tracie Vitamin D Active metFORMIN HCl 500 MG 1 tablet with a keyon l Orally Once a day Active Liothyronine Sodium 5 MCG 1 tablet on an empty stomach Orally Once a day Active Losartan Potassium 100 MG 1 tablet Orall y Once a day Active Social History Tobacco Use: Social History Observation Description Date Details (start date - stop date) Never Smoker NA - NA Tobacco Use/Smoking Question Answer Notes Patient is a nonsmoker Vital Signs Temperature 97.5 degrees Fahrenheit 10/18/19 24 Heart Rate 78 /min 10/18/2023 Height 68 in 10/18/2023 Weight 160 lbs 10/18/2023 BMI 24.33 kg/m2 10/18/2023 Oximetry 99 % 10/18/2023 Encounters Encounter Location Date Provider Diagnosis [facility] [place] (PODIATRY) [address] [place] [address] [place] [address] 10/18/2023 Jeff Michael Cutaneous abscess of right foot L02.611 Assessments Encounter Date Diagnosis (ICD Code) Assessment Notes Treatment Notes Treatment Clinical Notes Section Notes 10/18/2023 Cutaneous abscess of right foot (ICD-10 - L02.611) The patient is a pleasant 83-year-old male with diet-controlled type 2 diabetes who underwent partial nail avulsion 2 weeks ago of the right hallux medial nail border. During the procedure, the tuft of the distal phalanx was exposed. X-rays at that time revealed no evidence of osteomyelitis. The patient was placed empirically on antibiotics by his primary care physician. They upset his stomach and gave him thrush, so he had to stop the antibiotics early. However today there is no sign of residual infection and he states his symptoms are vastly improved compared to 2 weeks ago. We recommended he follow up in 2-3 weeks for reevaluation and repeat x-ray, however the patient is leaving for a backpacking trip next week. We advised that he monitor the area closely and keep a Band-Aid over the toe and prevent mechanical irritation. We advised that he call us right away if he notices any concerning symptoms or evidence of residual infection. The patient voiced understanding and is agreeable. Plan Of Treatment Treatment Notes Assessment Notes Cutaneous abscess of right foot The patient is a pleasant 83-year-old male with diet-controlled type 2 diabetes who underwent partial nail avulsion 2 weeks ago of the right hallux medial nail border. During the procedure, the tuft of the distal phalanx was exposed. X-rays at that time revealed no evidence of osteomyelitis. The patient was placed empirically on antibiotics by his primary care physician. They upset his stomach and gave him thrush, so he had to stop the antibiotics early. However today there is no sign of residual infection and he states his symptoms are vastly improved compared to 2 weeks ago. We recommended he follow up in 2-3 weeks for reevaluation and repeat x-ray, however the patient is leaving for a backpacking trip next week. We advised that he monitor the area closely and keep a Band-Aid over the toe and prevent mechanical irritation. We advised that he call us right away if he notices any concerning symptoms or evidence of residual infection. The patient voiced understanding and is agreeable. Progress Notes * JOSHUA Seven CalderónDOB:[birth year] (83 yo M)Acc No.[id number]:10/18/2023 Follow Up Patient: Seven Persaud Provider: Cherry Michael DPM, MS :1940 A ge:83 Y S ex:Male Date:10/18/2023 Address:[address] [place] [address], [id number] Pcp:JOHN Bernal Check In:09:19 AM ESTCheck O ut:09:47 AM EST Subjective: * Chief Complaints: * t oenail, PH * HPI: G eneral: Patient seen today for follow up of ingrown nail procedure. Patient following up today with Dr. Michael due to visualization of tuft of distal phalanx in the nail fold during the procedure. Patient denies any nausea/vomiting. States toe is still a little sore but overall much better. * ROS: G eneral/Constitutional: Chills d enies. [...] M usculoskeletal: Bone/Joint Symptoms d enies. C chcf Pain d enies.?Leg cramps d enies. N eurologic: Numbness d enies. T ingling d enies . G ait abnormality d enies. ? H ematology: Anemia D enies. E asy bruising d enies. ? A ll Other Systems: Review of Systems (ROS) S HPI for details,All others negative except those mentioned in HPI. * Active Problem List ?Problem List has not been verified* Medical History: * Surgical History: D enies Past Surgical History * Hospitalization/Major Diagno stic Procedure: * Family History: N on-Contributory. * Social [...] a meal Orally Once a dayVitamin D Taking Atorvastatin Calcium 80 MG Tablet 1 tablet [...] meal Orally Once a dayTaking Vitamin D DiscontinuedCephalexin 500 MG Capsule 1 capsule Orally BIDMedication List reviewed and reconciled with the patientDiscontinued Cephalexin 500 MG Capsule 1 capsule Orally BIDMedication List reviewed and reconciled with the patient * Allergies: N .K.D.A.no[Allergies Verified] Objective: * Vitals: W t:160 lbs, Ht: 68 in, Temp:97.5 F, HR:78 /min, BMI:24.33 Index, Pain scale:1 1- 10, Oxygen sat %:99 %, Ht-cm: 172.72 cm, Wt-k.57 kg. * Examination: P odiatry Examination: SKIN: s kin intact, n o sign of infection right hallux medial nail border healing from recent partial nail avulsion Skin is intact, no ulceration or bone exposure..? MUSCULOSKELETAL: N o pain on palpation, Range of motion of ankle and foot is within normal limits, Muscle strength is 5/5 in all planes. NEUROLOGICAL: L ight touch sensation is intact in all nerve distributions, Negative Tinel sign. VASCULAR: P alpable pedal pulses, No swelling, No calf pain on squeeze. Assessment: * Assessment: 1. C utaneous abscess of right foot - L02.611 (Primary) Plan: * Treatment: * Procedure Codes: * * Sign off status: Completed Visit Status: C HK (Check Out) true * Provider: Cherry Michael DPM, MS Date: 0 10/18/2023 Generated for Julien albright/Julian/Cathyitting on: 0 02/14/2025 08:48 AM EDT History and Physical Notes * Examination Category Sub-Category Detail Notes Category Not es Podiatry Examination SKIN: skin intact , no sign of infection right hallux medial nail border healing from recent partial nail avulsion Skin is intact, no ulceration or bone exposure. MUSCULOSKELETAL: No pain on palpation , Range of motion of ankle and foot is within normal limits, Muscle strength is 5/5 in all planes NEUROLOGICAL: Light touch sensatio n is intact in all nerve distributions, Negative Tinel sign VASCULAR: Palpable pedal pulse s, No swelling, No calf pain on squeeze
--- OUTSIDE RECORDS SUMMARY | 2025-01-24 08:53 | XMS_ITS ---
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 Name Role Phone Connor, SANDER PORTABLE MACHINE Sheree L Admitting Unavailable Connor, SANDER PORTABLE MACHINE Sheree L Attending Unavailable Connor, SANDER PORTABLE MACHINE Sheree L Admitting Unavailable Connor, SANDER PORTABLE MACHINE Sheree L Attending Unavailable Connor, SANDER PORTABLE MACHINE Sheree L Admitting Unavailable Connor, SANDER PORTABLE MACHINE Sheree L Attending Unavailable DEEPA MTZ Attending Unavailable Connor, SANDER PORTABLE MACHINE Sheree L Attending Unavailable Connor, SANDER PORTABLE MACHINE Sheree L Attending Unavailable Connor, SANDER PORTABLE MACHINE Sheree L Attending Unavailable Connor, SANDER PORTABLE MACHINE Sheree L Attending Unavailable Connor, SANDER PORTABLE MACHINE Sheree L Attending Unavailable Connor, SANDER PORTABLE MACHINE Sheree L Admitting Unavailable Connor, SANDER PORTABLE MACHINE Sheree L Attending Unavailable [place], [facility] Attending Unavailable BIGG CELIS Attending Unavailable PROBLEMS DATE TYPE CONDITION / CODE ATTENDING STATUS [facility] 06/23/2022 Admitting Diagnosis 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 02/21/2024 Admitting Diagnosis Atherosclerotic heart disease of [place] coronary artery without angina pectoris / I25.10(ICD-10) [facility] Active [facility] 02/21/2024 Admitting Diagnosis Essential (primary) hypertension / I10(ICD-10) LUCRETIA TRUONG Active [facility] PROCEDURES No Procedure Records Found RESULTS OFFICE VISIT Observed: 01/24/2025 9:00 AM Status: COMPLETED Source: [facility] [id number] Jojo Lewis Jr. 1940 M Date Provider Department Center 01/24/2025 BIGG LEE [facility] Family History Problem Relation Age of Onset Heart disease Mother Heart disease Father Alcohol abuse Father Diabetes Brother Family Status - Relation Status Age at Mother Father Sister Alive Brother Alive Level of Service:21399 GA OFFICE/OUTPATIENT ESTABLISHED MOD MDM 30 MIN Reason for Visit and Comments: Coronary Artery Disease [187] Hypertension [411724] Hyperlipidemia [182] PROGRESS Observed: 01/24/2025 9:00 AM Status: COMPLETED Source: [facility] Cardiovascular Medicine [facility] SUBJECTIVE Chief Complaint Patient presents with Coronary Artery Disease Hypertension Hyperlipidemia Jojo Lewis Jr. is a 84 y.o. male here for follow-up. HPI PMHx: CAD, HLD, DM, HTN, aortic root aneurysm 01/24/2025 He has been feeling well. He walks 5 days a week - he walks about 2 miles. Asymptomatic during exercise. He has dizziness if he stands too quickly. Denies c/o CP, dyspnea, orthopnea, PND, LE edema, LH, palpitations, syncope. Patient Active Problem List Diagnosis Cardiovascular stress test abnormal Diabetes mellitus (CMS/HCC) Dyslipidemia CAD, multiple vessel Sinus tachycardia Stented coronary artery Tachycardia, unspecified Aneurysm of aortic root Hypertensive disorder Diverticulosis Gout of knee Hypercholesterolemia Hypothyroid Infected nail bed of toe Non-smoker Overweight (BMI 25.0-29.9) Pain of left calf Presence of stent in artery Encounter for diabetic foot exam ([facility]) manager terminal current use of insulin ([facility]) Past Medical History: Diagnosis Date Aneurysm CAD (coronary artery disease) 05/11/2022 Cardiovascular stress test abnormal 05/11/2022 Diabetes mellitus (CMS/HCC) 05/11/2022 Dyslipidemia 05/11/2022 Heart valve disease Hyperlipidemia Hypertension Single vessel coronary artery disease 05/11/2022 Sinus tachycardia 05/11/2022 Stented coronary artery 05/11/2022 Tachycardia, unspecified 05/11/2022 Family History Problem Relation Name Age of Onset Heart disease Mother Heart disease Father Alcohol abuse Father Diabetes Brother Social History Tobacco Use Smoking status: Former Types: Cigarettes Substance Use Topics Alcohol use: Not Currently Comment: occasional Drug use: Never Allergies Allergen Reactions Glipizide Unknown Omeprazole Unknown Review of Systems Constitutional: Negative for chills, decreased appetite, fever, malaise/fatigue and weight gain. Cardiovascular: Negative for chest pain, dyspnea on exertion, irregular heartbeat, leg swelling, near-syncope, orthopnea, palpitations, paroxysmal nocturnal dyspnea and syncope. Hematologic/Lymphatic: Negative for bleeding problem. Does not bruise/bleed easily. OBJECTIVE Visit Vitals BP 153/73 (BP Location: Right arm, Patient Position: Sitting) Pulse 50 Ht 1.676 m (5' 6 ) Wt 78.9 kg (174 lb) SpO2 97% BMI 28.08 kg/m??? Smoking Status Former BSA 1.92 m??? Medications: Current Outpatient Medications: aspirin 81 mg EC tablet, Take 81 mg by mouth in the morning., Disp: , Rfl: atorvastatin (Lipitor) 80 mg tablet, Take 80 mg by mouth in the evening., Disp: , Rfl: carvedilol (Coreg) 25 mg tablet, Take 1 tablet (25 mg) by mouth with breakfast and with evening meal., Disp: 180 tablet, Rfl: 3 chlorthalidone (Hygroton) 25 mg tablet, Take by mouth in the morning., Disp: , Rfl: cholecalciferol (Vitamin D-3) 50 MCG (1999 UT) tablet, Take by mouth in the [...] and with evening meal., Disp: , Rfl: amLODIPine (Norvasc) 5 mg tablet, Take 1 tablet (5 mg) by mouth in the morning., Disp: 30 tablet, Rfl: 11 Physical Exam Constitutional: Appearance: Normal appearance. He is normal weight. HENT: Head: Normocephalic and atraumatic. Right Ear: External ear normal. Left Ear: External ear normal. Eyes: Extraocular Movements: Extraocular movements intact. Pupils: Pupils are equal, round, and reactive to light. Neck: Vascular: Carotid bruit (right) present. Cardiovascular: Rate and Rhythm: Regular rhythm. Bradycardia present. Pulses: Normal pulses. Heart sounds: Murmur heard. Pulmonary: Effort: Pulmonary effort is normal. Breath sounds: Normal breath sounds. Abdominal: General: Bowel sounds are normal. Palpations: Abdomen is soft. Musculoskeletal: General: Normal range of motion. Cervical back: Neck supple. Right lower leg: No edema. Left lower leg: No edema. Skin: General: Skin is warm and dry. Neurological: General: No focal deficit present. Mental Status: He is alert and oriented to person, place, and time. Psychiatric: Mood and Affect: Mood normal. Behavior: Behavior normal. Thought Content: Thought content normal. Judgment: Judgment normal. Labs: No results found for: EXTCMP , BMPR1A , CBCDIF , BNP , LASAP , RED No visits with results within 6 Month(s) from this visit. Latest known visit with results is: No results found for any previous visit. No results found for: CHOL , TRIG , HDL , LDLDIRECT 01/23/2025 Hgb 12.9, plt 268 Cr 1.4, BUN 23, eGFR 49, K 4.7, Na 138, ALT 8, AST 15 Chol 101, trig 138, HDL 31, LDL direct 53 Labs 06/2024: Serum creatinine is 1.2, AST and ALT are normal HbA1c is 5.8 Cholesterol is 126, triglycerides 119, HDL is 35, LDL is 70 01/04/2024 Hgb 12.9, plt 238 Cr 1.2, BUN 21, K 4.6, Na 139, eGFR 60, AST 13, ALT 7 Chol 126, trig 119, HDL 35, LDL direct 70 Testing/Procedures: TTE 03/12/2024 Moderate concentric LVH with normal systolic function, LVEF is 60-65% Normal RV size and systolic function Mild to moderate biatrial dilatation Bicuspid aortic valve, linnea type I with fusion of the right and left cusps. Mild aortic vavle stenosis and regurg Moderate dilatation of the aortic root, 4.4cm, with mild dilatation of the ascending aorta (3.7cm) Echocardiogram 05/2021: Global left ventricular systolic function is normal. Mild concentric hypertrophy. Mild aortic valve stenosis and regurgitation. Moderately dilated aortic root at 4.3 cm and mildly dilated ascending aorta at 3.8 cm. Normal right-sided pressures. Stress test 02/05/2020: negative for ischemia ASSESSMENT/PLAN: Diagnoses and all orders for this visit: Benign hypertensive heart disease without heart failure - amLODIPine (Norvasc) 5 mg tablet; Take 1 tablet (5 mg) by mouth in the morning. - Transthoracic echo (TTE) complete; Future Coronary artery disease involving [place] coronary artery of [place] heart without angina pectoris Aneurysm of aortic root - Transthoracic echo (TTE) complete; Future Mitral valve stenosis and aortic valve stenosis - Transthoracic echo (TTE) complete; Future Bilateral carotid bruits - Vascular US carotid artery duplex bilateral; Future CAD s/p PCI/stent to LAD, Lcx, RCA (last intervention 2016) -He has been feeling well, denies c/o CP, dyspnea -Continue routine exercise and heart healthy diet. -Continue ASA, plavix, statin, BB. HTN -Elevated today at 153/73, goal BP is <130/90 given hx of CAD and aortic aneurysm -He is currently on coreg 25mg BID, chlorthalidone 25mg daily, losartan 100mg daily -Will start amlodipine 5mg daily. Asked him to monitor 2 hours after medications and let us know his readings. HLD -Well controlled per 01/23/25 labs, LDL at 53 -Continue atorvastatin 80mg daily DM -Recommend an SGLT2i or a GLP-1, will defer to PCP. Aortic valve stenosis/regurg, bicuspid valve -Asymptomatic -Follow-up ECHO ordered Aortic root dilatation -Stressed importance of strict BP control. -Follow-up ECHO ordered Carotid bruit -[place] on right side -Carotid US ordered to assess for stenosis Follow up in about 3 months (around 04/26/2025). Bigg Celis CNP [facility] Cardiovascular Medicine PROGRESS Observed: 01/24/2025 9:00 AM Status: COMPLETED Source: [facility] Patient is here today for 1 year follow. Patient states he seen his PCP yesterday for his 6 month check up. Patient states he also had blood work done yesterday at [facility]. Patient states he feels good. Patient denies Chest pain, SOB, dizziness, bleeding/bruising/discoloration, leg swelling dizziness. Patient states he has no complaints things are going well REMINDERS Observed: 01/24/2025 8:21 AM Status: F Source: [facility] Reminders From: Sheree Caraballo To: B - Clinical; Sent: 01/24/2025 08:21:26 EDT Show up: 01/24/2025 08:20:00 EDT Subject: Ambulatory Reminder Due Date/Time: 01/25/2025 08:19:00 EDT He is slightly anemic. If he has any more episodes of dark stool instruct him to call us. His kidney function tests are abnormal. I would like to recheck those in 6 weeks. encourage him to drink plenty of water. If kidney function does not improve, I will send him to senior automation engineer. HGBA1C is 5.1. His diabetes is well controlled. Results: Date Result Name Ind Value Ref Range 01/23/2025 8:40 WBC 9.3 E9/L (4.0 - 11.0) 01/23/2025 8:40 RBC (L) 4.1 E12/L (4.3 - 5.9) 01/23/2025 8:40 HGB (L) 12.9 gm/dL (13.5 - 17.5) 01/23/2025 8:40 Hct (L) 37.0 % (37.7 - 49.0) 01/23/2025 8:40 MCV 89.9 fL (80.0 - 100.0) 01/23/2025 8:40 MCH 31.3 pg (27.0 - 34.0) 01/23/2025 8:40 MCHC 34.9 gm/dL (31.4 - 36.0) 01/23/2025 8:40 RDW 14.1 % (10.9 - 14.2) 01/23/2025 8:40 Platelet 268.0 E9/L (150.0 - 500.0) 01/23/2025 8:40 MPV 8.6 fL (6.4 - 10.8) 01/23/2025 8:40 Neutro Auto 56.4 % (36.0 - 75.0) 01/23/2025 8:40 Lymph Auto 17.1 % (14.0 - 50.0) 01/23/2025 8:40 Schuyler Auto 7.4 % (4.0 - 14.0) 01/23/2025 8:40 Eos Auto (H) 18.5 % (0.0 - 8.0) 01/23/2025 8:40 Basophil Auto 0.6 % (0.0 - 2.0) 01/23/2025 8:40 Neutro Absolute 5.2 E9/L (2.0 - 7.5) 01/23/2025 8:40 Lymph Absolute 1.6 E9/L (1.0 - 4.0) 01/23/2025 8:40 [place]uyler Absolute 0.7 E9/L (0.2 - 1.0) 01/23/2025 8:40 Eos Absolute (H) 1.7 E9/L (0.0 - 0.5) 01/23/2025 8:40 Basophil Absolute 0.1 E9/L (0.0 - 0.2) 01/23/2025 8:40 Glucose Lvl 115 mg/dL (55 - 199) 01/23/2025 8:40 BUN (H) 23 mg/dL (5 - 21) 01/23/2025 8:40 Creatinine (H) 1.4 mg/dL (0.5 - 1.3) 01/23/2025 8:40 eGFR (L) 49 mL/min/1.73 m2 (>=59 - ) 01/23/2025 8:40 BUN/Creat Ratio 16 (10 - 20) 01/23/2025 8:40 Sodium Lvl 138 mmol/L (135 - 145) 01/23/2025 8:40 Potassium Lvl 4.7 mmol/L (3.5 - 5.3) 01/23/2025 8:40 Chloride 106 mmol/L (101 - 111) 01/23/2025 8:40 CO2 26 mmol/L (21 - 31) 01/23/2025 8:40 AGAP 11 mEq/L (6 - 16) 01/23/2025 8:40 Calcium Lvl (L) 8.8 mg/dL (8.9 - 11.1) 01/23/2025 8:40 Alk Phos 87 Int._Unit/L (21 - 98) 01/23/2025 8:40 ALT 8 Int._Unit/L (6 - 46) 01/23/2025 8:40 AST 15 Int._Unit/L (5 - 43) 01/23/2025 8:40 Total Protein 6.8 gm/dL (6.0 - 7.8) 01/23/2025 8:40 Albumin Lvl 4.3 gm/dL (3.3 - 5.0) 01/23/2025 8:40 Globulin 2.5 gm/dL (1.4 - 4.0) 01/23/2025 8:40 A/G Ratio 1.7 (1.1 - 2.2) 01/23/2025 8:40 Bili Total 0.7 mg/dL (0.0 - 1.1) 01/23/2025 8:40 Hgb A1C % 5.1 % ( - <=5.9) 01/23/2025 8:40 Chol (L) 101 mg/dL (120 - 200) 01/23/2025 8:40 Trig 138 mg/dL ( - <=149) 01/23/2025 8:40 HDL 31 mg/dL 01/23/2025 8:40 LDL Direct 53 mg/dL ( - <=129) 01/23/2025 8:40 VLDL 28 mg/dL (7 - 40) 01/23/2025 8:40 TSH 1.06 mcIU/mL (0.34 - 5.60) 01/23/2025 8:40 PSA Scrn Tot. 1.2 ng/mL (0.1 - 3.5) EGFR Collected: 8:40 AM Status: F Source: [facility] TYPE CODE TESTS RESULT OUT OF RANGE REFERENCE UNITS LAB [id number]([facility]) eGFR 49 Low >=59 mL/min/1 .7 3 m2 Performed By: #### [id number] #### [facility] [address] [place] [address] PSA SCREEN, TOTAL Collected: 8:40 AM Status: F Source: [facility] TYPE CODE TESTS RESULT OUT OF RANGE REFERENCE UNITS LAB 2857-1([facility]) PROSTATE SPECIFIC AG:MCNC:PT:S ER/PLAS:QN: 1.2 Normal 0.1-3.5 ng/mL Result Comment: The concentr ation of PSA determined by different manufacturers can vary due to differences in assay methods and reagent specificity. Values obtained from different assay methods cannot be used interchangeably. The methodology used for this result was chemiluminescence using [employer] Access Hybritech PSA reagent. Performed By: #### [id number] #### [facility] [address] [place] [address] LIPID PANEL Collected: 01/23/2025 8:40 AM Status: F Source: [facility] TYPE CODE TESTS RESULT OUT OF RANGE REFERENCE UNITS LAB 3-3([facility]) CHOLESTEROL:M CNC:PT:SER/PL :QN: 101 Low 120-200 mg/dL LAB 2085-05([facility]) CHOLESTEROL.I N HDL:MCNC:PT:S ER/PLAS:QN: 31 Unknown mg/dL Result Comment: '>= 60 LOW R ISK' '<= 40 HIGH RISK' LAB 2088-09([facility]) CHOLESTEROL.I N LDL:MCNC:PT:S ER/PLAS:QN: 53 Normal <=129 mg/dL LAB 2571-8([facility]) TRIGLYCERIDE: MCNC:PT:SER/P LAS:QN: 138 Normal <=149 mg/dL LAB 00335-5([facility]) CHOLESTEROL.I N VLDL:MCNC:PT: SER/PLAS:QN:C ALCULATED 28 Normal 7-40 mg/dL Performed By: #### [id number] # ### [facility] [address] [place] [address] CBC W/ AUTO DIFF Collected: 01/23/2025 8:40 AM Statu s: F Source: [facility] TYPE CODE TESTS RESULT OUT OF RANGE REFERENCE UNITS LAB 79436-4([facility]) LEUKOCYTES^^CO RRECTED FOR NUCLEATED ERYTHROCYTES:N CNC:PT:BLD:QN: AUTOMATED COUNT 9.3 Normal 4.0-11.0 E9/L Result Comment: Peripheral s mear review performed. LAB 789-8([facility]) ERYTHROCYTES:N CNC:PT:BLD:QN: AUTOMATED COUNT 4.1 Low 4.3-5.9 E12/L LAB 718-7([facility]) HEMOGLOBIN:MCN C:PT:BLD:QN: 12.9 Low 13.5-17.5 gm/dL LAB 4544-3([facility]) ERYTHROCYTE/BL OOD:VFR:PT:BLD :QN:AUTOMATED COUNT 37.0 Low 37.7-49.0 % LAB 788-0([facility]) OBSERVATION:DI STWIDTH:PT:RBC :QN:AUTOMATED COUNT 14.1 Normal 10.9-14.2 % LAB 785-6([facility]) HEMOGLOBIN:ENT MASS:PT:RBC:QN :AUTOMATED COUNT 31.3 Normal 27.0-34.0 pg LAB 786-4([facility]) HEMOGLOBIN:ENT MCNC:PT:RBC:QN :AUTOMATED COUNT 34.9 Normal 31.4-36.0 gm/dL LAB 787-2([facility]) OBSERVATION:EN TMEANVOL:PT:RB C:QN:AUTOMATED COUNT 89.9 Normal 80.0-100.0 fL LAB 51966-0([facility]) PLATELET:ENTME ANVOL:PT:BLD:Q N:AUTOMATED COUNT 8.6 Normal 6.4-10.8 fL LAB 777-3([facility]) PLATELETS:NCNC :PT:BLD:QN:AUT OMATED COUNT 268.0 Normal 150.0-500.0 E9/L LAB 86643-5([facility]) NEUTROPHILS/LE UKOCYTES:NFR:P T:BLD:QN: 56.4 Normal 36.0-75.0 % LAB 731-0([facility]) LYMPHOCYTES:NC NC:PT:BLD:QN:A UTOMATED COUNT 17.1 Normal 14.0-50.0 % LAB 742-7([facility]) MONOCYTES:NCNC :PT:BLD:QN:AUT OMATED COUNT 0.7 Normal 0.2-1.0 E9/L LAB 713-8([facility]) EOSINOPHILS/LE UKOCYTES:NFR:P T:BLD:QN:AUTOM ATED COUNT 18.5 High 0.0-8.0 % LAB 704-7([facility]) BASOPHILS:NCNC :PT:BLD:QN:AUT OMATED COUNT 0.6 Normal 0.0-2.0 % LAB 751-8([facility]) NEUTROPHILS:NC NC:PT:BLD:QN:A UTOMATED COUNT 5.2 Normal 2.0-7.5 E9/L LAB 19361-3([facility]) LYMPHOCYTES:NC NC:PT:BLD:QN: 1.6 Normal 1.0-4.0 E9/L LAB 89934-7([facility]) EOSINOPHILS:NC NC:PT:BLD:QN: 1.7 High 0.0-0.5 E9/L LAB 17153-0([facility]) BASOPHILS/LEUK OCYTES:NFR.DF: PT:BLD:QN:AUTO MATED COUNT 0.1 Normal 0.0-0.2 E9/L Performed By: #### [id number] # ### [facility] [address] [place] [id number] [facility] [address] Collected: 01/23/2025 8:40 AM Status: F Source: [facility] TYPE CODE TESTS RESULT OUT OF RANGE REFERENCE UNITS LAB 2345-7([facility]) GLUCOSE:MCNC:P T:SER/PLAS:QN: 115 Normal 55-199 mg/dL LAB 3094-0([facility]) UREA NITROGEN:MCNC: PT:SER/PLAS:QN : 23 High 5-21 mg/dL LAB 2160-0([facility]) CREATININE:MCN C:PT:SER/PLAS: QN: 1.4 High 0.5-1.3 mg/dL LAB 45585-2([facility]) CALCIUM:MCNC:P T:SER/PLAS:QN: 8.8 Low 8.9-11.1 mg/dL LAB 2951-2([facility]) SODIUM:SCNC:PT :SER/PLAS:QN: 138 Normal 135-145 mmol/L LAB 2823-3([facility]) POTASSIUM:SCNC :PT:SER/PLAS:Q N: 4.7 Normal 3.5-5.3 mmol/L LAB 2075-0([facility]) CHLORIDE:SCNC: PT:SER/PLAS:QN : 106 Normal 101-111 mmol/L LAB 2028-9([facility]) CARBON DIOXIDE:SCNC:P T:SER/PLAS:QN: 26 Normal 21-31 mmol/L LAB 6768-6([facility]) ALKALINE PHOSPHATASE:CC NC:PT:SER/PLAS :QN: 87 Normal 21-98 Int._Unit /L LAB 1975-2([facility]) BILIRUBIN:MCNC :PT:SER/PLAS:Q N: 0.7 Normal 0.0-1.1 mg/dL LAB 1751-7([facility]) ALBUMIN:MCNC:P T:SER/PLAS:QN: 4.3 Normal 3.3-5.0 gm/dL LAB 2885-2([facility]) PROTEIN:MCNC:P T:SER/PLAS:QN: 6.8 Normal 6.0-7.8 gm/dL LAB 1744-2([facility]) ALANINE AMINOTRANSFERA SE:CCNC:PT:SER /PLAS:QN:NO ADDITION OF P-5'-P 8 Normal 6-46 Int._Unit /L LAB 1920-8([facility]) ASPARTATE AMINOTRANSFERA SE:CCNC:PT:SER /PLAS:QN: 15 Normal 5-43 Int._Unit /L LAB 3097-3([facility]) UREA NITROGEN/CREAT ININE:MRTO:PT: SER/PLAS:QN: 16 Normal 10-20 No Units LAB 26418-1([facility]) ANION GAP:SCNC:PT:SE R/PLAS:QN:CALC ULATED 11 Normal 6-16 mEq/L LAB 42008-9([facility]) GLOBULIN:MCNC: PT:SER:QN:CALC ULATED 2.5 Normal 1.4-4.0 gm/dL LAB 57955-1([facility]) ALBUMIN/GLOBUL IN:MCRTO:PT:SE R:QN: 1.7 Normal 1.1-2.2 Performed By: #### [id number] # ### [facility] [address] [place] [address] TSH Collected: 8:40 AM Status: F Source: [facility] TYPE CODE TESTS RESULT OUT OF RANGE REFERENCE UNITS LAB 3016-3([facility]) THYROTROPIN: ACNC:PT:SER/ PLAS:QN: 1.06 Normal 0.34-5.60 mcIU/mL Performed By: #### [id number] # ### [facility] [address] [place] [address] HGBA1C Collected: 01/23/2025 8:40 AM Status: F Source: [facility] TYPE CODE TESTS RESULT OUT OF RANGE REFERENCE UNITS LAB 4548-4([facility]) HEMOGLOBIN A1C/HEMOGLOBIN. TOTAL:MFR:PT:BL D:QN: 5.1 Normal <=5.9 % Performed By: #### [id number] #### [facility] [address] [place] [address] AMBULATORY VISIT SUMMARY Observed: 01/23 8:11 AM Status: F Source: [facility] Ambulatory Visit Summary JOJO LEWIS JR :1940 Visit Date:01/23/2025 Ambulatory Visit Instructions Your Diagnosis Type 1 diabetes mellitus with hypercholesterolemia Hypothyroid Essential hypertension Dark stools Overweight (BMI 25.0-29.9) BMI 27.0-27.9,adult Former smoker Pure hypercholesterolemia, unspecified Your Care Team Attending Physician - Sheree Caraballo Primary Care Physician - Sheree Caraballo This Is Your Medications List Misc Prescription (BD UF mini pen needle 5mm/31g) Misc Prescription (Diabetic Shoes) Misc Prescription (Freestyle Estella 3 Flash Glucose Monitoring 14 Day System (Sensor)) Misc Prescription (LANCETS OF CHOICE OR SPECIFIED BY INSURANCE.) Misc Prescription (contour test strips) aspirin (Aspirin Enteric Coated 81 mg oral delayed release tablet) atorvastatin (atorvastatin 80 mg Tab) carvedilol (carvedilol 12.5 mg Tab) chlorthalidone (chlorthalidone 25 mg Tab) cholecalciferol (Vitamin D3 2000 intl units oral Tab) clopidogrel (clopidogrel 75 mg Tab) insulin glargine (Lantus Solostar Pen 100 units/mL subcutaneous solution) insulin glargine (Lantus Solostar Pen 100 units/mL subcutaneous solution) levothyroxine (levothyroxine 125 mcg (0.125 mg) Tab) liothyronine (liothyronine 5 mcg Tab) losartan (losartan 100 mg Tab) metformin (metformin 500 mg Tab) Procedures Performed Colonoscopy (2017), EGD (esophagogastroduodenoscopy) gastric outlet reduction (2017), Cardiac catheter (2014), Cardiac catheter (2000), Appendectomy (194). Discharge Vitals Temperature (Tympanic) 36.8 ???C Heart Rate (Peripheral) 78 Respiratory Rate 18 Blood Pressure 128/82 Height 170 cm Height 67 in Weight 79.95 kg Weight 176.259 lb BMI 27.66 What to do next Scheduled Follow-Up Appointments Tuesday 8:00 AM EDT Where: [place] [id number] Medications What How Much When Why Instructions Unchanged aspirin (Aspirin Enteric Coated 81 mg oral delayed release tablet) 1 Tablets By Mouth Every day Unchanged atorvastatin (atorvastatin 80 mg Tab) 1 Tablets By Mouth Every day Duration: 90 Days Unchanged carvedilol (carvedilol 12.5 mg Tab) 1 Tablets By Mouth 2 times a day Unchanged chlorthalidone (chlorthalidone 25 mg Tab) 1 Tablets By Mouth Every day Duration: 90 Days Unchanged cholecalciferol (Vitamin D3 2000 intl units oral Tab) 50 Microgram By Mouth Every day Unchanged clopidogrel (clopidogrel 75 mg Tab) 1 Tablets By Mouth Every day Duration: 90 Days Unchanged insulin glargine (Lantus Solostar Pen 100 units/ mL subcutaneous solution) 30 Units Subcutaneous 2 times a day BMI 26.0-26.9,adult Former smoker Type 1 diabetes mellitus with diabetic neuropathy Unchanged insulin glargine (Lantus Solostar Pen 100 units/ mL subcutaneous solution) See instructions INJECT 30 UNITS TWICE A DAY VIA SUBCUTANEOUS ROUTE DIRECTED Unchanged levothyroxine (levothyroxine 125 mcg (0.125 mg) Tab) See instructions TAKE ONE TABLET BY MOUTH DAILY Unchanged liothyronine (liothyronine 5 mcg Tab) 2 Tablets By Mouth Every day Duration: 90 Days TAKE TWO TABLETS BY MOUTH ONCE DAILY IN THE MORNING Unchanged losartan (losartan 100 mg Tab) See instructions TAKE ONE TABLET BY MOUTH DAILY Unchanged metformin (metformin 500 mg Tab) 1 Tablets By Mouth 2 times a day 180 EA, 0 Refill(s), TAKE ONE TABLET BY MOUTH TWICE A DAY FOR 90 DAYS Unchanged Misc Prescription (BD UF mini pen needle 5mm/ 31g) See instructions Type 1 diabetes mellitus with diabetic neuropathy use twice daily Unchanged Misc Prescription (contour test strips) See instructions Type 1 diabetes mellitus with diabetic neuropathy check blood sugar daily and as needed Unchanged Misc Prescription (Diabetic Shoes) See instructions To be worn daily. Dx: E10.40 Pt address: [address] [place] [address] Unchanged Misc Prescription (Freestyle Estella 3 Flash Glucose Monitoring 14 Day System (Sensor)) See instructions Type 1 diabetes mellitus with diabetic neuropathy group home (current) use of insulin Encounter for diabetic foot exam Overweight (BMI 25.0-29.9) Non-smoker BMI 27.0-27.9,adult Freestyle Estella 3 Flash Glucose Monitoring 14 Day System (Sensor). Replace sensor every 14 days. Unchanged Misc Prescription (LANCETS OF CHOICE OR SPECIFIED BY INSURANCE.) See instructions Type 1 diabetes mellitus with diabetic neuropathy USE TO TEST BLOOD GLUCOSE ONCE DAILY FOR DX E11.9 Allergies Nuts (Unknown) glipiZIDE (Unknown) omeprazole (Unknown) Problems Ongoing - Any problem that you are currently receiving treatment for. Aneurysm of aortic root ASCVD (arteriosclerotic cardiovascular disease) BMI 27.0-27.9,adult Cardiovascular stress test abnormal Coronary arteriosclerosis Dark stools Diverticulosis Dyslipidemia Essential hypertension Former smoker Gout of knee Hypercholesterolemia Hypothyroid manager terminal (current) use of insulin Non-smoker Overweight (BMI 25.0-29.9) Pain of left calf Single coronary vessel disease Sinus tachycardia Stented artery Type 1 diabetes mellitus with diabetic neuropathy Type 1 diabetes mellitus with hypercholesterolemia Wellness examination Historical - Any problem that you are no longer receiving treatment for. Diabetes mellitus Infected nail bed of toe Secondary diabetes mellitus Patient Survey You may receive a survey via text or e-mail asking about your office visit. Please share your experience with us by completing your survey. We appreciate your feedback and thank you for choosing us for your care. FAMILY MEDICINE OFFICE/CLINI C NOTE Observed: 01/23/2025 8:11 AM Status: F Source: [facility] Family Medicine Office/Clini c Note Chief Complaint 6m follow up HPI Staff Joshua is a 84 year old male presenting for 6 month follow up Patient is here for follow up on hypertension. How often are you checking your blood pressure? _ What are your average readings? _ Do you have any of the following symptoms? Chest Pain? no Palpitations? no YOUNGBLOOD/SOB? no Headache? no Peripheral Edema? no Light Headedness? no Patient is here for follow up on Diabetes. How often are you checking your blood sugars? _occasionally What are your average readings? _117 this morning Paresthesias, Ulcerations or sores? no Lisinopril, aspirin, statin therapy? Yes Last A1c: Hgb A1C %: 5.8 % (06/28/24 09:30:00) Patient is here for follow up on Thyroid Disease. Do you have any of the following symptoms? Change in energy level? no Weight change? no Heat/cold intolerance? no Hair/skin/nail changes? no Change in bowels? yes black stools about 2wks ago Last TSH: TSH: 2.04 mcIU/mL (01/04/24 08:58:00) Has had a rash & itching for the past month. Was on Lt arm & leg. Arm has cleared up. No longer itching. Also has been coughing up a lot of phlegm. History of Present Illness pt presents today for 6 month check Review of Systems PHQ Score Initial Depression Screen Score: 0 SCORE Physical Exam Vitals & Measurements T: 36.8 ???C(Tympanic) HR: 78(Peripheral) RR: 18 BP: 128/82 SpO2: 98% HT: 170 cm HT: 67 in WT: 79.95 kg WT: 176.259 lb BMI: 27.66 General: alert, no acute distress ENMT: oral mucosa moist, no pharyngeal erythema or exudate Cardiovascular: regular rate and rhythm, normal peripheral perfusion Respiratory: Lungs CTA, respirations non labored Extremities: no deformity, no trauma Neurological: oriented x 4, LOC appropriate for age, CN II-XII intact, motor strength equal & normal bilaterally, speech normal Assessment/Plan 1. Type 1 diabetes mellitus with hypercholesterolemia (E10.69: Type 1 diabetes mellitus with other specified complication) Diabetes well controlled. pt eats right and walks every day. will check HGBA1C today. denies other issues at this time. only needs refill of Synthroid today. will return in May for AMW visit Ordered: CBC w/ Auto Diff Cologuard Screening Test Comprehensive Metabolic Panel HgbA1c Lab Specimen Collect [id number] Lab Specimen Collect [id number] Lipid Panel PSA Screen, Total Thyroid Stimulating Hormone 2. Hypothyroid (E03.9: Hypothyroidism, unspecified) pt needs refill on Synthroid. TSH drawn today Ordered: CBC w/ Auto Diff Cologuard Screening Test Comprehensive Metabolic Panel HgbA1c Lab Specimen Collect [id number] Lipid Panel PSA Screen, Total Thyroid Stimulating Hormone 3. Essential hypertension (I10: Essential (primary) hypertension) BP at goal today Ordered: CBC w/ Auto Diff Cologuard Screening Test Comprehensive Metabolic Panel HgbA1c Lipid Panel PSA Screen, Total Thyroid Stimulating Hormone 4. Dark stools (R19.5: Other fecal abnormalities) pt took some OTC medication for sleep and allergies and ended up with a rash and his stool was dark for a few days. it is now back to normal. will check HGB in office today Ordered: CBC w/ Auto Diff Cologuard Screening Test Comprehensive Metabolic Panel HgbA1c Lipid Panel PSA Screen, Total Thyroid Stimulating Hormone 5. Colon cancer screening (Z12.11: Encounter for screening for malignant neoplasm of colon) cologuard ordered Ordered: Cologuard Screening Test 6. Overweight (BMI 25.0-29.9) (E66.3: Overweight) BMI education pt walks daily Ordered: HgbA1c 7. BMI 27.0-27.9,adult (Z68.27: Body mass index [BMI] 27.0-27.9, adult) see above 8. Former smoker (Z87.891: Personal history of nicotine dependence) continue not smoking Pure hypercholesterolemia, unspecified (E78.00: Pure hypercholesterolemia, unspecified) lipid panel in office today Ordered: Body Mass Index (BMI) documented 3008F Current tobacco non-user 1036F Depression Screening Negative 3352F Discharge medications reconciled with current medications in outpatient record 1111F HBA1C <7.0 Most Recent Level 3044F Influenza immunization status assessed 1030F Medication list documented in medical record 1159F Most recent diastolic blood pressure 80-89 mm Hg 3079F Patient screen for fall risk: no falls in last year or 1 fall with no injury in last year 1101F Review of all meds by a prescribing practitioner or clinical pharmacist documented in EHR 1160F Systolic BP <130 mm Hg (Most Recent) 3074F Orders: levothyroxine, See Instructions, TAKE ONE TABLET BY MOUTH DAILY, # 90 EA, Refills(s) 0, Pharmacy: [facility], 170, cm, 07/04/24 8:19:00 EDT, Height/Length Dosing, 80.7, kg, 07/04/24 8:19:00 EDT, Weight Dosing levothyroxine, 125 mcg = 1 tab(s), Oral, Daily, # 90 tab(s), Refills(s) 1, Pharmacy: [facility], 170, cm, 01/23/25 8:19:00 EDT, Height/Length Dosing, 80, kg, 01/23/25 8:19:00 EDT, Weight Dosing Follow-up No qualifying data available Problem List/Past Medical History Ongoing Aneurysm of aortic root ASCVD (arteriosclerotic cardiovascular disease) BMI 27.0-27.9,adult Cardiovascular stress test abnormal Colon cancer screening Coronary arteriosclerosis Dark stools Diverticulosis Dyslipidemia Essential hypertension Former smoker Gout of knee Hypercholesterolemia Hypothyroid manager terminal (current) use of insulin Non-smoker Overweight (BMI 25.0-29.9) Pain of left calf Single coronary vessel disease Sinus tachycardia Stented artery Type 1 diabetes mellitus with diabetic neuropathy Type 1 diabetes mellitus with hypercholesterolemia Wellness examination Historical Diabetes mellitus Infected nail bed of toe Secondary diabetes mellitus Procedure/Surgical History Colonoscopy (2017), EGD (esophagogastroduodenoscopy) gastric outlet reduction (2017), Cardiac catheter (2014), Cardiac catheter (2000), Appendectomy (1948). Medications Aspirin Enteric Coated 81 mg oral delayed release tablet, 81 mg= 1 tab(s), Oral, Daily atorvastatin 80 mg Tab, 80 mg= 1 tab(s), Oral, Daily, 3 refills BD UF mini pen needle 5mm/31g, See Instructions, 11 refills carvedilol 12.5 mg Tab, 12.5 mg= 1 tab(s), Oral, BID chlorthalidone 25 mg Tab, 25 mg= 1 tab(s), Oral, Daily, 3 refills clopidogrel 75 mg Tab, 75 mg= 1 tab(s), Oral, Daily, 3 refills contour test strips, See Instructions, 1 refills Diabetic Shoes, See Instructions Freestyle Estella 3 Flash Glucose Monitoring 14 Day System (Sensor), See Instructions, 1 refills LANCETS OF CHOICE OR SPECIFIED BY INSURANCE., See Instructions, 11 refills Lantus Solostar Pen 100 units/mL subcutaneous solution, See Instructions, 3 refills Lantus Solostar Pen 100 units/mL subcutaneous solution, 30 unit(s), SubCutaneous, BID, 4 refills levothyroxine 125 mcg (0.125 mg) Tab, 125 mcg= 1 tab(s), Oral, Daily, 1 refills liothyronine 5 mcg Tab, 10 mcg= 2 tab(s), Oral, Daily, 3 refills losartan 100 mg Tab, See Instructions metformin 500 mg Tab, 500 mg= 1 tab(s), Oral, BID, 4 refills Vitamin D3 2000 intl units oral Tab, 50 mcg, Oral, Daily, 3 refills Allergies Nuts (Unknown) glipiZIDE (Unknown) omeprazole (Unknown) Social History Alcohol - Low Risk, 12/28/2022 Current. Beer. 1-2 times per week., 01/18/2025 Substance Abuse - Denies Substance Abuse, 12/28/2022 Never., 01/18/2025 Tobacco - Denies Tobacco Use, 12/28/2022 Former smoker, quit more than 30 days ago Tobacco Use:. Never Smokeless Tobacco Use:. Cigarettes, Household tobacco concerns: No. Yes, 01/23/2025 Family History Alcoholism: Father. Congenital heart disease: Brother. Diabetes mellitus type 2: Father. Heart failure: Mother and Father. Immunizations Vaccine Date Status Comments zoster vaccine, inactivated 11/25/2023 Recorded zoster vaccine, inactivated 05/17/2023 Recorded influenza virus vaccine, inactivated 06/30/2022 Recorded SARS-CoV-2 (COVID-19) [id number] 06/15/2022 Recorded 2022-12-28: [id number] SARS-CoV-2 (COVID-19) mRNA-1273 vaccine 02/17/2022 Recorded 2022-12-28: [id number] SARS-CoV-2 (COVID-19) mRNA-1273 vaccine 07/21/2021 Recorded 2022-12-28: [id number] influenza virus vaccine, inactivated 06/30/2021 Recorded SARS-CoV-2 (COVID-19) mRNA-1273 vaccine 11/18/2020 Recorded SARS-CoV-2 (COVID-19) mRNA-1273 vaccine 10/22/2020 Recorded influenza virus vaccine, inactivated 06/11/2020 Recorded influenza virus vaccine, inactivated 08/28/2019 Recorded Result Comment: Electronical ly Signed By: Sheree Caraballo\Date and Time Signed: 01/23/25 09:56 EDT FAMILY MEDICINE OFFICE/CLINI C NOTE Observed: 07/04/2024 8:44 AM Status: C Source: [facility] Family Medicine Office/Clini c Note Chief Complaint 6m f/u HPI Staff Amezcua is a 84 year old male presenting with 6 month f/u Do you have any of the following symptoms? Foot Exam: no Eye Exam: no Last A1C: June 28 2024 (5.8) Statin: no Patient is here for follow up on hypertension. How often are you checking your blood pressure? Doesn't check BP at home What are your average readings? N/A, Not checking at home Yearly BMP: January 04 2024 History of Present Illness pt presents today for 6 month follow up on diabetes Review of Systems PHQ Score Initial Depression Screen Score: 0 SCORE Physical Exam Vitals & Measurements T: 36.7 ?C(Tympanic) HR: 72(Peripheral) RR: 16 BP: 132/78 SpO2: 97% HT: 67 in HT: 170 cm WT: 80.7 kg WT: 177.54 lb BMI: 27.92 General: alert, no acute distress ENMT: oral mucosa moist, no pharyngeal erythema or exudate Cardiovascular: regular rate and rhythm, normal peripheral perfusion Respiratory: Lungs CTA, respirations non labored Extremities: no deformity, no trauma Neurological: oriented x 4, LOC appropriate for age, CN II-XII intact, motor strength equal & normal bilaterally, speech normalfoot exam: no sensation of both feet except for arch of both feet and middle and little toe of left foot. small healing blister also noted on top of left middle toe, callouses noted on DAVID heels as well Assessment/Plan 1. Type 1 diabetes mellitus with diabetic neuropathy (E10.40: Type 1 diabetes mellitus with diabetic neuropathy, unspecified) pt presents today for 6 month follow up for diabetes. last HGBA1C was 5.8. pt has not been checking his blood sugars. but exercises daily and eats healthy meals. pt states I feel great. He is getting ready to leave [place] trip [place]. he's been planning this trip for a year. RTC 6 months for wellness labs. Ordered: insulin glargine, 30 unit(s), SubCutaneous, BID, # 15 mL, Refills(s) 4, Pharmacy: [facility], 170, cm, 05/24/24 8:14:00 EDT, Height/Length Dosing, 80.9, kg, 05/24/24 8:14:00 EDT, Weight Dosing insulin glargine, 30 unit(s), SubCutaneous, BID, # 15 mL, Refills(s) 3, Pharmacy: [facility], 170, cm, 02/24/24 8:06:00 EDT, Height/Length Dosing, 79.7, kg, 02/24/24 8:06:00 EDT, Weight Dosing [facility] [place] Prescription, Freestyle Estella 3 Flash Glucose Monitoring 14 Day System (Sensor), See Instructions, 6 EA, 1, Freestyle Estella 3 Flash Glucose Monitoring 14 Day System (Sensor). Replace sensor every 14 days., [facility], Supply, 170, cm, 07/04/24 8:19:00 EDT... Body Mass Index (BMI) documented 3008F Current tobacco non-user 1036F Depression Screening Negative 3352F Discharge medications reconciled with current medications in outpatient record 1111F Influenza immunization status assessed 1030F Medication list documented in medical record 1159F Most recent diastolic blood pressure <80 mm Hg 3078F Patient screen for fall risk: no falls in last year or 1 fall with no injury in last year 1101F Review of all meds by a prescribing practitioner or clinical pharmacist documented in EHR 1160F Systolic BP 130-139 mm Hg (Most Recent) 3075F 2. group home (current) use of insulin (Z79.4: manager terminal (current) use of insulin) pt would like to try freestyle estella. will send to pharmacy Ordered: [facility] Prescription, Freestyle Estella 3 Flash Glucose Monitoring 14 Day System (Sensor), See Instructions, 6 EA, 1, Freestyle Estella 3 Flash Glucose Monitoring 14 Day System (Sensor). Replace sensor every 14 days., [facility], Supply, 170, cm, 07/04/24 8:19:00 EDT... 3. Encounter for diabetic foot exam (E11.9: Type 2 diabetes mellitus without complications) foot exam performed. pt has decreased sensation in all area of both feet except arch of both feet and middle and little toe of left foot. Ordered: Misc Prescription, Freestyle Estella 3 Flash Glucose Monitoring 14 Day System (Sensor), See Instructions, 6 EA, 1, Freestyle Estella 3 Flash Glucose Monitoring 14 Day System (Sensor). Replace sensor every 14 days., [facility], Supply, 170, cm, 07/04/24 8:19:00 EDT... 4. Essential hypertension (I10: Essential (primary) hypertension) BP at goal today 5. Aneurysm of aortic root (I71.21: Aneurysm of the ascending aorta, without rupture) stable 6. Overweight (BMI 25.0-29.9) (E66.3: Overweight) see above Ordered: Misc Prescription, Freestyle Estella 3 Flash Glucose Monitoring 14 Day System (Sensor), See Instructions, 6 EA, 1, Freestyle Estella 3 Flash Glucose Monitoring 14 Day System (Sensor). Replace sensor every 14 days., [facility], [facility], 170, cm, 07/04/24 8:19:00 EDT... 7. Non-smoker (Z78.9: Other specified health status) continue not smoking Ordered: Misc Prescription, Freestyle Estella 3 Flash Glucose Monitoring 14 Day System (Sensor), See Instructions, 6 EA, 1, Freestyle Estella 3 Flash Glucose Monitoring 14 Day System (Sensor). Replace sensor every 14 days., [facility], [facility], 170, cm, 07/04/24 8:19:00 EDT... 8. BMI 27.0-27.9,adult (Z68.27: Body mass index [BMI] 27.0-27.9, adult) BMI education given Ordered: Misc Prescription, Freestyle Estella 3 Flash Glucose Monitoring 14 Day System (Sensor), See Instructions, 6 EA, 1, Freestyle Estella 3 Flash Glucose Monitoring 14 Day System (Sensor). Replace sensor every 14 days., [facility], Supply, 170, cm, 07/04/24 8:19:00 EDT... Orders: colchicine, See Instructions, TAKE ONE TABLET BY MOUTH THREE TIMES A DAY NEEDED FOR GOUT PAIN, # 30 EA, Refills(s) 1, Pharmacy: [facility], 170, cm, 12/14/23 12:50:00 EDT, Height/Length Dosing, 76.2, kg, 12/14/23 12:46:00 EDT, Weight Dosing cyclobenzaprine, 7.5 mg = 1 tab(s), Oral, BID, PRN for spasm, # 20 tab(s), Refills(s) 0, Pharmacy: [facility], 170, cm, 11/15/23 9:08:00 EST, Height/Length Dosing, 74.7, kg, 11/15/23 9:08:00 EST, Weight Dosing indomethacin, 50 mg = 1 cap(s), Oral, TID, PRN for pain, # 30 cap(s), Refills(s) 0, Pharmacy: [facility], 170, cm, 12/14/23 12:50:00 EDT, Height/Length Dosing, 76.2, kg, 12/14/23 12:46:00 EDT, Weight Dosing insulin glargine, See Instructions, INJECT 30 UNITS TWICE A DAY VIA SUBCUTANEOUS ROUTE DIRECTED , # 15 mL, Refills(s) 3, Pharmacy: [facility], 170, cm, 07/04/24 8:19:00 EDT, Height/Length Dosing, 80.7, kg, 07/04/24 8:19:00 EDT, Weight Dosing losartan, 100 mg = 1 tab(s), Oral, Daily, # 90 tab(s), Refills(s) 2, Pharmacy: [facility], 170, cm, 01/04/24 8:36:00 EDT, Height/Length Dosing, 77.6, kg, 01/04/24 8:36:00 EDT, Weight Dosing Follow-up No qualifying data available Problem List/Past Medical History Ongoing Aneurysm of aortic root ASCVD (arteriosclerotic cardiovascular disease) Cardiovascular stress test abnormal Coronary arteriosclerosis Diverticulosis Dyslipidemia Essential hypertension Gout of knee Hypercholesterolemia Hypothyroid group home (current) use of insulin Non-smoker Overweight (BMI 25.0-29.9) Pain of left calf Single coronary vessel disease Sinus tachycardia Stented artery Type 1 diabetes mellitus with diabetic neuropathy Type 1 diabetes mellitus with hypercholesterolemia Wellness examination Historical Diabetes mellitus Infected nail bed of toe Secondary diabetes mellitus Procedure/Surgical History Colonoscopy (2017), EGD (esophagogastroduodenoscopy) gastric outlet reduction (2018), Cardiac catheter (2014), Cardiac catheter (2000), Appendectomy (1948). Medications Aspirin Enteric Coated 81 mg oral delayed release tablet, 81 mg= 1 tab(s), Oral, Daily atorvastatin 80 mg Tab, 80 mg= 1 tab(s), Oral, Daily, 3 refills BD UF mini pen needle 5mm/31g, See Instructions, 1 refills carvedilol 12.5 mg Tab, 12.5 mg= 1 tab(s), Oral, BID chlorthalidone 25 mg Tab, 25 mg= 1 tab(s), Oral, Daily, 3 refills clopidogrel 75 mg Tab, 75 mg= 1 tab(s), Oral, Daily, 3 refills contour test strips, See Instructions, 1 refills Freestyle Estella 3 Flash Glucose Monitoring 14 Day System (Sensor), See Instructions, 1 refills LANCETS OF CHOICE OR SPECIFIED BY INSURANCE., See Instructions, 11 refills Lantus Solostar Pen 100 units/mL subcutaneous solution, 30 unit(s), SubCutaneous, BID, 4 refills Lantus Solostar Pen 100 units/mL subcutaneous solution, See Instructions levothyroxine 125 mcg (0.125 mg) Tab, 125 mcg= 1 tab(s), Oral, Daily liothyronine 5 mcg Tab, 10 mcg= 2 tab(s), Oral, Daily, 3 refills metformin 500 mg Tab, 500 mg= 1 tab(s), Oral, BID, 1 refills Vitamin D3 2000 intl units oral Tab, 50 mcg, Oral, Daily, 3 refills Allergies Nuts (Unknown) glipiZIDE (Unknown) omeprazole (Unknown) Social History Alcohol - Low Risk, 12/28/2022 Current, Beer, 1-2 times per week, Alcohol use interferes with work or home: No. Drinks more than intended: No. Others hurt by drinking: No. Ready to change: No. Household alcohol concerns: No., 05/24/2024 Substance Abuse - Denies Substance Abuse, 12/28/2022 Household substance abuse concerns: No., 05/24/2024 Tobacco - Denies Tobacco Use, 12/28/2022 Former smoker, quit more than 30 days ago Tobacco Use:. Never Smokeless Tobacco Use:. Household tobacco concerns: No. Yes, 07/04/2024 Family History Alcoholism: Father. Congenital heart disease: Brother. Diabetes mellitus type 2: Father. Heart failure: Mother and Father. Immunizations Vaccine Date Status Comments zoster vaccine, inactivated 11/25/2023 Recorded zoster vaccine, inactivated 05/17/2023 Recorded influenza virus vaccine, inactivated 06/30/2022 Recorded SARS-CoV-2 (COVID-19) [id number] 06/15/2022 Recorded 2022-12-28: [id number] SARS-CoV-2 (COVID-19) mRNA-1273 vaccine 02/17/2022 Recorded 2022-12-28: [id number] SARS-CoV-2 (COVID-19) mRNA-1273 vaccine 07/21/2021 Recorded 2022-12-28: [id number] influenza virus vaccine, inactivated 06/30/2021 Recorded SARS-CoV-2 (COVID-19) mRNA-1273 vaccine 11/18/2020 Recorded SARS-CoV-2 (COVID-19) mRNA-1273 vaccine 10/22/2020 Recorded influenza virus vaccine, inactivated 06/11/2020 Recorded influenza virus vaccine, inactivated 08/28/2019 Recorded Joshua would benefit from diabetic shoes due to neuropathy and callouses of both feet Result Comment: Electronical ly Signed By: Sheree Caraballo\.br\Date and Time Signed: 07/06/24 09:17 EDT AMBULATORY VISIT SUMMARY Observed: 07/04 8:35 AM Status: F Source: [facility] Ambulatory Visit Summary JOJO LEWIS JR :1940 Visit Date:07/04/2024 Ambulatory Visit Instructions Your Diagnosis Type 1 diabetes mellitus with diabetic neuropathy manager terminal (current) use of insulin Encounter for diabetic foot exam Overweight (BMI 25.0-29.9) Non-smoker BMI 27.0-27.9,adult Your Care Team Attending Physician - Sheree Carablalo Primary Care Physician - Sheree Caraballo This Is Your Medications List Misc Prescription (BD UF mini pen needle 5mm/31g) Misc Prescription (LANCETS OF CHOICE OR SPECIFIED BY INSURANCE.) Misc Prescription (contour test strips) aspirin (Aspirin Enteric Coated 81 mg oral delayed release tablet) atorvastatin (atorvastatin 80 mg Tab) carvedilol (carvedilol 12.5 mg Tab) chlorthalidone (chlorthalidone 25 mg Tab) cholecalciferol (Vitamin D3 2000 intl units oral Tab) clopidogrel (clopidogrel 75 mg Tab) insulin glargine (Lantus Solostar Pen 100 units/mL subcutaneous solution) levothyroxine (levothyroxine 125 mcg (0.125 mg) Tab) liothyronine (liothyronine 5 mcg Tab) metformin (metformin 500 mg Tab) Procedures Performed Colonoscopy (2017), EGD (esophagogastroduodenoscopy) gastric outlet reduction (2017), Cardiac catheter (2014), Cardiac catheter (2000), Appendectomy (194). Discharge Vitals Temperature (Tympanic) 36.7 ?C Heart Rate (Peripheral) 72 Respiratory Rate 16 Blood Pressure 132/78 Height 170 cm Height 67 in Weight 80.7 kg Weight 177.54 lb BMI 27.92 What to do next Scheduled Follow-Up Appointments Tuesday 8:20 AM EDT With: Sheree Caraballo Where: [place] [id number]- Tuesday 8:00 AM EDT With: Where: [place] [id number]- Medications What How Much When Why Instructions Unchanged aspirin (Aspirin Enteric Coated 81 mg oral delayed release tablet) 1 Tablets By Mouth Every day Unchanged atorvastatin (atorvastatin 80 mg Tab) 1 Tablets By Mouth Every day Duration: 90 Days Unchanged carvedilol (carvedilol 12.5 mg Tab) 1 Tablets By Mouth 2 times a day Unchanged chlorthalidone (chlorthalidone 25 mg Tab) 1 Tablets By Mouth Every day Duration: 90 Days Unchanged cholecalciferol (Vitamin D3 2000 intl units oral Tab) 50 Microgram By Mouth Every day Unchanged clopidogrel (clopidogrel 75 mg Tab) 1 Tablets By Mouth Every day Duration: 90 Days Unchanged insulin glargine (Lantus Solostar Pen 100 units/ mL subcutaneous solution) 30 Units Subcutaneous 2 times a day BMI 26.0-26.9,adult Former smoker Type 1 diabetes mellitus with diabetic neuropathy Unchanged levothyroxine (levothyroxine 125 mcg (0.125 mg) Tab) 1 Tablets By Mouth Every day Unchanged liothyronine (liothyronine 5 mcg Tab) 2 Tablets By Mouth Every day Duration: 90 Days TAKE TWO TABLETS BY MOUTH ONCE DAILY IN THE MORNING Unchanged metformin (metformin 500 mg Tab) 1 Tablets By Mouth 2 times a day 180 EA, 0 Refill(s), TAKE ONE TABLET BY MOUTH TWICE A DAY FOR 90 DAYS Unchanged Misc Prescription (BD UF mini pen needle 5mm/ 31g) See instructions use twice daily Unchanged Misc Prescription (contour test strips) See instructions Type 1 diabetes mellitus with diabetic neuropathy check blood sugar daily and as needed Unchanged Misc Prescription (LANCETS OF CHOICE OR SPECIFIED BY INSURANCE.) See instructions Type 1 diabetes mellitus with diabetic neuropathy USE TO TEST BLOOD GLUCOSE ONCE DAILY FOR DX E11.9 Allergies Nuts (Unknown) glipiZIDE (Unknown) omeprazole (Unknown) Problems Ongoing - Any problem that you are currently receiving treatment for. Aneurysm of aortic root ASCVD (arteriosclerotic cardiovascular disease) Cardiovascular stress test abnormal Coronary arteriosclerosis Diverticulosis Dyslipidemia Essential hypertension Gout of knee Hypercholesterolemia Hypothyroid manager terminal (current) use of insulin Non-smoker Overweight (BMI 25.0-29.9) Pain of left calf Single coronary vessel disease Sinus tachycardia Stented artery Type 1 diabetes mellitus with diabetic neuropathy Type 1 diabetes mellitus with hypercholesterolemia Wellness examination Historical - Any problem that you are no longer receiving treatment for. Diabetes mellitus Infected nail bed of toe Secondary diabetes mellitus Patient Survey You may receive a survey via text or e-mail asking about your office visit. Please share your experience with us by completing your survey. We appreciate your feedback and thank you for choosing us for your care. REMINDERS Observed: 06/29/2024 10:35 AM Status: C Source: [facility] Reminders From: Sheree Caraballo To: [facility] - Clinical; Sent: 06/29/2024 10:35:28 EDT Show up: 06/29/2024 10:36:00 EDT Subject: Ambulatory Reminder Due Date/Time: 06/30/2024 10:35:00 EDT HGBA1C is 5.8. This is great. Keep up the great work! Results: Date Result Name Value Ref Range 06/28/2024 9:30 Hgb A1C % 5.8 % ( - <=5.9) Pt notified. NURSE CONSULTATION NOTE Observed: 2023 10:37 AM Status: F Source: [facility] Nurse Consultation Note Reason for Visit Patient came in office for lab draw Assessment/Plan 1. Hypothyroid (E03.9: Hypothyroidism, unspecified) Medications Aspirin Enteric Coated 81 mg oral delayed release tablet, 81 mg= 1 tab(s), Oral, Daily atorvastatin 80 mg Tab, 80 mg= 1 tab(s), Oral, Daily, 3 refills BD UF mini pen needle 5mm/31g, See Instructions, 1 refills carvedilol 12.5 mg Tab, 12.5 mg= 1 tab(s), Oral, BID chlorthalidone 25 mg Tab, 25 mg= 1 tab(s), Oral, Daily, 3 refills clopidogrel 75 mg Tab, 75 mg= 1 tab(s), Oral, Daily, 3 refills colchicine 0.6 mg Tab, See Instructions, 1 refills contour test strips, See Instructions, 1 refills cyclobenzaprine 7.5 mg oral tablet, 7.5 mg= 1 tab(s), Oral, BID, PRN indomethacin 50 mg oral capsule, 50 mg= 1 cap(s), Oral, TID, PRN LANCETS OF CHOICE OR SPECIFIED BY INSURANCE., See Instructions, 11 refills Lantus Solostar Pen 100 units/mL subcutaneous solution, 30 unit(s), SubCutaneous, BID, 3 refills levothyroxine 125 mcg (0.125 mg) Tab, 125 mcg= 1 tab(s), Oral, Daily liothyronine 5 mcg Tab, 10 mcg= 2 tab(s), Oral, Daily, 3 refills losartan 100 mg Tab, 100 mg= 1 tab(s), Oral, Daily, 2 refills metformin 500 mg Tab, 500 mg= 1 tab(s), Oral, BID, 1 refills Vitamin D3 2000 intl units oral Tab, 50 mcg, Oral, Daily, 3 refills Allergies Nuts (Unknown) glipiZIDE (Unknown) omeprazole (Unknown) Immunizations Vaccine Date Status Comments zoster vaccine, inactivated 11/25/2023 Recorded zoster vaccine, inactivated 05/17/2023 Recorded influenza virus vaccine, inactivated 06/30/2022 Recorded SARS-CoV-2 (COVID-19) [id number] 06/15/2022 Recorded 2022-12-28: [id number] SARS-CoV-2 (COVID-19) mRNA-1273 vaccine 02/17/2022 Recorded 2022-12-28: [id number] SARS-CoV-2 (COVID-19) mRNA-1273 vaccine 07/21/2021 Recorded 2022-12-28: [id number] influenza virus vaccine, inactivated 06/30/2021 Recorded SARS-CoV-2 (COVID-19) mRNA-1273 vaccine 11/18/2020 Recorded SARS-CoV-2 (COVID-19) mRNA-1273 vaccine 10/22/2020 Recorded influenza virus vaccine, inactivated 06/11/2020 Recorded influenza virus vaccine, inactivated 08/28/2019 Recorded HGBA1C Collected: 06/28/2024 9:30 AM Status: F Source: [facility] TYPE CODE TESTS RESULT OUT OF RANGE REFERENCE UNITS LAB 4548-4([facility]) HEMOGLOBIN A1C/HEMOGLOBIN. TOTAL:MFR:PT:BL D:QN: 5.8 Normal <=5.9 % Performed By: #### [id number] #### [facility] [address] [place] [address] AMBULATORY VISIT SUMMARY Observed: 05/24 1:22 PM Status: F Source: [facility] Ambulatory Visit Summary JOJO LEWIS JR :1940 Visit Date:05/24/2024 Ambulatory Visit Instructions Your Diagnosis Encounter for Medicare annual examination with abnormal findings Diabetes mellitus, Encounter for diabetic foot exam Secondary diabetes mellitus Hypercholesterolemia Hypothyroid Essential hypertension Overweight with body mass index (BMI) of 27 to 27.9 in adult Your Care Team Attending Physician - Sheree Caraballo Primary Care Physician - Sheree Caraballo This Is Your Medications List Misc Prescription (BD UF mini pen needle 5mm/31g) Misc Prescription (LANCETS OF CHOICE OR SPECIFIED BY INSURANCE.) [facility] [place] Prescription (contour test strips) aspirin (Aspirin Enteric Coated 81 mg oral [...] mg Tab) Procedures Performed Colonoscopy (2017), EGD (esophagogastroduodenoscopy) gastric outlet reduction (2017), Cardiac catheter (2014), Cardiac catheter (2000), Appendectomy (194). Discharge Vitals Heart Rate (Peripheral) 62 Blood Pressure 158/60 Height 67 in Height 170 cm Weight 177.98 lb Weight 80.90 kg BMI 27.99 What to do next Scheduled Follow-Up Appointments 2023 8:20 AM EDT With: Where: [address] [id number]- Tuesday 8:20 AM EDT With: Sheree Caraballo Where: [address] [id number]- Tuesday 8:00 AM EDT With: Where: [address] [id number]- You Need to Complete the Following HgbA1c, Blood, Routine collect, 05/24/24, Order for future visit, Lab Collect, Diabetes mellitus Encounter for Medicare annual examination with abnormal findings, Print Label By Order Location Medications What How Much When Why Instructions Unchanged aspirin (Aspirin Enteric Coated 81 mg oral delayed release tablet) 1 Tablets By Mouth Every day Unchanged atorvastatin (atorvastatin 80 mg Tab) 1 Tablets By Mouth Every day Duration: 90 Days Unchanged carvedilol (carvedilol 12.5 mg Tab) 1 Tablets By Mouth 2 times a day Unchanged chlorthalidone (chlorthalidone 25 mg Tab) 1 Tablets By Mouth Every day Duration: 90 Days Unchanged cholecalciferol (Vitamin D3 2000 intl units oral Tab) 50 Microgram By Mouth Every day Unchanged clopidogrel (clopidogrel 75 mg Tab) 1 Tablets By Mouth Every day Duration: 90 Days Unchanged colchicine (colchicine 0.6 mg Tab) See instructions TAKE ONE TABLET BY MOUTH THREE TIMES A DAY NEEDED FOR GOUT PAIN Unchanged cyclobenzaprine (cyclobenzaprine 7.5 mg oral tablet) 1 Tablets By Mouth 2 times a day as needed for for spasm Unchanged indomethacin (indomethacin 50 mg oral capsule) 1 Capsules By Mouth 3 times a day as needed for for pain Gout of knee BMI 25.0-25.9,adult Unchanged insulin glargine (Lantus Solostar Pen 100 units/ mL subcutaneous solution) 30 Units Subcutaneous 2 times a day BMI 26.0-26.9,adult Former smoker Type 1 diabetes mellitus with diabetic neuropathy Unchanged levothyroxine (levothyroxine 125 mcg (0.125 mg) Tab) 1 Tablets By Mouth Every day Unchanged liothyronine (liothyronine 5 mcg Tab) 2 Tablets By Mouth Every day Duration: 90 Days TAKE TWO TABLETS BY MOUTH ONCE DAILY IN THE MORNING Unchanged losartan (losartan 100 mg Tab) 1 Tablets By Mouth Every day Unchanged metformin (metformin 500 mg Tab) 1 Tablets By Mouth 2 times a day 180 EA, 0 Refill(s), TAKE ONE TABLET BY MOUTH TWICE A DAY FOR 90 DAYS Unchanged Misc Prescription (BD UF mini pen needle 5mm/ 31g) See instructions use twice daily Unchanged Misc Prescription (contour test strips) See instructions Type 1 diabetes mellitus with diabetic neuropathy check blood sugar daily and as needed Unchanged Misc Prescription (LANCETS OF CHOICE OR SPECIFIED BY INSURANCE.) See instructions Type 1 diabetes mellitus with diabetic neuropathy USE TO TEST BLOOD GLUCOSE ONCE DAILY FOR DX E11.9 Allergies Nuts (Unknown) glipiZIDE (Unknown) omeprazole (Unknown) Problems Ongoing - Any problem that you are currently receiving treatment for. Aneurysm of aortic root ASCVD (arteriosclerotic cardiovascular [...] 1 diabetes mellitus with hypercholesterolemia Wellness examination Patient Survey You may receive a survey via text or e-mail asking about your office visit. Please share your experience with us by completing your survey. We appreciate your feedback and thank you for choosing us for your care. Education Materials Blood Glucose Monitoring, Adult Monitoring your blood sugar (glucose) is an important part of managing your diabetes. Blood glucose monitoring involves checking your blood glucose as often as directed and keeping a log or record of your results over time. Checking your blood glucose regularly and keeping a blood glucose log can: ? Help you and your health care provider adjust your diabetes management plan as needed, including your medicines or insulin. ? Help you understand how food, exercise, illnesses, and medicines affect your blood glucose. ? Let you know what your blood glucose is at any time. You can quickly find out if you have low blood glucose (hypoglycemia) or high blood glucose (hyperglycemia). Your health care provider will set individualized treatment goals for you. Your goals will be based on your age, other medical conditions you have, and how you respond to diabetes treatment. Generally, the goal of treatment is to maintain the following blood glucose levels: ? Before meals (preprandial): 80?130 mg/dL (4.4?7.2 mmol/L). ? After meals (postprandial): below 180 mg/dL (10 mmol/L). ? A1C level: less than 7%. Supplies needed: ? Blood glucose meter. ? Test strips for your meter. Each meter has its own strips. You must use the strips that came with your meter. ? A needle to prick your finger (lancet). Do not use a lancet more than one time. ? A device that holds the lancet (lancing device). ? A journal or log book to write down your results. How to check your blood glucose Checking your blood glucose 1. Wash your hands for at least 20 seconds with soap and water. 2. Prick the side of your finger (not the tip) with the lancet. Do not use the same finger consecutively. 3. Gently rub the finger until a small drop of blood appears. 4. Follow instructions that come with your meter for inserting the test strip, applying blood to the strip, and using your blood glucose meter. 5. Write down your result and any notes in your log. Using alternative sites Some meters allow you to use areas of your body other than your finger (alternative sites) to test your blood. The most common alternative sites are the forearm, the thigh, and the palm of your hand. Alternative sites may not be as accurate as the fingers because blood flow is slower in those areas. This means that the result you get may be delayed, and it may be different from the result that you would get from your finger. Use the finger only, and do not use alternative sites, if: ? You think you have hypoglycemia. ? You sometimes do not know that your blood glucose is getting low (hypoglycemia unawareness). General tips and recommendations Blood glucose log ? Every time you check your blood glucose, write down your result. Also write down any notes about things that may be affecting your blood glucose, such as your diet and exercise for the day. This information can help you and your health care provider: ? Look for patterns in your blood glucose over time. ? Adjust your diabetes management plan as needed. ? Check if your meter allows you to download your records to a computer or if there is an hao for the meter. Most glucose meters store a record of glucose readings in the meter. If you have type 1 diabetes: ? Check your blood glucose 4 or more times a day if you are on intensive insulin therapy with multiple daily injections (MDI) or if you are using an insulin pump. Check your blood glucose: ? Before every meal and snack. ? Before bedtime. ? Also check your blood glucose: ? If you have symptoms of hypoglycemia. ? After treating low blood glucose. ? Before doing activities that create a risk for injury, like driving or using machinery. ? Before and after exercise. ? Two hours after a meal. ? Occasionally between 2:00 a.m. and 3:00 a.m., as directed. ? You may need to check your blood glucose more often, 6?10 times per day, if: ? You have diabetes that is not well controlled. ? You are ill. ? You have a history of severe hypoglycemia. ? You have hypoglycemia unawareness. If you have type 2 diabetes: ? Check your blood glucose 2 or more times a day if you take insulin or other diabetes medicines. ? Check your blood glucose 4 or more times a day if you are on intensive insulin therapy. Occasionally, you may also need to check your glucose between 2:00 a.m. and 3:00 a.m., as directed. ? Also check your blood glucose: ? Before and after exercise. ? Before doing activities that create a risk for injury, like driving or using machinery. ? You may need to check your blood glucose more often if: ? Your medicine is being adjusted. ? Your diabetes is not well controlled. ? You are ill. General tips ? Make sure you always have your supplies with you. ? After you use a few boxes of test strips, adjust (calibrate) your blood glucose meter by following instructions that came with your meter. ? If you have questions or need help, all blood glucose meters have a 24-hour hotline phone number available that you can call. Also contact your health care provider with questions or concerns you may have. Where to find more information ? The [place] [employer]: www.diabetes.org ? The Association of Diabetes Care & Education Specialists: www.diabeteseducator.org Contact a health care provider if: ? Your blood glucose is at or above 240 mg/dL (13.3 mmol/L) for 2 days in a row. ? You have been sick or have had a fever for 2 days or longer, and you are not getting better. ? You have any of the following problems for more than 6 hours: ? You cannot eat or drink. ? You have nausea or vomiting. ? You have diarrhea. Get help right away if: ? Your blood glucose is lower than 54 mg/dL (3 mmol/L). ? You become confused, or you have trouble thinking clearly. ? You have difficulty breathing. ? You have moderate or large ketone levels in your urine. These symptoms may represent a serious problem that is an emergency. Do not wait to see if the symptoms will go away. Get medical help right away. Call your local emergency services (911 in the [place] Do not drive yourself to the hospital. Summary ? Monitoring your blood glucose is an important part of managing your diabetes. ? Blood glucose monitoring involves checking your blood glucose as often as directed and keeping a log or record of your results over time. ? Your health care provider will set individualized treatment goals for you. Your goals will be based on your age, other medical conditions you have, and how you respond to diabetes treatment. ? Every time you check your blood glucose, write down your result. Also, write down any notes about things that may be affecting your blood glucose, such as your diet and exercise for the day. This information is not intended to replace advice given to you by your health care provider. Make sure you discuss any questions you have with your health care provider. Document Revised: 06/10/2021 Document Reviewed: 06/10/2021 [employer] Patient Education ? 2022 [employer]. Diabetes Mellitus and Nutrition, Adult When you have diabetes, or diabetes mellitus, it is very important to have healthy eating habits because your blood sugar (glucose) levels are greatly affected by what you eat and drink. Eating healthy foods in the right amounts, at about the same times every day, can help you: ? Manage your blood glucose. ? Lower your risk of heart disease. ? Improve your blood pressure. ? Reach or maintain a healthy weight. What can affect my meal plan? Every person with diabetes is different, and each person has different needs for a meal plan. Your health care provider may recommend that you work with a dietitian to make a meal plan that is best for you. Your meal plan may vary depending on factors such as: ? The calories you need. ? The medicines you take. ? Your weight. ? Your blood glucose, blood pressure, and cholesterol levels. ? Your activity level. ? Other health conditions you have, such as heart or kidney disease. How do carbohydrates affect me? Carbohydrates, also called carbs, affect your blood glucose level more than any other type of food. Eating carbs raises the amount of glucose in your blood. It is important to know how many carbs you can safely have in each meal. This is different for every person. Your dietitian can help you calculate how many carbs you should have at each meal and for each snack. How does alcohol affect me? Alcohol can cause a decrease in blood glucose (hypoglycemia), especially if you use insulin or take certain diabetes medicines by mouth. Hypoglycemia can be a life-threatening condition. Symptoms of hypoglycemia, such as sleepiness, dizziness, and confusion, are similar to symptoms of having too much alcohol. ? Do not drink alcohol if: ? Your health care provider tells you not to drink. ? You are , may be , or are planning to become . ? If you drink alcohol: ? Limit how much you have to: ? 0?1 drink a day for women. ? 0?2 drinks a day for men. ? Know how much alcohol is in your drink. In the [place] one drink equals one 12 oz bottle of beer (355 mL), one 5 oz glass of wine (148 mL), or one 1? oz glass of hard liquor (44 mL). ? Keep yourself hydrated with water, diet soda, or unsweetened iced tea. Keep in mind that regular soda, juice, and other mixers may contain a lot of sugar and must be counted as carbs. What are tips for following this plan? Reading food labels ? Start by checking the serving size on the Nutrition Facts label of packaged foods and drinks. The number of calories and the amount of carbs, fats, and other nutrients listed on the label are based on one serving of the item. Many items contain more than one serving per package. ? Check the total grams (g) of carbs in one serving. ? Check the number of grams of saturated fats and trans fats in one serving. Choose foods that have a low amount or none of these fats. ? Check the number of milligrams (mg) of salt (sodium) in one serving. Most people should limit total sodium intake to less than 2,300 mg per day. ? Always check the nutrition information of foods labeled as low-fat or nonfat. These foods may be higher in added sugar or refined carbs and should be avoided. ? Talk to your dietitian to identify your daily goals for nutrients listed on the label. Shopping ? Avoid buying canned, pre-made, or processed foods. These foods tend to be high in fat, sodium, and added sugar. ? Shop around the outside edge of the grocery store. This is where you will most often find fresh fruits and vegetables, bulk grains, fresh meats, and fresh dairy products. Cooking ? Use low-heat cooking methods, such as baking, instead of high-heat cooking methods, such as deep frying. ? Cook using healthy oils, such as olive, canola, or sunflower oil. ? Avoid cooking with butter, cream, or high-fat meats. Meal planning ? Eat meals and snacks regularly, preferably at the same times every day. Avoid going long periods of time without eating. ? Eat foods that are high in fiber, such as fresh fruits, vegetables, beans, and whole grains. ? Eat 4?6 oz (112?168 g) of lean protein each day, such as lean meat, chicken, fish, eggs, or tofu. One ounce (oz) (28 g) of lean protein is equal to: ? 1 oz (28 g) of meat, chicken, or fish. ? 1 egg. ? ? cup (62 g) of tofu. ? Eat some foods each day that contain healthy fats, such as avocado, nuts, seeds, and fish. What foods should I eat? Fruits Berries. Apples. Oranges. Peaches. Apricots. Plums. Grapes. Mangoes. Papayas. Pomegranates. Kiwi. Cherries. Vegetables Leafy greens, including lettuce, spinach, kale, chard, mendez greens, mustard greens, and cabbage. Beets. Cauliflower. Broccoli. Carrots. Green beans. Tomatoes. Peppers. Onions. Cucumbers. [place] sprouts. Grains Whole grains, such as whole-wheat or whole-grain bread, crackers, tortillas, cereal, and pasta. Unsweetened oatmeal. Quinoa. Brown or wild rice. Meats and other proteins Seafood. Poultry without skin. Lean cuts of poultry and beef. Tofu. Nuts. Seeds. Dairy Low-fat or fat-free dairy products such as milk, yogurt, and cheese. The items listed above may not be a complete list of foods and beverages you can eat and drink. Contact a dietitian for more information. What foods should I avoid? Fruits Fruits canned with syrup. Vegetables Canned vegetables. Frozen vegetables with butter or cream sauce. Grains Refined white flour and flour products such as bread, pasta, snack foods, and cereals. Avoid all processed foods. Meats and other proteins Fatty cuts of meat. Poultry with skin. Breaded or fried meats. Processed meat. Avoid saturated fats. Dairy Full-fat yogurt, cheese, or milk. Beverages Sweetened drinks, such as soda or iced tea. The items listed above may not be a complete list of foods and beverages you should avoid. Contact a dietitian for more information. Questions to ask a health care provider ? Do I need to meet with a certified diabetes care and director of in service education? ? Do I need to meet with a dietitian? ? What number can I call if I have questions? ? When are the best times to check my blood glucose? Where to find more information: ? [place] [employer] Association: diabetes.org ? Academy of Nutrition and Dietetics: eatright.org ? National [place] of Diabetes and Digestive and Kidney Diseases: niddk.nih.gov ? Association of Diabetes Care & Education Specialists: diabeteseducator.org Summary ? It is important to have healthy eating habits because your blood sugar (glucose) levels are greatly affected by what you eat and drink. It is important to use alcohol carefully. ? A healthy meal plan will help you manage your blood glucose and lower your risk of heart disease. ? Your health care provider may recommend that you work with a dietitian to make a meal plan that is best for you. This information is not intended to replace advice given to you by your health care provider. Make sure you discuss any questions you have with your health care provider. Document Revised: 04/15/2021 Document Reviewed: 04/15/2021 [employer] Patient Education ? 2022 [employer]. Diabetes Mellitus and Foot Care Foot care is an important part of your health, especially when you have diabetes. Diabetes may cause you to have problems because of poor blood flow (circulation) to your feet and legs, which can cause your skin to: ? Become thinner and rotary drier operator. ? Break more easily. ? Heal more slowly. ? Peel and crack. You may also have nerve damage (neuropathy) in your legs and feet, causing decreased feeling in them. This means that you may not notice minor injuries to your feet that could lead to more serious problems. Noticing and addressing any potential problems early is the best way to prevent future foot problems. How to care for your feet Foot hygiene ? Wash your feet daily with warm water and mild soap. Do not use hot water. Then, pat your feet and the areas between your toes until they are completely dry. Do not soak your feet as this can dry your skin. ? Trim your toenails straight across. Do not dig under them or around the cuticle. File the edges of your nails with an emery board or nail file. ? Apply a moisturizing lotion or petroleum jelly to the skin on your feet and to dry, brittle toenails. Use lotion that does not contain alcohol and is unscented. Do not apply lotion between your toes. Shoes and socks ? Wear clean socks or stockings every day. Make sure they are not too tight. Do not wear knee-high stockings since they may decrease blood flow to your legs. ? Wear shoes that fit properly and have enough cushioning. Always look in your shoes before you put them on to be sure there are no objects inside. ? To break in new shoes, wear them for just a few hours a day. This prevents injuries on your feet. Wounds, scrapes, corns, and calluses ? Check your feet daily for blisters, cuts, bruises, sores, and redness. If you cannot see the bottom of your feet, use a mirror or ask someone for help. ? Do not cut corns or calluses or try to remove them with medicine. ? If you find a minor scrape, cut, or break in the skin on your feet, keep it and the skin around it clean and dry. You may clean these areas with mild soap and water. Do not clean the area with peroxide, alcohol, or iodine. ? If you have a wound, scrape, corn, or callus on your foot, look at it several times a day to make sure it is healing and not infected. Check for: ? Redness, swelling, or pain. ? Fluid or blood. ? Warmth. ? Pus or a bad smell. General tips ? Do not cross your legs. This may decrease blood flow to your feet. ? Do not use heating pads or hot water bottles on your feet. They may burn your skin. If you have lost feeling in your feet or legs, you may not know this is happening until it is too late. ? Protect your feet from hot and cold by wearing shoes, such as at the beach or on hot pavement. ? Schedule a complete foot exam at least once a year (annually) or more often if you have foot problems. Report any cuts, sores, or bruises to your health care provider immediately. Where to find more information ? [place] [employer]: www.diabetes.org ? Association of Diabetes [employer] Education [employer]ists: www.diabeteseducator.org Contact a health care provider if: ? You have a medical condition that increases your risk of infection and you have any cuts, sores, or bruises on your feet. ? You have an injury that is not healing. ? You have redness on your legs or feet. ? You feel burning or tingling in your legs or feet. ? You have pain or cramps in your legs and feet. ? Your legs or feet are numb. ? Your feet always feel cold. ? You have pain around any toenails. Get help right away if: ? You have a wound, scrape, corn, or callus on your foot and: ? You have pain, swelling, or redness that gets worse. ? You have fluid or blood coming from the wound, scrape, corn, or callus. ? Your wound, scrape, corn, or callus feels warm to the touch. ? You have pus or a bad smell coming from the wound, scrape, corn, or callus. ? You have a fever. ? You have a red line going up your leg. Summary ? Check your feet every day for blisters, cuts, bruises, sores, and redness. ? Apply a moisturizing lotion or petroleum jelly to the skin on your feet and to dry, brittle toenails. ? Wear shoes that fit properly and have enough cushioning. ? If you have foot problems, report any cuts, sores, or bruises to your health care provider immediately. ? Schedule a complete foot exam at least once a year (annually) or more often if you have foot problems. This information is not intended to replace advice given to you by your health care provider. Make sure you discuss any questions you have with your health care provider. Document Revised: 04/02/2021 Document Reviewed: 04/02/2021 [employer] Patient Education ? 2022 [employer]. DASH Eating Plan DASH stands for Dietary Approaches to Stop Hypertension. The DASH eating plan is a healthy eating plan that has been shown to: ? Reduce high blood pressure (hypertension). ? Reduce your risk for type 2 diabetes, heart disease, and stroke. ? Help with weight loss. What are tips for following this plan? Reading food labels ? Check food labels for the amount of salt (sodium) per serving. Choose foods with less than 5 percent of the Daily Value of sodium. Generally, foods with less than 300 milligrams (mg) of sodium per serving fit into this eating plan. ? To find whole grains, look for the word whole as the first word in the ingredient list. Shopping ? Buy products labeled as low-sodium or no salt added. ? Buy fresh foods. Avoid canned foods and pre-made or frozen meals. Cooking ? Avoid adding salt when cooking. Use salt-free seasonings or herbs instead of table salt or sea salt. Check with your health care provider or pharmacist before using salt substitutes. ? Do not flores foods. Cook foods using healthy methods such as baking, boiling, grilling, roasting, and broiling instead. ? Cook with heart-healthy oils, such as olive, canola, avocado, soybean, or sunflower oil. Meal planning ? Eat a balanced diet that includes: ? 4 or more servings of fruits and 4 or more servings of vegetables each day. Try to fill one-half of your plate with fruits and vegetables. ? 6?8 servings of whole grains each day. ? Less than 6 oz (170 g) of lean meat, poultry, or fish each day. A 3-oz (85-g) serving of meat is about the same size as a deck of cards. One egg equals 1 oz (28 g). ? 2?3 servings of low-fat dairy each day. One serving is 1 cup (237 mL). ? 1 serving of nuts, seeds, or beans 5 times each week. ? 2?3 servings of heart-healthy fats. Healthy fats called omega-3 fatty acids are found in foods such as walnuts, flaxseeds, fortified milks, and eggs. These fats are also found in cold-water fish, such as sardines, salmon, and mackerel. ? Limit how much you eat of: ? Canned or prepackaged foods. ? Food that is high in trans fat, such as some fried foods. ? Food that is high in saturated fat, such as fatty meat. ? Desserts and other sweets, sugary drinks, and other foods with added sugar. ? Full-fat dairy products. ? Do not salt foods before eating. ? Do not eat more than 4 egg yolks a week. ? Try to eat at least 2 vegetarian meals a week. ? Eat more home-cooked food and less restaurant, buffet, and fast food. Lifestyle ? When eating at a restaurant, ask that your food be prepared with less salt or no salt, if possible. ? If you drink alcohol: ? Limit how much you use to: ? 0?1 drink a day for women who are not . ? 0?2 drinks a day for men. ? Be aware of how much alcohol is in your drink. In the [place] one drink equals one 12 oz bottle of beer (355 mL), one 5 oz glass of wine (148 mL), or one 1? oz glass of hard liquor (44 mL). General information ? Avoid eating more than 2,300 mg of salt a day. If you have hypertension, you may need to reduce your sodium intake to 1,500 mg a day. ? Work with your health care provider to maintain a healthy body weight or to lose weight. Ask what an ideal weight is for you. ? Get at least 30 minutes of exercise that causes your heart to beat faster (aerobic exercise) most days of the week. Activities may include walking, swimming, or biking. ? Work with your health care provider or dietitian to adjust your eating plan to your individual calorie needs. What foods should I eat? Fruits All fresh, dried, or frozen fruit. Canned fruit in natural juice (without added sugar). Vegetables Fresh or frozen vegetables (raw, steamed, roasted, or grilled). Low-sodium or reduced-sodium tomato and vegetable juice. Low-sodium or reduced-sodium tomato sauce and tomato paste. Low-sodium or reduced-sodium canned vegetables. Grains Whole-grain or whole-wheat bread. Whole-grain or whole-wheat pasta. Brown rice. Oatmeal. Quinoa. Bulgur. Whole-grain and low-sodium cereals. Agnes bread. Low- fat, low-sodium crackers. Whole-wheat flour tortillas. Meats and other proteins Skinless chicken or turkey. Ground chicken or turkey. Pork with fat trimmed off. Fish and seafood. Egg whites. Dried beans, peas, or lentils. Unsalted nuts, nut butters, and seeds. Unsalted canned beans. Lean cuts of beef with fat trimmed off. Low- sodium, lean precooked or cured meat, such as sausages or meat loaves. Dairy Low-fat (1%) or fat-free (skim) milk. Reduced-fat, low-fat, or fat-free cheeses. Nonfat, low-sodium ricotta or cottage cheese. Low-fat or nonfat yogurt. Low-fat, low-sodium cheese. Fats and oils Soft margarine without trans fats. Vegetable oil. Reduced-fat, low-fat, or light mayonnaise and salad dressings (reduced-sodium). Canola, safflower, olive, avocado, soybean, and sunflower oils. Avocado. Seasonings and condiments Herbs. Spices. Seasoning mixes without salt. Other foods Unsalted popcorn and pretzels. Fat-free sweets. The items listed above may not be a complete list of foods and beverages you can eat. Contact a dietitian for more information. What foods should I avoid? Fruits Canned fruit in a light or heavy syrup. Fried fruit. Fruit in cream or butter sauce. Vegetables Creamed or fried vegetables. Vegetables in a cheese sauce. Regular canned vegetables (not low-sodium or reduced-sodium). Regular canned tomato sauce and paste (not low-sodium or reduced-sodium). Regular tomato and vegetable juice (not low- sodium or reduced-sodium). Pickles. Olives. Grains Baked goods made with fat, such as croissants, muffins, or some breads. Dry pasta or rice meal packs. Meats and other proteins Fatty cuts of meat. Ribs. Fried meat. Montez. Bologna, salami, and other precooked or cured meats, such as sausages or meat loaves. Fat from the back of a pig (fatback). Bratwurst. Salted nuts and seeds. Canned beans with added salt. Canned or smoked fish. Whole eggs or egg yolks. Chicken or turkey with skin. Dairy Whole or 2% milk, cream, and [id number]. Whole or full-fat cream cheese. Whole-fat or sweetened yogurt. Full-fat cheese. Nondairy creamers. Whipped toppings. Processed cheese and cheese spreads. Fats and oils Butter. Stick margarine. Lard. Shortening. Ghee. Montez fat. Tropical oils, such as coconut, palm kernel, or palm oil. Seasonings and condiments Onion salt, garlic salt, seasoned salt, table salt, and sea salt. Worcestershire sauce. Tartar sauce. Barbecue sauce. Teriyaki sauce. Soy sauce, including reduced-sodium. Steak sauce. Canned and packaged gravies. Fish sauce. Oyster sauce. Cocktail sauce. Store-bought horseradish. Ketchup. Mustard. Meat flavorings and tenderizers. Bouillon cubes. Hot sauces. Pre-made or packaged marinades. Pre- made or packaged taco seasonings. Relishes. Regular salad dressings. Other foods Salted popcorn and pretzels. The items listed above may not be a complete list of foods and beverages you should avoid. Contact a dietitian for more information. Where to find more information ? National Heart, Lung, and [employer] [place]: www.nhlbi.nih.gov ? [place] [employer]: www.heart.org ? Academy of Nutrition and Dietetics: www.eatright.org ? National Kidney Foundation: www.kidney.org Summary ? The DASH eating plan is a healthy eating plan that has been shown to reduce high blood pressure (hypertension). It may also reduce your risk for type 2 diabetes, heart disease, and stroke. ? When on the DASH eating plan, aim to eat more fresh fruits and vegetables, whole grains, lean proteins, low-fat dairy, and heart-healthy fats. ? With the DASH eating plan, you should limit salt (sodium) intake to 2,300 mg a day. If you have hypertension, you may need to reduce your sodium intake to 1,500 mg a day. ? Work with your health care provider or dietitian to adjust your eating plan to your individual calorie needs. This information is not intended to replace advice given to you by your health care provider. Make sure you discuss any questions you have with your health care provider. Document Revised: 08/15/2020 Document Reviewed: 08/15/2020 [employer] Patient Education ? 2022 [employer] Hypothyroidism Hypothyroidism is when the thyroid gland does not make enough of certain hormones. This is called an underactive thyroid. The thyroid gland is a small gland located in the lower front part of the neck, just in front of the windpipe (trachea). This gland makes hormones that help control how the body uses food for energy (metabolism) as well as how the heart and brain function. These hormones also play a role in keeping your bones strong. When the thyroid is underactive, it produces too little of the hormones thyroxine (T4) and triiodothyronine (T3). What are the causes? This condition may be caused by: ? Murali's disease. This is a disease in which the body's disease-fighting system (immune system) attacks the thyroid gland. This is the most common cause. ? Viral infections. ? . ? Certain medicines. ? defects. ? Problems with a gland in the center of the brain (pituitary gland). ? Lack of enough iodine in the diet. Other causes may include: ? Past radiation treatments to the head or neck for cancer. ? Past treatment with radioactive iodine. ? Past exposure to radiation in the environment. ? Past surgical removal of part or all of the thyroid. What increases the risk? You are more likely to develop this condition if: ? You are female. ? You have a family history of thyroid conditions. ? You use a medicine called lithium. ? You take medicines that affect the immune system (immunosuppressants). What are the signs or symptoms? Common symptoms of this condition include: ? Not being able to tolerate cold. ? Feeling as though you have no energy (lethargy). ? Lack of appetite. ? Constipation. ? Sadness or depression. ? Weight gain that is not explained by a change in diet or exercise habits. ? Menstrual irregularity. ? Dry skin, coarse hair, or brittle nails. Other symptoms may include: ? Muscle pain. ? Slowing of thought processes. ? Poor memory. How is this diagnosed? This condition may be diagnosed based on: ? Your symptoms, your medical history, and a physical exam. ? Blood tests. You may also have imaging tests, such as an ultrasound or MRI. How is this treated? This condition is treated with medicine that replaces the thyroid hormones that your body does not make. After you begin treatment, it may take several weeks for symptoms to go away. Follow these instructions at home: ? Take gryg-sph-hdbeuoz and prescription medicines only as told by your health care provider. ? If you start taking any new medicines, tell your health care provider. ? Keep all follow-up visits as told by your health care provider. This is important. ? As your condition improves, your dosage of thyroid hormone medicine may change. ? You will need to have blood tests regularly so that your health care provider can monitor your condition. Contact a health care provider if: ? Your symptoms do not get better with treatment. ? You are taking thyroid hormone replacement medicine and you: ? Sweat a lot. ? Have tremors. ? Feel anxious. ? Lose weight rapidly. ? Cannot tolerate heat. ? Have emotional swings. ? Have diarrhea. ? Feel weak. Get help right away if: ? You have chest pain. ? You have an irregular heartbeat. ? You have a rapid heartbeat. ? You have difficulty breathing. These symptoms may be an emergency. Get help right away. Call 911. ? Do not wait to see if the symptoms will go away. ? Do not drive yourself to the hospital. Summary ? Hypothyroidism is when the thyroid gland does not make enough of certain hormones (it is underactive). ? When the thyroid is underactive, it produces too little of the hormones thyroxine (T4) and triiodothyronine (T3). ? The most common cause is Murali's disease, a disease in which the body's disease-fighting system (immune system) attacks the thyroid gland. The condition can also be caused by viral infections, medicine, , or past radiation treatment to the head or neck. ? Symptoms may include weight gain, dry skin, constipation, feeling as though you do not have energy, and not being able to tolerate cold. ? This condition is treated with medicine to replace the thyroid hormones that your body does not make. This information is not intended to replace advice given to you by your health care provider. Make sure you discuss any questions you have with your health care provider. Document Revised: 09/14/2022 Document Reviewed: 09/14/2022 [employer] Patient Education ? 2022 [employer] High Cholesterol High cholesterol is a condition in which the blood has high levels of a white, waxy substance similar to fat (cholesterol). The liver makes all the cholesterol that the body needs. The human body needs small amounts of cholesterol to help build cells. A person gets extra or excess cholesterol from the food that he or she eats. The blood carries cholesterol from the liver to the rest of the body. If you have high cholesterol, deposits (plaques) may build up on the pacheco of your arteries. Arteries are the blood vessels that carry blood away from your heart. These plaques make the arteries narrow and stiff. Cholesterol plaques increase your risk for heart attack and stroke. Work with your health care provider to keep your cholesterol levels in a healthy range. What increases the risk? The following factors may make you more likely to develop this condition: ? Eating foods that are high in animal fat (saturated fat) or cholesterol. ? Being overweight. ? Not getting enough exercise. ? A family history of high cholesterol (familial hypercholesterolemia). ? Use of tobacco products. ? Having diabetes. What are the signs or symptoms? In most cases, high cholesterol does not usually cause any symptoms. In severe cases, very high cholesterol levels can cause: ? Fatty bumps under the skin (xanthomas). ? A white or adair ring around the black center (pupil) of the eye. How is this diagnosed? This condition may be diagnosed based on the results of a blood test. ? If you are older than 20 years of age, your health care provider may check your cholesterol levels every 4?6 years. ? You may be checked more often if you have high cholesterol or other risk factors for heart disease. The blood test for cholesterol measures: ? Bad cholesterol, or LDL cholesterol. This is the main type of cholesterol that causes heart disease. The desired level is less than 100 mg/dL (2.59 mmol/L). ? Good cholesterol, or HDL cholesterol. HDL helps protect against heart disease by cleaning the arteries and carrying the LDL to the liver for processing. The desired level for HDL is 60 mg/dL (1.55 mmol/L) or higher. ? Triglycerides. These are fats that your body can store or burn for energy. The desired level is less than 150 mg/dL (1.69 mmol/L). ? Total cholesterol. This measures the total amount of cholesterol in your blood and includes LDL, HDL, and triglycerides. The desired level is less than 200 mg/dL (5.17 mmol/L). How is this treated? Treatment for high cholesterol starts with lifestyle changes, such as diet and exercise. ? Diet changes. You may be asked to eat foods that have more fiber and less saturated fats or added sugar. ? Lifestyle changes. These may include regular exercise, maintaining a healthy weight, and quitting use of tobacco products. ? Medicines. These are given when diet and lifestyle changes have not worked. You may be prescribed a statin medicine to help lower your cholesterol levels. Follow these instructions at home: Eating and drinking ? Eat a healthy, balanced diet. This diet includes: ? Daily servings of a variety of fresh, frozen, or canned fruits and vegetables. ? Daily servings of whole grain foods that are rich in fiber. ? Foods that are low in saturated fats and trans fats. These include poultry and fish without skin, lean cuts of meat, and low-fat dairy products. ? A variety of fish, especially oily fish that contain omega-3 fatty acids. Aim to eat fish at least 2 times a week. ? Avoid foods and drinks that have added sugar. ? Use healthy cooking methods, such as roasting, grilling, broiling, baking, poaching, steaming, and stir-frying. Do not flores your food except for stir-frying. ? If you drink alcohol: ? Limit how much you have to: ? 0?1 drink a day for women who are not . ? 0?2 drinks a day for men. ? Know how much alcohol is in a drink. In the [place] one drink equals one 12 oz bottle of beer (355 mL), one 5 oz glass of wine (148 mL), or one 1? oz glass of hard liquor (44 mL). Lifestyle ? Get regular exercise. Aim to exercise for a total of 150 minutes a week. Increase your activity level by doing activities such as gardening, walking, and taking the stairs. ? Do not use any products that contain nicotine or tobacco. These products include cigarettes, chewing tobacco, and vaping devices, such as e-cigarettes. If you need help quitting, ask your health care provider. General instructions ? Take mxxf-pfj-ihhoxpi and prescription medicines only as told by your health care provider. ? Keep all follow-up visits. This is important. Where to find more information ? [place] [employer]: www.heart.org ? National Heart, Lung, and [employer] [place]: www.nhlbi.nih.gov Contact a health care provider if: ? You have trouble achieving or maintaining a healthy diet or weight. ? You are starting an exercise program. ? You are unable to stop smoking. Get help right away if: ? You have chest pain. ? You have trouble breathing. ? You have discomfort or pain in your jaw, neck, back, shoulder, or arm. ? You have any symptoms of a stroke. BE FAST is an easy way to remember the main warning signs of a stroke: ? B - Balance. Signs are dizziness, sudden trouble walking, or loss of balance. ? E - Eyes. Signs are trouble seeing or a sudden change in vision. ? F - Face. Signs are sudden weakness or numbness of the face, or the face or eyelid drooping on one side. ? A - Arms. Signs are weakness or numbness in an arm. This happens suddenly and usually on one side of the body. ? S - Speech. Signs are sudden trouble speaking, slurred speech, or trouble understanding what people say. ? T - Time. Time to call emergency services. Write down what time symptoms started. ? You have other signs of a stroke, such as: ? A sudden, severe headache with no known cause. ? Nausea or vomiting. ? Seizure. These symptoms may represent a serious problem that is an emergency. Do not wait to see if the symptoms will go away. Get medical help right away. Call your local emergency services (911 in the [place] Do not drive yourself to the hospital. Summary ? Cholesterol plaques increase your risk for heart attack and stroke. Work with your health care provider to keep your cholesterol levels in a healthy range. ? Eat a healthy, balanced diet, get regular exercise, and maintain a healthy weight. ? Do not use any products that contain nicotine or tobacco. These products include cigarettes, chewing tobacco, and vaping devices, such as e-cigarettes. ? Get help right away if you have any symptoms of a stroke. This information is not intended to replace advice given to you by your health care provider. Make sure you discuss any questions you have with your health care provider. Document Revised: 11/26/2021 Document Reviewed: 11/16/2021 [employer] Patient Education ? 2022 [employer] Heart Attack A heart attack occurs when blood and oxygen supply to the heart is cut off. A heart attack can cause damage to the heart that cannot be fixed. A heart attack is also called a myocardial infarction, or PA. If you think you are having a heart attack, do not wait to see if the symptoms will go away. Get medical help right away. What are the causes? This condition may be caused by: ? A fatty substance (plaque) in the blood vessels (arteries). This can block the flow of blood to the heart. ? A blood clot in the blood vessels that go to the heart. The blood clot blocks blood flow. ? An abnormal heartbeat. ? Some diseases, such as problems in red blood cells (anemia)orproblems in breathing (respiratory failure). ? Tightening (spasm) of a blood vessel that cuts off blood to the heart. ? A tear in a blood vessel of the heart. Other causes may include: ? Using drugs such as cocaine or methamphetamine. ? Low blood pressure. What increases the risk? ? Aging. The risk gets higher as you get older. ? Having a personal or family history of chest pain, heart attack, stroke, or narrowing of the arteries in the legs, arms, head, or stomach (peripheral vascular disease). ? Having taken chemotherapy or immune-suppressing medicines. ? Being male. ? Being overweight or obese. ? Having any of these conditions: ? High blood pressure. ? High cholesterol. ? Diabetes. ? Making lifestyle choices such as: ? Drinking too much alcohol. ? Not getting regular exercise. ? Smoking. What are the signs or symptoms? ? Chest pain. It may feel like: ? Crushing or squeezing. ? Tightness, pressure, fullness, or heaviness. ? Pain in the arm, neck, jaw, back, or upper body. ? Heartburn. ? Upset stomach (indigestion). ? Shortness of breath. ? Feeling like you may vomit (nauseous). ? Cold sweats. ? Sudden light-headedness, dizziness, or passing out. ? Feeling tired. How is this treated? A heart attack must be treated as soon as possible. Treatment may include: ? Medicines to: ? Break up or dissolve blood clots. ? Thin your blood and help prevent blood clots. ? Treat blood pressure. ? Improve blood flow to the heart. ? Reduce pain. ? Reduce cholesterol. ? Procedures to widen a blocked artery and keep it open. ? Open heart surgery. ? Making your heart strong again (cardiac rehabilitation) through exercise, education, and counseling. Follow these instructions at home: Medicines ? Take qmld-jda-amxuywi and prescription medicines only as told by your doctor. ? Do not take these medicines unless your doctor says it is okay: ? NSAIDs, such as ibuprofen, naproxen, or celecoxib. ? Any vitamins or supplements. ? Hormone replacement therapy that has estrogen with or without progestin. ? If you are taking blood thinners: ? Talk with your doctor before taking any medicines that have aspirin or NSAIDs, such as ibuprofen. ? Take medicines exactly as told. Take them at the same time each day. ? Avoid doing things that could hurt or bruise you. Take action to prevent falls. ? Wear an alert bracelet or carry a card that shows you are taking blood thinners. Lifestyle ? Do not smoke or use any products that contain nicotine or tobacco. If you need help quitting, ask your doctor. ? Avoid secondhand smoke. ? Exercise regularly. Ask your doctor about a cardiac rehab program. ? Eat heart-healthy foods. Your doctor will tell you what foods to eat. ? Stay at a healthy weight. ? Learn ways to lower your stress level. ? Do not use illegal drugs. Alcohol use ? Do not drink alcohol if: ? Your doctor tells you not to drink. ? You are , may be , or are planning to become . ? If you drink alcohol: ? Limit how much you have to: ? 0?1 drink a day for women. ? 0?2 drinks a day for men. ? Know how much alcohol is in your drink. In the [place] one drink equals one 12 oz bottle of beer (355 mL), one 5 oz glass of wine (148 mL), or one 1? oz glass of hard liquor (44 mL). General instructions ? Work with your doctor to treat other problems you may have, such as diabetes or high blood pressure. ? Get screened for depression. Get treatment if needed. ? Keep your vaccines up to date. Get the flu shot (influenza vaccine) every year. ? Keep all follow-up visits. Contact a doctor if: ? You feel very sad. ? You have trouble doing your daily activities. ? You get light-headed or dizzy. Get help right away if: ? You have sudden, unexplained discomfort in your chest, arms, back, neck, jaw, or upper body. ? You have shortness of breath. ? You have sudden sweating or clammy skin. ? You feel like you may vomit or you vomit. ? You feel tired or weak. ? You feel your heart beating fast. ? You feel your heart skipping beats. ? You have blood pressure that is higher than 180/120. These symptoms may be an emergency. Get help right away. Call your local emergency services (911 in the [place] ? Do not wait to see if the symptoms will go away. ? Do not drive yourself to the hospital. Summary ? A heart attack occurs when blood and oxygen supply to the heart is cut off. ? Do not take NSAIDs unless your doctor says it is okay. ? Do not smoke. Avoid secondhand smoke. ? Exercise regularly. Ask your doctor about a cardiac rehab program. This information is not intended to replace advice given to you by your health care provider. Make sure you discuss any questions you have with your health care provider. Document Revised: 03/04/2022 Document Reviewed: 03/04/2022 [employer] Patient Education ? 2022 [employer]. FAMILY MEDICINE OFFICE/CLINI C NOTE Observed: 05/24/2024 1:21 PM Status: F Source: [facility] Family Medicine Office/Clini c Note Chief Complaint Subsequent Medicare Wellness Review of Systems PHQ Score Initial Depression Screen Score: 0 SCORE Physical Exam Vitals & Measurements HR: 62(Peripheral) BP: 158/60 SpO2: 94% HT: 170 cm HT: 67 in WT: 80.90 kg WT: 177.98 lb BMI: 27.99 Assessment/Plan 1. Encounter for Medicare annual examination with abnormal findings (Z00.01: Encounter for general adult medical examination with abnormal findings) The patient was given a customized and personalized print out of all the current AHRQ USPSTF?s recommendations for preventative services and all current CDC recommended immunizations, relevant risk recommendations and the following patient brochures were given. Reviewed Medicare Prevention Services checklist. CDC-Falls Prevention and home safety screening reviewed. Patient denies any falls in last 12 months, voices no worry about falling. Exhibits no problems with sitting, standing or ambulation. Patient aware with keeping walk way area free of clutter to prevent tripping and/or falling. [place] Advance Directives reviewed. Documents are scanned into chart. Patient is an organ donor. Patient denies any problems with ADL?s and Instrumental ADL?s. Cognitive screening completed with memory and clock face drawing. No deficits noted. Patient recited 2/3 words. Immunization record reviewed and are UTD. Patient reports having pneumococcal immunizations at pharmacy. Will call for records to be faxed. 2 COVID vaccines have been administered, with 3 Boosters received. Allergies and medications reviewed and up to date. No concerns with taking medication as prescribed. Reviewed OTC medications, medication list up to date. Blood tests were reviewed: UTD. Patient will be due for updated A1C at next pcp follow up. Orders placed. Patient to have labs drawn prior to visit at office 06/28/2024. Patient reports some constipation and diarrhea at times. No blood present. Patient has aged out for routine Colonoscopy. Patient has upcoming appointment with pcp and will discuss at that time. Patient provided information on a fiber diet. Reviewed pain symptoms: Patient denies pain. Reviewed all outside providers that patient follows. Last visit summary notes available in chart and/or have been requested. Patient declines any signs or symptoms of depression at this time. 8 minutes spent with screening and documentation. PHQ2 screening score 0. Patient drinks alcohol 2-4 times monthly, 1-2 drinks, denies concerns. 8 minutes spent with screening and documentation. Audit score 2. Follow up scheduled with PCP, 07/04/2024 AWV has been scheduled, 05/28/2025 Abnormal findings with elevated BP 2. Diabetes mellitus, (E11.9: Type 2 diabetes mellitus without complications)Encounter for diabetic foot exam Patient is compliant on current DM medication: Metformin. Does not monitors BS at home: DM stoplight handout reviewed with s/s to monitor for and report to PCP. Discussed ADA dietary recommendations with low carbs and reduce sugar intake. Patient encouraged to increase daily physical activity, adequate water intake and maintain a healthy weight. Pt receives yearly DM foot checks, last completed 07/06/[address] Michael. Reminded patient to perform at home foot checks to prevent future complications, wash with soap and water, apply lotion to bilateral feet and in-between toes to prevent dryness and/or cracking. Wear proper fitting shoes and loose fitting socks and/or hose. Follows up with yearly DM eye exams. Called Dr. Green's office and requested records. 3. Secondary diabetes mellitus (E13.9: Other specified diabetes mellitus without complications) see #2 5. Hypercholesterolemia (E78.00: Pure hypercholesterolemia, unspecified) Reviewed healthy lifestyle with low fat diet and exercise regimen. When you are overweight our body produces more lipids. Risk also increases with family history of hyperlipidemia and with monitoring alcohol use and avoid smoking. Pt voices understanding with importance of monitoring dietary intake to reduce risk factors associated with CVA. Taking atorvastatin medications daily as directed. Will continue to follow up with office visits with updated labs as directed. 6. Hypothyroid (E03.9: Hypothyroidism, unspecified) Patient taking Levothyroxine and liothyronine daily as directed, taking in am on an empty stomach and 30 minutes before eating or taking other medications. Denies concerns with cold intolerance, or change in appetite, constipation, slow growing hair or hair thinning. Follows up with PCP during office visits with blood work and medication management. 7. Essential hypertension (I10: Essential (primary) hypertension) Patient is taking losartan daily as directed. Does not monitor BP pressure at home. HTN stoplight reviewed with BP goal to be <140/90. Reviewed different factors that can alter blood pressure readings. Education handout provided with s/s to monitor for and report to provider. Patient is encouraged to increase portions of fruit, vegetables, fiber and increase exercise as much as tolerable. Reviewed importance with monitoring foods high in salt content and encouraged to limit intake, if unsure encouraged to discuss with their PCP and doctor of medicine, Dr. Cisneros. Encouraged to eat more chicken, fish and lean white meats and limits red meats in diet. Discussed importance with keeping BP under good control to reduce CVA risk factors. Will continue to f/u with office visits and as needed. Initial Blood Pressure today was 170/60, Second reading approximately 30 minutes later was 158/60. Patient denies any cardiac event signs or symptoms. Patient educated and voiced understanding. Patient reports having white coat syndrome . 8. Overweight with body mass index (BMI) of 27 to 27.9 in adult (E66.3: Overweight) The standard range for ages 18 and older is >=18.5 and < 25 kg/m2. Your BMI 27.99 today was above this range, this falls in the overweight category and there are medical benefits to weight loss. BMI monitoring is helpful with identifying a weight problem that may be related to a medical condition, or may increase the risk for medical problems. Your BMI and weight management will be followed at subsequent visits with your provider and monitored for progress. GOAL: promoting healthier lifestyle with diet changes in order to reach a healthy weight. Book from the [employer] What's on your Plate provided to patient. Follow-up No qualifying data available Patient Education Blood Glucose Monitoring, Adult Diabetes Mellitus and Nutrition, Adult Diabetes Mellitus and Foot Care DASH Eating Plan Hypothyroidism High Cholesterol Heart Attack, Gdmw-qr-[id number] Problem List/Past Medical History Ongoing Aneurysm of [...] qualifying data Procedure/Surgical History Colonoscopy (2017), EGD (esophagogastroduodenoscopy) gastric outlet reduction (2017), Cardiac catheter (2014), Cardiac catheter (2000), Appendectomy (194). Medications Aspirin Enteric Coated 81 mg oral delayed release tablet, 81 mg= 1 tab(s), Oral, Daily atorvastatin 80 mg Tab, 80 mg= 1 tab(s), Oral, Daily, 3 refills BD UF mini pen needle 5mm/31g, See Instructions, 1 refills carvedilol 12.5 mg Tab, 12.5 mg= 1 tab(s), Oral, BID chlorthalidone 25 mg Tab, 25 mg= 1 tab(s), Oral, Daily, 3 refills clopidogrel 75 mg Tab, 75 mg= 1 tab(s), Oral, Daily, 3 refills colchicine 0.6 mg Tab, See Instructions, 1 refills contour test strips, See Instructions, 1 refills cyclobenzaprine 7.5 mg oral tablet, 7.5 mg= 1 tab(s), Oral, BID, PRN indomethacin 50 mg oral capsule, 50 mg= 1 cap(s), Oral, TID, PRN LANCETS OF CHOICE OR SPECIFIED BY INSURANCE., See Instructions, 11 refills Lantus Solostar Pen 100 units/mL subcutaneous solution, 30 unit(s), SubCutaneous, BID, 3 refills levothyroxine 125 mcg (0.125 mg) Tab, 125 mcg= 1 tab(s), Oral, Daily liothyronine 5 mcg Tab, 10 mcg= 2 tab(s), Oral, Daily, 3 refills losartan 100 mg Tab, 100 mg= 1 tab(s), Oral, Daily, 2 refills metformin 500 mg Tab, 500 mg= 1 tab(s), Oral, BID, 1 refills Vitamin D3 2000 intl units oral Tab, 50 mcg, Oral, Daily, 3 refills Allergies Nuts (Unknown) glipiZIDE (Unknown) omeprazole (Unknown) Social History Alcohol - Low Risk, 12/28/2022 Current, Beer, 1-2 times per week, Alcohol use interferes with work or home: No. Drinks more than intended: No. Others hurt by drinking: No. Ready to change: No. Household alcohol concerns: No., 05/24/2024 Substance Abuse - Denies Substance Abuse, 12/28/2022 Household substance abuse concerns: No., 05/24/2024 Tobacco - Denies Tobacco Use, 12/28/2022 Former smoker, quit more than 30 days ago Tobacco Use:. Never Smokeless Tobacco Use:. Household tobacco concerns: No. Yes, 05/24/2024 Family History Alcoholism: Father. Congenital heart disease: Brother. Diabetes mellitus type 2: Father. Heart failure: Mother and Father. Immunizations Vaccine Date Status Comments zoster vaccine, inactivated 11/25/2023 Recorded zoster vaccine, inactivated 05/17/2023 Recorded influenza virus vaccine, inactivated 06/30/2022 Recorded SARS-CoV-2 (COVID-19) [id number] 06/15/2022 Recorded 2022-12-28: TPV80 SARS-CoV-2 (COVID-19) mRNA-1273 vaccine 02/17/2022 Recorded 2022-12-28: TPV80 SARS-CoV-2 (COVID-19) mRNA-1273 vaccine 07/21/2021 Recorded 2022-12-28: [id number] influenza virus vaccine, inactivated 06/30/2021 Recorded SARS-CoV-2 (COVID-19) mRNA-1273 vaccine 11/18/2020 Recorded SARS-CoV-2 (COVID-19) mRNA-1273 vaccine 10/22/2020 Recorded influenza virus vaccine, inactivated 06/11/2020 Recorded influenza virus vaccine, inactivated 08/28/2019 Recorded Result Comment: Electronical ly Signed By: Sheree Caraballo\.br\Date and Time Signed: 05/24/24 15:07 EDT\.br\Electronically Co-Signed By: Wendy Jacob\.br\Date and Time Co-Signed: 05/24/24 13:22 EDT PATIENT EDUCATION Observed: 05/24/2024 1:12 PM Status: C Source: [facility] Patient Education Emergency Medicine Heart Attack A heart attack occurs when blood and oxygen supply to the heart is cut off. A heart attack can cause damage to the heart that cannot be fixed. A heart attack is also called a myocardial infarction, or PA. If you think you are having a heart attack, do not wait to see if the symptoms will go away. Get medical help right away. What are the causes? This condition may be caused by: ? A fatty substance (plaque) in the blood vessels (arteries). This can block the flow of blood to the heart. ? A blood clot in the blood vessels that go to the heart. The blood clot blocks blood flow. ? An abnormal heartbeat. ? Some diseases, such as problems in red blood cells (anemia)orproblems in breathing (respiratory failure). ? Tightening (spasm) of a blood vessel that cuts off blood to the heart. ? A tear in a blood vessel of the heart. Other causes may include: ? Using drugs such as cocaine or methamphetamine. ? Low blood pressure. What increases the risk? ? Aging. The risk gets higher as you get older. ? Having a personal or family history of chest pain, heart attack, stroke, or narrowing of the arteries in the legs, arms, head, or stomach (peripheral vascular disease). ? Having taken chemotherapy or immune-suppressing medicines. ? Being male. ? Being overweight or obese. ? Having any of these conditions: ? High blood pressure. ? High cholesterol. ? Diabetes. ? Making lifestyle choices such as: ? Drinking too much alcohol. ? Not getting regular exercise. ? Smoking. What are the signs or symptoms? ? Chest pain. It may feel like: ? Crushing or squeezing. ? Tightness, pressure, fullness, or heaviness. ? Pain in the arm, neck, jaw, back, or upper body. ? Heartburn. ? Upset stomach (indigestion). ? Shortness of breath. ? Feeling like you may vomit (nauseous). ? Cold sweats. ? Sudden light-headedness, dizziness, or passing out. ? Feeling tired. How is this treated? A heart attack must be treated as soon as possible. Treatment may include: ? Medicines to: ? Break up or dissolve blood clots. ? Thin your blood and help prevent blood clots. ? Treat blood pressure. ? Improve blood flow to the heart. ? Reduce pain. ? Reduce cholesterol. ? Procedures to widen a blocked artery and keep it open. ? Open heart surgery. ? Making your heart strong again (cardiac rehabilitation) through exercise, education, and counseling. Follow these instructions at home: Medicines ? Take wotx-zxq-rigvrqx and prescription medicines only as told by your doctor. ? Do not take these medicines unless your doctor says it is okay: ? NSAIDs, such as ibuprofen, naproxen, or celecoxib. ? Any vitamins or supplements. ? Hormone replacement therapy that has estrogen with or without progestin. ? If you are taking blood thinners: ? Talk with your doctor before taking any medicines that have aspirin or NSAIDs, such as ibuprofen. ? Take medicines exactly as told. Take them at the same time each day. ? Avoid doing things that could hurt or bruise you. Take action to prevent falls. ? Wear an alert bracelet or carry a card that shows you are taking blood thinners. Lifestyle ? Do not smoke or use any products that contain nicotine or tobacco. If you need help quitting, ask your doctor. ? Avoid secondhand smoke. ? Exercise regularly. Ask your doctor about a cardiac rehab program. ? Eat heart-healthy foods. Your doctor will tell you what foods to eat. ? Stay at a healthy weight. ? Learn ways to lower your stress level. ? Do not use illegal drugs. Alcohol use ? Do not drink alcohol if: ? Your doctor tells you not to drink. ? You are , may be , or are planning to become . ? If you drink alcohol: ? Limit how much you have to: ? 0?1 drink a day for women. ? 0?2 drinks a day for men. ? Know how much alcohol is in your drink. In the [place] one drink equals one 12 oz bottle of beer (355 mL), one 5 oz glass of wine (148 mL), or one 1? oz glass of hard liquor (44 mL). General instructions ? Work with your doctor to treat other problems you may have, such as diabetes or high blood pressure. ? Get screened for depression. Get treatment if needed. ? Keep your vaccines up to date. Get the flu shot (influenza vaccine) every year. ? Keep all follow-up visits. Contact a doctor if: ? You feel very sad. ? You have trouble doing your daily activities. ? You get light-headed or dizzy. Get help right away if: ? You have sudden, unexplained discomfort in your chest, arms, back, neck, jaw, or upper body. ? You have shortness of breath. ? You have sudden sweating or clammy skin. ? You feel like you may vomit or you vomit. ? You feel tired or weak. ? You feel your heart beating fast. ? You feel your heart skipping beats. ? You have blood pressure that is higher than 180/120. These symptoms may be an emergency. Get help right away. Call your local emergency services (911 in the [place] ? Do not wait to see if the symptoms will go away. ? Do not drive yourself to the hospital. Summary ? A heart attack occurs when blood and oxygen supply to the heart is cut off. ? Do not take NSAIDs unless your doctor says it is okay. ? Do not smoke. Avoid secondhand smoke. ? Exercise regularly. Ask your doctor about a cardiac rehab program. This information is not intended to replace advice given to you by your health care provider. Make sure you discuss any questions you have with your health care provider. Document Revised: 03/04/2022 Document Reviewed: 03/04/2022 [employer] Patient Education ? 2022 [employer].Endocrinology Blood Glucose Monitoring, Adult Monitoring your blood sugar (glucose) is an important part of managing your diabetes. Blood glucose monitoring involves checking your blood glucose as often as directed and keeping a log or record of your results over time. Checking your blood glucose regularly and keeping a blood glucose log can: ? Help you and your health care provider adjust your diabetes management plan as needed, including your medicines or insulin. ? Help you understand how food, exercise, illnesses, and medicines affect your blood glucose. ? Let you know what your blood glucose is at any time. You can quickly find out if you have low blood glucose (hypoglycemia) or high blood glucose (hyperglycemia). Your health care provider will set individualized treatment goals for you. Your goals will be based on your age, other medical conditions you have, and how you respond to diabetes treatment. Generally, the goal of treatment is to maintain the following blood glucose levels: ? Before meals (preprandial): 80?130 mg/dL (4.4?7.2 mmol/L). ? After meals (postprandial): below 180 mg/dL (10 mmol/L). ? A1C level: less than 7%. Supplies needed: ? Blood glucose meter. ? Test strips for your meter. Each meter has its own strips. You must use the strips that came with your meter. ? A needle to prick your finger (lancet). Do not use a lancet more than one time. ? A device that holds the lancet (lancing device). ? A journal or log book to write down your results. How to check your blood glucose Checking your blood glucose 1. Wash your hands for at least 20 seconds with soap and water. 2. Prick the side of your finger (not the tip) with the lancet. Do not use the same finger consecutively. 3. Gently rub the finger until a small drop of blood appears. 4. Follow instructions that come with your meter for inserting the test strip, applying blood to the strip, and using your blood glucose meter. 5. Write down your result and any notes in your log. Using alternative sites Some meters allow you to use areas of your body other than your finger (alternative sites) to test your blood. The most common alternative sites are the forearm, the thigh, and the palm of your hand. Alternative sites may not be as accurate as the fingers because blood flow is slower in those areas. This means that the result you get may be delayed, and it may be different from the result that you would get from your finger. Use the finger only, and do not use alternative sites, if: ? You think you have hypoglycemia. ? You sometimes do not know that your blood glucose is getting low (hypoglycemia unawareness). General tips and recommendations Blood glucose log ? Every time you check your blood glucose, write down your result. Also write down any notes about things that may be affecting your blood glucose, such as your diet and exercise for the day. This information can help you and your health care provider: ? Look for patterns in your blood glucose over time. ? Adjust your diabetes management plan as needed. ? Check if your meter allows you to download your records to a computer or if there is an hao for the meter. Most glucose meters store a record of glucose readings in the meter. If you have type 1 diabetes: ? Check your blood glucose 4 or more times a day if you are on intensive insulin therapy with multiple daily injections (MDI) or if you are using an insulin pump. Check your blood glucose: ? Before every meal and snack. ? Before bedtime. ? Also check your blood glucose: ? If you have symptoms of hypoglycemia. ? After treating low blood glucose. ? Before doing activities that create a risk for injury, like driving or using machinery. ? Before and after exercise. ? Two hours after a meal. ? Occasionally between 2:00 a.m. and 3:00 a.m., as directed. ? You may need to check your blood glucose more often, 6?10 times per day, if: ? You have diabetes that is not well controlled. ? You are ill. ? You have a history of severe hypoglycemia. ? You have hypoglycemia unawareness. If you have type 2 diabetes: ? Check your blood glucose 2 or more times a day if you take insulin or other diabetes medicines. ? Check your blood glucose 4 or more times a day if you are on intensive insulin therapy. Occasionally, you may also need to check your glucose between 2:00 a.m. and 3:00 a.m., as directed. ? Also check your blood glucose: ? Before and after exercise. ? Before doing activities that create a risk for injury, like driving or using machinery. ? You may need to check your blood glucose more often if: ? Your medicine is being adjusted. ? Your diabetes is not well controlled. ? You are ill. General tips ? Make sure you always have your supplies with you. ? After you use a few boxes of test strips, adjust (calibrate) your blood glucose meter by following instructions that came with your meter. ? If you have questions or need help, all blood glucose meters have a 24-hour hotline phone number available that you can call. Also contact your health care provider with questions or concerns you may have. Where to find more information ? The [place] [employer]: www.diabetes.org ? The Association of Diabetes Care & Education Specialists: www.diabeteseducator.org Contact a health care provider if: ? Your blood glucose is at or above 240 mg/dL (13.3 mmol/L) for 2 days in a row. ? You have been sick or have had a fever for 2 days or longer, and you are not getting better. ? You have any of the following problems for more than 6 hours: ? You cannot eat or drink. ? You have nausea or vomiting. ? You have diarrhea. Get help right away if: ? Your blood glucose is lower than 54 mg/dL (3 mmol/L). ? You become confused, or you have trouble thinking clearly. ? You have difficulty breathing. ? You have moderate or large ketone levels in your urine. These symptoms may represent a serious problem that is an emergency. Do not wait to see if the symptoms will go away. Get medical help right away. Call your local emergency services (911 in the [place] Do not drive yourself to the hospital. Summary ? Monitoring your blood glucose is an important part of managing your diabetes. ? Blood glucose monitoring involves checking your blood glucose as often as directed and keeping a log or record of your results over time. ? Your health care provider will set individualized treatment goals for you. Your goals will be based on your age, other medical conditions you have, and how you respond to diabetes treatment. ? Every time you check your blood glucose, write down your result. Also, write down any notes about things that may be affecting your blood glucose, such as your diet and exercise for the day. This information is not intended to replace advice given to you by your health care provider. Make sure you discuss any questions you have with your health care provider. Document Revised: 06/10/2021 Document Reviewed: 06/10/2021 [employer] Patient Education ? 2022 [employer]Diabetes Mellitus and Nutrition, Adult When you have diabetes, or diabetes mellitus, it is very important to have healthy eating habits because your blood sugar (glucose) levels are greatly affected by what you eat and drink. Eating healthy foods in the right amounts, at about the same times every day, can help you: ? Manage your blood glucose. ? Lower your risk of heart disease. ? Improve your blood pressure. ? Reach or maintain a healthy weight. What can affect my meal plan? Every person with diabetes is different, and each person has different needs for a meal plan. Your health care provider may recommend that you work with a dietitian to make a meal plan that is best for you. Your meal plan may vary depending on factors such as: ? The calories you need. ? The medicines you take. ? Your weight. ? Your blood glucose, blood pressure, and cholesterol levels. ? Your activity level. ? Other health conditions you have, such as heart or kidney disease. How do carbohydrates affect me? Carbohydrates, also called carbs, affect your blood glucose level more than any other type of food. Eating carbs raises the amount of glucose in your blood. It is important to know how many carbs you can safely have in each meal. This is different for every person. Your dietitian can help you calculate how many carbs you should have at each meal and for each snack. How does alcohol affect me? Alcohol can cause a decrease in blood glucose (hypoglycemia), especially if you use insulin or take certain diabetes medicines by mouth. Hypoglycemia can be a life-threatening condition. Symptoms of hypoglycemia, such as sleepiness, dizziness, and confusion, are similar to symptoms of having too much alcohol. ? Do not drink alcohol if: ? Your health care provider tells you not to drink. ? You are , may be , or are planning to become . ? If you drink alcohol: ? Limit how much you have to: ? 0?1 drink a day for women. ? 0?2 drinks a day for men. ? Know how much alcohol is in your drink. In the [place] one drink equals one 12 oz bottle of beer (355 mL), one 5 oz glass of wine (148 mL), or one 1? oz glass of hard liquor (44 mL). ? Keep yourself hydrated with water, diet soda, or unsweetened iced tea. Keep in mind that regular soda, juice, and other mixers may contain a lot of sugar and must be counted as carbs. What are tips for following this plan? Reading food labels ? Start by checking the serving size on the Nutrition Facts label of packaged foods and drinks. The number of calories and the amount of carbs, fats, and other nutrients listed on the label are based on one serving of the item. Many items contain more than one serving per package. ? Check the total grams (g) of carbs in one serving. ? Check the number of grams of saturated fats and trans fats in one serving. Choose foods that have a low amount or none of these fats. ? Check the number of milligrams (mg) of salt (sodium) in one serving. Most people should limit total sodium intake to less than 2,300 mg per day. ? Always check the nutrition information of foods labeled as low-fat or nonfat. These foods may be higher in added sugar or refined carbs and should be avoided. ? Talk to your dietitian to identify your daily goals for nutrients listed on the label. Shopping ? Avoid buying canned, pre-made, or processed foods. These foods tend to be high in fat, sodium, and added sugar. ? Shop around the outside edge of the grocery store. This is where you will most often find fresh fruits and vegetables, bulk grains, fresh meats, and fresh dairy products. Cooking ? Use low-heat cooking methods, such as baking, instead of high-heat cooking methods, such as deep frying. ? Cook using healthy oils, such as olive, canola, or sunflower oil. ? Avoid cooking with butter, cream, or high-fat meats. Meal planning ? Eat meals and snacks regularly, preferably at the same times every day. Avoid going long periods of time without eating. ? Eat foods that are high in fiber, such as fresh fruits, vegetables, beans, and whole grains. ? Eat 4?6 oz (112?168 g) of lean protein each day, such as lean meat, chicken, fish, eggs, or tofu. One ounce (oz) (28 g) of lean protein is equal to: ? 1 oz (28 g) of meat, chicken, or fish. ? 1 egg. ? ? cup (62 g) of tofu. ? Eat some foods each day that contain healthy fats, such as avocado, nuts, seeds, and fish. What foods should I eat? Fruits Berries. Apples. Oranges. Peaches. Apricots. Plums. Grapes. Mangoes. Papayas. Pomegranates. Kiwi. Cherries. Vegetables Leafy greens, including lettuce, spinach, kale, chard, mendez greens, mustard greens, and cabbage. Beets. Cauliflower. Broccoli. Carrots. Green beans. Tomatoes. Peppers. Onions. Cucumbers. [place] sprouts. Grains Whole grains, such as whole-wheat or whole-grain bread, crackers, tortillas, cereal, and pasta. Unsweetened oatmeal. Quinoa. Brown or wild rice. Meats and other proteins Seafood. Poultry without skin. Lean cuts of poultry and beef. Tofu. Nuts. Seeds. Dairy Low-fat or fat-free dairy products such as milk, yogurt, and cheese. The items listed above may not be a complete list of foods and beverages you can eat and drink. Contact a dietitian for more information. What foods should I avoid? Fruits Fruits canned with syrup. Vegetables Canned vegetables. Frozen vegetables with butter or cream sauce. Grains Refined white flour and flour products such as bread, pasta, snack foods, and cereals. Avoid all processed foods. Meats and other proteins Fatty cuts of meat. Poultry with skin. Breaded or fried meats. Processed meat. Avoid saturated fats. Dairy Full-fat yogurt, cheese, or milk. Beverages Sweetened drinks, such as soda or iced tea. The items listed above may not be a complete list of foods and beverages you should avoid. Contact a dietitian for more information. Questions to ask a health care provider ? Do I need to meet with a certified diabetes care and director of in service education? ? Do I need to meet with a dietitian? ? What number can I call if I have questions? ? When are the best times to check my blood glucose? Where to find more information: ? [place] [employer]: diabetes.org ? Academy of Nutrition and Dietetics: eatright.org ? National [place] of Diabetes and Digestive and Kidney Diseases: niddk.nih.gov ? Association of Diabetes Care & Education Specialists: diabeteseducator.org Summary ? It is important to have healthy eating habits because your blood sugar (glucose) levels are greatly affected by what you eat and drink. It is important to use alcohol carefully. ? A healthy meal plan will help you manage your blood glucose and lower your risk of heart disease. ? Your health care provider may recommend that you work with a dietitian to make a meal plan that is best for you. This information is not intended to replace advice given to you by your health care provider. Make sure you discuss any questions you have with your health care provider. Document Revised: 04/15/2021 Document Reviewed: 04/15/2021 [employer] Patient Education ? 2022 [employer]Diabetes Mellitus and Foot Care Foot care is an important part of your health, especially when you have diabetes. Diabetes may cause you to have problems because of poor blood flow (circulation) to your feet and legs, which can cause your skin to: ? Become thinner and rotary drier operator. ? Break more easily. ? Heal more slowly. ? Peel and crack. You may also have nerve damage (neuropathy) in your legs and feet, causing decreased feeling in them. This means that you may not notice minor injuries to your feet that could lead to more serious problems. Noticing and addressing any potential problems early is the best way to prevent future foot problems. How to care for your feet Foot hygiene ? Wash your feet daily with warm water and mild soap. Do not use hot water. Then, pat your feet and the areas between your toes until they are completely dry. Do not soak your feet as this can dry your skin. ? Trim your toenails straight across. Do not dig under them or around the cuticle. File the edges of your nails with an emery board or nail file. ? Apply a moisturizing lotion or petroleum jelly to the skin on your feet and to dry, brittle toenails. Use lotion that does not contain alcohol and is unscented. Do not apply lotion between your toes. Shoes and socks ? Wear clean socks or stockings every day. Make sure they are not too tight. Do not wear knee-high stockings since they may decrease blood flow to your legs. ? Wear shoes that fit properly and have enough cushioning. Always look in your shoes before you put them on to be sure there are no objects inside. ? To break in new shoes, wear them for just a few hours a day. This prevents injuries on your feet. Wounds, scrapes, corns, and calluses ? Check your feet daily for blisters, cuts, bruises, sores, and redness. If you cannot see the bottom of your feet, use a mirror or ask someone for help. ? Do not cut corns or calluses or try to remove them with medicine. ? If you find a minor scrape, cut, or break in the skin on your feet, keep it and the skin around it clean and dry. You may clean these areas with mild soap and water. Do not clean the area with peroxide, alcohol, or iodine. ? If you have a wound, scrape, corn, or callus on your foot, look at it several times a day to make sure it is healing and not infected. Check for: ? Redness, swelling, or pain. ? Fluid or blood. ? Warmth. ? Pus or a bad smell. General tips ? Do not cross your legs. This may decrease blood flow to your feet. ? Do not use heating pads or hot water bottles on your feet. They may burn your skin. If you have lost feeling in your feet or legs, you may not know this is happening until it is too late. ? Protect your feet from hot and cold by wearing shoes, such as at the beach or on hot pavement. ? Schedule a complete foot exam at least once a year (annually) or more often if you have foot problems. Report any cuts, sores, or bruises to your health care provider immediately. Where to find more information ? [place] [employer]: www.diabetes.org ? Association of Diabetes Care & Education Specialists: www.diabeteseducator.org Contact a health care provider if: ? You have a medical condition that increases your risk of infection and you have any cuts, sores, or bruises on your feet. ? You have an injury that is not healing. ? You have redness on your legs or feet. ? You feel burning or tingling in your legs or feet. ? You have pain or cramps in your legs and feet. ? Your legs or feet are numb. ? Your feet always feel cold. ? You have pain around any toenails. Get help right away if: ? You have a wound, scrape, corn, or callus on your foot and: ? You have pain, swelling, or redness that gets worse. ? You have fluid or blood coming from the wound, scrape, corn, or callus. ? Your wound, scrape, corn, or callus feels warm to the touch. ? You have pus or a bad smell coming from the wound, scrape, corn, or callus. ? You have a fever. ? You have a red line going up your leg. Summary ? Check your feet every day for blisters, cuts, bruises, sores, and redness. ? Apply a moisturizing lotion or petroleum jelly to the skin on your feet and to dry, brittle toenails. ? Wear shoes that fit properly and have enough cushioning. ? If you have foot problems, report any cuts, sores, or bruises to your health care provider immediately. ? Schedule a complete foot exam at least once a year (annually) or more often if you have foot problems. This information is not intended to replace advice given to you by your health care provider. Make sure you discuss any questions you have with your health care provider. Document Revised: 04/02/2021 Document Reviewed: 04/02/2021 [employer] Patient Education ? 2022 [employer].Hypothyroidism Hypothyroidism is when the thyroid gland does not make enough of certain hormones. This is called an underactive thyroid. The thyroid gland is a small gland located in the lower front part of the neck, just in front of the windpipe (trachea). This gland makes hormones that help control how the body uses food for energy (metabolism) as well as how the heart and brain function. These hormones also play a role in keeping your bones strong. When the thyroid is underactive, it produces too little of the hormones thyroxine (T4) and triiodothyronine (T3). What are the causes? This condition may be caused by: ? Murali's disease. This is a disease in which the body's disease-fighting system (immune system) attacks the thyroid gland. This is the most common cause. ? Viral infections. ? . ? Certain medicines. ? defects. ? Problems with a gland in the center of the brain (pituitary gland). ? Lack of enough iodine in the diet. Other causes may include: ? Past radiation treatments to the head or neck for cancer. ? Past treatment with radioactive iodine. ? Past exposure to radiation in the environment. ? Past surgical removal of part or all of the thyroid. What increases the risk? You are more likely to develop this condition if: ? You are female. ? You have a family history of thyroid conditions. ? You use a medicine called lithium. ? You take medicines that affect the immune system (immunosuppressants). What are the signs or symptoms? Common symptoms of this condition include: ? Not being able to tolerate cold. ? Feeling as though you have no energy (lethargy). ? Lack of appetite. ? Constipation. ? Sadness or depression. ? Weight gain that is not explained by a change in diet or exercise habits. ? Menstrual irregularity. ? Dry skin, coarse hair, or brittle nails. Other symptoms may include: ? Muscle pain. ? Slowing of thought processes. ? Poor memory. How is this diagnosed? This condition may be diagnosed based on: ? Your symptoms, your medical history, and a physical exam. ? Blood tests. You may also have imaging tests, such as an ultrasound or MRI. How is this treated? This condition is treated with medicine that replaces the thyroid hormones that your body does not make. After you begin treatment, it may take several weeks for symptoms to go away. Follow these instructions at home: ? Take [id number] and prescription medicines only as told by your health care provider. ? If you start taking any new medicines, tell your health care provider. ? Keep all follow-up visits as told by your health care provider. This is important. ? As your condition improves, your dosage of thyroid hormone medicine may change. ? You will need to have blood tests regularly so that your health care provider can monitor your condition. Contact a health care provider if: ? Your symptoms do not get better with treatment. ? You are taking thyroid hormone replacement medicine and you: ? Sweat a lot. ? Have tremors. ? Feel anxious. ? Lose weight rapidly. ? Cannot tolerate heat. ? Have emotional swings. ? Have diarrhea. ? Feel weak. Get help right away if: ? You have chest pain. ? You have an irregular heartbeat. ? You have a rapid heartbeat. ? You have difficulty breathing. These symptoms may be an emergency. Get help right away. Call 911. ? Do not wait to see if the symptoms will go away. ? Do not drive yourself to the hospital. Summary ? Hypothyroidism is when the thyroid gland does not make enough of certain hormones (it is underactive). ? When the thyroid is underactive, it produces too little of the hormones thyroxine (T4) and triiodothyronine (T3). ? The most common cause is Murali's disease, a disease in which the body's disease-fighting system (immune system) attacks the thyroid gland. The condition can also be caused by viral infections, medicine, , or past radiation treatment to the head or neck. ? Symptoms may include weight gain, dry skin, constipation, feeling as though you do not have energy, and not being able to tolerate cold. ? This condition is treated with medicine to replace the thyroid hormones that your body does not make. This information is not intended to replace advice given to you by your health care provider. Make sure you discuss any questions you have with your health care provider. Document Revised: 09/14/2022 Document Reviewed: 09/14/2022 [employer] Patient Education ? 2022 [employer].Nutrition DASH Eating Plan DASH stands for Dietary Approaches to Stop Hypertension. The DASH eating plan is a healthy eating plan that has been shown to: ? Reduce high blood pressure (hypertension). ? Reduce your risk for type 2 diabetes, heart disease, and stroke. ? Help with weight loss. What are tips for following this plan? Reading food labels ? Check food labels for the amount of salt (sodium) per serving. Choose foods with less than 5 percent of the Daily Value of sodium. Generally, foods with less than 300 milligrams (mg) of sodium per serving fit into this eating plan. ? To find whole grains, look for the word whole as the first word in the ingredient list. Shopping ? Buy products labeled as low-sodium or no salt added. ? Buy fresh foods. Avoid canned foods and pre-made or frozen meals. Cooking ? Avoid adding salt when cooking. Use salt-free seasonings or herbs instead of table salt or sea salt. Check with your health care provider or pharmacist before using salt substitutes. ? Do not flores foods. Cook foods using healthy methods such as baking, boiling, grilling, roasting, and broiling instead. ? Cook with heart-healthy oils, such as olive, canola, avocado, soybean, or sunflower oil. Meal planning ? Eat a balanced diet that includes: ? 4 or more servings of fruits and 4 or more servings of vegetables each day. Try to fill one-half of your plate with fruits and vegetables. ? 6?8 servings of whole grains each day. ? Less than 6 oz (170 g) of lean meat, poultry, or fish each day. A 3-oz (85-g) serving of meat is about the same size as a deck of cards. One egg equals 1 oz (28 g). ? 2?3 servings of low-fat dairy each day. One serving is 1 cup (237 mL). ? 1 serving of nuts, seeds, or beans 5 times each week. ? 2?3 servings of heart-healthy fats. Healthy fats called omega-3 fatty acids are found in foods such as walnuts, flaxseeds, fortified milks, and eggs. These fats are also found in cold-water fish, such as sardines, salmon, and mackerel. ? Limit how much you eat of: ? Canned or prepackaged foods. ? Food that is high in trans fat, such as some fried foods. ? Food that is high in saturated fat, such as fatty meat. ? Desserts and other sweets, sugary drinks, and other foods with added sugar. ? Full-fat dairy products. ? Do not salt foods before eating. ? Do not eat more than 4 egg yolks a week. ? Try to eat at least 2 vegetarian meals a week. ? Eat more home-cooked food and less restaurant, buffet, and fast food. Lifestyle ? When eating at a restaurant, ask that your food be prepared with less salt or no salt, if possible. ? If you drink alcohol: ? Limit how much you use to: ? 0?1 drink a day for women who are not . ? 0?2 drinks a day for men. ? Be aware of how much alcohol is in your drink. In the [place] one drink equals one 12 oz bottle of beer (355 mL), one 5 oz glass of wine (148 mL), or one 1? oz glass of hard liquor (44 mL). General information ? Avoid eating more than 2,300 mg of salt a day. If you have hypertension, you may need to reduce your sodium intake to 1,500 mg a day. ? Work with your health care provider to maintain a healthy body weight or to lose weight. Ask what an ideal weight is for you. ? Get at least 30 minutes of exercise that causes your heart to beat faster (aerobic exercise) most days of the week. Activities may include walking, swimming, or biking. ? Work with your health care provider or dietitian to adjust your eating plan to your individual calorie needs. What foods should I eat? Fruits All fresh, dried, or frozen fruit. Canned fruit in natural juice (without added sugar). Vegetables Fresh or frozen vegetables (raw, steamed, roasted, or grilled). Low-sodium or reduced-sodium tomato and vegetable juice. Low-sodium or reduced-sodium tomato sauce and tomato paste. Low-sodium or reduced-sodium canned vegetables. Grains Whole-grain or whole-wheat bread. Whole-grain or whole-wheat pasta. Brown rice. Oatmeal. Quinoa. Bulgur. Whole-grain and low-sodium cereals. Agnes bread. Low- fat, low-sodium crackers. Whole-wheat flour tortillas. Meats and other proteins Skinless chicken or turkey. Ground chicken or turkey. Pork with fat trimmed off. Fish and seafood. Egg whites. Dried beans, peas, or lentils. Unsalted nuts, nut butters, and seeds. Unsalted canned beans. Lean cuts of beef with fat trimmed off. Low- sodium, lean precooked or cured meat, such as sausages or meat loaves. Dairy Low-fat (1%) or fat-free (skim) milk. Reduced-fat, low-fat, or fat-free cheeses. Nonfat, low-sodium ricotta or cottage cheese. Low-fat or nonfat yogurt. Low-fat, low-sodium cheese. Fats and oils Soft margarine without trans fats. Vegetable oil. Reduced-fat, low-fat, or light mayonnaise and salad dressings (reduced-sodium). Canola, safflower, olive, avocado, soybean, and sunflower oils. Avocado. Seasonings and condiments Herbs. Spices. Seasoning mixes without salt. Other foods Unsalted popcorn and pretzels. Fat-free sweets. The items listed above may not be a complete list of foods and beverages you can eat. Contact a dietitian for more information. What foods should I avoid? Fruits Canned fruit in a light or heavy syrup. Fried fruit. Fruit in cream or butter sauce. Vegetables Creamed or fried vegetables. Vegetables in a cheese sauce. Regular canned vegetables (not low-sodium or reduced-sodium). Regular canned tomato sauce and paste (not low-sodium or reduced-sodium). Regular tomato and vegetable juice (not low- sodium or reduced-sodium). Pickles. Olives. Grains Baked goods made with fat, such as croissants, muffins, or some breads. Dry pasta or rice meal packs. Meats and other proteins Fatty cuts of meat. Ribs. Fried meat. Montez. Bologna, salami, and other precooked or cured meats, such as sausages or meat loaves. Fat from the back of a pig (fatback). Bratwurst. Salted nuts and seeds. Canned beans with added salt. Canned or smoked fish. Whole eggs or egg yolks. Chicken or turkey with skin. Dairy Whole or 2% milk, cream, and [id number]. Whole or full-fat cream cheese. Whole-fat or sweetened yogurt. Full-fat cheese. Nondairy creamers. Whipped toppings. Processed cheese and cheese spreads. Fats and oils Butter. Stick margarine. Lard. Shortening. Ghee. Montez fat. Tropical oils, such as coconut, palm kernel, or palm oil. Seasonings and condiments Onion salt, garlic salt, seasoned salt, table salt, and sea salt. Worcestershire sauce. Tartar sauce. Barbecue sauce. Teriyaki sauce. Soy sauce, including reduced-sodium. Steak sauce. Canned and packaged gravies. Fish sauce. Oyster sauce. Cocktail sauce. Store-bought horseradish. Ketchup. Mustard. Meat flavorings and tenderizers. Bouillon cubes. Hot sauces. Pre-made or packaged marinades. Pre- made or packaged taco seasonings. Relishes. Regular salad dressings. Other foods Salted popcorn and pretzels. The items listed above may not be a complete list of foods and beverages you should avoid. Contact a dietitian for more information. Where to find more information ? National Heart, Lung, and Blood [place]: www.nhlbi.nih.gov ? [place] [employer] Association: www.heart.org ? Academy of Nutrition and Dietetics: www.eatright.org ? National Kidney Foundation: www.kidney.org Summary ? The DASH eating plan is a healthy eating plan that has been shown to reduce high blood pressure (hypertension). It may also reduce your risk for type 2 diabetes, heart disease, and stroke. ? When on the DASH eating plan, aim to eat more fresh fruits and vegetables, whole grains, lean proteins, low-fat dairy, and heart-healthy fats. ? With the DASH eating plan, you should limit salt (sodium) intake to 2,300 mg a day. If you have hypertension, you may need to reduce your sodium intake to 1,500 mg a day. ? Work with your health care provider or dietitian to adjust your eating plan to your individual calorie needs. This information is not intended to replace advice given to you by your health care provider. Make sure you discuss any questions you have with your health care provider. Document Revised: 08/15/2020 Document Reviewed: 08/15/2020 [employer] Patient Education ? 2022 [employer].High Cholesterol High cholesterol is a condition in which the blood has high levels of a white, waxy substance similar to fat (cholesterol). The liver makes all the cholesterol that the body needs. The human body needs small amounts of cholesterol to help build cells. A person gets extra or excess cholesterol from the food that he or she eats. The blood carries cholesterol from the liver to the rest of the body. If you have high cholesterol, deposits (plaques) may build up on the pacheco of your arteries. Arteries are the blood vessels that carry blood away from your heart. These plaques make the arteries narrow and stiff. Cholesterol plaques increase your risk for heart attack and stroke. Work with your health care provider to keep your cholesterol levels in a healthy range. What increases the risk? The following factors may make you more likely to develop this condition: ? Eating foods that are high in animal fat (saturated fat) or cholesterol. ? Being overweight. ? Not getting enough exercise. ? A family history of high cholesterol (familial hypercholesterolemia). ? Use of tobacco products. ? Having diabetes. What are the signs or symptoms? In most cases, high cholesterol does not usually cause any symptoms. In severe cases, very high cholesterol levels can cause: ? Fatty bumps under the skin (xanthomas). ? A white or adair ring around the black center (pupil) of the eye. How is this diagnosed? This condition may be diagnosed based on the results of a blood test. ? If you are older than 20 years of age, your health care provider may check your cholesterol levels every 4?6 years. ? You may be checked more often if you have high cholesterol or other risk factors for heart disease. The blood test for cholesterol measures: ? Bad cholesterol, or LDL cholesterol. This is the main type of cholesterol that causes heart disease. The desired level is less than 100 mg/dL (2.59 mmol/L). ? Good cholesterol, or HDL cholesterol. HDL helps protect against heart disease by cleaning the arteries and carrying the LDL to the liver for processing. The desired level for HDL is 60 mg/dL (1.55 mmol/L) or higher. ? Triglycerides. These are fats that your body can store or burn for energy. The desired level is less than 150 mg/dL (1.69 mmol/L). ? Total cholesterol. This measures the total amount of cholesterol in your blood and includes LDL, HDL, and triglycerides. The desired level is less than 200 mg/dL (5.17 mmol/L). How is this treated? Treatment for high cholesterol starts with lifestyle changes, such as diet and exercise. ? Diet changes. You may be asked to eat foods that have more fiber and less saturated fats or added sugar. ? Lifestyle changes. These may include regular exercise, maintaining a healthy weight, and quitting use of tobacco products. ? Medicines. These are given when diet and lifestyle changes have not worked. You may be prescribed a statin medicine to help lower your cholesterol levels. Follow these instructions at home: Eating and drinking ? Eat a healthy, balanced diet. This diet includes: ? Daily servings of a variety of fresh, frozen, or canned fruits and vegetables. ? Daily servings of whole grain foods that are rich in fiber. ? Foods that are low in saturated fats and trans fats. These include poultry and fish without skin, lean cuts of meat, and low-fat dairy products. ? A variety of fish, especially oily fish that contain omega-3 fatty acids. Aim to eat fish at least 2 times a week. ? Avoid foods and drinks that have added sugar. ? Use healthy cooking methods, such as roasting, grilling, broiling, baking, poaching, steaming, and stir-frying. Do not flores your food except for stir- frying. ? If you drink alcohol: ? Limit how much you have to: ? 0?1 drink a day for women who are not . ? 0?2 drinks a day for men. ? Know how much alcohol is in a drink. In the [place] one drink equals one 12 oz bottle of beer (355 mL), one 5 oz glass of wine (148 mL), or one 1? oz glass of hard liquor (44 mL). Lifestyle ? Get regular exercise. Aim to exercise for a total of 150 minutes a week. Increase your activity level by doing activities such as gardening, walking, and taking the stairs. ? Do not use any products that contain nicotine or tobacco. These products include cigarettes, chewing tobacco, and vaping devices, such as e-cigarettes. If you need help quitting, ask your health care provider. General instructions ? Take ozdo-efl-uqqujwi and prescription medicines only as told by your health care provider. ? Keep all follow-up visits. This is important. Where to find more information ? [place] Heart Association: www.heart.org ? National Heart, Lung, and Blood [place]: www.nhlbi.nih.gov Contact a health care provider if: ? You have trouble achieving or maintaining a healthy diet or weight. ? You are starting an exercise program. ? You are unable to stop smoking. Get help right away if: ? You have chest pain. ? You have trouble breathing. ? You have discomfort or pain in your jaw, neck, back, shoulder, or arm. ? You have any symptoms of a stroke. BE FAST is an easy way to remember the main warning signs of a stroke: ? B - Balance. Signs are dizziness, sudden trouble walking, or loss of balance. ? E - Eyes. Signs are trouble seeing or a sudden change in vision. ? F - Face. Signs are sudden weakness or numbness of the face, or the face or eyelid drooping on one side. ? A - Arms. Signs are weakness or numbness in an arm. This happens suddenly and usually on one side of the body. ? S - Speech. Signs are sudden trouble speaking, slurred speech, or trouble understanding what people say. ? T - Time. Time to call emergency services. Write down what time symptoms started. ? You have other signs of a stroke, such as: ? A sudden, severe headache with no known cause. ? Nausea or vomiting. ? Seizure. These symptoms may represent a serious problem that is an emergency. Do not wait to see if the symptoms will go away. Get medical help right away. Call your local emergency services (911 in the [place] Do not drive yourself to the hospital. Summary ? Cholesterol plaques increase your risk for heart attack and stroke. Work with your health care provider to keep your cholesterol levels in a healthy range. ? Eat a healthy, balanced diet, get regular exercise, and maintain a healthy weight. ? Do not use any products that contain nicotine or tobacco. These products include cigarettes, chewing tobacco, and vaping devices, such as e-cigarettes. ? Get help right away if you have any symptoms of a stroke. This information is not intended to replace advice given to you by your health care provider. Make sure you discuss any questions you have with your health care provider. Document Revised: 11/26/2021 Document Reviewed: 11/16/2021 [employer] [facility] Patient Education ? 2022 [employer] ECHOCARDIOGRAPHY Observed: 03/08/2024 7:53 AM Status: F Source: [facility] [id number]#1.00TIFF FAMILY MEDICINE OFFICE/CLINI C NOTE Observed: 02/24/2024 8:51 AM Status: F Source: [facility] Chief Complaint Trouble with Sugar Levels HPI [...] qualifying data Procedure/Surgical History Colonoscopy (2017), EGD (esophagogastroduodenoscopy) gastric outlet reduction (2017), Cardiac catheter (2014), Cardiac catheter (2000), Appendectomy (1947). Medications Aspirin Enteric Coated 81 mg oral delayed release tablet, 81 mg= 1 tab(s), Oral, Daily atorvastatin 80 mg Tab, 80 mg= 1 tab(s), Oral, Daily, 3 refills BD UF mini pen needle 5mm/31g, See Instructions, 1 refills carvedilol 12.5 mg Tab, 12.5 mg= 1 tab(s), Oral, BID chlorthalidone 25 mg Tab, 25 mg= 1 tab(s), Oral, Daily, 3 refills clopidogrel 75 mg Tab, 75 mg= 1 tab(s), Oral, Daily, 3 refills colchicine 0.6 mg Tab, See Instructions, 1 refills contour test strips, See Instructions, 1 refills cyclobenzaprine 7.5 mg oral tablet, 7.5 mg= 1 tab(s), Oral, BID, PRN indomethacin 50 mg oral capsule, 50 mg= 1 cap(s), Oral, TID, PRN LANCETS OF CHOICE OR SPECIFIED BY INSURANCE., See Instructions, 11 refills Lantus Solostar Pen 100 units/mL subcutaneous solution, 30 unit(s), SubCutaneous, BID, 3 refills levothyroxine 125 mcg (0.125 mg) Tab, 125 mcg= 1 tab(s), Oral, Daily liothyronine 5 mcg Tab, 10 mcg= 2 tab(s), Oral, Daily, 3 refills losartan 100 mg Tab, 100 mg= 1 tab(s), Oral, Daily, 2 refills metformin 500 mg Tab, 500 mg= [...] 12/28/2022 Tobacco - Denies Tobacco Use, 12/28/2022 Former smoker, quit more than 30 days ago Tobacco Use:. Never Smokeless Tobacco Use:. Household tobacco concerns: No. Yes, 02/24/2024 Family History Alcoholism: Father. Congenital heart disease: Brother. Diabetes mellitus type 2: Father. Heart failure: Mother and Father. Immunizations Vaccine Date Status Comments zoster vaccine, inactivated 05/17/2023 Recorded influenza virus vaccine, inactivated 06/30/2022 Recorded SARS-CoV-2 (COVID-19) mRNAMUL.ORD![id number] 06/15/2022 Recorded 2022-12-28: TPV80 SARS-CoV-2 (COVID-19) mRNA-1273 vaccine 02/17/2022 Recorded 2022-12-28: TPV80 SARS-CoV-2 (COVID-19) mRNA-1273 vaccine 07/21/2021 Recorded 2022-12-28: TPV80 influenza virus vaccine, inactivated 06/30/2021 Recorded SARS-CoV-2 (COVID-19) mRNA-1273 vaccine 11/18/2020 Recorded SARS-CoV-2 (COVID-19) mRNA-1273 vaccine 10/22/2020 Recorded influenza virus vaccine, inactivated 06/11/2020 Recorded influenza virus vaccine, inactivated 08/28/2019 Recorded Result Comment: Electronical ly Signed By: Sheree Caraballo\Date and Time Signed: 02/24/24 08:51 EDT OFFICE VISIT Observed: 02/21/2024 10:15 AM Status: COMPLETED Source: [facility] [id number] Jojo Lewis Jr. 1940 M Date Provider Department Center 02/21/2024 Newton-LUCRETIA TRUONG CARD [facility] Family History Problem Relation Age of Onset Heart disease Mother Heart disease Father Alcohol abuse Father Diabetes Brother Family Status - Relation Status Age at Mother Father Brother Level of Service:25219 [place] OFFICE/OUTPATIENT ESTABLISHED MOD MDM 30 MIN PROGRESS Observed: 02/21/2024 10:15 AM Status: COMPLETED Source: [facility] Cardiology Clinic Note Chief Complaint: [...] has a past medical history of Aneurysm ([facility]), CAD (coronary artery disease) (05/11/2022), Cardiovascular stress [...] as well as aortic root and ascending aortic dilatation Return to clinic in 1 year or sooner should problems arise Lucretia Truong MD, MPH, FACC, [facility], [facility] Interventional Cardiology Pager Email: [email or web address] ORDERS ONLY Observed: 02/17/2024 12:00 AM Status: COMPLETED Source: [facility] [id number] JoshuaJojo Jr. 1940 M Date Provider Department Center 02/17/2024 [id number], HISTORICAL CARD [facility] Family History Problem Relation Age of Onset Heart disease Mother Heart disease Father Alcohol abuse Father Diabetes Brother Family Status - Relation Status Age at Mother Father Brother MEDICATION REFILL Observed: 12/27/2023 7:53 AM Status: F Source: [facility] [id number]#1.00TIFF RAD - ULTRASOUND REPORT Observed: 2023 7:53 AM Status: F Source: [facility] [id number]#1.00TIFF PHYSICIAN ORDER Observed: 11/15/2023 7:53 AM Status: F Source: [facility] [id number]#1.00TIFF CONSULTATION NOTE Observed: 10/18/2023 7:53 AM Status: F Source: [facility] [id number]#1.00TIFF CONSULTATION NOTE Observed: 10/03/2023 7:53 AM Status: F Source: [facility] [id number]#1.00TIFF ALLERGIES DATE TYPE / CODE NAME / CODE REACTION SEVERITY SOURCE 01/24/2025 DRUG INGREDI/1351805 03(SNOMED CT) GLIPIZIDE Unknown [facility] 01/24/2025 DRUG INGREDI/0081392 03(SNOMED CT) OMEPRAZOLE Unknown [facility] /385712906(SN OMED CT) omeprazole [id number] [facility] Food Allergy/2832399 01(SNOMED CT) Nuts [id number] [facility] DR/700204472(SN OMED CT) glipiZIDE [id number] [facility] SYSTEMIC/714016 006(SNOMED CT) NO KNOWN ALLERGIES [facility] ENCOUNTERS ADMIT/DISCHARGE ACCOUNT NUMBER ADMITTING ENCOUNTER CLASS LOCATION SOURCE 01/24/2025/01/25/20 [id number] Ambulatory Building:[facility] 01/23/2025 [id number] Connor, SANDER PORTABLE MACHINE Sheree L Ambulatory FTBuilding :FT LAB [facility] 01/23/2025/01/24/20 [id number] Connor, SANDER PORTABLE MACHINE Sheree L Ambulatory FTBuilding :FT LAB [facility] 01/23/2025/01/24/20 25 [id number] [facility] : CD:[id number] 9 [facility] 07/04/2024/07/04/20 24 [id number] Ambulatory [facility] [facility] : CD:[id number] 1 [facility] 06/28/2024/06/28/20 [id number] Connor, SANDER PORTABLE MACHINE Sheree L Ambulatory FTBuilding :FT LAB [facility] 06/28/2024 [id number] Connor, SANDER PORTABLE MACHINE Sheree L Ambulatory FTBuilding :FT LAB [facility] 06/28/2024/06/28/20 [id number] Ambulatory [facility] [facility] : CD:[id number] 9 [facility] 05/24/2024/05/24/20 [id number] Ambulatory [facility] [place]FT FM Cec[place] [facility] 02/24/2024/02/24/20 [id number] Ambulatory [facility] : CD:[id number] 1 [facility] 02/21/2024/02/21/20 [id number] Ambulatory Building:[facility] 12/06/2022 [id number] Ambulatory FT [facility] [place] [facility]:FT FM Cec[place] [facility] PAYERS ENCOUNTER GUARANTOR PAYER SUBSCRIBER SOURCE 01/24/2025 Primary Insurance:MEDICAREPolic y Number: [id number] Date:0273-83-34Qgdl Name:Medicare JOJO LEWIS JRShonna: [id number] [place] [address] [facility] 01/24/2025 Secondary [facility]: [id number] Date:2021-09-26 JOJO JOSHUA LOUISShonna: [id number] [place] [address] [facility] 01/23/2025 JOJO JOSHUA JRDOB: [id number] [facility] STTel: ~([phone] (HP) Primary Insurance:MEDICAREPolic y Number: [id number] Date:0748-90-55WJ [address]MBNZY[place], [place] [address]PL: JOJO GROSSMAN [facility] 01/23/2025 Secondary Insurance:[facility] CAREPolicy Number: [id number] Date:8276-50-57EI [address] [address]AP: ANCHORAGE JOSHUA GROSSMAN [facility] 01/23/2025 JOJO JENKINSB: [id number] [address] STTel: ~([phone] (HP) Primary Insurance:MEDICAREPolic y Number: [id number] Date:2335-11-50LN [facility] [address], [place] [address]XG: ANCHORAGE JOSHUA GROSSMAN [facility] 01/23/2025 Secondary Insurance:[facility]ALTH CAREPolicy Number: [id number] Date:9522-79-63AG [address] [address]IV: [facility]AGE [facility] 07/04/2024 JOJO JENKINSB: [id number] [address] STTel: ~([phone] (HP) Primary Insurance:MEDICAREPolic y Number: [id number] Date:1481-35-57JC [facility] MARTINA TRUJILLO [address]RT: ANCHORAGE [facility] 07/04/2024 Secondary Insurance:[facility] CAREPolicy Number: [id number] Date:1005-53-26RT [address] [address]PY: ANCHORAGE [facility] 06/28/2024 JOJO JENKINSB: [id number] [address] STTel: ~([phone] (HP) Primary Insurance:MEDICAREPolic y Number: [id number] Date:7401-56-61PB [id number], [place] [address]GN: [facility] 06/28/2024 Secondary Insurance:[facility] CAREPolicy Number: [id number] Date:8898-67-97UU [address] [address]DE: ANCHORAGE [facility] 06/28/2024 JOJO JENKINSB: [id number] [address] STTel: ~([phone] (HP) Primary Insurance:MEDICAREPolic y Number: [id number] Date:8231-80-22SO [address], [place] [address]FR: ANCHORAGE [facility]UA [facility] 06/28/2024 Secondary Insurance:[facility] CAREPolicy Number: [id number] Date:5371-00-57OZ [address] [address]VY: ANCHORAGE [facility] 05/24/2024 JOJO JENKINSB: [id number] [address] STTel: ~([phone] (HP) Primary Insurance:MEDICAREPolic y Number: [id number] Date:8750-48-06UR [facility] [place]INA TRUJILLO [address]IP: [facility] 05/24/2024 Secondary Insurance:[facility] CAREPolicy Number: [id number] Date:1708-61-63HW [address] [address]BD: [facility] 02/24/2024 JOJO JENKINSB: [id number] [address] STTel: ~([phone] (HP) Primary Insurance:MEDICAREPolic y Number: [id number] Date:8667-54-31FZ [facility] [address]QFKFYQA, [place] [address]VA: [facility] 02/24/2024 Secondary Insurance[facility]: [id number] Date:9797-96-81SH[address] [address]CM: JOJO GROSSMAN [facility] 02/21/2024 Primary Insurance:MEDICAREPolic y Number: [id number] Date:7588-98-26Tkdh Name:Medicare JOJO LEWIS JR.: [id number] [place] [address] [place] [address] 02/21/2024 Secondary Insurance:[facility]Policy Number: [id number] Date:2021-09-26 JOJO LEWIS JR.: [id number] [place] [address] [place] [address]
--- OUTSIDE RECORDS SUMMARY | 2025-02-14 08:48 | XMS_ITS | Referral Summary ---
Author Organization [facility] Address [address] [place] [address] Care Team Providers Care Spread Cutter Name Role Phone Filippo Muller MD Primary Care Provider [phone] Encounters Date Type Department Care Team Description 01/30/2025 Telephone [facility] [address] [place] [address] Samira Da Silva MA 01/24/2025 9:00 AM EDT Office Visit [facility] [address] [place] [address] Naina Celis CNP Benign hypertensive heart disease without heart failure (Primary Dx); Coronary artery disease involving salt river coronary artery of salt river heart without angina pectoris; Aneurysm of aortic root; Mitral valve stenosis and aortic valve stenosis; Bilateral carotid bruits from Last 3 Months Allergies Active Allergy Reactions Criticality Noted Date Comments Glipizide Unknown 01/24/2025 Omeprazole Unknown 01/24/2025 Medications Medication Sig Dispensed Refills Start Date End Date Status aspirin 81 mg EC tablet Take 81 mg by mouth in the morning. Active atorvastatin (Lipitor) 80 mg tablet Take 80 mg by mouth in the evening. Active chlorthalidone (Hygroton) 25 mg tablet Take by mouth in the morning. Active clopidogrel (Plavix) 75 mg tablet Take 1 tablet by mouth in the morning. Active insulin detemir (Levemir) 100 unit/mL (3 mL) pen Inject under the skin at bedtime. Active levothyroxine (Synthroid, Levoxyl) 125 mcg tablet Take 125 mcg by mouth before breakfast. Active liothyronine (Cytomel) 5 mcg tablet Take 2 tablets by mouth in the morning. Active losartan (Cozaar) 100 mg tablet Take 100 mg by mouth in the morning. Active cholecalciferol (Vitamin D-3) 50 MCG (1999 UT) tablet Take by mouth in the morning. 12/28/2022 Active metFORMIN (Glucophage) 500 mg tablet Take 500 mg by mouth with breakfast and with evening meal. Active carvedilol (Coreg) 25 mg tabletIndications: Essential hypertension Take 1 tablet (25 mg) by mouth with breakfast and with evening meal. 180 tablet 3 02/21/2024 5 Active amLODIPine (Norvasc) 5 mg tabletIndications: Benign hypertensive heart disease without heart failure Take 1 tablet (5 mg) by mouth in the morning. 30 tablet 11 01/24/2025 6 Active carvedilol (Coreg) 12.5 mg tabletIndications: Essential hypertension Take 1 tablet (12.5 mg) by mouth with breakfast and with evening meal. 180 tablet 3 01/05/2023 5 Discontinue d(Duplicate order) Active Problems Problem Noted Date Diagnosed Date [facility] current use of insulin 01/24/2025 Overview (01/24/2025): Current Medication List includes Lantus. added per OP CDI policy. Diverticulosis 02/21/2024 Gout of knee 02/21/2024 Hypercholesterolemia 02/21/2024 Hypothyroid 02/21/2024 Infected nail bed of toe 02/21/2024 Non-smoker 02/21/2024 Overweight (BMI 25.0-29.9) 02/21/2024 Pain of left calf 02/21/2024 Encounter for diabetic foot exam 02/21/2024 Aneurysm of aortic root 06/23/2022 Assessment & Plan (06/23/2022 3:35 PM EDT): Will increase and change metoprolol to toprol 50mg in light he is only taking once a day, to better manage HTN. Repeat echo to evaluate AO root in light of uncontrolled HTN since last visit Hypertensive disorder 06/23/2022 Assessment & Plan (06/23/2022 3:42 PM EDT): B/P remains uncontrolled with metoprolol tartrate- he is only taking once daily, chlorthalidone, losartan. Will change metoprolol tartrate to toprol 50 mg- considered coreg but I don't believe he will take coreg bid. RTC 1 month to review b/p log and re-evaluate Renal function stable for him with CR 1.4-1.5- continue to monitor. Cardiovascular stress test abnormal 05/11/2022 Diabetes mellitus 05/11/2022 Dyslipidemia 05/11/2022 Assessment & Plan (06/23/2022 3:43 PM EDT): Continue lipitor Staff to ask Dr Cifuentes's office for recent labs, lipid profile this year. CAD, multiple vessel 05/11/2022 Assessment & Plan (06/23/2022 3:39 PM EDT): Continue GDMT- ASA, lipitor, plavix, toprol No concerning symptoms today, good functional/aerobic capacity- walks a 5K daily without limiting symptoms. Sinus tachycardia 05/11/2022 Assessment & Plan (06/23/2022 3:44 PM EDT): Increase metoprolol to toprol 50 mg daily, will re-evaluate at next visit ECG today- Sinus tachycardia with 1st degree AV block, with PVC and non specific ST-T wave changes No acute concerns. HR 104 bpm at rest. Stented coronary artery 05/11/2022 Tachycardia, unspecified 05/11/2022 Presence of stent in artery 04/26/2001 Overview (02/21/2024): Outside Source Comment: AVE Coronary Stent Implant AVE Coronary Stent Implant Resolved Problems Problem Noted Date Diagnosed Date Resolved Date CAD (coronary artery disease) 05/11/2022 06/23/2022 Social History Tobacco Use Types Packs/Day Years Used Date Smoking Tobacco: Former Cigarettes Tobacco Cessation:Counseling Given: Not Answered Alcohol Use Standard Drinks/Week Comments Not Currently 0 (1 standard drink = 0.6 oz pur e alcohol) occasional [place] Safety & Environment Answer Date Rec orded Fear of Current or Ex-Partner Not on file Emotionally Abused Not on file 11/17/2023 Physically Abused Not on file 11/17/2023 Sexually Abused Not on file 11/17/2023 Physically or Sexually Abused Not on file Sex and Gender Information Value Date Recorded Sex Assigned at Not on file Gender Identity Not on file Sexual Orientation Not on file Last Filed Vital Signs Vital Sign Reading Time Taken Comments Blood Pressure 153/73 01/24/2025 8:56 AM EDT Pulse 50 01/24/2025 8:56 AM EDT Temperature - - Respiratory Rate - - Oxygen Saturation 97% 01/24/2025 8:56 AM EDT Inhaled Oxygen Concentration - - Weight 78.9 kg (174 lb) 01/24/2025 8:56 AM EDT Height 167.6 cm (5' 6 ) 01/24/2025 8:56 AM EDT Body Mass Index 28.08 01/24/2025 8:56 AM EDT Plan of Treatment Not on file Care Teams Spread Cutter Relationship Specialty Start Date End Date Filippo Muller MD [address] [place] [id number] PCP - General Family Medicine 03/21/23
--- OUTSIDE RECORDS SUMMARY | 2025-02-14 08:48 | XMS_ITS | Encounter Summary ---
Author Organization [facility] Address [address] [place] [address] Care Team Providers Care Stock Handler Name Role Phone Filippo Muller MD Primary Care Provider [phone] Encounter Details Date Type Department Care Team (Late st Contact Info) Description 01/30/2025 Telephone [facility] [address] [place] [address] Samira Da Silva MA Social History Tobacco Use Types Packs/Day Years Used Date Smoking Tobacco: Former Cigarettes Alcohol Use Standard Drinks/Week Comments Not Currently [...] on file Sexual Orientation Not on file documented as of this encounter Plan of Treatment Not on file documented as of this encounter Visit Diagnoses Not on filedocumented in this encounter Care Teams Stock Handler Relationship Specialty Start Date End Date Filippo Mullre MD [address] [place] [address] PCP - General Family Medicine 03/21/23 documented as of this encounter
--- OUTSIDE RECORDS SUMMARY | 2025-02-14 08:48 | XMS_ITS | Encounter Summary ---
Author Organization [facility] Address [address] [place] [address] Care Team Providers Care Streaming Media Specialist Name Role Phone Keyonna Cifuentes MD Primary Care Provider [phone] Filippo Muller MD Primary Care Provider [phone] Reason for Visit * Reason Comments Med Refill Encounter Details Date Type Department Care Team ([facility] st Contact Info) Description 12/03/2022 Refill [facility] [address] [place] [address] Magdalene Yates, LODGING MANAGER [address] [place] [id number] Benign essential HTN Social History Tobacco Use Types Packs/Day Years Used Date Smoking Tobacco: Former Cigarettes Alcohol Use Standard Drinks/Week Comments Not Currently 0 (1 standard drink = 0.6 oz pur e alcohol) Sex and Gender Information Value Date Recorded Sex Assigned at Not on file Gender Identity Not on file Sexual Orientation Not on file documented as of this encounter Plan of Treatment Not on file documented as of this encounter Visit Diagnoses Diagnosis Benign essential HTN documented in this encounter Care Teams Streaming Media Specialist Relationship Specialty Start Date End Date Keyonna Cifuentes MD [address] [place] [address] #A PCP - General 05/14/22 03/20/23 Filippo Muller MD [address] [place] [address] PCP - General Family Medicine 03/21/23 documented as of this encounter
--- NOTE | 2025-02-14 10:00 | CA_ITS ---
Patient Name: JOJO LEWIS MR#: [id number] : 1940 Exam Date: 02/14/2025 Ordering Doctor: BIGG GUY CNP ECHOCARDIOGRAM REPORT PROCEDURE: CA ECHO DOPPLER COMPLETE INDICATIONS: Aortic valve stenosis, bicuspid aortic valve (Ale type I), NC, cardiac stents COMPARISON: None. DESCRIPTION: COMPLETE ECHOCARDIOGRAM Real-time transthoracic echocardiography with 2D, M-mode, spectral and color flow Doppler performed. QUALITY: Technical quality was good. LEFT VENTRICLE: Normal chamber size. Mild concentric left ventricular hypertrophy. Calculated left ventricular ejection fraction is 58%. LV EF: Global left ventricular systolic function is normal; visually estimated ejection fraction is 55 to 60%. No significant wall motion abnormalities. DIASTOLIC: Normal diastolic function. ATRIAL SEPTUM: Visually appears intact. LEFT ATRIUM: Moderate dilatation. RIGHT ATRIUM: Normal chamber size. RIGHT VENTRICLE: Normal chamber size. Normal right ventricular systolic function. TRICUSPID VALVE: Normal mobility and thickness. No stenosis with trivial regurgitation. No evidence of pulmonary hypertension. RVSP 20 mmHg MITRAL VALVE: Normal mobility and thickness. No evidence of mitral valve stenosis. There is no mitral annular calcification. Mild mitral regurgitation. AORTIC VALVE: Mildly calcified aortic valve. Mildly diminished mobility. Doppler velocity suggests no significant aortic valve stenosis. Bicuspid aortic valve (Ale type I) with fusion of the right and left cusps. DVI 0.4, LAURO 2.1 cm2. Mild aortic regurgitation. 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 Ascending aorta and aortic arch are normal in size. PULMONIC VALVE: Normal thickness and mobility. No stenosis. Trivial regurgitation. PERICARDIUM: No evidence of pericardial effusion. IVC: Collapses with inspirations. IVC is normal in size. CONCLUSION: 1. Global left ventricular systolic function is normal; visually estimated ejection fraction is 55 to 60% 2. Normal right ventricular size and systolic function 3. Mild left ventricular atrophy 4. The left atrium is dilated 5. Normal diastolic function 6. Mild mitral regurgitation 7. Bicuspid aortic valve; mild aortic valve regurgitation 8. The aortic root is dilated and measures 4.2 cm Adult Echocardiography Procedure Report Left Ventricle LVEDD (3.7 - 5.6 cm): 5.00 cm LVESD (2.2 - 4.0 cm): 3.95 cm LVIVS thickness (0.6 - 1.2 cm): 1.28 cm LVPW thickness (0.5 - 1.0 cm): 1.23 cm e': 0.10 m/s E - e': 8.93 LVOT Max Gradient: 2.20 mm[Hg] LVOT Area (cm2): 0.74 m/s Peak Velocity (LVOT): 0.74 m/s Mean Velocity (LVOT): 0.50 m/s LVOT Diameter 2.58 cm Left Atrium LA Volume Index (2D A2C): 46.05 ml/m2 Left Atrium Systolic Dimension: 4.25 cm Mitral Valve MV E to A Ratio: 1.03 Mitral Valve A-Wave Peak Velocity: 0.84 m/s Mitral Valve E-Wave Peak Velocity: 0.87 m/s Right Ventricle Aorta AO Root Diam: 4.23 cm Aortic Valve AoV Area (Peak Vijay): 2.08 cm2, 2.08 cm2 AoV Area (VTI): 2.14 cm2, 2.14 cm2 Peak Velocity(Antegrade Flow): 1.87 m/s, 1.53 m/s, 1.67 m/s Peak Gradient(Antegrade Flow): 13.97 mm[Hg], 9.35 mm[Hg], 11.18 mm[Hg] Mean Velocity(Antegrade Flow): 1.33 m/s, 1.16 m/s, 1.19 m/s Mean Gradient(Antegrade Flow): 8.02 mm[Hg], 5.78 mm[Hg], 6.39 mm[Hg] Velocity Time Integral: 50.37 cm, 37.13 cm, 45.75 cm Tricuspid Valve Peak Velocity (Regurgitant Flow): 2.04 m/s Pulmonic Valve Mean Gradient: 2.46 mm[Hg] Mean Velocity: 0.74 m/s Peak Velocity: 1.01 m/s, 1.17 m/s Peak Gradient: 5.44 mm[Hg], 4.11 mm[Hg] Right Atrium Right Atrium Systolic Pressure: 42.87 ml, 42.87 ml Dictated by: Lucretia Truong M.D. on 02/14/2025 at 15:04 Approved by: Lucretia Truong M.D. on 02/14/2025 at 15:11
== END 2025-02-14 08:47 | disposition home or self-care (01) ==
LOC: US 08:46
PROVIDERS: PCP Nurse Practitioner; Visit Provider Nurse Practitioner Family
DX: R09.89 Other specified symptoms and signs involving the circulatory and respiratory systems (principal); I11.9 Hypertensive heart disease without heart failure; Q25.43 Congenital aneurysm of aorta; I08.0 Rheumatic disorders of both mitral and aortic valves
CPT/HCPCS: 93306; 93880

== ENCOUNTER 2025-04-29 15:45 | Observation (INO) | payer MEDICARE, OTHER, SELFPAY ==
[2025-04-29] VITALS (25 sets, daily range): BP systolic 133–169; BP diastolic 52–81; PULSE 56–88; TEMP 36.6–36.7; O2SAT 93–100; BMI 24.3; BMI 25.9
--- NOTE | 2025-04-29 15:54 | ECG_ITS ---
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 Measurements Intervals [place] Rate: 59 P: 50 ND: 234 QRS: 66 QRSD: 104 T: 80 QT: 412 QTc: 412 Interpretive Statements 1100 Sinus rhythm 2231 First degree AV block [address] depression [address] & Twave abnormality 9150 abnormal ECG Compared to ECG 01/02/2018 09:32:19 ST (T wave) deviation still present Electronically Signed On 04-29-2025 18:26:42 EDT by SAKINA ENGLISH M.D.
--- NOTE | 2025-04-29 15:54 | CT_ITS ---
[address] [address] Patient Name: JOJO LEWIS MRN: [id number] date: 1940 Sex: M Assigned Patient Location: ER Current Patient Location: .[facility] Accession/Order Number: [id number] Exam Date: 04/29/2025 16:27 Report Date: 04/29/2025 16:30 At the request of: ANAYELI PARKER MD Procedure: CT head/brain wo con CT head/brain wo con 04/29/2025 4:07 PM SIGNS AND SYMPTOMS: Dizziness, hypertension, blurred vision, hypertension TECHNIQUE:Multi-detector CT axial slices of the brain were obtained without IV contrast. CT was performed with one or more of the following dose reduction techniques: Automated exposure control, adjustment of the mA and/or kV according to patient size, or use of iterative reconstruction technique. COMPARISON: None. FINDINGS: There is no shift of the midline structures, acute intracranial bleeding, mass effects, or evidence of acute ischemia. There is gliosis and encephalomalacia within the left frontal lobe. There is age-related cortical atrophy. Atherosclerotic changes are noted in the V4 segments of the vertebral arteries and intracranial segments of the internal carotid arteries. The ventricular system is normal in size. The brainstem and the cerebellum are unremarkable. The visualized intraorbital contents and the infratemporal soft tissues show no acute abnormality. The liver is noted in the right ethmoid air cells. The osseous structures in the skull base and the calvarium show no abnormality. CT/CT head/brain wo con IMPRESSION: No acute intracranial pathology. 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 Impression dictated by: Lacho Morfin M.D. 04/29/2025 4:30 PM Dictation Location: [place] [address] Electronically authenticated by: [id number] Y Date: 04/29/2025 16:30
[2025-04-29 16:06] LABS: Hematocrit 32.5 % (42.0-54.0); Hemoglobin 11.3 g/dL (14.0-18.0); Immature Granulocytes Abs Auto 0.04 10^3/uL (0.00-0.03); Immature Granulocytes Pct Auto 0.4 % (0.0-0.5); Lymphocytes Absolute Auto 1.2 10^3/uL (1.2-3.8); Mean Corpuscular HGB Conc 34.8 g/dL (29.9-35.2); Mean Corpuscular Hemoglobin 31.6 pg (25.9-34.0); Mean Corpuscular Volume 90.8 fL (80.0-94.0); Platelet Count 337 10^3/uL (150-450); Red Blood Count 3.58 10^6/uL (4.70-6.10); White Blood Count 11.3 10^3/uL (4.0-11.0)
--- NOTE | 2025-04-29 16:08 | ED.DIZZY1 ---
HPI - Dizziness General Chief Complaint: Dizziness Stated Complaint: HYPERTENSION Time Seen by Provider: 04/29/25 15:54 Source: patient Mode of arrival: ambulance Limitations: no limitations History of Present Illness HPI Narrative: The patient is a 85-year-old male just had right carotid endarterectomy almost 3 days ago, sending to us after he had an episode of dizziness associated with blurred vision in both eyes, no upper or lower extremity weakness the patient noted that he had some headache mostly frontal and that he also measure his blood pressure to found that it was elevated above 180 systolic The patient took his blood pressure medication this morning By the time the patient arrived to the ER he did not have any complaints Related Data Home Medications ?Medication ?Instructions ?Recorded ?Confirmed amlodipine 10 mg tablet 10 mg PO QAM 04/29/25 04/29/25 atorvastatin 80 mg tablet 80 mg PO QPM 04/29/25 04/29/25 carvedilol 25 mg tablet 25 mg PO BID 04/29/25 04/29/25 chlorthalidone 25 mg tablet 25 mg PO QAM 04/29/25 04/29/25 cholecalciferol (vitamin D3) 50 50 mcg PO DAILY 04/29/25 04/29/25 mcg (2,000 unit) capsule clopidogrel 75 mg tablet 75 mg PO DAILY 04/29/25 04/29/25 insulin glargine 100 unit/mL (3 30 unit subcut BID 04/29/25 04/29/25 mL) subcutaneous pen (Lantus Solostar U-100 Insulin) levothyroxine 125 mcg tablet 125 mcg PO DAILY 04/29/25 04/29/25 liothyronine 5 mcg tablet 10 mcg PO QAM 04/29/25 04/29/25 losartan 100 mg tablet 100 mg PO DAILY 04/29/25 04/29/25 metformin 500 mg tablet 500 mg PO BID 04/29/25 04/29/25 Allergies Allergy/AdvReac Type Severity Reaction Status Date / Time No Known Drug Allergies Allergy Verified 04/29/25 15:49 Review of Systems ROS Status of ROS 10 or more systems reviewed and unremarkable except as noted in history and below [facility] Medical History (Updated 04/29/25 @ 17:49 by Allison Moya MD) High cholesterol ?E78.00 - Pure hypercholesterolemia, unspecified (ICD-10) HTN (hypertension) ?I10 - Essential (primary) hypertension (ICD-10) Diabetes ?E11.9 - Type 2 diabetes mellitus without complications (ICD-10) Surgical History (Updated 04/29/25 @ 17:26 by Gisela Wisdom) Status post carotid surgery ?Z98.890 - Other specified postprocedural states (ICD-10) Social History Little interest or pleasure in doing things: not at all Feeling down, depressed, or hopeless: not at all Exam Narrative Exam Narrative: Nurses notes and vital signs reviewed and patient is not hypoxic. General: Well-appearing and in no apparent distress. Skin: Warm, dry, no pallor noted. The patient have a bruise on the left side that is healing from a previous fall No rash. Head: Normocephalic, atraumatic. Neck: Supple, non-tender. Eye: Pupils are equal, round and EOMI. No scleral icterus. Ears, Nose, Mouth, and Throat: TM are clear, no nasal mucosal hypertrophy. Oral mucosa is moist, no posterior oropharynx erythema, uvula is mid-line Cardiovascular: Regular Rate and Rhythm without murmur, gallop or rub. Respiratory: No accessory muscle use or respiratory distress. Lungs are clear to auscultation, no wheezing, rales or rhonchi Chest Wall: no tenderness Back: No midline thoracic or lumbar vertebral tenderness. No CVA tenderness Musculoskeletal: normal ROM, no calf or popliteal tenderness, no lower extremity edema/swelling GI: Abdomen is soft, non-distended. Normal bowel sounds. No masses appreciated. No tenderness to palpation. No rebound, guarding, or rigidity noted. Constitutional Vital Signs, click to edit/add: Last Vital Signs Temp 98 F 04/29/25 15:50 Pulse 56 L 04/29/25 17:13 Resp 22 H 04/29/25 17:13 BP 149/57 H 04/29/25 17:13 Pulse Ox 100 04/29/25 17:13 O2 Del Method Room Air 04/29/25 15:50 Course Vital Signs Vital signs: Vital Signs Temperature 98 F 04/29/25 15:50 Pulse Rate 60 04/29/25 15:50 Respiratory Rate 20 04/29/25 15:50 Blood Pressure 169/70 H 04/29/25 15:50 Pulse Oximetry 100 04/29/25 15:50 Oxygen Delivery Method Room Air 04/29/25 15:50 Temperature 98 F 08/04/25 15:50 Pulse Rate 56 L 04/29/25 17:13 Respiratory Rate 22 H 04/29/25 17:13 Blood Pressure 149/57 H 04/29/25 17:13 Pulse Oximetry 100 04/29/25 17:13 Oxygen Delivery Method Room Air 04/29/25 15:50 MDM - Dizziness MDM Narrative Medical decision making narrative: The patient EKG in the ER showing sinus rhythm with a heart rate of [address] elevation or depression The patient initially had elevated blood pressure her blood sugar was reading 73 at home and by the EMS but after eating By the time the patient came to the ER the blood workup showed that his blood sugar was 57 with a mild acute kidney injury CT of the head showed no acute pathology Patient had no specific weakness at any time it was mostly just dizziness feeling which could be secondary to hypoglycemia After providing the patient with the apple juice he was still at blood sugar 61 he was provided with D50 The patient presentation could be secondary mostly to hypoglycemia there was no specific weakness at any time and the patient did explain that his symptoms seem like to be due to hypoglycemia The patient proceeded down on [facility] and awaiting the medical record to transmit more information Patient blood sugar is above 200 after the D50 and right now the plan to admit him for observation The patient case was discussed with Dr. Melendez and he agreed with above-mentioned plan Lab Data Labs: Lab Results 04/29/25 04/29/25 04/29/25 Range/Units 15:59 17:09 17:45 WBC 11.3 H (4.0-11.0) 10^3/uL RBC 3.58 L (4.70-6.10) 10^6/uL Hgb 11.3 L (14.0-18.0) g/dL Hct 32.5 L (42.0-54.0) % MCV 90.8 (80.0-94.0) fL MCH 31.6 (25.9-34.0) pg MCHC 34.8 (29.9-35.2) g/dL RDW 12.7 (11.0-15.0) % Plt Count 337 (150-450) 10^3/uL MPV 9.4 L (9.5-13.5) fL Neut % (Auto) 69.1 (43.0-75.0) % Lymph % (Auto) 10.4 L (20.5-60.0) % Graves % (Auto) 7.6 (1.7-12.0) % Eos % (Auto) 12.2 H (0.9-7.0) % Baso % (Auto) 0.3 (0.2-2.0) % Neut # (Auto) 7.9 H (1.4-6.5) 10^3/uL Lymph # (Auto) 1.2 (1.2-3.8) 10^3/uL Graves # (Auto) 0.9 H (0.3-0.8) 10^3/uL Eos # (Auto) 1.4 H (0.0-0.7) 10^3/uL Baso # (Auto) 0.0 (0.0-0.1) 10^3/uL Abs Immat Gran (auto) 0.04 H (0.00-0.03) 10^3/uL Imm/Tot Granulo (auto) 0.4 (0.0-0.5) % PT 10.3 (9.0-11.6) sec INR 0.97 Sodium 135 L (136-145) mmol/L Potassium 4.4 (3.5-5.1) mmol/L Chloride 101 (98-107) mmol/L Carbon Dioxide 25.5 (21.0-32.0) mmol/L Anion Gap 12.9 BUN 34.0 H (7.0-18.0) mg/dL Creatinine 1.49 H (0.70-1.30) mg/dL Est GFR ( Amer) 54 L (>=60 mL/min/1.73m^2) Est GFR (Non-Af Amer) 45 L (>=60 mL/min/1.73m^2) BUN/Creatinine Ratio 22.8 Glucose 57 L (74-106) mg/dL Calcium 8.9 (8.5-10.1) mg/dL Total Bilirubin 0.6 (0.2-1.0) mg/dL AST 19 (15-37) U/L ALT 18 (16-63) U/L Alkaline Phosphatase 142 H (46-116) U/L Troponin I High Sens 15.6 (4.0-76.1) pg/mL Total Protein 7.8 (6.4-8.2) g/dL Albumin 3.7 (3.4-5.0) g/dL Globulin 4.1 g/dL Albumin/Globulin Ratio 0.9 POC Glucose 61 L 240 H (74-106) mg/dL Discharge Plan Discharge Chief Complaint: Dizziness Clinical Impression: Dizziness, Hypoglycemia, HANDY (acute kidney injury) Patient Disposition: Admitted as Observation Time of Disposition Decision: 17:20
[2025-04-29 16:21] LABS: INR 0.97; Prothrombin Time 10.3 sec (9.0-11.6)
[2025-04-29 16:34] LABS: Alanine Aminotransferase 18 U/L (16-63); Albumin Globulin Ratio 0.9; Albumin Level 3.7 g/dL (3.4-5.0); Alkaline Phosphatase 142 U/L (46-116); Anion Gap 12.9; Aspartate Amino Transferase 19 U/L (15-37); Blood Urea Nitrogen 34.0 mg/dL (7.0-18.0); Calcium 8.9 mg/dL (8.5-10.1); Carbon Dioxide 25.5 mmol/L (21.0-32.0); Chloride 101 mmol/L (98-107); Estimated GFR (African America 54 (>=60 mL/min/1.73m^2); Estimated GFR (Non-African Ame 45 (>=60 mL/min/1.73m^2); Globulin 4.1 g/dL; Glucose 57 mg/dL (74-106); Potassium 4.4 mmol/L (3.5-5.1); Sodium 135 mmol/L (136-145); Total Protein 7.8 g/dL (6.4-8.2)
[2025-04-29] MEDS: 0.9 % SODIUM CHLORIDE 1,000 ML 500 ML IV (17:07)
[2025-04-29] MEDS: DEXTROSE 50 %-WATER 25 GM/50 ML SYRINGE IV (17:28)
--- OUTSIDE RECORDS SUMMARY | 2025-04-29 18:52 | XMS_ITS | CCD ---
Author Organization [facility] Care Team Providers Care Filter Operator Name Role Phone ELTAHAWY, EHAB A [...] ., DR DEEPA Turner Primary Care Unavailable DR STACI KLEIN Consulting Unavailable Connor, Sheree Hines Attending Unavailable Connor, [...] Unavailable Connor, Sheree Hines Attending Unavailable Connor, COLLEGE OR UNIVERSITY FACULTY MEMBER Sheree Hines Attending Unavailable Connor, COLLEGE OR UNIVERSITY FACULTY MEMBER Sheree Hines Admitting Unavailable Connor, COLLEGE OR UNIVERSITY FACULTY MEMBER Sheree Hines Attending Unavailable Connor, COLLEGE OR UNIVERSITY FACULTY MEMBER Sheree L Admitting Unavailable Connor, COLLEGE OR UNIVERSITY FACULTY MEMBER Sheree L Attending Unavailable Connor, COLLEGE OR UNIVERSITY FACULTY MEMBER Sheree L Attending Unavailable Connor, COLLEGE OR UNIVERSITY FACULTY MEMBER Sehree L Admitting Unavailable Connor, COLLEGE OR UNIVERSITY FACULTY MEMBER Sheree L Attending Unavailable BIGG CELIS Attending Unavailable FEDERICO ROBB Referring Unavailable NAZZAL, MUNIER Admitting Unavailable NAZZAL, MUNIER Attending Unavailable NAZZAL, MUNIER Attending Unavailable BIGG CELIS Referring Unavailable Allergies Allergy Classification Reported Allergen(s) Allergy Type Date of Onset Reaction(s) Facility (9 sources) glipiZIDE; Translations: [glipizide] Drug Allergy 01-24-2025 Unknown (qualifier value) [facility] (8 sources) Nuts (not including peanuts); Translations: [Nuts] Food allergy Unknown (qualifier value) [facility] (9 sources) Omeprazole; Translations: [omeprazole] Drug Allergy 01-24-2025 Unknown (qualifier value) [facility] Medications Current Medications Medication Drug Class(es) Dates Sig (Normalized) Sig (Original) Aspirin (1 source) Platelet Aggregation Inhibitor, Nonsteroidal Anti-inflammatory Drug Aspirin Active Aspirin Enteric Coated 81 mg oral delayed release tablet (5 sources) Start: 12-06-2022 take 1 tablet by mouth once daily Aspirin Enteric Coated 81 mg oral delayed release tablet 81 mg = 1 tab(s), Oral, Daily, Refills(s) 0 Start Date: 12/06/22 Status: Ordered atorvastatin 80 mg oral tablet (6 sources) HMG-CoA Reductase Inhibitor Start: 02-24-2024 End: 02-18-2025 take 1 tablet by mouth once daily atorvastatin 80 mg Tab 80 mg = 1 tab(s), Oral, Daily, X 90 day(s), # 90 tab(s), Refills(s) 3, Pharmacy: [facility], 170, cm, 02/24/24 8:06:00 EDT, Height/Length Dosing, 79.7, kg, 02/24/24 8:06:00 EDT, Weight Dosing Start Date: 02/24/24 Stop Date: 02/18/25 Status: Ordered Start: 11-15-2023 take 1 tablet by marly once daily atorvastatin 80 mg Tab 80 mg = 1 tab(s), Oral, Daily, # 90 tab(s), Refills(s) 0, Pharmacy: [facility], 170, cm, 11/15/23 9:08:00 EST, Height/Length Dosing, 74.7, kg, 11/15/23 9:08:00 EST, Weight Dosing Start Date: 11/15/23 Status: Ordered Start: 12-06-2022 take 1 tablet by marly once daily atorvastatin 80 mg Tab 80 mg = 1 tab(s), Oral, Daily, # 90 tab(s), Refills(s) 3, Pharmacy: [facility] Start Date: 12/06/22 Status: Ordered Lipitor Active carvedilol 12.5 mg oral tablet (3 sources) alpha-Adrenergic Isi, beta-Adrenergic Isi Start: 11-15-2023 take 1 tablet by mouth twice daily carvedilol 12.5 mg Tab 12.5 mg = 1 tab(s), Oral, BID, # 180 tab(s), Refills(s) 0, Pharmacy: [facility], 170, cm, 11/15/23 9:08:00 EST, Height/Length Dosing, 74.7, kg, 11/15/23 9:08:00 EST, Weight Dosing Start Date: 11/15/23 Status: Ordered Start: 04-04-2023 take 1 tablet by marly twice daily at dinner carvedilol 12.5 mg Tab 180 EA, TAKE ONE TABLET BY MOUTH TWICE A DAY (WITH BREAKFAST AND EVENING MEAL), Refills(s) 0 Start Date: 04/04/23 Status: Ordered chlorthalidone 25 mg oral tablet (6 sources) Thiazide-like Diuretic Start: 02-24-2024 End: 02-18-2025 take 1 tablet by mouth once daily chlorthalidone 25 mg Tab 25 mg = 1 tab(s), Oral, Daily, X 90 day(s), # 90 tab(s), Refills(s) 3, Pharmacy: [facility], 170, cm, 02/24/24 8:06:00 EDT, Height/Length Dosing, 79.7, kg, 02/24/24 8:06:00 EDT, Weight Dosing Start Date: 02/24/24 Stop Date: 02/18/25 Status: Ordered Start: 11-15-2023 take 1 tablet by marly th once daily chlorthalidone 25 mg Tab 25 mg = 1 tab(s), Oral, Daily, # 90 tab(s), Refills(s) 0, [facility], 170, cm, 11/15/23 9:08:00 EST, Height/Length Dosing, 74.7, kg, 11/15/23 9:08:00 EST, Weight Dosing Start Date: 11/15/23 Status: Ordered Start: 12-28-2022 take 1 tablet by maryl once daily chlorthalidone 25 mg Tab 25 mg = 1 tab(s), Oral, Daily, # 90 tab(s), Refills(s) 3, Pharmacy: [facility], 169, cm, 12/28/22 8:48:00 EDT, Height/Length Dosing, 77.9, kg, 12/28/22 8:48:00 EDT, Weight Dosing Start Date: 12/28/22 Status: Ordered Chlorthalidone A ctive clopidogrel 75 mg oral tablet (6 sources) [id number] Platelet Inhibitor Start: 02-24-2024 End: 02-18-2025 take 1 tablet by mouth once daily clopidogrel 75 mg Tab 75 mg = 1 tab(s), Oral, Daily, X 90 day(s), # 90 tab(s), Refills(s) 3, Pharmacy: [facility], 170, cm, 02/24/24 8:06:00 EDT, Height/Length Dosing, 79.7, kg, 02/24/24 8:06:00 EDT, Weight Dosing Start Date: 02/24/24 Stop Date: 02/18/25 Status: Ordered Start: 11-15-2023 take 1 tablet by marly once daily clopidogrel 75 mg Tab 75 mg = 1 tab(s), Oral, Daily, # 90 tab(s), Refills(s) 0, Pharmacy: [facility], 170, cm, 11/15/23 9:08:00 EST, Height/Length Dosing, 74.7, kg, 11/15/23 9:08:00 EST, Weight Dosing Start Date: 11/15/23 Status: Ordered Start: 12-28-2022 take 1 tablet by marly th once daily clopidogrel 75 mg Tab 75 mg = 1 tab(s), Oral, Daily, # 90 tab(s), Refills(s) 3, Pharmacy: [facility], 169, cm, 12/28/22 8:48:00 EDT, Height/Length Dosing, 77.9, kg, 12/28/22 8:48:00 EDT, Weight Dosing Start Date: 12/28/22 Status: Ordered Clopidogrel Bisu lfate Active colchicine 0.6 mg oral tablet (2 sources) Start: 12-14-2023 take 1 tablet by mouth three times daily as needed for pain colchicine 0.6 mg Tab See Instructions, TAKE ONE TABLET BY MOUTH THREE TIMES A DAY NEEDED FOR GOUT PAIN, # 30 EA, Refills(s) 1, Pharmacy: [facility], 170, cm, 12/14/23 12:50:00 EDT, Height/Length Dosing, 76.2, kg, 12/14/23 12:46:00 EDT, Weight Dosing Start Date: 12/14/23 Status: Ordered cyclobenzaprine hydrochloride 7.5 mg oral tablet (2 sources) Muscle Relaxant Start: 11-18-2023 take 1 tablet by mouth twice daily as needed for muscle spasms cyclobenzaprine 7.5 mg oral tablet 7.5 mg = 1 tab(s), Oral, BID, PRN for spasm, # 20 tab(s), Refills(s) 0, Pharmacy: [facility], 170, cm, 11/15/23 9:08:00 EST, [...] glyBURIDE Active indomethacin 50 mg oral capsule (2 sources) Nonsteroidal Anti-inflammatory Drug Start: 12-14-2023 take 1 capsule by mouth three times daily as needed for pain indomethacin 50 mg oral capsule 50 mg = 1 cap(s), Oral, TID, PRN for pain, # 30 cap(s), Refills(s) 0, Pharmacy: [facility], 170, cm, 12/14/23 12:50:00 EDT, Height/Length [...] ), # 15 mL, Refills(s) 3, Pharmacy: [facility], 169, cm, 12/28/22 8:48:00 EDT, Height/Length Dosing, 77.9, kg, 12/28/22 8:48:00 EDT, Weight Dosing Start Date: 12/28/22 Status: Ordered 3 ml insulin glargine 100 unt/ml pen injector (2 sources) Insulin Analog Start: 03-07-2024 Lantus Solostar Pen 100 units/mL subcutaneous solution 30 unit(s), SubCutaneous, BID, # 15 mL, Refills(s) 3, Pharmacy: [facility], 170, cm, 02/24/24 8:06:00 EDT, Height/Length Dosing, 79.7, kg, 02/24/24 8:06:00 EDT, Weight Dosing Start Date: 03/07/24 Status: Ordered Start: 10-27-2023 Lantus Solosta r Pen 100 units/mL subcutaneous solution 30 unit(s), SubCutaneous, BID, # 15 mL, Refills(s) 3, Pharmacy: [facility], 170, cm, 10/27/23 9:53:00 EST, Height/Length Dosing, 77.2, kg, 10/27/23 9:53:00 EST, Weight Dosing Start Date: 10/27/23 Status: Ordered levothyroxine sodium 0.125 mg oral tablet (6 sources) l-Thyroxine Start: 01-24-2024 take 1 tablet by mouth once daily levothyroxine 125 mcg (0.125 mg) Tab 125 mcg = 1 tab(s), Oral, Daily, # 90 tab(s), Refills(s) 0, [facility], 170, cm, 01/04/24 8:36:00 EDT, Height/Length Dosing, 77.6, kg, 01/04/24 8:36:00 EDT, Weight Dosing Start Date: 01/24/24 Status: Ordered Start: 11-15-2023 take 1 tablet by marly th once daily levothyroxine 125 mcg (0.125 mg) Tab 125 mcg = 1 tab(s), Oral, Daily, # 90 tab(s), Refills(s) 0, [facility], 170, cm, 11/15/23 9:08:00 EST, Height/Length Dosing, 74.7, kg, 11/15/23 9:08:00 EST, Weight Dosing Start Date: 11/15/23 Status: Ordered Start: 12-28-2022 take 1 tablet by marly once daily levothyroxine 125 mcg (0.125 mg) Tab 125 mcg = 1 tab(s), Oral, Daily, # 90 tab(s), Refills(s) 3, Pharmacy: [facility], 169, cm, 12/28/22 8:48:00 EDT, Height/Length [...] e losartan potassium 100 mg oral tablet (5 sources) Angiotensin 2 Receptor Isi Start: 01-24-2024 take 1 tablet by mouth once daily losartan 100 mg Tab 100 mg = 1 tab(s), Oral, Daily, # 90 tab(s), Refills(s) 2, [facility]acy: [facility], 170, cm, 01/04/24 8:36:00 EDT, Height/Length Dosing, 77.6, kg, 01/04/24 8:36:00 EDT, Weight Dosing Start Date: 01/24/24 Status: Ordered Start: 11-15-2023 take 1 tablet by marly once daily losartan 100 mg Tab 100 mg = 1 tab(s), Oral, Daily, # 90 tab(s), Refills(s) 0, Pharmacy: [facility], 170, cm, 11/15/23 9:08:00 EST, Height/Length Dosing, 74.7, kg, 11/15/23 9:08:00 EST, Weight Dosing Start Date: 11/15/23 Status: Ordered Start: 12-28-2022 take 1 tablet by [facility] once daily losartan 100 mg Tab 100 mg = 1 tab(s), Oral, Daily, # 90 tab(s), Refills(s) 3, Pharmacy: [facility], 169, cm, 12/28/22 8:48:00 EDT, Height/Length Dosing, 77.9, kg, 12/28/22 8:48:00 EDT, Weight Dosing Start Date: 12/28/22 Status: Ordered 24 hr metoprolol succinate 50 [...] Vitamin D3 2000 intl units oral Tab (5 sources) Start: 12-28-2022 take 1 tablet by mouth once daily Vitamin D3 2000 intl units oral Tab 50 mcg, Oral, Daily, # 90 cap(s), Refills(s) 3, Pharmacy: [facility], 169, cm, 12/28/22 8:48:00 EDT, Height/Length Dosing, 77.9, kg, 12/28/22 8:48:00 EDT, Weight Dosing Start Date: 12/28/22 Status: Ordered Completed/Discontinued Medications Medication Drug Class(es) Dates Sig (Normalized) Sig (Original) dexamethasone 1 mg/ml / neomycin 3.5 mg/ml / polymyxin b 31724 unt/ml ophthalmic suspension (1 source) Aminoglycoside Antibacterial, Polymyxin-class Antibacterial, Corticosteroid Neomycin-Polymyxi n-Dexameth [id number] PLACE 1 DROP INTO THE LEFT EYE FOUR TIMES A DAY FOR 1 WEEK Ophthalmic for 7 Not-Taking liothyronine sodium 0.005 mg oral tablet (6 sources) l-Triiodothyronine Start: 02-24-2024 End: 02-18-2025 take 2 tablets by mouth once daily in the morning liothyronine 5 mcg Tab 10 mcg = 2 tab(s), Oral, Daily, TAKE TWO TABLETS BY MOUTH ONCE DAILY IN THE MORNING, X 90 day(s), # 180 tab(s), Refills(s) 3, Pharmacy: [facility], 170, cm, 02/24/24 8:06:00 EDT, Height/Length Dosing, 79.7, kg, 02/24/24 8:06:00 EDT, Weight Dosing Start Date: 02/24/24 Stop Date: 02/18/25 Status: Ordered Start: 12-28-2022 take 2 tablets by mo [facility] once daily in the morning liothyronine 5 mcg Tab 10 mcg = 2 tab(s), Oral, Daily, TAKE TWO TABLETS BY MOUTH ONCE DAILY IN THE MORNING, # 180 tab(s), Refills(s) 3, Pharmacy: [facility], 169, cm, 12/28/22 8:48:00 EDT, Height/Length Dosing, 77.9, kg, 12/28/22 8:48:00 EDT, Weight Dosing Start Date: 12/28/22 Status: [facility] Liothyronine Sodium 5 MCG TAKE 1 TABLET BY MOUTH IN THE MORNING AND AFTERNOON Oral for 90 Active metFORMIN hydrochloride 500 mg oral tablet (3 sources) Biguanide Start: 04-17-2024 metformin 500 mg Tab 500 mg = 1 tab(s), Oral, BID, 180 EA, 0 Refill(s), TAKE ONE TABLET BY MOUTH TWICE A DAY FOR 90 DAYS, # 180 tab(s), Refills(s) 1, Pharmacy: [facility], 170, cm, 02/24/24 8:06:00 EDT, Height/Length Dosing, 79.7, kg, 02/24/24 8:06:00 EDT, Weight Dosing Start Date: 04/17/24 Status: Ordered Start: 04-04-2023 End: 03-29-2024 take 1 tablet by mouth twice daily metformin 500 mg Tab 500 mg = 1 tab(s), Oral, BID, X 90 day(s), # 180 tab(s), Refills(s) 3, Pharmacy: [facility], 169, cm, 04/04/23 9:12:00 EDT, Height/Length Dosing, 78.9, kg, 04/04/23 9:12:00 EDT, Weight Dosing Start Date: 04/04/23 Stop Date: 03/29/24 Status: Ordered SITagliptin 100 mg oral tablet (1 source) [...] Episodic Aortic; peripheral; and visceral artery aneurysms (4 sources) 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 Cifuentes, added per outpatient CDI policy. 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] Onset: 2 Chronic Cardiac dysrhythmias (6 sources) Tachycardia, unspecified; Translations: [Sinus tachycardia] Onset: 7 11-14-2023 Episodic Coronary atherosclerosis and other heart disease (9 sources) Atherosclerotic heart disease of [place] coronary artery with unspecified angina pectoris; Translations: [Coronary arteriosclerosis] Onset: 7 11-14-2023 Chronic Deficiency and other anemia (1 source) Iron deficiency anemia; Translations: [Iron deficiency anemia, unspecified] Episodic Diabetes mellitus with complications (4 sources) Neuropathy due to diabetes mellitus; 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] Onset: 2 12-28-2022 Chronic Diabetes mellitus without complication (20 sources) Type 2 diabetes mellitus without complications; Translations: [Type 1 diabetes mellitus] Onset: 7 12-06-2022 Chronic Disorders of lipid metabolism (11 sources) Hyperlipidemia, unspecified; Translations: [Hypercholesterolemia] Onset: 7 12-06-2022 Chronic Diverticulosis and diverticulitis (7 sources) Diverticula of intestine; Translations: [Diverticulosis of intestine, part unspecified, without perforation or abscess with bleeding] 12-06-2022 Chronic Essential hypertension (6 sources) Essential hypertension 12-28-2022 Chronic Gout and other crystal arthropathies (7 sources) Gout, unspecified; 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 Heart valve disorders (3 sources) Rheumatic disorders of both mitral and tricuspid valves; Translations: [Rheumatic disorders of both mitral and aortic valves] Onset: 3 Chronic Hypertension with complications and secondary hypertension (2 sources) Hypertensive heart disease without heart failure; Translations: [Hypertensive heart disease without heart failure] Onset: 5 Chronic Occlusion or stenosis of precerebral arteries (2 sources) Occlusion and stenosis of right carotid artery; Translations: [Occlusion and stenosis of right carotid artery] Onset: 5 Chronic Osteoarthritis (2 sources) Arthritis of right knee; Translations: [Unilateral primary osteoarthritis, right knee] Chronic Other circulatory disease (3 sources) Stented artery Onset: 1 11-14-2023 Chronic Comment on above: Outside Source Comme nt: AVE Coronary Stent Implant Other circulatory disease (2 sources) Other specified symptoms and signs involving the circulatory and respiratory systems; Translations: [Other specified symptoms and signs involving the circulatory and respiratory systems] Onset: 5 Episodic Other connective tissue disease (3 sources) Pain in calf 11-15-2023 Episodic Other gastrointestinal disorders (1 source) Constipation; Translations: [Constipation, unspecified] Episodic Other gastrointestinal disorders (1 source) Dark stools 01-23-2025 Episodic Other nutritional; endocrine; and metabolic disorders (1 source) Loss of appetite; Translations: [Anorexia] Episodic Other nutritional; endocrine; and metabolic disorders (3 sources) Body mass index 25-29 - overweight 11-15-2023 Episodic Other nutritional; endocrine; and metabolic disorders (1 source) Overweight in adulthood with body mass index of 25 or more but less than 30 01-23-2025 Episodic Peripheral and visceral atherosclerosis (6 sources) Arteriosclerotic vascular disease 12-06-2022 Chronic Screening or history of mental health and substance abuse (2 sources) Personal history of nicotine dependence; Translations: [Ex-smoker] Onset: 7 01-23-2025 Episodic Skin and subcutaneous tissue infections (3 sources) Infection of toe 09-29-2023 Episodic Thyroid disorders (6 sources) Hypothyroidism 12-06-2022 Chronic Unclassified (7 sources) Abnormal result of other cardiovascular function study; Translations: [Cardiovascular stress test abnormal] Onset: 7 11-14-2023 Episodic Unclassified (1 source) prison (current) use of oral hypoglycemic drugs; Translations: [LONG-TERM (CURRENT) USE OF ORAL HYPOGLYCEMIC DRUGS] Onset: 7 Unclassified (2 sources) Unknown / UNK(Unknown) Onset: 7 Unclassified (1 source) Stenosis of coronary artery stent, initial encounter; Translations: [STENOSIS OF CORONARY ARTERY STENT, INITIAL ENCOUNTER] Onset: 7 Unclassified (13 sources) Patient encounter status 07-06-2023 Unclassified (3 sources) Non-smoker 01-04-2024 Unclassified (1 source) Long-term current use of insulin 07-03-2024 Comment on above: Current Medication L ist includes Lantus. added per OP CDI policy. Past or Other Problems Problem Classification Problem Date Documented Da te Episodic/Chronic Malaise and fatigue (4 sources) Weakness; Translations: [WEAKNESS] Onset: 02-16-2022 Episodic Other aftercare (2 sources) prison (current) use of aspirin; Translations: [prison (current) use of antithrombotics/a ntiplatelets] Onset: 05-16-2017 [...] right knee Onset: 01-18-2022 Resolved: 01-18-2022 Episodic Results Test Name Value Interpretation Reference Range Facil ity 30on 04-24-2025 30 The patient is Moderately Stable - Low risk of patient condition declining or worsening The patient's goals for the shift include The clinical goals for the shift include Problem: Fluid retention/overload Goal: Patient will be able to identify signs and symptoms of fluid retention Outcome: Progressing Problem: Pain Goal: LTG-Verbalize decrease in pain Outcome: Progressing Goal: LTG-Demostrate that the pain does not impair ADLs Outcome: Progressing Goal: STG-Pt will verbalize decreased discomfort Outcome: Progressing Normal [facility] BASIC METABOLIC PANELon 07 Anion gap [Moles/Vol] 11 mmol/L Normal 7-20 [facility] Comment on above: Performed By: #### L [id number] #### [facility] [address] [place] [address] [facility] Calcium [Mass/Vol] 7.8 mg/dL Low 8.6-10.3 [facility] Comment on above: Performed By: #### L [id number] #### [facility] [address] [place] [address] [place] Chloride [Moles/Vol] 106 mmol/L Normal 98-107 [facility] Comment on above: Performed By: #### L [id number] #### [facility] [address] [place] [address] [place] CO2 [Moles/Vol] 21 mmol/L Normal 21-31 [facility] Comment on above: Performed By: #### L [id number] #### [facility] [address] [place] [address] [place] Creatinine [Mass/Vol] 1.38 mg/dL High 0.70-1.30 [facility] Comment on above: Performed By: #### L [id number] #### [facility] [address] [place] [address] [place] GLOMERULAR FILTRATION RATE ML/MIN/1.73 SQ M.PREDICTED 50.1 mL/min/1.73m*2 Low >60.0 [facility] Comment on above: Result Comment: The [facility]???s estimated glomerular filtration rate (eGFR) will no longer include consideration of race in its calculation. The [employer] Kid[employer] Foundation???s eGFR Task Force developed new recommendations for the estimation of the glomerular filtration rate in the [place] They recommend immediate implementation of the new equation refit without the race variable in all laboratories because the calculation does not include race. In addition to not including race in the calculation and reporting, it included diversity in its development, and has acceptable performance characteristics and potential consequences that do not disproportionately affect any one group of individuals. Performed By: #### L [id number] #### [facility] [address] [place] [address] [facility] Glucose [Mass/Vol] 117 mg/dL High 70-100 [facility] Comment on above: Performed By: #### L [id number] #### [facility] [address] [place] [address] [facility] Potassium [Moles/Vol] 5.0 mmol/L Normal 3.5-5.1 [facility] Comment on above: Performed By: #### L [id number] #### [facility] [address] [place] [address] [facility] Sodium [Moles/Vol] 133 mmol/L Low 136-145 [facility] Comment on above: Performed By: #### L [id number] #### [facility] [address] [place] [address] [facility] Urea nitrogen [Mass/Vol] 32 mg/dL High 7-25 [facility] Comment on above: Performed By: #### L [id number] #### [facility] [address] [place] [address] [place] UREA NITROGEN/CREATININE (MASS RATIO) IN SER/PLAS 23.2 Normal [facility] Comment on above: Performed By: #### L [id number] #### [facility] [address] [place] [address] [place] CALCIUM, IONIZEDon 07-30-202 5 CALCIUM IONIZED (MMOL/L) IN BLOOD 1.11 mmol/L Low 1.15-1.33 [facility] Comment on above: Performed By: #### L [id number] #### [facility] [address] [place] [address] [facility] CBC WITH AUTO DIFFERENTIALon 04-24-2025 Basophils (Bld) [#/Vol] 0.02 10*3/uL Normal 0.00-0.20 [facility] Comment on above: Performed By: #### L [id number] #### [facility] (BEAKER) [address] [place] [address] Basophils/100 WBC (Bld) 0.2 % Normal 0.0-1.0 [facility] Comment on above: Performed By: #### L [id number] #### [facility] ([facility]) [address] [place] [address] Eosinophils (Bld) [#/Vol] 0.00 10*3/uL Normal 0.00-0.50 [facility] Comment on above: Performed By: #### L [id number] #### [facility] ([facility]) [address] [place] [address] Eosinophils/100 WBC (Bld) 0.0 % Normal 0.0-6.0 [facility] Comment on above: Performed By: #### L [id number] #### [facility] (BEAKER) [address] [place] [address] Erythrocyte distribution width (RBC) [Ratio] 13.0 % Normal 11.5-15.0 [facility] Comment on above: Performed By: #### L [id number] #### [facility] ([facility]) [address] [place] [address] ERYTHROCYTE MEAN CORPUSCULAR HEMOGLOBIN CONCENTRATION (G/DL) BY AUTOMATED 34.8 g/dL Normal 32.0-35.0 [facility] Comment on above: Performed By: #### L [id number] #### [facility] ([facility]) [address] [place] [address] Hematocrit (Bld) [Volume fraction] 25.6 % Low 39.0-50.0 [facility] Comment on above: Performed By: #### L [id number] #### [facility] ([facility]) [address] [place] [address] Hemoglobin (Bld) [Mass/Vol] 8.9 g/dL Low 13.0-17.0 [facility] Comment on above: Performed By: #### L [id number] #### [facility] [address] [place] [address] Immature granulocytes (Bld) [#/Vol] 0.07 10*3/uL Normal 0.00-0.20 [facility] Comment on above: Performed By: #### L [id number] #### [facility] ([facility]) [address] [place] [address] Immature granulocytes/100 WBC (Bld) 0.6 % Normal 0.0-1.0 [facility] Comment on above: Performed By: #### L [id number] #### [facility] ([facility]) [address] [place] [address] Lymphocytes (Bld) [#/Vol] 0.72 10*3/uL Low 1.20-4.00 [facility] Comment on above: Performed By: #### L [id number] #### [facility] ([facility]) [address] [place] [address] Lymphocytes/100 WBC (Bld) 5.7 % Low 20.0-45.0 [facility] Comment on above: Performed By: #### L [id number] #### [facility] (BEAKER) [address] [place] [address] MCH (RBC) [Entitic mass] 31.0 pg Normal 27.0-33.0 [facility] Comment on above: Performed By: #### L [id number] #### [facility] (BEAKER) [address] [place] [address] MCV (RBC) [Entitic vol] 89.2 fL Normal 82.0-98.0 [facility] Comment on above: Performed By: #### L [id number] #### [facility] H[facility] (BEAKER) [address] [place] [address] Monocytes (Bld) [#/Vol] 0.56 10*3/uL Normal 0.10-1.00 [facility] Comment on above: Performed By: #### L [id number] #### [facility] [address] [place] [address] Monocytes/100 WBC (Bld) 4.4 % Low 5.0-12.0 [facility] Comment on above: Performed By: #### L [id number] #### [facility] [address] [place] [address] Neutrophils (Bld) [#/Vol] 11.23 10*3/uL High 1.60-7.60 [facility] Comment on above: Performed By: #### L [id number] #### [facility] [address] [place] [address] Neutrophils/100 WBC (Bld) 89.1 % High 40.0-72.0 [facility] Comment on above: Performed By: #### L [id number] #### [facility] [address] [place] [address] NRBC (PER 100 WBCS) BY AUTOMATED COUNT 0.0 % Normal 0 [facility] Comment on above: Performed By: #### L [id number] #### [facility] (BEAKER) [address] [place] [address] PLATELETS (10*3/UL) IN BLOOD AUTOMATED COUNT 250 10*3/uL Normal 150-400 [facility] Comment on above: Performed By: #### L [id number] #### [facility] (BEAKER) [address] [place] [address] RBC (Bld) [#/Vol] 2.87 10*6/uL Low 4.20-5.70 [facility] Comment on above: Performed By: #### L [id number] #### [facility] ([facility]) [address] [place] [address] WBC (Bld) [#/Vol] 12.60 10*3/uL High 4.00-10.60 [facility] Comment on above: Performed By: #### L [id number] #### [facility] ([facility]) [address] [place] [address] MAGNESIUMon 04-24-2025 Magnesium [Mass/Vol] 2.0 mg/dL Normal 1.9-2.7 [facility] Comment on above: Performed By: #### L [id number] #### [facility] RESPIRATORY THERAPY [address] [place] [address] [place] NURSNOTEon 04-24-2025 NURSNOTE Patient discharged f [facility] SICU to home. Left with all belongings. Transported via wheelchair. Son at bedside while discharge instructions reviewed. Answered all questions. All IV's and equipment removed from patient. Normal [facility] PHOSPHORUSon 04-24-2025 Magnesium [Mass/Vol] 4.8 mg/dL Normal 2.5-5.0 [facility] Comment on above: Performed By: #### L [id number] #### [facility] RESPIRATORY THERAPY [address] [place], [place] [address] POCT GLUCOSE METER UNSOLICIT ED RESULTSon 04-24-2025 Glucose [Mass/Vol] 230 mg/dL High 70-105 [facility] Comment on above: Order Comment: Waive d Testing in the ED is performed under the ED CLIA certificate #[id number]. Result Comment: [email or web address] Performed By: #### L [id number] #### [facility] ([facility]) [address] [place] [address] Glucose [Mass/Vol] 132 mg/dL High 70-105 [facility] Comment on above: Order Comment: Waive d Testing in the ED is performed under the ED CLIA certificate #[id number]. Result Comment: [email or web address] Performed By: #### L [id number] #### [facility] RESPIRATORY THERAPY [address] [place] [address] [place] Glucose [Mass/Vol] 126 mg/dL High 70-105 [facility] Comment on above: Order Comment: Waive d Testing in the ED is performed under the ED CLIA certificate #[id number]. Result Comment: susanne valencia Performed By: #### L [id number] #### [facility]PITAL [facility] (BEAKER) [address] [place] [address] CONSULTon 04-23-2025 CONSULT [facility] Surgical Intensive Care Unit Consult Note Reason For Consult- Critical Care Management Referring Physician: Dr Rushing Chief Complaint: Critical Care Management Primary Service: Vascular HPI: 85 y.o. male with past medical history of CAD with coronary stent, DM, Hypertension who presented to [facility] for a right carotid endarterectomy due to significant right ICA stenosis. Patient transferred to SICU postoperatively for close observation and serial neurovascular checks. Patient arrived to SICU hemodynamically stable, on room air, A&O x4. He complains of no significant pain, dizziness, headache, vision changes, weakness, chest pain, shortness of breath, nausea, vomiting, or abdominal pain. Right neck surgical site without underlying hematoma, YAKELIN drain in place, dressing C clean, dry, and intact. Review of Systems: Review of Systems Constitutional: Negative for chills and fever. HENT: Negative for sore throat and tinnitus. Eyes: Negative for photophobia and visual disturbance. Respiratory: Negative for cough, chest tightness, shortness of breath and wheezing. Cardiovascular: Negative for chest pain and palpitations. Gastrointestinal: Negative for abdominal distention, abdominal pain, nausea and vomiting. Musculoskeletal: Positive for neck pain. Negative for back pain. Neck soreness Neurological: Negative for dizziness, weakness, light-headedness, numbness and headaches. Psychiatric/Behavioral: Negative for confusion. History: Past Medical History: has a past medical history of Allergic rhinitis, Aneurysm, CAD (coronary artery disease) (05/11/2022), Cardiovascular stress test abnormal (05/11/2022), Diabetes mellitus (CMS/HCC) (05/11/2022), Dyslipidemia (05/11/2022), Heart valve disease, Hyperlipidemia, Hypertension, Hypothyroidism, Single vessel coronary artery disease (05/11/2022), Sinus tachycardia (05/11/2022), Stented coronary artery (05/11/2022), and Tachycardia, unspecified (05/11/2022). Past Surgical History: has a past surgical history that includes Cardiac catheterization (05/16/2017); Cataract extraction, extracapsular w/ intraocular lens implant (Bilateral); and Coronary stent placement. Allergies: Glipizide and Omeprazole Home Medications: Prescriptions Prior to Admission[1] Social History: reports that he has quit smoking. His smoking use included cigarettes. He does not have any smokeless tobacco history on file. He reports that he does not currently use alcohol. He reports that he does not use drugs. Family History: pulled available information in [facility] from previous visits Family History[2] Objective Vitals: BP: (103-110)/(41-48) 110/48 (04/23 1800) Girls Systolic BP Percentile: -- Girls Diastolic BP Percentile: -- Boys Systolic BP Percentile: -- Boys Diastolic BP Percentile: -- Temp: [36 ???C (96.8 ???F)-36.3 ???C (97.4 ???F)] 36.3 ???C (97.4 ???F) (04/23 1831) Temp Source: Oral (04/23 1831) Heart Rate: [60-66] 66 (04/23 1841) Resp: [10-18] 16 (04/23 1841) SpO2: [97 %-100 %] 100 % (04/23 1841) Height: -- Weight: -- No data recorded I/O last 3 completed shifts: In: 1383.8 [I.V.:1329.3; IV Piggyback:54.5] Out: 390 [Urine:240; Blood:150] Physical Exam Constitutional: General: He is not in acute distress. Appearance: Normal appearance. He is not diaphoretic. HENT: Head: Normocephalic and atraumatic. Mouth/Throat: Mouth: Mucous membranes are moist. Pharynx: Oropharynx is clear. Eyes: Extraocular Movements: Extraocular movements intact. Pupils: Pupils are equal, round, and reactive to light. Neck: Comments: Right neck surgical dressing clean, dry, intact. YAKELIN drain in place with minimal serosanguinous drainage, No underlying hematoma Cardiovascular: Rate and Rhythm: Normal rate and regular rhythm. Pulses: Normal pulses. Heart sounds: Normal heart sounds. Pulmonary: Effort: Pulmonary effort is normal. No respiratory distress. Breath sounds: Normal breath sounds. No wheezing. Abdominal: General: Abdomen is flat. There is no distension. Palpations: Abdomen is soft. Tenderness: There is no abdominal tenderness. There is no guarding. Musculoskeletal: General: Normal range of motion. Cervical back: Normal range of motion. Skin: General: Skin is warm and dry. Neurological: General: No focal deficit present. Mental Status: He is alert and oriented to person, place, and time. Cranial Nerves: No cranial nerve deficit. Sensory: No sensory deficit. Motor: No weakness. Coordination: Coordination normal. Psychiatric: Mood and Affect: Mood normal. Behavior: Behavior normal. Labs: Recent Results (from the past 12 hours) POCT glucose meter Collection Time: 04/23/25 1:27 PM Result Value Ref Range Glucose POC 71 70 - 105 mg/dL POCT perfusion panel Collection Time: 04/23/25 4:00 PM Result Value Ref Range SO2 POC 100 (H) 95 - 98 % Sodium POC 137 (L) 138.0 - 146.0 mmol/L Pota (more content not included)... Normal [facility] HPon 04-23-2025 History Of Present Illness Watson Lewis Jr. is a 85 y.o. male presenting with pmh of CAD with coronary stent placement, DM, Htn presenting for right carotid endarterectomy surgery. Patient was found to have right ICA stenosis on carotid artery duplex; he is asymptomatic in terms of TIA or strokes. He take asa, plavix and statin at home. No prior next surgeries. Past Medical History Medical History[1] Surgical History Surgical History[2] Social History Social History Socioeconomic History Marital status: Spouse name: Not on file Number of children: Not on file Years of education: Not on file Highest education level: Not on file Occupational History Not on file Tobacco Use Smoking status: Former Types: Cigarettes Smokeless tobacco: Not on file Substance and Sexual Activity Alcohol use: Not Currently Comment: occasional Drug use: Never Sexual activity: Defer Other Topics Concern Not on file Social History Narrative Not on file Social Drivers of Health Financial Resource Strain: Not on file Food Insecurity: Not on file Transportation Needs: Not on file Physical Activity: Not on file Stress: Not on file Social Connections: Not on file Intimate Partner Violence: Unknown (11/17/2023) [place] Safety & Environment Fear of Current or Ex-Partner: Not on file Emotionally Abused: Not on file Physically Abused: Not on file Sexually Abused: Not on file Physically or Sexually Abused: Not on file Housing Stability: Not on file Family History Family History[3] Allergies Allergies[4] Medications Prescriptions Prior to Admission[5] Review of Systems ROS General: No fever, chills Eyes: No headaches, vision changes, blurry vision ENT: No sore throat, cough or runny nose Neuro: No focal deficits Neck: No lymphadenopathy, no pain CV: No chest pain, palpitations Lungs: No shortness of breath, no wheezing Abd: no abdominal pain. No nausea, vomiting, diarrhea, melena, hematochezia. : Denies any dysuria, hematuria Skin: Denies any new rashes/lesions/ulceratio ns Endo: No heat or cold intolerance MS: Denies any myalgias, gross deformities Psych: No depression, no anxiety Heme: No easy bruising Lymph: Denies any lymphadenopathy Last Recorded Vitals Visit Vitals Smoking Status Former Physical Exam Physical Exam General Appearance: awake, alert; well-developed, well-nourished HEENT: atraumatic, normocephalic; EOMI, no scleral icterus; trachea midline, neck supple. Pulmonary: unlabored breathing, saturating >93% on room air. Cardiac: regular rate and rhythm Abdomen: soft, non-tender, non-distended; no rebound tenderness or guarding. Neuro: alert and oriented x3; no focal neurologic deficits. Extremity: full range of motion, no peripheral edema. Skin: warm, dry; no rashes or lesions. Relevant Lab Results Lab Results Component Value Date NA 136 04/15/2025 K 4.6 04/15/2025 CL 105 04/15/2025 CO2 25 04/15/2025 BUN 31 (H) 04/15/2025 CREATININE 1.50 (H) 04/15/2025 GLUCOSE 63 (L) 04/15/2025 CALCIUM 8.3 (L) 04/15/2025 ANIONGAP 11 04/15/2025 EGFR 45.3 (L) 04/15/2025 BCR 20.7 04/15/2025 Relevant Imaging Results ECG 12 lead Sinus bradycardia Otherwise normal ECG When compared with ECG of 18-NOV-2014 10:31, Vent. rate has decreased BY 29 BPM Confirmed by Liat LAYTON, LUPIS Hwang ([id number]) on 04/15/2025 5:29:34 PM Assessment & Plan Stenosis of right carotid artery No associated orders from this encounter found during lookback period of 72 hours. Bilateral carotid bruits No associated orders from this encounter found during lookback period of 72 hours. Coronary artery disease involving qawalangin coronary artery of qawalangin heart without angina pectoris No associated orders from this encounter found during lookback period of 72 hours. Encounter for pre-operative examination No associated orders from this encounter found during lookback period of 72 hours. Active Problems: Stenosis of right carotid artery Bilateral carotid bruits Coronary artery disease involving qawalangin coronary artery of qawalangin heart without angina pectoris Encounter for pre-operative examination Jojo Lewis is an 85 yo M with pmh of CAD with stent placement, DM2, HTN presenting for right carotid endarterectomy for significal right ica carotid stenosis; he is asymptomatic. - OR today for right CEA - Will obtain consent and discuss risk and benefits - Ancef 2 grams prior to surgery - Patient will be monitored in ICU post operatively Shayna Funes MD, PGY4 General Surgery Resident Patient has severe right carotid artery, due to the load of plaque and calcification opted to proceed with CEA vs TCAR Explained the procedure to the patient For CEA Will be admitted to the ICU after that then possible home I reviewed the images again and the cardiac ECHO Has no weakness at the moment The bifurcation seems to be high b (more content not included)... Normal [facility] NURSNOTEon 04-23-2025 NURSNOTE FOCAL NEURO ASSESSME NT PERFORMED IN PRE-OP ALL FINDINGS WNL SMILE HAND GRASPS DORSAL FLEXION Normal [facility] OPNOTEon 04-23-2025 OPNOTE RIGHT CAROTID ENDARTERECTOMY WITH PATCH ANGIOPLASTY (R) Operative Note Date: 04/23/2025 Location: [facility] OR Name: Jojo Lewis Jr. Watson , : 1940, Diagnosis Pre-op Diagnosis * Stenosis of right carotid artery [I65.21] * Bilateral carotid bruits [R09.89] * Coronary artery disease involving qawalangin coronary artery of qawalangin heart without angina pectoris [I25.10] * Encounter for pre-operative examination [Z01.818] Post-op Diagnosis * Stenosis of right carotid artery [I65.21] * Bilateral carotid bruits [R09.89] * Coronary artery disease involving qawalangin coronary artery of qawalangin heart without angina pectoris [I25.10] * Encounter for pre-operative examination [Z01.818] Procedures RIGHT CAROTID ENDARTERECTOMY WITH PATCH ANGIOPLASTY 04200 - AR TEAEC W/PATCH GRF CAROTID VERTB SUBCLAV NECK INC Surgeons Primary: Bruce Rushing MD Resident - Assisting: Shayna Funes MD; Steven Cifuentes MD Procedure Summary Anesthesia: General ASA: III Estimated Blood Loss: Minimal Total IV Fluids: mL Drains: Closed/Suction Drain Right Neck Bulb (Active) Urethral Catheter Non-latex 16 Fr. (Active) Specimens ID Source Type Tests Collected By Collected At Frozen? Priority Lab ID A Neck Tissue HISTOLOGY - TISSUE EXAM Bruce Rushing MD 04/23/25 1535 No Description: right carotid plaque Implants Type Name Action Serial No. Graft PATCH,VASCUGARD,[id number] M - [id number] Implanted Staff: Forestry Aid Technician: Kaleigh Hampton RN Scrub Person: Josy Gambino RN; Wanda Goss CST Nozzle Operator: Angelique Harrison CSA Indications: Watson Lewis Jr. is an 85 y.o. male who is having surgery for Stenosis of right carotid artery [I65.21] Bilateral carotid bruits [R09.89] Coronary artery disease involving qawalangin coronary artery of qawalangin heart without angina pectoris [I25.10] Encounter for pre-operative examination [Z01.818]. Patient has severe stenosis in the right carotid artery, has dizziness but no stroke or TIA Procedure Details: The patient was seen in the preoperative area. The risks, benefits, complications, treatment options, non-operative alternatives, expected recovery and outcomes were discussed with the patient. The possibilities of reaction to medication, pulmonary aspiration, injury to surrounding structures, bleeding, recurrent infection, the need for additional procedures, failure to diagnose a condition, and creating a complication requiring transfusion or operation were discussed with the patient. The patient concurred with the proposed plan, giving informed consent. The site of surgery was properly noted/marked if necessary per policy. The patient has been actively warmed in preoperative area. Preoperative antibiotics have been ordered and given within 1 hours of incision. Venous thrombosis prophylaxis are not indicated. Put in a supine position. The location of the bifurcation was localized by ultrasound. Right side of neck prepped and draped in the usual fashion. Transverse incision was done in the right side of the neck. Platysma was opened. Dissection done for the sternocleidomastoid muscle from adjacent tissues identifying the internal jugular vein. After that the common facial vein was ligated with 2-0 silk and then transected. Another smaller branch was also ligated and transected. The common carotid artery was identified dissected distally. The superior thyroidal artery and the external carotid artery and internal carotid artery were all identified. All those vessels were encircled with Vesseloops. The common carotid artery was encircled with an umbilical tape. The vagus nerve was identified and kept out of harm's way. After that clamps applied to the internal carotid artery then external carotid artery then superior thyroidal artery. Followed finally by the common carotid artery. Heparin effect was treated by measuring ACT which was therapeutic. After that small incision made in the common carotid artery, extended to the internal carotid artery. There was significant calcification in the wall of the internal and common carotid arteries, with hemorrhagic plaque and ulcerated area. After that endarterectomy was done removing the plaque from the common external and internal carotid artery. After that irrigation of the lumen was done with hep saline removing all remnants of the intima. The distal part of the internal carotid artery was adherent but still tacking sutures applied. After that flushing of the lumen was done with the blood backbleeding from the internal carotid artery and external carotid artery was allowed. The backbleeding from the internal carotid artery was satisfactory. Blood flow to the brain was measured during this process by oxygen saturation which was stable during the procedure. After that a bovine patch applied to the arteriotomy and sutured in position with 6-0 Prolene starting from the distal and the proximal (more content not included)... Normal [facility] POCT ACTIVATED CLOTTING TIME UNSOLICITED RESULTSon 04-23-2025 POC ACTIVATED CLOTTING TIME 136 sec Normal 82-152 [facility] Comment on above: Performed By: #### L [id number] ####[facility] HOSPITAL LAB ([facility])[address] [facility] [place] [place] [address] POC ACTIVATED CLOTTING TIME 231 sec High 82-152 [facility] Comment on above: Performed By: #### L [id number] ####[facility] ([facility])[address] [facility] [place] [place] [address] POC ACTIVATED CLOTTING TIME 244 sec High 82-152 [facility] Comment on above: Performed By: #### L [id number] ####[facility] ([facility])[address] [facility] [place] [place] [address] POCT GLUCOSE METER UNSOLICIT ED RESULTSon 04-23-2025 Glucose [Mass/Vol] 114 mg/dL High 70-105 [facility] Comment on above: Order Comment: Waive d Testing in the ED is performed under the ED CLIA certificate #[id number]. Result Comment: [email or web address] Performed By: #### L [id number] #### [facility] ([facility]) [address] [place] [address] Glucose [Mass/Vol] 123 mg/dL High 70-105 [facility] Comment on above: Order Comment: Waive d Testing in the ED is performed under the ED CLIA certificate #[id number]. Result Comment: [email or web address] Performed By: #### L [id number] #### [facility] ([facility]) [address] [place] [address] Glucose [Mass/Vol] 136 mg/dL High 70-105 [facility] Comment on above: Order Comment: Waive d Testing in the ED is performed under the ED CLIA certificate #[id number]. Result Comment: [email or web address] Performed By: #### L [id number] #### [facility] RESPIRATORY THERAPY [address] [place] [address] [place] Glucose [Mass/Vol] 71 mg/dL Normal 70-105 [facility] Comment on above: Order Comment: Waive d Testing in the ED is performed under the ED CLIA certificate #[id number]. Result Comment: [email or web address] Performed By: #### L [id number] #### [facility] RESPIRATORY THERAPY [address] [place] [address] [facility] POCT PERFUSION PANEL UNSOLIC ITED RESULTSon 04-23-2025 CO2 [Moles/Vol] 21.0 mmol/L Normal 21.0-29.0 [facility] Comment on above: Performed By: #### L [id number] ####[facility] HOSPITAL LAB (BEAKER)[address] [place] [address] Glucose [Mass/Vol] 85 mg/dL Normal 70-105 [facility] Comment on above: Performed By: #### L [id number] ####[facility] HOSPITAL LAB (BEAKER)[address] [place] [address] HCO3 (Bld) [Moles/Vol] 19.9 mmol/L Low 23.0-28.0 [facility] Comment on above: Performed By: #### L [id number] ####[facility] HOSPITAL LAB (BEAKER)[address] [place] [address] Hematocrit (Bld) [Volume fraction] 28 % Low 38-51 [facility] Comment on above: Performed By: #### L [id number] ####[facility] HOSPITAL LAB (BEAKER)[address] [place] [address] Hemoglobin (Bld) [Mass/Vol] 9.5 g/dL Low 12.0-17.0 [facility] Comment on above: Performed By: #### L [id number] ####[facility] HOSPITAL LAB (BEAKER)[address] [place] [address] POCT BASE EXCESS -5.0 mmol/L Low -2.0-3.0 [facility] Comment on above: Performed By: #### L [id number] ####[facility] HOSPITAL LAB (BEAKER)[address] [place] [address] POCT IONIZED CALCIUM 1.22 mmol/L Normal 1.12-1.32 [facility] Comment on above: Performed By: #### L [id number] ####[facility] HOSPITAL LAB (BEAKER)[address] [place] [address] POCT PCO2 37.3 mmHg Low 41.0-51.0 [facility] Comment on above: Performed By: #### L [id number] ####[facility] HOSPITAL LAB (BEAKER)[address] [place] [address] POCT PH 7.34 Normal 7.31-7.41 [facility] Comment on above: Performed By: #### L [id number] ####[facility] HOSPITAL LAB (BEAKER)[address] [place] [address] POCT PO2 178 mmHg High 80-105 [facility] Comment on above: Performed By: #### L [id number] ####[facility] HOSPITAL [facility] (BEAKER)[address] [place], [place] [address] POCT SO2 100 % High 95-98 [facility] Comment on above: Performed By: #### L [id number] ####[facility] HOSPITAL LAB (BEAKER)[address] [place] [address] Potassium [Moles/Vol] 4.6 mmol/L Normal 3.5-4.9 [facility] Comment on above: Performed By: #### L [id number] ####[facility] HOSPITAL LAB (BEAKER)[address] [place] [address] Sodium [Moles/Vol] 138 mmol/L Normal 138.0-146.0 [facility] Comment on above: Performed By: #### L [id number] ####[facility] HOSPITAL LAB (BEAKER)[address] [place] [address] CO2 [Moles/Vol] 23.0 mmol/L Normal 21.0-29.0 [facility] Comment on above: Performed By: #### L [id number] ####[facility] HOSPITAL LAB (BEAKER)[address] [place], [place] [address] Glucose [Mass/Vol] 38 mg/dL Invalid Interpretation Code 70-105 [facility] Comment on above: Performed By: #### L [id number] ####[facility] HOSPITAL LAB (BEAKER)[address] [place] [address] HCO3 (Bld) [Moles/Vol] 21.3 mmol/L Low 23.0-28.0 [facility] Comment on above: Performed By: #### L [id number] ####[facility] ([facility] [address] Hematocrit (Bld) [Volume fraction] 28 % Low 38-51 [facility] Comment on above: Performed By: #### L [id number] ####[facility] ([facility])[address] [address] Hemoglobin (Bld) [Mass/Vol] 9.5 g/dL Low 12.0-17.0 [facility] Comment on above: Performed By: #### L [id number] ####[facility] ([facility] [address] POCT BASE EXCESS -4.0 mmol/L Low -2.0-3.0 [facility] Comment on above: Performed By: #### L [id number] ####[facility] ([facility])[address] [address] POCT IONIZED CALCIUM 1.33 mmol/L High 1.12-1.32 [facility] Comment on above: Performed By: #### L [id number] ####[facility] ([facility] [place] [address] POCT PCO2 41.4 mmHg Normal 41.0-51.0 [facility] Comment on above: Performed By: #### L [id number] ####[facility] ([facility] [address] POCT PH 7.32 Normal 7.31-7.41 [facility] Comment on above: Performed By: #### L [id number] ####[facility] (BEAKER)[address] [place] [address] POCT PO2 183 mmHg High 80-105 [facility] Comment on above: Performed By: #### L [id number] ####[facility] HOSPITAL LAB (BEAKER)[address] [place] [address] POCT SO2 100 % High 95-98 [facility] Comment on above: Performed By: #### L [id number] ####[facility] HOSPITAL LAB ([facility])[address] [place] [address] Potassium [Moles/Vol] 4.5 mmol/L Normal 3.5-4.9 [facility] Comment on above: Performed By: #### L [id number] ####[facility] ([facility])[address] [place] [address] Sodium [Moles/Vol] 137 mmol/L Low 138.0-146.0 [facility] Comment on above: Performed By: #### L [id number] ####[facility] ([facility])[address] [place] [address] APTTon 04-15-2025 ACTIVATED PARTIAL THROMBOPLASTIN TIME IN PPP BY COAGULATION ASSAY 29.3 Seconds Normal 25.0-35.0 [facility] Comment on above: Result Comment: Clin ical significance of the APTT is questionable in the presence of heparin. Performed By: #### L [id number] #### [facility] RESPIRATORY THERAPY [address] [place] [address] [facility] BASIC METABOLIC PANELon 03-27 Anion gap [Moles/Vol] 11 mmol/L Normal 7-20 [facility] Comment on above: Performed By: #### L [id number] ####[facility] ([facility])[address] [place] [address] Calcium [Mass/Vol] 8.3 mg/dL Low 8.6-10.3 [facility] Comment on above: Performed By: #### L [id number] ####[facility] ([facility] [place] [address] Chloride [Moles/Vol] 105 mmol/L Normal 98-107 [facility] Comment on above: Performed By: #### L [id number] ####[facility] HOSPITAL LAB ([facility] [place] [address] CO2 [Moles/Vol] 25 mmol/L Normal 21-31 [facility] Comment on above: Performed By: #### L [id number] ####[facility] ([facility])[address] [place] [address] Creatinine [Mass/Vol] 1.50 mg/dL High 0.70-1.30 [facility] Comment on above: Performed By: #### L [id number] ####[facility] ([facility])[address] [place] [address] GLOMERULAR FILTRATION RATE ML/MIN/1.73 SQ M.PREDICTED 45.3 mL/min/1.73m*2 Low >60.0 [facility] Comment on above: Result Comment: The [facility]???s estimated glomerular filtration rate (eGFR) will no longer include consideration of race in its calculation. The National Kidney Foundation???s eGFR Task Force developed new recommendations for the estimation of the glomerular filtration rate in the [place] They recommend immediate implementation of the new equation refit without the race variable in all laboratories because the calculation does not include race. In addition to not including race in the calculation and reporting, it included diversity in its development, and has acceptable performance characteristics and potential consequences that do not disproportionately affect any one group of individuals. Performed By: #### L [id number] ####[facility] ([facility])[address] [place] [address] Glucose [Mass/Vol] 63 mg/dL Low 70-100 [facility] Comment on above: Performed By: #### L [id number] ####[facility] ([facility])[address] [place] [address] Potassium [Moles/Vol] 4.6 mmol/L Normal 3.5-5.1 [facility] Comment on above: Performed By: #### L [id number] ####[facility] ([facility])[address] [place] [address] Sodium [Moles/Vol] 136 mmol/L Normal 136-145 [facility] Comment on above: Performed By: #### L [id number] ####[facility] ([facility])[address] [place] [address] Urea nitrogen [Mass/Vol] 31 mg/dL High 7-25 [facility] Comment on above: Performed By: #### L [id number] ####[facility] ([facility])[address] [place] [address] UREA NITROGEN/CREATININE (MASS RATIO) IN SER/PLAS 20.7 Normal [facility] Comment on above: Performed By: #### L [id number] ####[facility] ([facility])[address] [place] [address] CBCon 04-15-2025 Erythrocyte distribution width (RBC) [Ratio] 13.0 % Normal 11.5-15.0 [facility] Comment on above: Performed By: #### L [id number] #### [facility] RESPIRATORY THERAPY [address] [place] [address] [facility] ERYTHROCYTE MEAN CORPUSCULAR HEMOGLOBIN CONCENTRATION (G/DL) BY AUTOMATED 34.2 g/dL Normal 32.0-35.0 [facility] Comment on above: Performed By: #### L [id number] #### [facility] RESPIRATORY THERAPY [address] [place] [address] [facility] Hematocrit (Bld) [Volume fraction] 34.8 % Low 39.0-50.0 [facility] Comment on above: Performed By: #### L [id number] #### [facility] RESPIRATORY THERAPY [address] [place] [address] [place] Hemoglobin (Bld) [Mass/Vol] 11.9 g/dL Low 13.0-17.0 [facility] Comment on above: Performed By: #### L [id number] #### [facility] RESPIRATORY THERAPY [address] [place] [address] [place] MCH (RBC) [Entitic mass] 31.3 pg Normal 27.0-33.0 [facility] Comment on above: Performed By: #### L [id number] #### [facility] RESPIRATORY THERAPY [address] [place] [address] [facility] MCV (RBC) [Entitic vol] 91.6 fL Normal 82.0-98.0 [facility] Comment on above: Performed By: #### L [id number] #### [facility] RESPIRATORY THERAPY [address] [place] [address] [facility] PLATELETS (10*3/UL) IN BLOOD AUTOMATED COUNT 336 10*3/uL Normal 150-400 [facility] Comment on above: Performed By: #### L [id number] #### [facility] RESPIRATORY THERAPY [address] [place] [address] [facility] RBC (Bld) [#/Vol] 3.80 10*6/uL Low 4.20-5.70 [facility] Comment on above: Performed By: #### L [id number] #### [facility] RESPIRATORY THERAPY [address] [place] [address] [facility] WBC (Bld) [#/Vol] 14.90 10*3/uL High 4.00-10.60 [facility] Comment on above: Performed By: #### L [id number] #### [facility] RESPIRATORY THERAPY [address] [place] [address] [facility] HPon 04-15-2025 HP Pre-Anesthesia Clini c 04/15/25 Pt presents with Son For Pre Anesthesia Clinic visit for upcoming procedure: Right Carotid Endarterectomy with Dr Rushing under General on 04/23/25. Filippo Muller MD [address] [place], [place] [id number] [place] [address] Subjective Vitals: 04/15/25 1304 BP: (!) 133/44 Pulse: 57 Resp: 18 Temp: 36.4 ???C (97.6 ???F) SpO2: 99% Allergies[1] Medication Documentation Review Audit Reviewed by Rhina Lowe RN (Registered Nurse) on 04/15/25 at 1309 Medication Order Taking? Sig Documenting Provider Last Dose Status amLODIPine (Norvasc) 10 mg tablet [id number] Take 1 tablet (10 mg) by mouth in the morning. Bigg Celis, LANIE Active amLODIPine (Norvasc) 5 mg tablet [id number] No Take 1 tablet (5 mg) by mouth in the morning. Patient not taking: Reported on 04/15/2025 Bigg Celis CNP Not Taking Active aspirin 81 mg EC tablet [id number] Yes Take 81 mg by mouth in the morning. Macie Rizzo MD 04/15/2025 Active atorvastatin (Lipitor) 80 mg tablet [id number] Yes Take 1 tablet (80 mg) by mouth in the evening. Bigg Celis CNP 04/15/2025 Active carvedilol (Coreg) 25 mg tablet [id number] Yes Take 1 tablet (25 mg) by mouth with breakfast and with evening meal. Bigg Celis CNP 04/15/2025 Active chlorthalidone (Hygroton) 25 mg tablet [id number] Yes Take 1 tablet (25 mg) by mouth in the morning. Bigg Celis CNP 04/15/2025 Active cholecalciferol (Vitamin D-3) 50 MCG (1999 UT) tablet [id number] Yes Take by mouth in the morning. Macie Rizzo MD 04/15/2025 Active clopidogrel (Plavix) 75 mg tablet [id number] Yes Take 1 tablet (75 mg) by mouth once daily as directed. Bigg Celis CNP 04/15/2025 Active insulin detemir (Levemir) 100 unit/mL (3 mL) pen [id number] No Inject under the skin at bedtime. Patient not taking: Reported on 04/15/2025 Historical ProviderMD Not Taking Active Lantus Solostar U-100 Insulin 100 unit/mL (3 mL) injection pen [id number] Yes Inject 30 Units under the skin two times daily. Macie Rizzo MD 04/15/2025 Active levothyroxine (Synthroid, Levoxyl) 125 mcg tablet [id number] Yes Take 125 mcg by mouth before breakfast. Macie ProviderMD 04/15/2025 Active liothyronine (Cytomel) 5 mcg tablet [id number] Yes Take 2 tablets by mouth in the morning. Macie ProviderMD 04/15/2025 Active losartan (Cozaar) 100 mg tablet [id number] Yes Take 100 mg by mouth in the morning. Macie Rizzo MD 04/15/2025 Active metFORMIN (Glucophage) 500 mg tablet [id number] Yes Take 500 mg by mouth with breakfast and with evening meal. Macie Provider, MD 04/15/2025 Active Immunization History Administered Date(s) Administered Moderna 12 YR UP Vaccine BiValent Booster 10/22/2020, 11/18/2020, 07/21/2021, 02/17/2022 Moderna SARS-CoV-2 Vaccination 06/15/2022 Problem List[2] There are no diagnoses linked to this encounter. History Medical History[3] Surgical History[4] IVONE Lewis Jr. is a 85 y.o. year old male patient who presents with Son For Pre Anesthesia Clinic visit for upcoming procedure: Right Carotid Endarterectomy with Dr Rushing under General on 04/23/25. Pt denies hx of anesthesia complications: Malignant hyperthermia, Serotonin syndrome for severe PONV. Pt / family denies hx of anesthesia complications. Pt has partial lower removable bridge. Pt had Carotid Arteral duplex 02/14/25: severe right stenosis, ICA Pt getting all labs done here at [facility] lab after visit. Pt reports EKG in [place] with CHRIS Lantigua unable to obtain. EKG office [facility]: sinus pj HR 53. PMH: CAD with Stent 2017, DM, HLD, HTN, Thyroid disease, carotid disease, PSH: Cardiac Stent 2017, Cataract, tonsillectomy,Appendecto my Echo: 02/14/25: EF 55-60%, mil mitral/aortic regurg, aortic root dilated 4.2cm Pt denies CP or SOB No N/V/D. Resp easy reg. Skin warm dry Pt to continue plavix, ASA per orders. Lab on 03/20/2025 Component Date Value Ref Range Status Auto WBC 03/20/2025 11.15 (H) 4.00 - 10.60 10*3/uL Final RBC 03/20/2025 3.83 (L) 4.20 - 5.70 10*6/uL Final Hemoglobin 03/20/2025 12.0 (L) 13.0 - 17.0 g/dL Final Hematocrit 03/20/2025 34.8 (L) 39.0 - 50.0 % Final MCV 03/20/2025 90.9 82.0 - 98.0 fL Final MCH 03/20/2025 31.3 27.0 - 33.0 pg Final MCHC 03/20/2025 34.5 32.0 - 35.0 g/dL Final RDW 03/20/2025 13.2 11.5 - 15.0 % Final Platelets 03/20/2025 290 150 - 400 10*3/uL Final No results found for this or any previous visit (from the past 4464 hours). Anesthesia History: No record on chart. Charts Reviewed Today: 03/20/25 Dr Rushing visit: Patient has a primary medical history of CAD, diabetes mellitus, hyperlipidemia, and HTN with a primary surgical history of cardiac catheterization (05/16/2017); Cataract extraction, extracapsular w/ intraocular lens implant (Bilateral); and Coronary stent placement. The pa (more content not included)... Normal [facility] Labon 04-15-2025 Lab [id number] Pillo Lewis Jr. 1940 M Date Provider Department Center 04/15/2025 2244-[facility] MP LAB RESOURCE MP DRAW Medical Pavi Family History Problem Relation Age of Onset Heart disease Mother Heart disease Father Alcohol abuse Father Diabetes Brother Family Status - Relation Status Age at Mother Father Sister Alive Brother Alive Normal [facility] MRSA/MSSA DNA NASALon 2024 MRSA DNA Negative Normal Negative [facility] Comment on above: Order Comment: Testi ng methodology is an automated qualitative in vitro diagnostic test for the directdetection and differentiation of Staphylococcus aureus (SA) DNA and methicillin-resistant Staphylococcus aureus (MRSA) DNA from nasal swabs in patients at risk for nasal colonization. The test utilizes real-time polymerase chain reaction (PCR) for the amplification of MRSA/SA DNA and fluorogenic target-specific hybridization probes for the detection of the amplified DNA. A negative result does not preclude nasal colonization.Testing methodology is an automated qualitative in vitro diagnostic test for the directdetection and differentiation of Staphylococcus aureus (SA) DNA and methicillin-resistant Staphylococcus aureus (MRSA) DNA from nasal swabs in patients at risk for nasal colonization. The test utilizes real-time polymerase chain reaction (PCR) for the amplification of MRSA/SA DNA and fluorogenic target-specific hybridization probes for the detection of the amplified DNA. A negative result does not preclude nasal colonization. Performed By: #### L [id number] ####[facility] (BEAKER)[address] [place] [address] MSSA DNA Negative Normal Negative [facility] Comment on above: Order Comment: Testi ng methodology is an automated qualitative in vitro diagnostic test for the directdetection and differentiation of Staphylococcus aureus (SA) DNA and methicillin-resistant Staphylococcus aureus (MRSA) DNA from nasal swabs in patients at risk for nasal colonization. The test utilizes real-time polymerase chain reaction (PCR) for the amplification of MRSA/SA DNA and fluorogenic target-specific hybridization probes for the detection of the amplified DNA. A negative result does not preclude nasal colonization.Testing methodology is an automated qualitative in vitro diagnostic test for the directdetection and differentiation of Staphylococcus aureus (SA) DNA and methicillin-resistant Staphylococcus aureus (MRSA) DNA from nasal swabs in patients at risk for nasal colonization. The test utilizes real-time polymerase chain reaction (PCR) for the amplification of MRSA/SA DNA and fluorogenic target-specific hybridization probes for the detection of the amplified DNA. A negative result does not preclude nasal colonization. Performed By: #### L [id number] ####[facility] (BEAKER)[address] [place] [address] PROTIME-INRon 04-15-2025 INR IN PPP BY COAGULATION ASSAY 1.00 Normal 0.90-1.10 [facility] Comment on above: Result Comment: ACCC P RECOMMENDED INR FOR WARFARIN THERAPY CONDITION INR PROPHYLAXIS OF VENOUS THROMBOSIS 2-3 (HIGH-RISK SURGERY) TREATMENT OF VENOUS THROMBOSIS 2-3 TREATMENT OF PULMONARY EMBOLISM 2-3 PREVENTION OF SYSTEMIC EMBOLISM: 2-3 ACUTE MYOCARDIAL INFARCTION TISSUE HEART VALVES VALVULAR HEART DISEASE ATRIAL FIBRILLATION RECURRENT SYSTEMIC EMBOLISM MECHANICAL HEART VALVE 2.5-3.5 FROM: ORAL ANTICOAGULANTS. MECHANISM OF ACTION, CLINICAL EFFECTIVENESS, AND OPTIMAL THERAPEUTIC RANGE. CHEST 1995;108:231S-246S. Performed By: #### L [id number] #### [facility] HOSPITAL LAB (BEAKER) [address] [place] [address] PROTHROMBIN TIME (PT) IN PPP BY COAGULATION ASSAY 13.2 Seconds Normal 12.3-14.8 [facility] Comment on above: Performed By: #### L [id number] #### [facility] HOSPITAL LAB (BEAKER) [address] [place] [address] Pre-Admission Testingon 03-27 Pre-Admission Testing [id number] Jojo Lewis Jr. 1940 M [facility] Provider Department Center 04/15/[id number] CLINI*[facility] PAC CO Medical C Family History Problem Relation Age of Onset Heart disease Mother Heart disease Father Alcohol abuse Father Diabetes Brother Family Status - Relation Status Age at Mother Father Sister Alive Brother Alive Normal [facility] TYPE AND SCREENon 04-15-2025 AB SCREEN Negative Normal [facility] Comment on above: Performed By: #### L [id number] ####[facility] BLOOD BANK, ABO group Nom (Bld) B Normal [facility] Comment on above: Performed By: #### L [id number] ####[facility] BLOOD BANK, RH TYPE IN BLOOD Positive Normal [facility] Comment on above: Performed By: #### L [id number] ####[facility] BLOOD BANK, Orders Onlyon 04-14-2025 Orders Only [id number] Pillo Lewis Jr. 1940 M [facility] Provider Department Center 04/14/2025 [place] [facility] PREOP CO Medical C Family History Problem Relation Age of Onset Heart disease Mother Heart disease Father Alcohol abuse Father Diabetes Brother Family Status - Relation Status Age at Mother Father Sister Alive Brother Alive Normal [facility] CBCon 03-20-2025 Erythrocyte distribution width (RBC) [Ratio] 13.2 % Normal 11.5-15.0 [facility] Comment on above: Performed By: #### L [id number] #### [facility] RESPIRATORY THERAPY [address] [place] [address] [facility] ERYTHROCYTE MEAN CORPUSCULAR HEMOGLOBIN CONCENTRATION (G/DL) BY AUTOMATED 34.5 g/dL Normal 32.0-35.0 [facility] Comment on above: Performed By: #### L [id number] #### [facility] RESPIRATORY THERAPY [address] [place] [address] [facility] Hematocrit (Bld) [Volume fraction] 34.8 % Low 39.0-50.0 [facility] Comment on above: Performed By: #### L [id number] #### [facility] RESPIRATORY THERAPY [address] [place] [address] [facility] Hemoglobin (Bld) [Mass/Vol] 12.0 g/dL Low 13.0-17.0 [facility] Comment on above: Performed By: #### L AB54 #### [facility] RESPIRATORY THERAPY [address] [place] [address] [facility] MCH (RBC) [Entitic mass] 31.3 pg Normal 27.0-33.0 [facility] Comment on above: Performed By: #### L AB54 #### [facility] RESPIRATORY THERAPY [address] [place] [address] [facility] MCV (RBC) [Entitic vol] 90.9 fL Normal 82.0-98.0 [facility] Comment on above: Performed By: #### L AB54 #### [facility] RESPIRATORY THERAPY [address] [place] [address] [facility] PLATELETS (10*3/UL) IN BLOOD AUTOMATED COUNT 290 10*3/uL Normal 150-400 [facility] Comment on above: Performed By: #### L AB54 #### [facility] RESPIRATORY THERAPY [address] [place] [address] [place] RBC (Bld) [#/Vol] 3.83 10*6/uL Low 4.20-5.70 [facility] Comment on above: Performed By: #### L AB54 #### [facility] RESPIRATORY THERAPY [address] [place] [address] [place] WBC (Bld) [#/Vol] 11.15 10*3/uL High 4.00-10.60 [facility] Comment on above: Performed By: #### L AB54 #### [facility] RESPIRATORY THERAPY [address] [place] [address] [facility] Consulton 03-20-2025 Consult [id number] AlvinPillo hua Jr. 1940 M Date Provider Department Center 03/20/2025 377-BRUCE RUSHING HVCVASENDO CO HeartVAS Family History Problem Relation Age of Onset Heart disease Mother Heart disease Father Alcohol abuse Father Diabetes Brother Family Status - Relation Status Age at Mother Father Sister Alive Brother Alive Level of Service:35991 [place] OFFICE/OUTPATIENT NEW MODERATE MDM 45 MINUTES Reason for Visit and Comments: New Patient [632] - Bilateral numbness in feet [facility] Labon 03-20-2025 Lab [id number] Pillo Lewis Jr. 1940 M Date Provider Department Center 03/20/2025 2245-[facility] OPD LAB RESOURCE [facility] OPD CO Medical C Family History Problem Relation Age of Onset Heart disease Mother Heart disease Father Alcohol abuse Father Diabetes Brother Family Status - Relation Status Age at Mother Father Sister Alive Brother Alive [facility] Orders Onlyon 02-21-2025 Orders Only [id number] Pillo Lewis Jr. 1940 M Date Provider Department Center 02/21/2025 [id number], HISTORICAL BH CARD [facility] Family History Problem Relation Age of Onset Heart disease Mother Heart disease Father Alcohol abuse Father Diabetes Brother Family Status - Relation Status Age at Mother Father Sister Alive Brother Alive [facility] 36on 02-14-2025 36 Thank you! [facility] 36 Is this before or af ter medications? If its after, make sure roughly 2 hours after. If these are his BP's after medications, recommend increasing amlodipine to 10mg daily (make sure he has been taking the 5mg). Call back in 2 weeks for BP readings. Thanks! [facility] 36 190/63 190/65 168/61 151/55 180/64 158/55 164/61 160/58 140/61 140/65 [facility] Office Visiton 01-24-2025 Follow-up visit [id number] Pillo Lewis Jr. 1940 M Date Provider Department Center 01/24/2025 Kimberlyn-BIGG CELIS Cecilia Luna Family History Problem Relation Age of Onset Heart disease Mother Heart disease Father Alcohol abuse Father Diabetes Brother Family Status - Relation Status Age at Mother Father Sister Alive Brother Alive Level of Service:13537 [place] OFFICE/OUTPATIENT ESTABLISHED MOD MDM 30 MIN Reason for Visit and Comments: Coronary Artery Disease [187] Hypertension [850647] Hyperlipidemia [182] Normal [facility] Reminderson 01-24-2025 Reminders Reminders From: Sheree Caraballo To: [facility] - Clinical; Sent: 01/24/2025 08:21:26 EDT Show [...] not improve, I will send him to color developer. HGBA1C is 5.1. His diabetes is well [...] 17.1 % (14.0 - 50.0) 01/23/2025 8:40 [place] Auto 7.4 % (4.0 - 14.0) 01/23/2025 8:40 Eos Auto (H) 18.5 % (0.0 - 8.0) 01/23/2025 8:40 Basophil Auto 0.6 % (0.0 - 2.0) 01/23/2025 8:40 Neutro Absolute 5.2 E9/L (2.0 - 7.5) 01/23/2025 8:40 Lymph Absolute 1.6 E9/L (1.0 - 4.0) 01/23/2025 8:40 [place] Absolute 0.7 E9/L (0.2 - 1.0) 01/23/2025 [...] Scrn Tot. 1.2 ng/mL (0.1 - 3.5) Normal [facility] Ambulatory Visit Summaryon 0 01-23-2025 Ambulatory Visit Summary Ambulatory Visit Summary JOJO LEWIS JR :1940 [...] Misc Prescription (Diabetic Shoes) Misc Prescription (Freestyle Blaise 3 Flash Glucose Monitoring 14 Day System [...] catheter (2000), Appendectomy (1947). Discharge Vitals Temperature (Tympanic) 36.8 ???C Heart Rate (Peripheral) 78 Respiratory Rate 18 Blood Pressure 128/82 Height 170 cm Height 67 in Weight 79.95 kg Weight 176.259 lb BMI 27.66 What to do next Scheduled Follow-Up Appointments Tuesday 8:00 AM EDT Where: [facility] [address] [address]- Medications What How Much When Why Instructions [...] be worn daily. Dx: E10.40 Pt address: [address] [place] [id number] Unchanged Misc Prescription (Freestyle Blaise 3 Flash Glucose Monitoring 14 Day System (Sensor)) See instructions Type 1 diabetes mellitus with diabetic neuropathy prison (current) use of insulin Encounter for diabetic foot exam Overweight (BMI 25.0-29.9) Non-smoker BMI 27.0-27.9,adult Freestyle Blaise 3 Flash Glucose Monitoring 14 Day System [...] Essential hypertension Former smoker Gout of knee Hype (more content not included)... Normal [facility] CBC w/ Auto Diffon 5 Basophils/100 WBC (Bld) 0.6 % Normal 0.0-2.0 [facility] Comment on above: Performed By: #### [id number] #### [facility] Laboratory [address] [place] [address] Basophils/Leukocyte s Auto (Bld) [Pure # fraction] 0.1 E9/L Normal 0.0-0.2 [facility] Comment on above: Performed By: #### 2 [id number] #### [facility] [address] [place] [address] Eosinophils (Bld) [#/Vol] 1.7 E9/L High 0.0-0.5 [facility] Comment on above: Performed By: #### 2 [id number] #### [facility] [address] [place] [address] Eosinophils/100 WBC (Bld) 18.5 % High 0.0-8.0 [facility] Comment on above: Performed By: #### 2 259575 #### [facility] [address] [place] [address] Erythrocyte distribution width (RBC) [Ratio] 14.1 % Normal 10.9-14.2 [facility] Comment on above: Performed By: #### 2 [id number] #### [facility] [address] [place] [address] Hematocrit (Bld) [Volume fraction] 37.0 % Low 37.7-49.0 [facility] Comment on above: Performed By: #### 2 [id number] #### [facility] [address] [place] [address] [place] [address] Hemoglobin (Bld) [Mass/Vol] 12.9 g/dL Low 13.5-17.5 [facility] Comment on above: Performed By: #### 2 005651 #### [facility] [address] [place] [address] Lymphocytes (Bld) [#/Vol] 1.6 E9/L Normal 1.0-4.0 [facility] Comment on above: Performed By: #### 2 [id number] #### [facility] [address] [place] [address] Lymphocytes/100 WBC (Bld) 17.1 % Normal 14.0-50.0 [facility] Comment on above: Performed By: #### 2 669193 #### [facility] [address] [place] [address] MCH (RBC) [Entitic mass] 31.3 pg Normal 27.0-34.0 [facility] Comment on above: Performed By: #### 2 694839 #### [facility] [address] [place] [address] MCHC (RBC) [Mass/Vol] 34.9 g/dL Normal 31.4-36.0 [facility] Comment on above: Performed By: #### 2 443541 #### [facility] [address] [place] [address] MCV (RBC) [Entitic vol] 89.9 fL Normal 80.0-100.0 [facility] Comment on above: Performed By: #### 2 254403 #### [facility] [address] [place] [address] Monocytes (Bld) [#/Vol] 0.7 E9/L Normal 0.2-1.0 [facility] Comment on above: Performed By: #### 2 991657 #### [facility] [address] [place] [address] Neutrophils (Bld) [#/Vol] 5.2 E9/L Normal 2.0-7.5 [facility] Comment on above: Performed By: #### 2 [id number] #### [facility] [address] [place] [address] Neutrophils/100 WBC (Bld) 56.4 % Normal 36.0-75.0 [facility] Comment on above: Performed By: #### 2 846321 #### [facility] [address] [place] [address] Platelet mean volume (Bld) [Entitic vol] 8.6 fL Normal 6.4-10.8 [facility] Comment on above: Performed By: #### 2 [id number] #### [facility] [address] [place] [address] Platelets (Bld) [#/Vol] 268.0 E9/L Normal 150.0-500.0 [facility] Comment on above: Performed By: #### 2 148979 #### [facility] [address] [place] [address] RBC (Bld) [#/Vol] 4.1 E12/L Low 4.3-5.9 [facility] Comment on above: Performed By: #### 2 633081 #### [facility] [address] [place] [address] WBC corrected for nucl RBC Auto (Bld) [#/Vol] 9.3 E9/L Normal 4.0-11.0 [facility] Comment on above: Result Comment: Jimena pheral smear review performed. Performed By: #### 2 [id number] #### [facility] [address] [place] [address] CHEMISTRYOrdered By: SYSTEM SYSTEM on 01-23-2025 Albumin [Mass/Vol] 4.3 g/dL Normal 3.3 - 5.0 gm/dL R emisol Chem Albumin/Globulin [Mass ratio] 1.7 {ratio} Normal 1.1 - 2.2 [facility] ALP [Catalytic activity/Vol] 87 [iU]/d Normal 21 - 98 Int._Unit/L [facility] ALT No additional P-5'-P [Catalytic activity/Vol] 8 [iU]/d Normal 6 - 46 Int._Unit/L [facility] Anion gap [Moles/Vol] 11 mmol/L Normal 6 - 16 mEq/L [facility] AST [Catalytic activity/Vol] 15 [iU]/d Normal 5 - 43 Int._Unit/L [facility] Bilirubin [Mass/Vol] 0.7 mg/dL Normal 0.0 - 1.1 mg/dL [facility] Calcium [Mass/Vol] 8.8 mg/dL Low 8.9 - 11.1 mg/dL [facility] Chloride [Moles/Vol] 106 mmol/L Normal 101 - 111 mmol/L [facility] Cholesterol [Mass/Vol] 101 mg/dL Low 120 - 200 mg/dL [facility] Cholesterol in HDL [Mass/Vol] 31 mg/dL Invalid Interpretation Code [facility] Comment on above: Result Comment: '>= 60 LOW RISK' '<= 40 HIGH RISK' Cholesterol in LDL [Mass/Vol] 53 mg/dL Normal <=129mg/dL [facility] Cholesterol in VLDL [Mass/Vol] 28 mg/dL Normal 7 - 40 mg/dL [facility] CO2 [Moles/Vol] 26 mmol/L Normal 21 - 31 mmol/L Remis ol Chem Creatinine [Mass/Vol] 1.4 mg/dL High 0.5 - 1.3 mg/dL [facility] eGFR 49 mL/min/1.73 m2 Low >=59mL/min /1.73 m2 [facility] Globulin (S) [Mass/Vol] 2.5 g/dL Normal 1.4 - 4.0 gm/dL [facility] Glucose [Mass/Vol] 115 mg/dL Normal 55 - 199 mg/dL Re misol Chem Potassium [Moles/Vol] 4.7 mmol/L Normal 3.5 - 5.3 mmol/L [facility] Prostate specific Ag [Mass/Vol] 1.2 ng/mL Normal 0.1 - 3.5 ng/mL [facility] Comment on above: Interpretive Data: T he concentration of PSA determined by different manufacturers can vary due to differences in assay methods and reagent specificity. Values obtained from different assay methods cannot be used interchangeably. The methodology used for this result was chemiluminescence using [employer]'s Access Hybritech PSA reagent. Protein [Mass/Vol] 6.8 g/dL Normal 6.0 - 7.8 gm/dL R em[facility] Chem Sodium [Moles/Vol] 138 mmol/L Normal 135 - 145 mmol/L [facility] Triglyceride [Mass/Vol] 138 mg/dL Normal <=149mg/dL [facility] TSH Qn 1.06 m[IU]/L Normal 0.34 - 5.60 mcIU/mL [facility] Urea nitrogen [Mass/Vol] 23 mg/dL High 5 - 21 mg/dL [facility] Urea nitrogen/Creatinine [Mass ratio] 16 mg/mg Normal 10 - 20 [facility] CHEMISTRYOrdered By: Kim Bolden on 01-23-2025 HbA1c (Bld) [Mass fraction] 5.1 % Normal <=5.9% [facility] ChemAutoSS CMPon 01-23-2025 Albumin [Mass/Vol] 4.3 g/dL Normal 3.3-5.0 [facility] Comment on above: Performed By: #### 2 [id number] #### [facility] [address] [place] [address] Albumin/Globulin (S) [Mass conc ratio] 1.7 Normal 1.1-2.2 [facility] Comment on above: Performed By: #### 2 454243 #### [facility] [address] [place] [address] ALP [Catalytic activity/Vol] 87 Int._Unit/L Normal 21-98 [facility] Comment on above: Performed By: #### 2 510433 #### [facility] [address] [place] [address] ALT No additional P-5'-P [Catalytic activity/Vol] 8 Int._Unit/L Normal 6-46 [facility] Comment on above: Performed By: #### 2 846851 #### [facility] [address] [place] [address] Anion gap [Moles/Vol] 11 mmol/L Normal 6-16 [facility] Comment on above: Performed By: #### 2 885614 #### [facility] [address] [place] [address] AST [Catalytic activity/Vol] 15 Int._Unit/L Normal 5-43 [facility] Comment on above: Performed By: #### 2 830207 #### [facility] [address] [place] [address] Bilirubin [Mass/Vol] 0.7 mg/dL Normal 0.0-1.1 [facility] Comment on above: Performed By: #### 2 338120 #### [facility] [address] [place] [address] Calcium [Mass/Vol] 8.8 mg/dL Low 8.9-11.1 [facility] Comment on above: Performed By: #### 2 926912 #### [facility] [address] [place] [address] Chloride [Moles/Vol] 106 mmol/L Normal 101-111 [facility] Comment on above: Performed By: #### 2 505405 #### [facility] [address] [place] [address] CO2 [Moles/Vol] 26 mmol/L Normal 21-31 [facility] Comment on above: Performed By: #### 2 774045 #### [facility] [address] [place] [address] Creatinine [Mass/Vol] 1.4 mg/dL High 0.5-1.3 [facility] Comment on above: Performed By: #### 2 301990 #### [facility] [address] [place] [address] Globulin (S) [Mass/Vol] 2.5 g/dL Normal 1.4-4.0 [facility] Comment on above: Performed By: #### 2 605504 #### [facility] [address] [place] [address] Glucose [Mass/Vol] 115 mg/dL Normal 55-199 [facility] Comment on above: Performed By: #### 2 160538 #### [facility] [address] [place] [address] Potassium [Moles/Vol] 4.7 mmol/L Normal 3.5-5.3 [facility] Comment on above: Performed By: #### 2 700263 #### [facility] [address] [place] [address] Protein [Mass/Vol] 6.8 g/dL Normal 6.0-7.8 [facility] Comment on above: Performed By: #### 2 504395 #### [facility] [address] [place] [address] Sodium [Moles/Vol] 138 mmol/L Normal 135-145 [facility] Comment on above: Performed By: #### 2 223125 #### [facility] [address] [place] [address] Urea nitrogen [Mass/Vol] 23 mg/dL High 5-21 [facility] Comment on above: Performed By: #### 2 638071 #### [facility] [address] [place] [address] Urea nitrogen/Creatinine [Mass ratio] 16 No Units Normal 10-20 [facility] Comment on above: Performed By: #### 2 332429 #### [facility] [address] [place] [address] Family Medicine Office/Clini c Noteon 01-23-2025 Family Medicine Office/Clinic Note Family Medicine Office/Clinic Note Chief Complaint 6m follow up HPI Staff Alvin is a 84 year old male presenting [...] Comprehensive Metabolic Panel HgbA1c Lab Specimen Collect [id number] Lab Specimen Collect [id number] Lipid Panel PSA Screen, Total Thyroid Stimulating Hormone 2. Hypothyroid (E03.9: Hypothyroidism, unspecified) pt needs refill on Synthroid. TSH drawn today Ordered: CBC w/ Auto Diff Cologuard Screening Test Comprehensive Metabolic Panel HgbA1c Lab Specimen Collect [id number] Lipid Panel PSA Screen, Total Thyroid Stimulating [...] 01/23/25 8:19:00 EDT, Height/Length Dosing, 80, kg, 0 (more content not included)... Normal [facility] Comment on above: Result Comment: Elec tronically Signed By: Sheree Caraballo\Date and Time Signed: 01/23/25 09:56 EDT HEMATOLOGYOrdered By: SYSTEM SYSTEM on 01-23-2025 Basophils/100 WBC (Bld) 0.6 % Normal 0.0 - 2.0 % [facility] Basophils/Leukocyte s Auto (Bld) [Pure # fraction] 0.1 E9/L Normal 0.0 - 0.2 E9/L [facility] Eosinophils (Bld) [#/Vol] 1.7 E9/L High 0.0 - 0.5 E9/L [facility] Eosinophils/100 WBC (Bld) 18.5 % High 0.0 - 8.0 % [facility] Erythrocyte distribution width (RBC) [Ratio] 14.1 % Normal 10.9 - 14.2 % [facility] Hematocrit (Bld) [Volume fraction] 37.0 % Low 37.7 - 49.0 % [facility] Hemoglobin (Bld) [Mass/Vol] 12.9 g/dL Low 13.5 - 17.5 gm/dL [facility] Lymphocytes (Bld) [#/Vol] 1.6 E9/L Normal 1.0 - 4.0 E9/L [facility] Lymphocytes/100 WBC (Bld) 17.1 % Normal 14.0 - 50.0 % [facility] MCH (RBC) [Entitic mass] 31.3 pg Normal 27.0 - 34.0 pg [facility] MCHC (RBC) [Mass/Vol] 34.9 g/dL Normal 31.4 - 36.0 gm/dL [facility] MCV (RBC) [Entitic vol] 89.9 fL Normal 80.0 - 100.0 fL [facility] Monocytes (Bld) [#/Vol] 0.7 E9/L Normal 0.2 - 1.0 E9/L [facility] Monocytes/100 WBC (Bld) 7.4 % Normal 4.0 - 14.0 % [facility] Neutrophils (Bld) [#/Vol] 5.2 E9/L Normal 2.0 - 7.5 E9/L [facility] Neutrophils/100 WBC (Bld) 56.4 % Normal 36.0 - 75.0 % [facility] Platelet mean volume (Bld) [Entitic vol] 8.6 fL Normal 6.4 - 10.8 fL [facility] Platelets (Bld) [#/Vol] 268.0 E9/L Normal 150.0 - 500.0 E9/L [facility] RBC (Bld) [#/Vol] 4.1 E12/L Low 4.3 - 5.9 E12/L Re misol Heme WBC corrected for nucl RBC Auto (Bld) [#/Vol] 9.3 E9/L Normal 4.0 - 11.0 E9/L [facility] Comment on above: Result Comment: Jimena pheral smear review performed. [id number] 01-23-2025 HbA1c (Bld) [Mass fraction] 5.1 % Normal <=5.9 [facility] Comment on above: Performed By: #### 7 [id number] #### [facility] [address] [place] [address] Lipid Panelon 01-23-2025 Cholesterol [Mass/Vol] 101 mg/dL Low 120-200 [facility] Comment on above: Performed By: #### 2 [id number] #### [facility] [address] [place] [address] Cholesterol in HDL [Mass/Vol] 31 mg/dL Invalid Interpretation Code [facility] Comment on above: Result Comment: '>= 60 LOW RISK' '<= 40 HIGH RISK' Performed By: #### 2 [id number] #### [facility] [address] [place] [address] Cholesterol in LDL [Mass/Vol] 53 mg/dL Normal <=129 [facility] Comment on above: Performed By: #### 2 100650 #### [facility] [address] [place] [address] Cholesterol in VLDL [Mass/Vol] 28 mg/dL Normal 7-40 [facility] Comment on above: Performed By: #### 2 [id number] #### [facility] [address] [place] [address] Triglyceride [Mass/Vol] 138 mg/dL Normal <=149 [facility] Comment on above: Performed By: #### 2 [id number] #### [facility] [address] [place] [address] PSA Screen, Totalon 01-24-20 25 Prostate specific Ag [Mass/Vol] 1.2 ng/mL Normal 0.1-3.5 [facility] Comment on above: Result Comment: The concentration of PSA determined by different manufacturers can vary due to differences in assay methods and reagent specificity. Values obtained from different assay methods cannot be used interchangeably. The methodology used for this result was chemiluminescence using [employer]'s Access Hybritech PSA reagent. Performed By: #### 1 [id number] #### [facility] [address] [place] [address] TSHon 01-23-2025 TSH Qn 1.06 m[IU]/L Normal 0.34-5.60 [facility] Comment on above: Performed By: #### 2 259343 #### [facility] [address] [place] [address] eGFRon 01-23-2025 eGFR 49 mL/min/1.73 m2 Low >=59 [facility] Comment on above: Performed By: #### 1 [id number] #### [facility] [address] [place] [address] Family Medicine Office/Clini c Noteon 07-06-2024 Family Medicine Office/Clinic Note Family Medicine Office/Clinic Note Chief Complaint 6m f/u HPI Staff [...] 79.7, kg, 02/24/24 8:06:00 EDT, Weight Dosing Misc Prescription, Freestyle Blaise 3 Flash Glucose Monitoring 14 Day System (Sensor), See Instructions, 6 EA, 1, Freestyle Blaise 3 Flash Glucose Monitoring 14 Day System [...] 130-139 mm Hg (Most Recent) 3075F 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 will send to pharmacy Ordered: Misc Prescription, Freestyle Blaise 3 Flash Glucose Monitoring 14 Day System (Sensor), See Instructions, 6 EA, 1, Freestyle Blaise 3 Flash Glucose Monitoring 14 Day System [...] of left foot. Ordered: Misc Prescription, Freestyle Blaise 3 Flash Glucose Monitoring 14 Day System (Sensor), See Instructions, 6 EA, 1, Freestyle Blaise 3 Flash Glucose Monitoring 14 Day System (Sensor). Replace sensor every 14 days., [facility], Supply, 170, cm, 07/04/24 8:19:00 EDT... 4. Essential hypertension (I10: Essential (primary) hypertension) BP at goal today 5. Aneurysm of aortic root (I71.21: Aneurysm of the ascending aorta, without rupture) stable 6. Overweight (BMI 25.0-29.9) (E66.3: Overweight) see above Ordered: Misc Prescription, Freestyle Blaise 3 Flash Glucose Monitoring 14 Day System (Sensor), See Instructions, 6 EA, 1, Freestyle Blaise 3 Flash Glucose Monitoring 14 Day System (Sensor). Replace sensor every 14 days., [facility], Supply, 170, cm, 07/04/24 8:19:00 EDT... 7. Non-smoker (Z78.9: Other specified health status) continue not smoking Ordered: Misc Prescription, Freestyle Blaise 3 Flash Glucose Monitoring 14 Day System (Sensor), See Instructions, 6 EA, 1, Freestyle Blaise 3 Flash Glucose Monitoring 14 Day System (Sensor). Replace sensor every 14 days., [facility], Supply, 17 (more content not included)... Normal [facility] Comment on above: Result Comment: Elec tronically Signed By: Sheree Caraballo\.br\Date and Time Signed: 07/06/24 09:17 EDT Ambulatory Visit Summaryon 1 Ambulatory Visit Summary Ambulatory Visit Summary JOJO LEWIS JR :1940 Visit Date:07/04/2024 Ambulatory Visit Instructions Your Diagnosis Type 1 diabetes mellitus with diabetic neuropathy prison (current) use of insulin Encounter for diabetic [...] catheter (2000), Appendectomy (1947). Discharge Vitals Temperature (Tympanic) 36.7 ?C Heart Rate (Peripheral) 72 Respiratory Rate 16 Blood Pressure 132/78 Height 170 cm Height 67 in Weight 80.7 kg Weight 177.54 lb BMI 27.92 What to do next Scheduled Follow-Up Appointments Tuesday 8:20 AM EDT With: Sheree Caraballo Where: [address] [id number]- Tuesday 8:00 AM EDT With: Where: [address] [address]- Medications What How Much When Why Instructions [...] Essential hypertension Gout of knee Hypercholesterolemia Hypothyroid prison (current) use of insulin Non-smoker Overweight (BMI [...] you for choosing us for your care. Normal [facility] Reminderson 06-29-2024 Reminders Reminders From: Sheree Caraballo To: [facility] - Clinical; Sent: 06/29/2024 10:35:28 EDT Show up: 06/29/2024 10:36:00 EDT Subject: Ambulatory Reminder Due Date/Time: 06/30/2024 10:35:00 EDT HGBA1C is 5.8. This is great. Keep up the great work! Results: Date Result Name Value Ref Range 06/28/2024 9:30 Hgb A1C % 5.8 % ( - <=5.9) Pt notified. Normal [facility] CHEMISTRYOrdered By: Antonio Khan on 06-28-2024 HbA1c (Bld) [Mass fraction] 5.8 % Normal <=5.9% [facility] ChemAutoSS [id number] 06-28-2024 HbA1c (Bld) [Mass fraction] 5.8 % Normal <=5.9 [facility] Comment on above: Performed By: #### 7 [id number] #### [facility] [address] [place] [address] Ambulatory Visit Summaryon 0 05-24-2024 Ambulatory Visit Summary Ambulatory Visit Summary JOJO LEWIS JR :1940 [...] Appointments 2023 8:20 AM EDT With: Where: [address] [address]- Tuesday 8:20 AM EDT With: Sheree Caraballo Where: [address] [address]- Tuesday 8:00 AM EDT With: Where: [address] [place] [address]- You Need to Complete the Following HgbA1c, [...] cardiovascular disease) Cardiovascular stress test abnormal Coronary erendira (more content not included)... Normal [facility] Family Medicine Office/Clini c Noteon 05-24-2024 Family Medicine Office/Clinic Note Family Medicine Office/Clinic Note Chief Complaint Subsequent Medicare Wellness Review [...] s/s to monitor for and report to (more content not included)... Normal [facility] Comment on above: Result Comment: Elec tronically Signed By: Sheree Caraballo\.br\Date and Time Signed: 05/24/24 15:07 EDT\.br\Electronically Co-Signed By: Wendy Jacob\.br\Date and Time Co-Signed: 05/24/24 13:22 EDT Echocardiographyon Echocardiography [id number] Normal [facility] Family Medicine Office/Clini c Noteon 02-24-2024 Family [...] # 90 tab(s), Refills(s) 3, Pharmacy: [facility], 170, cm, 02/24/24 8:06:00 EDT, Height/Length [...] # 90 tab(s), Refills(s) 3, Pharmacy: [facility], 170, cm, 02/24/24 8:06:00 EDT, Height/Length Dosing, 79.7, kg, 02/24/24 8:06:00 EDT, Weight Dosing liothyronine, 10 mcg = 2 tab(s), Oral, Daily, TAKE TWO TABLETS BY MOUTH ONCE DAILY IN THE MORNING, X 90 day(s), # 180 tab(s), Refills(s) 3, Pharmacy: [facility], 170, cm, 02/24/24 8:06:00 EDT, Height/Length Dosing, 79.7, kg, 02/24/24 8:06:00 EDT, Weight D... liothyronine, 10 mcg = 2 tab(s), Oral, Daily, TAKE TWO TABLETS BY MOUTH ONCE DAILY IN THE MORNING, # 180 tab(s), Refills(s) 3, Pharmacy: [facility], 169, cm, 12/28/22 8:48:00 EDT, Height/Length [...] qualifying data Procedure/Surgical History Colonoscopy (2018), EGD (esophagogastroduodenosc opy) gastric outlet reduct (more content not included)... Normal [facility] Comment on above: Result Comment: Elec tronically Signed By: Sheree Caraballo\.br\Date and Time Signed: 02/24/24 08:51 EDT Reminderson 01-05-2024 Reminders - From: Sheree Caraballo [...] 16.1 % (14.0 - 50.0) 01/04/2024 8:58 [place] Auto 8.3 % (4.0 - 14.0) 01/04/2024 8:58 Eos Auto ((H)) 14.2 % (0.0 - 8.0) 01/04/2024 8:58 Basophil Auto 0.8 % (0.0 - 2.0) 01/04/2024 8:58 Neutro Absolute 4.6 E9/L (2.0 - 7.5) 01/04/2024 8:58 Lymph Absolute 1.2 E9/L (1.0 - 4.0) 01/04/2024 8:58 [place] Absolute 0.6 E9/L (0.2 - 1.0) 01/04/2024 [...] 3.5) Patient informed and voiced understanding. Normal [facility] Ambulatory Visit Summaryon 0 01-04-2024 Ambulatory Visit Summary JOJO LEWIS JR :1940 Visit Date:01/04/2024 Ambulatory Visit Instructions Your Diagnosis Wellness examination Diabetes mellitus Type 1 diabetes mellitus with diabetic neuropathy Screening for hyperlipidemia Screening for thyroid disorder Screening for prostate cancer BMI 26.0-26.9,adult Non-smoker Your Care Team Attending Physician - Sheree Caraballo Primary Care Physician - Sheree Caraballo This Is Your Medications List [facility] Prescription (BD UF mini pen needle 5mm/31g) [...] Appointments Tuesday 8:00 AM EDT With: Where: [facility] [place] Normal [address] [id number] \.br\ Medications\.br\ What How Much When Why [...] for choosing us for your care.\.br\ \.br\ [facility] CBC w/ Auto Diffon 4 Acanthocytes LM Ql (Bld) PRESENT Invalid Interpretation Code [facility] Comment on above: Performed By: #### 1 [id number], [id number], 6040430, 8909034, 5436786, [id number], [id number] ####[facility] [address] [place] [address] Basophils/100 WBC (Bld) 0.8 % Normal 0.0-2.0 [facility] Comment on above: Performed By: #### 1 [id number], 06792653, 3682488, 9927311, 7818576, [id number], 3049110 ####[facility] [address] [place] [address] Basophils/Leukocyte s Auto (Bld) [Pure # fraction] 0.1 E9/L Normal 0.0-0.2 [facility] Comment on above: Performed By: #### 1 3965323, 56248784, 7715166, 9256050, 8574992, [id number], [id number] ####[facility] [address] [place] [address] Eosinophils (Bld) [#/Vol] 1.1 E9/L High 0.0-0.5 [facility] Comment on above: Performed By: #### 1 8467088, 54441723, 3347738, 6756095, 5907289, [id number], 6887803 ####[facility] [address] [place] [address] Eosinophils/100 WBC (Bld) 14.2 % High 0.0-8.0 [facility] Comment on above: Performed By: #### 1 3683951, 50208217, 2512093, 4675720, 1836817, 762614860, 3801226 ####[address] [place] [address] Erythrocyte distribution width (RBC) [Ratio] 14.5 % High 10.9-14.2 [facility] Comment on above: Performed By: #### 1 2826258, 37288632, 1607363, 0063020, 9541139, 503402555, 2912948 ####[address] [address] Hematocrit (Bld) [Volume fraction] 38.0 % Normal 37.7-49.0 [facility] Comment on above: Performed By: #### 1 [id number], 35379650, 5617921, 1839942, 9262123, [id number], 0818386 ####[address] [address] Hemoglobin (Bld) [Mass/Vol] 12.9 g/dL Low 13.5-17.5 [facility] Comment on above: Performed By: #### 1 [id number], 28834366, 3688645, 4230000, 5675432, 947343295, 1248840 ####[address] [address] Lymphocytes (Bld) [#/Vol] 1.2 E9/L Normal 1.0-4.0 [facility] Comment on above: Performed By: #### 1 4317414, 85620440, 6489150, 0214552, 7414923, 563713555, 2614910 ####[address] [address] Lymphocytes/100 WBC (Bld) 16.1 % Normal 14.0-50.0 [facility] Comment on above: Performed By: #### 1 6425061, 91224526, 0827311, 5532584, 5122250, [id number], 1985878 ####[facility] [facility] [address] [place] [address] MCH (RBC) [Entitic mass] 31.0 pg Normal 27.0-34.0 [facility] Comment on above: Performed By: #### 1 1556693, 61340855, 2723522, 9648005, 1237621, 592673919, 6699709 ####[address] [place] [address] MCHC (RBC) [Mass/Vol] 33.8 g/dL Normal 31.4-36.0 [facility] Comment on above: Performed By: #### 1 6351438, 07483039, 6124300, 2249977, 7101231, 590219803, 7972699 ####[facility] [address] [place] [address] MCV (RBC) [Entitic vol] 91.7 fL Normal 80.0-100.0 [facility] Comment on above: Performed By: #### 1 4527482, 30592707, 0123539, 4072550, 5610717, 269182777, 0116482 ####[address] [address] Monocytes (Bld) [#/Vol] 0.6 E9/L Normal 0.2-1.0 [facility] Comment on above: Performed By: #### 1 2391186, 63244211, 1129494, 5022712, 6171261, 946962756, 7949597 ####[address] [place] [address] Neutrophils (Bld) [#/Vol] 4.6 E9/L Normal 2.0-7.5 [facility] Comment on above: Performed By: #### 1 9864392, 44852766, 2391203, 5639688, 0657781, 955656277, 5944572 ####[address] [place] [address] Neutrophils/100 WBC (Bld) 60.6 % Normal 36.0-75.0 [facility] Comment on above: Performed By: #### 1 9735130, 82468140, 6476630, 8298430, 6758087, 958736286, 6662495 ####[address] [place] [address] Platelet mean volume (Bld) [Entitic vol] 8.4 fL Normal 6.4-10.8 [facility] Comment on above: Performed By: #### 1 9878961, 51905472, 3874774, 7876897, 9497029, 081902075, 4265634 ####[address] [address] Platelets (Bld) [#/Vol] 238.0 E9/L Normal 150.0-500.0 [facility] Comment on above: Performed By: #### 1 9261126, 36356487, 1344817, 0977800, 5975219, 229941746, 7046249 ####[address] [address] Poikilocytosis Auto Ql (Bld) PRESENT Invalid Interpretation Code [facility] Comment on above: Performed By: #### 1 1263739, 47243259, 8290566, 5404689, 2166968, 698808628, 4618237 ####[address] [address] RBC (Bld) [#/Vol] 4.1 E12/L Low 4.3-5.9 [facility] Comment on above: Performed By: #### 1 5619553, 03813823, 2170071, 3371138, 8025212, 324549205, 1920445 ####[address] [address] WBC corrected for nucl RBC Auto (Bld) [#/Vol] 7.5 E9/L Normal 4.0-11.0 [facility] Comment on above: Performed By: #### 1 1388309, 02153915, 8465084, 3454674, 1995949, 073080559, 3323311 ####[facility] [address] [place] [address] CHEMISTRYOrdered By: SYSTEM SYSTEM on 01-04-2024 Albumin [...] for this result was chemiluminescence using [employer] Access Hybritech PSA reagent. Protein [Mass/Vol] 6.8 g/dL Normal 6.0 - 7.8 gm/dL R emisol Chem Sodium [Moles/Vol] 139 mmol/L Normal 135 - 145 mmol/L Remisol Chem Triglyceride [Mass/Vol] 119 mg/dL Normal <=149mg/dL Remisol Chem TSH Qn 2.04 m[IU]/L Normal 0.34 - 5.60 mcIU/mL Remisol Chem Urea nitrogen [Mass/Vol] 21 mg/dL Normal 5 - 21 mg/dL Remisol Chem Urea nitrogen/Creatinine [Mass ratio] 18 mg/mg Normal 10 - 20 Remisol Chem CHEMISTRYOrdered By: Jesus gallardo on 01-04-2024 HbA1c (Bld) [Mass fraction] 5.8 % Normal <=5.9% [facility] ChemAutoSS CMPon 01-04-2024 Albumin [Mass/Vol] 4.2 g/dL Normal 3.3-5.0 [facility] Comment on above: Performed By: #### 1 3738135, 08117597, 1667509, 0535832, 9783018, 400980105, 7797816 ####[address] [place] [address] Albumin/Globulin (S) [Mass conc ratio] 1.6 Normal 1.1-2.2 [facility] Comment on above: Performed By: #### 1 8461352, 80848813, 3555139, 0261665, 0792534, 127928837, 8126031 ####[facility] [address] [place] [address] ALP [Catalytic activity/Vol] 87 Int._Unit/L Normal 21-98 [facility] Comment on above: Performed By: #### 1 6357828, 09760799, 4931233, 6009549, 6436839, 935686913, 4754176 ####[facility] [address] [place] [address] ALT No additional P-5'-P [Catalytic activity/Vol] 7 Int._Unit/L Normal 6-46 [facility] Comment on above: Performed By: #### 1 5241085, 09199924, 3555263, 6346901, 9470547, 968223043, 1918417 ####[facility] [address] [place] [address] Anion gap [Moles/Vol] 13 mmol/L Normal 6-16 [facility] Comment on above: Performed By: #### 1 3073290, 38792528, 2897499, 3514900, 5493677, 795806026, 2782270 ####[address] [address] AST [Catalytic activity/Vol] 13 Int._Unit/L Normal 5-43 [facility] Comment on above: Performed By: #### 1 7141915, 33254276, 4212648, 5499449, 8300113, 203585340, 1932123 ####[facility] [address] [place] [address] Bilirubin [Mass/Vol] 0.6 mg/dL Normal 0.0-1.1 [facility] Comment on above: Performed By: #### 1 2981498, 37238611, 6757754, 5258014, 3354696, 912745639, 2714260 ####[facility] [address] [place] [address] Calcium [Mass/Vol] 9.0 mg/dL Normal 8.9-11.1 [facility] Comment on above: Performed By: #### 1 0043583, 60146047, 9749533, 7134940, 8439338, 024019848, 7336334 ####[facility] [address] [place] [address] Chloride [Moles/Vol] 105 mmol/L Normal 101-111 [facility] Comment on above: Performed By: #### 1 5430093, 75095074, 5330865, 6112177, 4218926, 854373264, 3353872 ####[facility] [address] [place] [address] CO2 [Moles/Vol] 26 mmol/L Normal 21-31 [facility] Comment on above: Performed By: #### 1 3521367, 05326832, 2479444, 1170449, 0069631, 413429384, 2899138 ####[facility] [address] [place] [address] Creatinine [Mass/Vol] 1.2 mg/dL Normal 0.5-1.3 [facility] Comment on above: Performed By: #### 1 1366825, 87615335, 2918655, 0579251, 9952813, 970013365, 8205607 ####[facility] [address] [place] [address] Globulin (S) [Mass/Vol] 2.6 g/dL Normal 1.4-4.0 [facility] Comment on above: Performed By: #### 1 7802651, 70779464, 2355437, 4820957, 1538688, 528158663, 9171590 ####[facility] [address] [place] [address] Glucose [Mass/Vol] 96 mg/dL Normal 55-199 [facility] Comment on above: Performed By: #### 1 8091131, 37913624, 8044033, 0152571, 4701709, 652443705, 3440548 ####[facility] [address] [place] [address] Potassium [Moles/Vol] 4.6 mmol/L Normal 3.5-5.3 [facility] Comment on above: Performed By: #### 1 7257644, 81383585, 5734766, 4936178, 5089125, 985331731, 3882981 ####[facility] [address] [place] [address] Protein [Mass/Vol] 6.8 g/dL Normal 6.0-7.8 [facility] Comment on above: Performed By: #### 1 7866197, 40071498, 2695378, 6075590, 8177763, 240083682, 1077784 ####[facility] [address] [place] [address] Sodium [Moles/Vol] 139 mmol/L Normal 135-145 [facility] Comment on above: Performed By: #### 1 5645189, 55285974, 9076008, 9381032, 7099682, 125589176, 2479452 ####[facility] [address] [place] [address] Urea nitrogen [Mass/Vol] 21 mg/dL Normal 5-21 [facility] Comment on above: Performed By: #### 1 9332308, 03326084, 5084025, 7918588, 4985434, 600853962, 9218615 ####[facility] [address] [place] [address] Urea nitrogen/Creatinine [Mass ratio] 18 No Units Normal 10-20 [facility] Comment on above: Performed By: #### 1 2274400, 79197828, 4565661, 8138743, 7966876, 697728979, 9239374 ####[facility] [address] [place] [address] [facility] Medicine Office/Clini c Noteon 01-04-2024 Family Medicine Office/Clinic Note HPI Staff Barragan is a 83 year old male presenting [...] qualifying data Procedure/Surgical History Colonoscopy (2018), EGD (esophagogastroduodenosc opy) gastric outlet reduction (2018), [...] tab(s), Oral, (more content not included)... Normal [facility] Comment on above: Result Comment: Elec tronically Signed By: Sheree Caraballo\.jan\Date and Time Signed: 01/04/24 08:49 EDT HEMATOLOGYOrdered By: SYSTEM SYSTEM on 01-04-2024 Acanthocytes LM Ql (Bld) PRESENT *NA* (01/04/24 8:58 AM) Invalid Interpretation Code Remisol Heme Basophils/100 WBC (Bld) 0.8 % Normal 0.0 - 2.0 % Remisol Heme Basophils/Leukocyte s Auto (Bld) [Pure # fraction] [...] Normal 4.0 - 11.0 E9/L Remisol Heme NzpE1drv 01-04-2024 HbA1c (Bld) [Mass fraction] 5.8 % Normal <=5.9 [facility] Comment on above: Performed By: #### 1 4029342, 55117437, 7356097, 2063067, 6234553, 278109553, 6448791 ####[facility] [address] [place] [address] Lipid Panelon 01-04-2024 Cholesterol [Mass/Vol] 126 mg/dL Normal 120-200 [facility] Comment on above: Performed By: #### 1 5443055, 26189217, 9310993, 8452670, 3632716, 345813042, 9018540 ####[facility] [address] [place] [address] Cholesterol in HDL [Mass/Vol] 35 mg/dL Invalid Interpretation Code [facility] Comment on above: Result Comment: '>= 60 LOW RISK' '<= 40 HIGH RISK' Performed By: #### 1 1454921, 40399254, 8828376, 7414461, 1298153, 704991718, 8290110 ####[facility] [address] [place] [address] Cholesterol in LDL [Mass/Vol] 70 mg/dL Normal <=129 [facility] Comment on above: Performed By: #### 1 1363749, 21070861, 6465009, 6054730, 5641563, 906380310, 7819185 ####[facility] [address] [place] [address] Cholesterol in VLDL [Mass/Vol] 24 mg/dL Normal 7-40 [facility] Comment on above: Performed By: #### 1 0345695, 48090970, 2610083, 2930008, 0952419, 744858289, 9542247 ####[facility] [address] [place] [address] Triglyceride [Mass/Vol] 119 mg/dL Normal <=149 [facility] Comment on above: Performed By: #### 1 3215839, 22714038, 7712010, 8808154, 6303304, 142220472, 1550184 ####[facility] [address] [place] [address] PSA Screen, Totalon 01-04-20 24 Prostate specific Ag [Mass/Vol] 1.6 ng/mL Normal 0.1-3.5 [facility] Comment on above: Result Comment: The concentration of PSA determined by different manufacturers can vary due to differences in assay methods and reagent specificity. Values obtained from different assay methods cannot be used interchangeably. The methodology used for this result was chemiluminescence using [employer]'s Access Hybritech PSA reagent. Performed By: #### 1 5838627, 15594275, 6272393, 1472159, 6707568, 774893052, 2701916 ####[facility] [address] [place] [address] TSHon 01-04-2024 TSH Qn 2.04 m[IU]/L Normal 0.34-5.60 [facility] Comment on above: Performed By: #### 1 8030850, 18935486, 7577747, 0417081, 7304909, 415386877, 1899920 ####[facility] [address] [place] [address] eGFRon 01-04-2024 eGFR 60 mL/min/1.73 m2 Normal >=59 [facility] Comment on above: Order Comment: Order added by Discern Expert. Performed By: #### 1 7811988, 50169992, 7364924, 3120937, 7865054, 980842443, 8147440 ####[facility] [address] [place] [address] Medication Refillon 12-27-19 24 Medication Refill [id number]#1.00TIF F Normal [facility] Ambulatory Visit Summaryon 0 12-14-2023 Ambulatory Visit Summary JOJO LEWIS JR :1940 Visit Date:12/14/2023 Ambulatory Visit Instructions Your Diagnosis Gout of knee BMI 25.0-25.9,adult Your Care Team Attending Physician - Sheree Caraballo Primary Care Physician - Sheree Caraballo This Is Your Medications List [facility] Prescription (BD UF mini pen needle 5mm/31g) [...] 8:40 AM EDT With: Sheree Caraballo Where: [facility] [place] Normal [address] [place] [address]- \.br\ Medications\.br\ What How Much When Why [...] choosing us for your care.\.br\ \.br\ [facility] Family Medicine Office/Clini c Noteon 12-14-2023 Family Medicine Office/Clinic Note Chief Complaint left knee pain HPI Staff Jojo is a 83 year [...] # 21 tab(s), Refills(s) 0, Pharmacy: [facility], 170, cm, 12/14/23 12:50:00 EDT, Height/Length [...] 2 tab(s), Or (more content not included)... [facility] Comment on above: Result Comment: Elec tronically Signed By: Sheree Caraballo\.br\Date and Time Signed: 12/14/23 13:27 EDT RAD - Ultrasound Reporton RAD - Ultrasound Report [id number]#1.00TIF F [facility] Ambulatory Visit Summaryon 0 11-15-2023 Ambulatory Visit Summary JOJO LEWIS JR :1940 Visit Date:11/15/2023 Ambulatory Visit Instructions Your Diagnosis Overweight (BMI 25.0-29.9) Your Care Team Attending Physician - Sheree Caraballo Primary Care Physician - Sheree Caraballo This Is Your Medications List [facility] Prescription (BD UF mini pen needle 5mm/31g) [...] 8:40 AM EDT With: Sheree Caraballo Where: [facility] [place] Normal [id number]- \.br\ Medications\.br\ What How Much When Why [...] for choosing us for your care.\.br\ \.br\ [facility] Family Medicine Office/Clini c Noteon 11-15-2023 Family Medicine [...] walk. + patty's sign. will send to [facility] for doppler to rule of DVT. [...] # 90 tab(s), Refills(s) 0, Pharmacy: [facility], 170, cm, 11/15/23 9:08:00 EST, Height/Length [...] Daily, # 90 tab(s), Refills(s) 3, Pharmacy: [facility], 169, cm, 12/28/22 8:48:00 EDT, Height/Length Dosing, 77.9, kg, 12/28/22 8:48:00 EDT, Weight Dosing clopidogrel, 75 mg = 1 tab(s), Oral, Daily, # 90 tab(s), Refills(s) 0, Pharmacy: [facility], 170, cm, 11/15/23 9:08:00 EST, Height/Length Dosing, 74.7, kg, 11/15/23 9:08:00 EST, Weight Dosing clopidogrel, 75 mg = 1 tab(s), Oral, Daily, # 90 tab(s), Refills(s) 3, Pharmacy: [facility], 169, cm, 12/28/22 8:48:00 EDT, Height/Length Dosing, 77.9, kg, 12/28/22 8:48:00 EDT, Weight Dosing levothyroxine, 125 mcg = 1 tab(s), Oral, Daily, # 90 tab(s), Refills(s) 3, Pharmacy: [facility], 169, cm, 12/28/22 8:48:00 EDT, Height/Length [...] mellitus with hypercholesterolemia (more content not included)... [facility] Comment on above: Result Comment: Elec tronically Signed By: Sheree Caraballo\.br\Date and Time Signed: 11/15/23 09:51 EST Physician Orderon 11-15-2023 Physician Order [id number]#1.00TIF F [facility] Ambulatory Visit Summaryon 0 10-27-2023 Ambulatory Visit Summary JOJO LEWIS JR :1940 Visit Date:10/27/2023 Ambulatory Visit Instructions Your Diagnosis BMI 26.0-26.9,adult Former smoker Your Care Team Attending Physician - Sheree Caraballo Primary Care Physician - Sheree Caraballo This Is Your Medications List [facility] Prescription (BD UF mini pen needle 5mm/31g) [...] opy) gastric outlet reduction (2018), Cardiac catheter (2015), Cardiac catheter (2000), Appendectomy (1948). Discharge Vitals Heart Rate (Peripheral) 88 Respiratory Rate 18 Blood Pressure 130/74 Height 170 cm Height 67 in Weight 77.2 kg Weight 169.84 lb BMI 26.71 What to do next Scheduled Follow-Up Appointments Tuesday 8:40 AM EDT With: Sheree Caraballo Where: [facility] Normal [phone]- \.br\ Medications\.br\ What How Much When Instructions\.br [...] for choosing us for your care.\.br\ \.br\ [facility] Family Medicine Office/Clini c Noteon 10-27-2023 Family [...] in lifetime) T (more content not included)... Normal [facility] Comment on above: Result Comment: Elec tronically Signed By: Sheree Caraballo.jan\Date and Time Signed: 10/27/23 11:25 EST Consultation Noteon 10-20-19 Consultation Note [id number]#1.00TIFF Normal [facility] Consultation Noteon 10-07-19 Consultation Note [id number]#1.00TIFF Normal [facility] Physician Referralon 024 Physician Referral [id number]#1.00TIF F Normal [facility] Family Medicine Office/Clini c Noteon 09-29-2023 Family [...] educated pt on annual foot exam with distance learning technician especially because he is diabetic. will refer to Dr. Michael. BP is elevated in office today. pt will monitor BP at home. will return in 4 weeks with BP log. may consider increasing or adding med. will send keflex for infection Ordered: cephalexin, 500 mg = 1 cap(s), Oral, QID, X 7 day(s), # 28 cap(s), Refills(s) 0, Pharmacy: [facility], 170, cm, 09/29/23 14:30:00 EST, Height/Length Dosing, 77.5, kg, 09/29/23 14:30:00 EST, Weight Dosing [facility] External Ambulatory Referral 2. Diabetes (E11.9: Type 2 diabetes mellitus without complications) pt referred to Dr. Michael. Ordered: cephalexin, 500 mg = 1 cap(s), Oral, QID, X 7 day(s), # 28 cap(s), Refills(s) 0, Pharmacy: [facility], 170, cm, 09/29/23 14:30:00 EST, Height/Length Dosing, 77.5, kg, 09/29/23 14:30:00 EST, Weight Dosing [facility] External Ambulatory Referral 3. BMI 26.0-26.9,adult (Z68.26: Body mass index [BMI] 26.0-26.9, adult) BMI education complete Ordered: cephalexin, 500 mg = 1 cap(s), Oral, QID, X 7 day(s), # 28 cap(s), Refills(s) 0, Pharmacy: [facility], 170, cm, 09/29/23 14:30:00 EST, Height/Length Dosing, 77.5, kg, 09/29/23 14:30:00 EST, Weight Dosing [facility] External Ambulatory Referral 4. Non-smoker (Z78.9: Other specified health status) continue not smoking Ordered: cephalexin, 500 mg = 1 cap(s), Oral, QID, X 7 day(s), # 28 cap(s), Refills(s) 0, Pharmacy: [facility], 170, cm, 09/29/23 14:30:00 EST, Height/Length Dosing, 77.5, kg, 09/29/23 14:30:00 EST, Weight Dosing [facility] External Ambulatory Referral Follow-up [...] abuse concerns: No. (more content not included)... Normal [facility] Comment on above: Result Comment: Elec tronically Signed By: Sheree Caraballo\.br\Date and Time Signed: 09/29/23 14:49 EST Medication Refillon 08-25-20 Medication Refill [id number]#1.00TIF F Normal [facility] CHEMISTRYOrdered By: Linsey pierson on 07-06-2023 Albumin DL <= 20 mg/L (U) [Mass/Vol] 108.9 microgram/mL High 0.0 - 19.0 mcg/mL [facility] Remiso Albumin Elph (U) [Mass fraction] 18.6 mg/dL Invalid Interpretation Code [facility] Remisol Comment on above: Interpretive Data: T he reference range and other method performance specifications have not been established for this test; results should be integrated into the clinical context for interpretation. Creatinine (U) [Mass/Vol] 128.9 mg/dL Invalid Interpretation Code [facility] Remisol Comment on above: Interpretive Data: T he reference range and other method performance specifications have not been established for this test; results should be integrated into the clinical context for interpretation. U Prot/Creat Ratio 144.30 mg/gm Cr Normal 0.00 - 200.00 mg/gm Cr [facility] Remisol CHEMISTRYOrdered By: Shantal Vasquez on 07-06-2023 HbA1c (Bld) [Mass fraction] 6.3 % High <=5.9% [facility] ChemAutoSS CHEMISTRYOrdered By: Juan palafox on 12-28-2022 Albumin DL <= 20 mg/L (U) [Mass/Vol] 98.2 microgram/mL High 0.0 - 19.0 mcg/mL [facility] Remisol CHEMISTRYOrdered By: Agil[employer]ax SYSTEM on 12-28-2022 Albumin [Mass/Vol] 4.5 g/dL Normal 3.3 - 5.0 gm/dL [facility] Remisol Albumin/Globulin [Mass ratio] 1.4 {ratio} Normal [...] 5 - 21 mg/dL [facility] Remisol Urea nitrogen/Creatinine [Mass ratio] 21 mg/mg High 10 - 20 [facility] Remisol CHEMISTRYOrdered By: Sena Jacobsen on 12-28-2022 HbA1c (Bld) [Mass fraction] 9.6 % High <=5.9% [facility] ChemAutoSS HEMATOLOGYOrdered By: SYSTEM SYSTEM on 12-28-2022 [...] E12/L Low 4.3 - 5.9 E12/L [facility] HemeAutoSS WBC corrected for nucl RBC Auto (Bld) [#/Vol] 8.8 E9/L Normal 4.0 - 11.0 E9/L [facility] HemeAutoSS Comment on above: Result Comment: Slid e reviewed by ts . ECHOCARDIO M/2D COMPLETEon 0 12-27-2022 ECHOCARDIO M/2D COMPLETE Patient: JOJO LEWIS Exam Date: 12/27/2022 : 1940 Gender:M Ordering : BESSIE PRICE Admission #: [id number] Family : DR DEEPA CIFUENTES . Order #: [id number] CLICK HERE TO VIEW EXAM ECHOCARDIOGRAM REPORT [...] Mild mitral regurgitation. AORTIC VALVE: Bicuspid appearance Ael type I, with fusion of the right [...] Area (VTI): 1.82 cm2, 1.88 cm2 Deceleration Mag[place]in: 1.50 m/s2 Pressure Half-Time: 594.47 ms Peak [...] Nj Moore M.D. on 12/30/2022 at 13:24 [facility] MRI BRAIN WO CONon 2 MRI BRAIN [...] BLESSING MARSHALL Date: 2022-02-16 10:31 Normal [facility] URIC ACID SERUMon 02-12-2022 Urate [Mass/Vol] 7.9 mg/dL Critically high 3.5-7.2 [facility] Comment on above: Performed By: #### U SHAWANDA #### [facility] [address] [place] [address] Dr. Ale So XR knee RT 2Von 01-18-2022 XR knee RT 2V [facility] [place] [address] [place] [address] XRay Report Signed Patient: Jojo Lewis MR#: [id number] : 1940 Acct:[id number] Age/Sex: 81 / M ADM Date: 01/18/22 Loc: [facility] Room: Type: [facility] Attending Dr: Mandeep Owen MD Ordering Provider: [...] Claudia Boone M.D.01/18/2022 4:46 PM Dictation Location: [place] [address] Transcribed By: [facility] 01/18/221645 Dictated By: Claudia Boone MD 01/18/221643 Signed By: 01/18/221645 Normal [facility] GLYCOHEMOGLOBIN A1Con 2021 ADA RECOMMENDATION ADA THERAPEUTIC TARG ET 6.0 - 7.0 ACTION SUGGESTED > 7.0 Normal [facility] Comment on above: Performed By: #### A 1C #### [facility] [address] [address] [address] Ale So Glucose [Mass/Vol] 194 mg/dL Normal [facility] Comment on above: Performed By: #### A 1C #### [facility] [address] [address] [address] Ale So HbA1c (Bld) [Mass fraction] 8.4 % Critically high <=6.0 [facility] Comment on above: Performed By: #### A 1C #### [facility] [address] [place], [place] [address] Dr. Ale So POC GLUCOSE LABon 05-17-2017 Glucose mass conc 149 mg/dL High 70-100 [facility] Comment on above: Performed By: #### 8 5499 ####[facility] [place] [address], [facility] Cardiovascular Lab Reporton 05-16-2017 Cardiovascular Lab Report [facility] Patient Name: [facility] MR #: [id number] Physician: Lucretia Truong,Department of M.D.Medicine Service Date: 05/16/2017Division of Birthdate: 1940Cardiology Room #: 3CD [id number] [facility]Services[facility], [place] [address]Cbxxm Fax Cardiovascular Laboratory ReportFINAL IMPRESSION:1. Severe stenosis [...] indicated.5. Follow up with me in the [facility] in the next 2-4 weeks; should the patient's symptoms persist, the second obtuse marginal may be a target for revascularization.6. Follow up with Dr. Cifuentes as scheduled.PROCEDURES: Limited femoral angiography, bilateral selective coronaryangiography, percutaneous balloon angioplasty and Synergy drug-elutingstent placement in the right coronary artery, placement of a 6-Lao VIPAngio-Seal device.METHODS: After risks, benefits, and alternatives were explained, writteninformed consent was obtained. The patient was prepped and draped in theusual sterile fashion over both groins. Using 1% lidocaine solution, localinfiltration anesthesia was achieved. Using a modified Seldingertechnique, access to the right common femoral artery was obtained and a6-Lao 11 cm sheath inserted without difficulty. Baseline femoralangiography was performed.Bilateral selective coronary angiography was then performed using JL4 andJR4 catheters. After reviewing the images, it was elected to proceed withan interventional procedure.A 6-Lao JR4 guide catheter was advanced over a [...] point, it was elected to conclude theprocedure.A 6-Lao VIP Angio-Seal device was deployed per protocol achievingoptimal hemostasis. Overall, the patient tolerated the procedure well.There were no overt complications. He was to be transferred to the [facility] in stable condition.FINDINGS: Hemodynamics:AO 154/56 (95).Left ventriculography:This [...] 05/16/2017/09:33 Carlie/Lucretia Truong M.D.Date Trans: 05/16/2017 11:11 A/mmoDN_JN:[id number] 1cc: Deepa Cifuentes M.D. [address] [place], [place] [id number] Chris Palomino M.D. [facility]5 [facility] [id number] Normal The [facility] POC GLUCOSE LABon 05-16-2017 Glucose mass conc 139 mg/dL High 70-100 [facility] Comment on above: Performed By: #### [id number] ####[facility] [facility] [place] [address], [facility] Glucose mass conc 161 mg/dL High 70-100 [facility] Comment on above: Performed By: #### [id number] ####[facility] [place] [address], [place] Glucose mass conc 149 mg/dL High 70-100 [facility] Comment on above: Performed By: #### [id number] ####[facility] [facility] [place] [address], [facility] Vital Signs Date Time Vital Sign Value Performing Clinician Germaine zhang 01-18-2022 14:30-0400 Body height 172.72 cm Mandeep Owen Other [facility] Other Encounters Encounter Date Encounter Type Care Provider Facility Start: 05-28-2025 ambulatory Sheree Ryan Facility: [facility] Start: 04-23-2025 End: 04-24-2025 Evaluation and management of inpatient BRUCE [facility] Start: 04-15-2025 End: 04-15-2025 ambulatory [facility]KER[facility] Start: 04-15-2025 Encounter for other preprocedural examination [facility] Start: 04-15-2025 End: 04-15-2025 ambulatory [facility] Start: 04-01-2025 Encounter for other preprocedural examination [facility] Start: 03-20-2025 ambulatory [facility] Start: 03-20-2025 End: 03-20-2025 ambulatory [facility] Start: 01-24-2025 End: 01-24-2025 ambulatory [facility] Start: 01-23-2025 End: 01-23-2025 Lab Drop off Sheree L Connor [facility] Start: 01-23-2025 End: 01-23-2025 ambulatory [employer] Sheree L Connor Facility[facility] Start: 07-04-2024 End: 07-04-2024 ambulatory Sheree L Connor Facility:[facility] [place] Start: 06-28-2024 End: 06-28-2024 Lab Drop off Sheree L Connor [facility] Start: 06-28-2024 End: 06-28-2024 ambulatory Sheree L Connor Facility:[facility] [place] Start: 05-24-2024 End: 05-24-2024 ambulatory Sheree L Connor Facility:[facility] [place] Start: 02-24-2024 End: 02-24-2024 ambulatory Sheree L Connor Facility:[facility] [place] Start: 01-04-2024 End: 01-04-2024 Lab Drop off Sheree L Connor [facility] Start: 01-04-2024 End: 01-04-2024 ambulatory Sheree L Connor Facility:[facility] Start: 12-14-2023 End: 12-14-2023 ambulatory Sheree L Connor Facility:[facility] Start: 11-15-2023 End: 11-15-2023 ambulatory Sheree L Connor Facility:[facility] Start: 10-27-2023 End: 10-27-2023 ambulatory Sheree L Connor Facility:[facility] Start: 09-29-2023 End: 09-29-2023 ambulatory Sheree L Connor Facility:[facility] Start: 07-06-2023 End: 07-06-2023 Lab Drop off Sheree L Connor [facility] Start: 12-28-2022 End: 12-28-2022 Lab Drop off Sheree L Connor [facility] Start: 12-28-2022 End: 12-28-2022 Lab Drop off Sheree L Connor [facility] Start: 12-27-2022 End: 12-28-[address] DEEPA CIFUENTES . Facility: Start: 02-16-2022 End: 02-17-[address] DEEPA CIFUENTES . Facility:[facility] Start: 02-12-2022 End: 02-13-[address] DEEPA CIFUENTES . Facility:[facility] Start: 01-18-2022 End: 01-18-2022 ambulatory Mandeep Owen Other [facility] Other Start: 01-18-2022 Office outpatient ne w 30 minutes Mandeep Owen [facility] Start: 01-05-2022 End: 01-06-[address] DEEPA CIFUENTES . Facility: Start: 05-16-2017 End: 05-17-2017 Ambulatory [facility] Facility:[facility] Procedures Date Procedure Procedure Detail Performing Clinician Start: 09-26-2017 Colonoscopy Sheree Connor Start: 09-26-2017 Esophagogastroduodenoscopy gastric outlet reduction Sheree Connor Start: 09-26-2014 Cardiac catheter (physical object) Sheree Connor Comment on above: stent X 2 Start: 09-26-2000 Cardiac catheter (physical object) Sheree Connor Comment on above: LAD stent Start: 09-26-1947 Appendectomy Sheree Connor Immunizations Immunization Date Immunization Notes Care Provider Pepe hernandez 11-25-2023 zoster vaccine recombinant Sheree Connor [facility] 05-17-2023 zoster vaccine recombinant Sheree Connor [facility] 06-30-2022 influenza virus vaccine, unspecified formulation Sheree Connor [facility] 06-15-2022 SARS-CoV-2 (COVID-19 ) [id number] Sheree Connor [facility] Comment on above: Result Comment: 2022: [id number] 02-17-2022 SARS-CoV-2 (COVID-19 ) mRNA-1273 vaccine Sheree Connor [facility] Comment on above: Result Comment: 2022: [id number] 07-21-2021 SARS-CoV-2 (COVID-19 ) mRNA-1273 vaccine Sheree Connor [facility] Comment on above: Result Comment: 2022: [id number] 06-30-2021 influenza virus vaccine, unspecified formulation Sheree Connor [facility] 11-18-2020 SARS-CoV-2 (COVID-19 ) mRNA-1273 vaccine Sheree Connor [facility] 10-22-2020 SARS-CoV-2 (COVID-19 ) mRNA-1273 vaccine Sheree Connor [facility] 06-11-2020 influenza virus vaccine, unspecified formulation Sheree Connor [facility] 08-28-2019 influenza virus vaccine, unspecified formulation Sheree Connor [facility] Payers Date Payer Category Payer Private Health Insurance [id number] 2005 Medicare [id number] 1959 Medicare [id number] 2.1 [id number] 1959 Private Health Insurance [id number] 1940 Unknown [id number] 2.16.84 0.1.070836.3.579.2.593 1940 Unknown [id number] 2.16.84 0.1.037091.3.579.2.593 1940 Unknown [id number] 2.16.84 0.1.200140.3.579.2.593 1940 Unknown [id number] 2.16.84 0.1.514808.3.579.2.593 1940 Unknown [id number] 2.16.8 40.1.670841.3.579.2.727 1940 Unknown [id number] 2.16.8 40.1.399392.3.579.2.727 1940 Unknown [id number] 2.16.8 40.1.643374.3.579.2.727 1940 Unknown [id number] 2.16.8 40.1.973372.3.579.2.727 1940 Unknown [id number] 2.16.8 40.1.739467.3.579.2.727 1940 Unknown [id number] 2.16.8 40.1.466601.3.579.2.72 1940 Unknown [id number] 2.16.8 40.1.857869.3.579.2.727 1940 Unknown [id number] 2.16.8 40.1.486641.3.579.2.727 1940 Unknown [id number] 2.16.8 40.1.938740.3.579.2.727 1940 Unknown [id number] 2.16.8 40.1.526516.3.579.2.727 1940 Unknown [id number] 2.16.8 40.1.075194.3.579.2.727 1940 Unknown [id number] 2.16.8 40.1.196425.3.579.2.727 1940 Unknown [id number] 2.16.8 40.1.857991.3.579.2.727 1940 Unknown [id number] 2.16.8 40.1.710504.3.579.2.727 1940 Unknown [id number] 2.16.8 40.1.658123.3.579.2.727 Medicare [id number] Social History Date Type Detail Facility Unknown if ever smoked [facility] Other Sex Assigned At [facility] Start: 12-28-2022 End: 01-04-2024 Tobacco smoking status Never smoked tobacco (finding) [facility] Tobacco smoking status Never [facility] Comment on above: stopped smoking 50 y ears ago. Start: 05-24-2024 End: 01-23-2025 Tobacco smoking status Ex-smoker (finding) [facility] [place] Comment on above: stopped smoking 50 y ears ago. Sexual Orientation [facility] Sex Male (finding) [facility] Medical Equipment Procedure Code Equipment Code [...] 07/06/23 8:54:00 EDT, Weight Dosing Start: 08-25-2023 BD UF mini pen needle 5mm/31g, See Instructions, 100 EA, 1, use twice daily, [facility], Supply, 170, cm, 05/24/24 8:14:00 EDT, Height/Length Dosing, 80.9, kg, 05/24/24 8:14:00 EDT, Weight Dosing Start: 06-25-2024 contour test str ips, See Instructions, 100 EA, 1, check blood sugar daily and as needed, [facility], Supply, 170, cm, 02/24/24 8:06:00 EDT, Height/Length Dosing, 79.7, kg, 02/24/24 8:06:00 EDT, Weight Dosing Start: 02-24-2024 LANCETS OF CHOI E OR SPECIFIED BY INSURANCE., See Instructions, 100 EA, 11, USE TO TEST BLOOD GLUCOSE ONCE DAILY FOR DX E11.9, [facility], Supply, 170, cm, 02/24/24 8:06:00 EDT, Height/Length Dosing, 79.7, kg, 02/24/24 8:06:00 EDT, Weight Dosing Start: 02-24-2024 Clinical Notes 01-18-2022 to 04-24-2025 Note Date & Type Note Facility 04-24-2025 Note [facility] Surgical Intensive Care Unit Progress Note Chief Complaint: Critical Care Management Primary Service: Vascular HPI: This is an 85 year old male with past medical history including CAD with coronary stent, DM, Hypertension who presented to [facility] for a right carotid endarterectomy due to significant right ICA stenosis. He was transferred to SICU postoperatively for observation and neurovascular checks. He was hemodynamically stable, on room air, A&O x4 when he arrived to the SICU. He denies significant pain, dizziness, headache, vision changes, weakness, chest pain, shortness of breath, nausea, vomiting, or abdominal pain. Right neck surgical site without underlying hematoma, YAKELIN drain in place, dressing C clean, dry, and intact. Objective Vitals: BP: (103-132)/(41-53) 126/53 (04/24 1200) Girls Systolic BP Percentile: -- Girls Diastolic BP Percentile: -- Boys Systolic BP Percentile: -- Boys Diastolic BP Percentile: -- Temp: [36 ???C (96.8 ???F)-36.8 ???C (98.3 ???F)] 36.8 ???C (98.3 ???F) (04/24 800) Temp Source: Oral (04/24 800) Heart Rate: [60-77] 64 (04/24 1200) Resp: [10-19] 16 (04/24 1200) SpO2: [96 %-100 %] 98 % (04/24 1200) Height: -- Weight: -- [place] Coma Scale Score: 15 I/O last 3 completed shifts: In: 1383.8 [I.V.:1329.3; IV Piggyback:54.5] Out: 905 [Urine:740; Drains:15; Blood:150] Physical Exam: Physical Exam Constitutional: General: He is not in acute distress. Appearance: Normal appearance. He is not diaphoretic. HENT: Head: Normocephalic and atraumatic. Mouth/Throat: Mouth: Mucous membranes are moist. Pharynx: Oropharynx is clear. Eyes: No vision changes. Neck: Comments: Right neck surgical dressing clean, dry, intact. YAKELIN drain in place with minimal serosanguinous drainage. Cardiovascular: Rate and Rhythm: Normal rate and regular rhythm. Pulses: Normal pulses. Heart sounds: Normal heart sounds. Pulmonary: Effort: Pulmonary effort is normal. No respiratory distress. Breath sounds: Normal breath sounds. No wheezing. Abdominal: General: Abdomen is flat. There is no distension. Palpations: Abdomen is soft. Tenderness: There is no abdominal tenderness. There is no guarding. Musculoskeletal: General: Normal range of motion. Cervical back: Normal range of motion. No edema in BLE. Skin: General: Skin is warm and dry. Neurological: General: No focal deficit present. Mental Status: He is alert and oriented to person, place, and time. Cranial Nerves: No cranial nerve deficit. Sensory: No sensory deficit. Motor: No weakness. Coordination: Coordination normal. Psychiatric: Mood and Affect: Mood normal. Behavior: Behavior normal. Labs: Recent Results (from the past 12 hours) Basic metabolic panel Collection Time: 04/24/25 3:49 AM Result Value Ref Range Sodium 133 (L) 136 - 145 mmol/L Potassium 5.0 3.5 - 5.1 mmol/L Chloride 106 98 - 107 mmol/L CO2 21 21 - 31 mmol/L BUN 32 (H) 7 - 25 mg/dL Creatinine 1.38 (H) 0.70 - 1.30 mg/dL Glucose 117 (H) 70 - 100 mg/dL Calcium 7.8 (L) 8.6 - 10.3 mg/dL Anion Gap 11 7 - 20 mmol/L eGFR 50.1 (L) >60.0 mL/min/1.73m*2 BUN/Creatinine Ratio 23.2 Phosphorus Collection Time: 04/24/25 3:49 AM Result Value Ref Range Phosphorus 4.8 2.5 - 5.0 mg/dL Magnesium Collection Time: 04/24/25 3:49 AM Result Value Ref Range Magnesium 2.0 1.9 - 2.7 mg/dL CBC auto differential Collection Time: 04/24/25 3:49 AM Result Value Ref Range Auto WBC 12.60 (H) 4.00 - 10.60 10*3/uL RBC 2.87 (L) 4.20 - 5.70 10*6/uL Hemoglobin 8.9 (L) 13.0 - 17.0 g/dL Hematocrit 25.6 (L) 39.0 - 50.0 % MCV 89.2 82.0 - 98.0 fL MCH 31.0 27.0 - 33.0 pg MCHC 34.8 32.0 - 35.0 g/dL RDW 13.0 11.5 - 15.0 % Neutrophils % 89.1 (H) 40.0 - 72.0 % Lymphocytes % 5.7 (L) 20.0 - 45.0 % Monocytes % 4.4 (L) 5.0 - 12.0 % Eosinophils % 0.0 0.0 - 6.0 % Basophils % 0.2 0.0 - 1.0 % Neutrophils Absolute 11.23 (H) 1.60 - 7.60 10*3/uL Lymphocytes Absolute 0.72 (L) 1.20 - 4.00 10*3/uL Monocytes Absolute 0.56 0.10 - 1.00 10*3/uL Eosinophils Absolute 0.00 0.00 - 0.50 10*3/uL Basophils Absolute 0.02 0.00 - 0.20 10*3/uL Platelets 250 150 - 400 10*3/uL nRBC % 0.0 0 % Immature Granulocytes % 0.6 0.0 - 1.0 % Immature Granulocytes Absolute 0.07 0.00 - 0.20 10*3/uL Calcium, ionized Collection Time: 04/24/25 3:53 AM Result Value Ref Range Calcium, Ion 1.11 (L) 1.15 - 1.33 mmol/L POCT glucose meter Collection Time: 04/24/25 6:29 AM Result Value Ref Range Glucose POC 126 (H) 70 - 105 mg/dL POCT glucose meter Collection Time: 04/24/25 8:06 AM Result Value Ref Range Glucose POC 132 (H) 70 - 105 mg/dL POCT glucose meter Collection Time: 04/24/25 11:29 AM Result Value Ref Range Glucose POC 230 (H) 70 - 105 mg/dL Radiologic studies: No X-ray results found for the past [address] results found for the past 24 hours No MRI results found for the past 24 hours EKG: E (more content not included)... [facility] 04-23-2025 Note Patient: Watson Lewis Jr. Procedure Summary Date: 04/23/25 Room / Location: [facility] OPERATING ROOM 04 / [facility] Operating Room Anesthesia Start: 1441 Anesthesia Stop: 1736 Procedure: RIGHT CAROTID ENDARTERECTOMY WITH PATCH ANGIOPLASTY (Right) Diagnosis: Stenosis of right carotid artery Bilateral carotid bruits Coronary artery disease involving qawalangin coronary artery of qawalangin heart without angina pectoris Encounter for pre-operative examination (Stenosis of right carotid artery [I65.21]) (Bilateral carotid bruits [R09.89]) (Coronary artery disease involving qawalangin coronary artery of qawalangin heart without angina pectoris [I25.10]) (Encounter for pre-operative examination [Z01.818]) Surgeons: Bruce Rushing MD Responsible Provider: Rocky Nash MD Anesthesia Type: general ASA Status: 3 Anesthesia Type: general Vitals Value Taken Time BP 110/48 04/23/25 18:00 Temp 36 ???C (96.8 ???F) 04/23/25 17:30 Pulse 60 04/23/25 18:22 Resp 10 04/23/25 18:22 SpO2 95 % 04/23/25 18:22 Vitals shown include unfiled device data. Anesthesia Post Evaluation Patient location during evaluation: PACU Patient participation: complete - patient participated Level of consciousness: awake Pain score: 1 Pain management: adequate Airway patency: patent Cardiovascular status: stable Respiratory status: acceptable Hydration status: balanced Patient is hemodynamically stable and is able to be discharged from PACU per anesthesia protocol. No notable events documented. [facility] 04-23-2025 Note Peripheral IV Date/Time: 04/23/2025 3:00 PM Inserted by: Nini Oliva MD Placement Needle size: 18 G Laterality: left Location: forearm Local anesthetic: none Site prep: alcohol Technique: anatomical landmarks Attempts: 1 [facility] 04-23-2025 Note Airway Date/Time: 04/23/2025 2:59 PM Reason: elective Airway not difficult General Information and Staff Patient location during procedure: OR Anesthesiologist: Sean Whitley MD Resident/TRIPE WASHER/CAA: Lima Dent MD Performed: resident/TRIPE WASHER/SALOMON Patient Condition Indications for airway management: anesthesia Patient position: sniffing Planned trial extubation Sedation level: deep Final Airway Details Preoxygenated: yes Final airway type: endotracheal airway Successful airway: ETT Cuffed: yes Successful intubation technique: video laryngoscopy Adjuncts used in placement: intubating stylet Endotracheal tube insertion site: oral Blade: Gamble Blade size: #3 ETT size (mm): 7.5 Cormack-Lehane Classification: grade I - full view of glottis Placement verified by: chest auscultation and capnometry Measured from: lips ETT to lips (cm): 22 Number of attempts at approach: 1 Number of other approaches attempted: 0 [facility] 04-23-2025 Note Arterial Line: Date/Time: 04/23/2025 2:10 PM An arterial line was placed Procedure performed using surface landmarks.in the pre-op for the following indication(s): continuous blood pressure monitoring and blood sampling needed. A 20 G (size), 2 inch (length), Angiocath (type) catheter was placed, Seldinger technique used , into the Left radial artery, secured by tape and Tegaderm. Events: patient tolerated procedure well with no complications. Medications Administered lidocaine (XYLOCAINE) 1 % SubQ - infiltration 1 mL - 04/23/2025 2:10:00 PM Staffing Performed: resident/TRIPE WASHER/CAA Anesthesiologist: Sean Whitley MD Resident/TRIPE WASHER: Nini Oliva MD Performed by: Nini Oliva MD Authorized by: Sean Whitley MD [facility] 04-23-2025 Note Patient: Watson Lewis Jr. Procedure Information Date/Time: 04/23/25 1600 Procedure: CAROTID ENDARTERECTOMY (Right) - CO Main OR 1300 Location: [facility] OPERATING ROOM 04 / [facility] Operating Room Surgeons: Bruce Rushing MD Relevant Problems Cardio (+) CAD, multiple vessel (+) Carotid stenosis, asymptomatic, right (+) Coronary artery disease involving qawalangin coronary artery of qawalangin heart without angina pectoris (+) Hypertensive disorder (+) Nonrheumatic aortic valve insufficiency (+) Stenosis of right carotid artery (+) Stented coronary artery Endo (+) Hypothyroid Circulatory (+) Aneurysm of aortic root (+) Bicuspid aortic valve Endocrine/Metabolic (+) Diabetes mellitus (CMS/HCC) Other (+) Gout of knee Took half of insulin dose today, reports last cardiac stent 10 years ago, denies SOB, able to tolerate >4 METS. Encounter Date: 04/15/25 ECG 12 lead Result Value Ventricular Rate 53 Atrial Rate 53 AR Interval 198 QRS DURATION 106 QT Interval 424 QTC CALCULATION(BAZETT) 397 P [place] 70 R-[place] 50 T Wave [place] 84 Impression Sinus bradycardia Otherwise normal ECG When compared with ECG of 18-NOV-2014 10:31, Vent. rate has decreased BY 29 BPM Confirmed by Liat LAYTON, LUPIS Hwang ([id number]) on 04/15/2025 5:29:34 PM TTE 02/14/2025 displayed normal EF 55-60%, normal LV size and function, mild mitral and aortic regurg. Clinical information reviewed: Tobacco Allergies Meds Med Hx Surg Hx Fam Hx Soc Hx Surgical History[1] Medical History[2] Medication Documentation Review Audit Reviewed by Tomeka Cai RN (Registered Nurse) on 04/23/25 at 1317 Medication Order Taking? Sig Documenting Provider Last Dose Status amLODIPine (Norvasc) 10 mg tablet [id number] Yes Take 1 tablet (10 mg) by mouth in the morning. Bigg Celis CNP 04/23/2025 Active amLODIPine (Norvasc) 5 mg tablet [id number] Take 1 tablet (5 mg) by mouth in the morning. Patient not taking: Reported on 04/15/2025 Bigg eClis CNP Active aspirin 81 mg EC tablet [id number] Yes Take 81 mg by mouth in the morning. Historical Provider, 04/23/2025 Active atorvastatin (Lipitor) 80 mg tablet [id number] Yes Take 1 tablet (80 mg) by mouth in the evening. Bigg Celis CNP 04/22/2025 Active carvedilol (Coreg) 25 mg tablet [id number] Yes Take 1 tablet (25 mg) by mouth with breakfast and with evening meal. Bigg Celis CNP 04/23/2025 Active chlorthalidone (Hygroton) 25 mg tablet [id number] Yes Take 1 tablet (25 mg) by mouth in the morning. Bigg Celis CNP 04/22/2025 Active cholecalciferol (Vitamin D-3) 50 MCG (1999) tablet [id number] Yes Take by mouth in the morning. Historical Provider, Past Week Active clopidogrel (Plavix) 75 mg tablet [id number] Yes Take 1 tablet (75 mg) by mouth once daily as directed. Bigg Celis CNP 04/23/2025 Active insulin detemir (Levemir) 100 unit/mL (3 mL) pen [id number] Inject under the skin at bedtime. Patient not taking: Reported on 04/15/2025 Historical Provider, Active Lantus Solostar U-100 Insulin 100 unit/mL (3 mL) injection pen [id number] Yes Inject 30 Units under the skin two times daily. Historical Provider, 04/23/2025 Active levothyroxine (Synthroid, Levoxyl) 125 mcg tablet [id number] Yes Take 125 mcg by mouth before breakfast. Historical Provider, 04/22/2025 Active liothyronine (Cytomel) 5 mcg tablet [id number] Yes Take 2 tablets by mouth in the morning. Historical Provider, 04/22/2025 Active losartan (Cozaar) 100 mg tablet [id number] Yes Take 100 mg by mouth in the morning. Historical Provider, 04/23/2025 Active metFORMIN (Glucophage) 500 mg tablet [id number] Yes Take 500 mg by mouth with breakfast and with evening meal. Historical Provider, 04/22/2025 Active Allergies[3] Lab Results Component Value Date GLUCOSE 63 (L) 04/15/2025 CALCIUM 8.3 (L) 04/15/2025 NA 136 04/15/2025 K 4.6 04/15/2025 CO2 25 04/15/2025 CL 105 04/15/2025 BUN 31 (H) 04/15/2025 CREATININE 1.50 (H) 04/15/2025 eGFR (mL/min/1.73m*2) Date Value 04/15/2025 45.3 (L) Lab Results Component Value Date WBC 14.90 (H) 04/15/2025 HGB 11.9 (L) 04/15/2025 HCT 34.8 (L) 04/15/2025 MCV 91.6 04/15/2025 PLT 336 04/15/2025 No results found for: PTT Lab Results Component Value Date INR 1.00 04/15/2025 No results found for: ABORH No results found for: ALT , AST , GGT , ALKPHOS , BILITOT No results found for: HGBA1C Physical Exam Airway Mallampati: III Cardiovascular Rhythm: regular Rate: normal Dental Comments: Lower molars missing. Pulmonary Breath sounds clear to auscultation Neurological Abdominal - normal exam Anesthesia Plan ASA 3 general (GETA with standard ASA monitors, possible second IV, arterial line in pre op, extubation pending neurologic status and clinical course.) The patient is not a current smoker. Patient was previously instructed to abstain from smoking on day of procedure. (more content not included)... [facility] 04-23-2025 Note No associated orders from this encounter found during lookback period of 72 hours. [facility] 03-20-2025 Note Subjective Patient ID: Watson Lewis Jr. is a 85 y.o. male who presents for New Patient (Bilateral numbness in feet). Patient c/o of numbness in bilateral feet Patient has a primary medical history of CAD, diabetes mellitus, hyperlipidemia, and HTN with a primary surgical history of cardiac catheterization (05/16/2017); Cataract extraction, extracapsular w/ intraocular lens implant (Bilateral); and Coronary stent placement. The patient was referred due to US Carotid artery duplex bilateral on 02/14/25 showing severe stenosis at the proximal right ICA segment. Today, he denies any recent vision changes, including blurred vision or sudden loss of vision. Denies any new-onset headaches, neck pain, chest pain, dizziness (except occasionally when moving from a sitting to standing position), extremity weakness, or recent strokes. He admits YOUNGBLOOD over the past 2-3 months and recent onset fatigue for the past month, with difficulty staying asleep at night. Review of Systems Constitutional: Positive for fatigue. Negative for chills and fever. HENT: Negative for congestion, ear pain and trouble swallowing. Eyes: Negative for pain and visual disturbance. Respiratory: Positive for shortness of breath. Negative for chest tightness. Cardiovascular: Negative for chest pain, palpitations and leg swelling. Gastrointestinal: Negative for abdominal distention, abdominal pain, anal bleeding, constipation, diarrhea and vomiting. Genitourinary: Negative for difficulty urinating. Musculoskeletal: Negative for back pain and neck pain. Neurological: Negative for dizziness, light-headedness and headaches. Psychiatric/Behavioral: Negative for agitation, behavioral problems and confusion. Allergies[1] Medications Ordered Prior to Encounter[2] Current Outpatient Medications on File Prior to Visit Medication Sig Dispense Refill amLODIPine (Norvasc) 10 mg tablet Take 1 tablet (10 mg) by mouth in the morning. 30 tablet 11 amLODIPine (Norvasc) 5 mg tablet Take 1 tablet (5 mg) by mouth in the morning. 30 tablet 11 aspirin 81 mg EC tablet Take 81 mg by mouth in the morning. atorvastatin (Lipitor) 80 mg tablet Take 1 tablet (80 mg) by mouth in the evening. 90 tablet 3 carvedilol (Coreg) 25 mg tablet Take 1 tablet (25 mg) by mouth with breakfast and with evening meal. 180 tablet 3 chlorthalidone (Hygroton) 25 mg tablet Take 1 tablet (25 mg) by mouth in the morning. 90 tablet 3 cholecalciferol (Vitamin D-3) 50 MCG (2000 UT) tablet Take by mouth in the morning. clopidogrel (Plavix) 75 mg tablet Take 1 tablet (75 mg) by mouth once daily as directed. 90 tablet 3 insulin detemir (Levemir) 100 unit/mL (3 mL) pen Inject under the skin at bedtime. Lantus Solostar U-100 Insulin 100 unit/mL (3 mL) injection pen Inject 30 Units under the skin two times daily. levothyroxine (Synthroid, Levoxyl) 125 mcg tablet Take 125 mcg by mouth before breakfast. liothyronine (Cytomel) 5 mcg tablet Take 2 tablets by mouth in the morning. losartan (Cozaar) 100 mg tablet Take 100 mg by mouth in the morning. metFORMIN (Glucophage) 500 mg tablet Take 500 mg by mouth with breakfast and with evening meal. Objective Visit Vitals BP 168/69 (BP Location: Right arm, Patient Position: Sitting, BP Cuff Size: Adult) Pulse 61 Resp 18 Physical Exam Constitutional: Appearance: Normal appearance. He is normal weight. HENT: Head: Normocephalic and atraumatic. Eyes: Conjunctiva/sclera: Conjunctivae normal. Neck: Vascular: Carotid bruit (bilateral) present. Cardiovascular: Rate and Rhythm: Normal rate and regular rhythm. Pulses: Femoral pulses are 2+ on the right side and 2+ on the left side. Popliteal pulses are 2+ on the right side and 2+ on the left side. Dorsalis pedis pulses are 0 on the right side and 0 on the left side. Posterior tibial pulses are 0 on the right side and 0 on the left side. Comments: No evidence of aneurysmal dilatation Pulmonary: Effort: Pulmonary effort is normal. Breath sounds: Normal breath sounds. Abdominal: General: Abdomen is flat. Bowel sounds are normal. Palpations: Abdomen is soft. Musculoskeletal: Cervical back: Decreased range of motion (slight neck extension limitation). Skin: General: Skin is warm and dry. Neurological: General: No focal deficit present. Mental Status: He is alert and oriented to person, place, and time. Psychiatric: Mood and Affect: Mood normal. Behavior: Behavior normal. Assessment/Plan Diagnoses and all orders for this visit: Stenosis of right carotid artery - Ambulatory referral to Vascular Surgery - CBC; Future Bilateral carotid bruits Coronary artery disease involving qawalangin coronary artery of qawalangin heart without angina pectoris Diagnosis Plan 1. Stenosis of right carotid artery Ambulatory referral to Vascular Surgery CBC 2. Bilateral carotid bruits 3. Coronary artery disease involving qawalangin coronary artery of qawalangin hea (more content not included)... [facility] 03-20-2025 Note Subjective Patient ID: Watson Lewis Jr. is a 85 y.o. male who presents for New Patient (Lower ext bilateral edema). HPI Patient c/o of numbness in bilateral feet Review of Systems Constitutional: Positive for fatigue. Negative for chills and fever. HENT: Negative for congestion, ear pain and trouble swallowing. Eyes: Negative for pain and visual disturbance. Respiratory: Positive for shortness of breath. Negative for chest tightness. Cardiovascular: Negative for chest pain, palpitations and leg swelling. Gastrointestinal: Negative for abdominal distention, abdominal pain, anal bleeding, constipation, diarrhea and vomiting. Genitourinary: Negative for difficulty urinating. Musculoskeletal: Negative for back pain and neck pain. Neurological: Negative for dizziness, light-headedness and headaches. Psychiatric/Behavioral: Negative for agitation, behavioral problems and confusion. Objective There were no vitals taken for this visit. Physical Exam Assessment/Plan Diagnosis Plan 1. Stenosis of right carotid artery Ambulatory referral to Vascular Surgery No orders of the defined types were placed in this encounter. No results found for this or any previous visit (from the past 36 hours). No follow-ups on file. [facility] 02-21-2025 Note Hi! Just wanted to follow-up and make sure he was scheduled to see vascular. Thanks! Philomena [facility] 02-21-2025 Note Jarad, I ordered a carotid US due to hearing a bruit on exam. Significant stenosis noted on the right. He notes dizziness with standing otherwise denied any sx's. Would you like me to order a carotid CTA? He does have some CKD, last Cr was 1.4, eGFR 49. Or refer to vascular? Thanks! [facility] 02-21-2025 Note Hi! Can you please let him know his carotid ultrasound was abnormal suggesting significant narrowing on the right side. Please refer patient to vascular surgery as soon as possible if he is agreeable otherwise he needs to discuss with his PCP. Thanks! [facility] 02-14-2025 Note Please let him know his ECHO looked ok. No change from his last ECHO, everything is stable. Thanks [facility] 01-24-2025 Note Patient is here toda y for 1 year follow. Patient states he seen his PCP yesterday for his 6 month check up. Patient states he also had blood work done yesterday at [facility]. Patient states he feels good. Patient denies Chest pain, SOB, dizziness, bleeding/bruising/discoloration, leg swelling dizziness. Patient states he has no complaints things are going well [facility] 01-24-2025 Note Cardiovascular Medic [facility] SUBJECTIVE Chief Complaint Patient presents with Coronary [...] Diagnosis Cardiovascular stress test abnormal Diabetes mellitus ([facility]/HCC) Dyslipidemia CAD, multiple vessel Sinus tachycardia Stented coronary artery Tachycardia, unspecified Aneurysm of aortic root Hypertensive disorder Diverticulosis Gout of knee Hypercholesterolemia Hypothyroid Infected nail bed of toe Non-smoker Overweight (BMI 25.0-29.9) Pain of left calf Presence of stent in artery Encounter for diabetic foot exam ([facility]) long term care pharmacist current use of insulin ([facility]) Past Medical History: Diagnosis Date Aneurysm CAD [...] results within 6 Month(s) from this visit. L (more content not included)... [facility] 06-28-2024 Note Nurse Consultation N ote Reason for Visit Patient came in office [...] virus vaccine, inactivated 06/30/2022 Recorded SARS-CoV-2 (COVID-19) [id number] 06/15/2022 Recorded 2022-12-28: TPV80 SARS-CoV-2 (COVID-19) mRNA-1273 vaccine 02/17/2022 Recorded 2022-12-28: TPV80 SARS-CoV-2 (COVID-19) mRNA-1273 vaccine 07/21/2021 Recorded 2022-12-28: TPV80 influenza virus vaccine, inactivated 06/30/2021 Recorded SARS-CoV-2 (COVID-19) mRNA-1273 vaccine 11/18/2020 Recorded SARS-CoV-2 (COVID-19) mRNA-1273 vaccine 10/22/2020 Recorded influenza virus vaccine, inactivated 06/11/2020 Recorded influenza virus vaccine, inactivated 08/28/2019 Recorded [facility] 05-24-2024 Note Patient Education Emergency Medicine Heart Attack A heart attack occurs when blood and oxygen supply to the heart is cut off. A heart attack can cause damage to the heart that cannot be fixed. A heart attack is also called a myocardial infarction, or OR. If you think you are having a [...] these instructions at home: Medicines ? Take [id number] and prescription medicines only as told by [...] feel your heart skipping beats. ? You (more content not included)... [facility] 12-28-2022 Evaluation + Plan note Diagnostic Tests PendingT3 Free 12/28/22 [facility] 02-12-2022 Note PROCEDURE: XR FOOT R [...] authenticated by: STACI KLEIN Date: 2022-02-12 16:27 [facility] 01-18-2022 Evaluation note Encounter Date Diagnosis Assessment Notes Dec, Acute pain of right knee (ICD-10 - M25.561) Dec, Bursitis of right knee, unspecified bursa (ICD-10 - M70.51) Radiographs reviewed with patient. Advised that based on his described history, he may have been experiencing a bursitis that has resolved. Continue motion and strengthening. Activity as tolerated. Call with questions/chaya rns. [facility] Other Evaluation + Plan note Future Appointments Appointment Date:01/04/2024 09:00:00 AM Scheduled Provider:Sheree Caraballo Location:[facility] Appointment Type: Open Appointment Date:05/18/2024 08:00:00 AM Scheduled Provider: Location:[facility] Appointment Type:FM Medicare Wellness [facility] Future App[facility]ments Appointment Date:05/18/2024 08:00:00 AM Scheduled Provider: Location[facility] Appointment Type:FM Medicare Wellness Subsequent Appointment Date:07/04/2024 08:20:00 AM Scheduled Provider:Sheree Caraballo Location:[facility]: [facility] Future Appointments Appointment Date:07/04/2024 08:20:00 AM Scheduled Provider:Sheree Caraballo Location:[facility] Appointment Type: Open Appointment Date:05/28/2025 08:00:00 AM Scheduled Provider: Location:[facility] Appointment Type:FM Medicare Wellness Subsequent [facility] Evaluation + Plan note Future Appointments Appointment Date:05/28/2025 08:00:00 AM Scheduled Provider: Location:[facility] Appointment Type:FM Medicare Wellness Subsequent Appointment Date:05/28/2025 09:20:00 AM Scheduled Provider:Sheree Caraballo Location:[facility] Appointment Type:[facility]ms[facility] general Narrative - Reported* Type Description Date Medical History Diabetic Medical History Heart attack Medical History Hypertension Surgical History Heart Stent Surgical History Appendectomy Hospitalization History see above [facility] Other Hospital course Narrative No data available for this section [facility] No data available for this section [facility] No data available for this section [facility] Summary Purpose Family History No Family History Records FoundNo Family History Records FoundNo Family History Records Found No data available for this section No data available for this section No data available for this section No Family History Records Found No data available [...] section and content) DATE CREATED AUTHOR 03/22/2018 [facility] DATE CREATED AUTHOR AUTHOR'S ORGANIZ ATION 01/19/2022 [facility] DATE CREATED AUTHOR AUTHOR'S ORGANIZ ATION 01/01/2023 [facility] DATE CREATED AUTHOR AUTHOR'S ORGANIZ ATION 07/11/2024 [facility] DATE CREATED AUTHOR AUTHOR'S ORGANIZ ATION 01/28/2025 [facility] DATE CREATED AUTHOR AUTHOR'S ORGANIZ ATION 04/27/2025 [facility] REASON FOR VISIT (unrecogniz ed section and content) Right Knee Pain Patient Care team informatio n (unrecognized section and content) Personnel Name: Sheree Caraballo Address: Address: [address] [place] [address]- Personnel Name: Sheree Caraballo Address: Address: [address] [place] [address]- Personnel Name: Sheree Caraballo Address: Address: [address] [place] [address]- Personnel Name: Sheree Caraballo Address: Address: [address] [place] [address]- Personnel Name: Sheree Caraballo Address: Address: [address] [place] [id number]- Personnel Name: Sheree Caraballo Address: [address] [place] [address]- [employer]: FOR RECORDS PERTAINING TO PATIENTS WHO ARE [...] BE BASED ON THE PRIMARY CLINICAL RECORDS. [employer] [facility]. provides no warranty or guarantee of the accuracy or completeness of information in this document.
[2025-04-29] MEDS: DEXTROSE 5%-LACTATED RINGERS 1,000 ML 75 ML IV (19:30)
[2025-04-29] MEDS: CARVEDILOL 25 MG TABLET PO (20:13)
[2025-04-29] MEDS: ATORVASTATIN CALCIUM 40 MG TABLET 80 MG PO (20:13)
[2025-04-30] VITALS (11 sets, daily range): BP systolic 121–162; BP diastolic 63–68; PULSE 60–73; TEMP 36.6–36.8; O2SAT 92–98
[2025-04-30] MEDS: LEVOTHYROXINE SODIUM 125 MCG TABLET PO (05:45)
[2025-04-30 05:55] LABS: Hematocrit 27.6 % (42.0-54.0); Hemoglobin 9.6 g/dL (14.0-18.0); Immature Granulocytes Abs Auto 0.02 10^3/uL (0.00-0.03); Immature Granulocytes Pct Auto 0.3 % (0.0-0.5); Lymphocytes Absolute Auto 1.1 10^3/uL (1.2-3.8); Mean Corpuscular HGB Conc 34.8 g/dL (29.9-35.2); Mean Corpuscular Hemoglobin 31.2 pg (25.9-34.0); Mean Corpuscular Volume 89.6 fL (80.0-94.0); Platelet Count 257 10^3/uL (150-450); Red Blood Count 3.08 10^6/uL (4.70-6.10); White Blood Count 7.5 10^3/uL (4.0-11.0)
[2025-04-30 06:27] LABS: Anion Gap 13.1; Blood Urea Nitrogen 25.0 mg/dL (7.0-18.0); Calcium 8.1 mg/dL (8.5-10.1); Carbon Dioxide 24.0 mmol/L (21.0-32.0); Chloride 105 mmol/L (98-107); Estimated GFR (African America >60 (>=60 mL/min/1.73m^2); Estimated GFR (Non-African Ame >60 (>=60 mL/min/1.73m^2); Glucose 106 mg/dL (74-106); Magnesium 2.1 mg/dL (1.8-2.4); Potassium 4.1 mmol/L (3.5-5.1); Sodium 138 mmol/L (136-145); TSH W/ REFLEX FT4 0.125 uIU/mL (0.358-3.740)
--- NOTE | 2025-04-30 07:00 | ECG_ITS ---
[facility] Test Date: 2025-04-30 Pat Name: JOJO LEWIS Department: Room: [facility] [place][note 2] Gender: Male Circulator: : 1940 Requested By: [id number] Order Number: [id number] Reading MD: SAKINA ENGLISH M.D. Measurements Intervals [place] Rate: 65 P: 41 [place]: 253 QRS: 56 QRSD: 112 T: 72 QT: 404 QTc: 423 Interpretive Statements SINUS RHYTHM WITH FIRST DEGREE AV BLOCK MODERATE INTRAVENTRICULAR CONDUCTION DELAY [110+ ms QRS DURATION] NONSPECIFIC ST & T-WAVE ABNORMALITY Compared to ECG 04/29/2025 16:01:29 No significant changes Electronically Signed On 05-01-2025 6:49:53 EDT by SAKINA ENGLISH M.D.
[2025-04-30] MEDS: CARVEDILOL 25 MG TABLET PO (08:20)
[2025-04-30] MEDS: CLOPIDOGREL BISULFATE 75 MG TABLET PO (08:20)
[2025-04-30] MEDS: LOSARTAN POTASSIUM 50 MG TABLET 100 MG PO (08:20)
[2025-04-30] MEDS: CHOLECALCIFEROL (VITAMIN D3) 25 MCG/1,000 UNITS TABLET 50 MCG PO (08:20)
[2025-04-30] MEDS: LIOTHYRONINE SODIUM 5 MCG TABLET 10 MCG PO (08:20)
[2025-04-30] MEDS: CHLORTHALIDONE 25 MG TABLET PO (08:20)
[2025-04-30] MEDS: AMLODIPINE BESYLATE 5 MG TABLET 10 MG PO (08:20)
--- NOTE | 2025-04-30 09:38 | SWNOTE1 ---
SW and I met with pt in room to discuss d/c needs. Pt's daughter was in room as well. Pt is from home where he lives alone. He voiced there are 3 steps to get into home and it is one level when inside. Pt is independent and gets around well, he does not use any DME. Pt has not had home health services in past. Pt or pt's daughter do not have concerns for d/c at this time. SW to follow as needed.
--- NOTE | 2025-04-30 10:31 | CM.NOTE ---
Rounds made with Dr. Nava, possible discharge this evening. Pt OBS status and Dr. Nava will re-evaluate pt this afternoon for discharge status.
--- NOTE | 2025-04-30 12:28 | CM.NOTE ---
Case Management discussed with patient regarding HH with nursing services. Pt refuses need for any HH services. 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 Pt is able to check his own BP and BS as needed. Encouraged pt to check BS AC and HS and document along with BP daily to record and take to f/u appointment for PCP to do any medication adjustments. Pt verbalizes understanding.
--- NOTE | 2025-04-30 14:51 | CM.NOTE ---
Outpatient Observation Notice discussed with pt, pt verbalizes understanding and signs paper. Original given to pt and copy placed on pt's chart.
--- NOTE | 2025-04-30 17:33 | PM.HP ---
HPI H&P: HPI History of Present Illness Chief complaint: HYPERTENSION, HYPOGLYCEMIA, HANDY Narrative: This is an 85-year-old man who came to the ER at [facility] with a sudden episode of dizziness and blurred vision in both eyes. I think the patient panicked. His blood pressure shot up. He had read paperwork about his right carotid endarterectomy and that if he had any of the symptoms he was having an emergency. He came to the ER right away. But he was found to have symptomatic hypoglycemia with a blood glucose of only 50. In the emergency room he was provided apple juice and D50 but his blood sugar was only 61. Because he takes Lantus 30 units subcutaneously twice a day and his blood glucose was so low it was requested that he be placed into the hospital in observation status overnight for his safety. IV fluids with D5 half-normal saline were run overnight. With this the patient's blood glucoses were 240, 132, 100, and 107. By lunchtime the next day the IV fluids are stopped. He was monitored closely. After that his blood glucoses improved 179, 197, at 189. As part of his workup in the emergency room a CT scan of his head showed no acute pathology. The right carotid endarterectomy site looks excellent. It is clean and dry and intact. No bleeding. His labs in the ER had a serum creatinine of 1.49, which improved with the limit of IV fluids to 1.12 the next day. His BUN was high at 34 and this improved to 25 the next day. At first his blood pressures were elevated such as 149/57 and 164/67 but on the last hospital day near discharge his blood pressure improved on its own to 121/63, with no new medications. The patient's symptoms resolved rapidly emergency room once the hypoglycemia was corrected and he had no more problems with dizziness and abnormal vision. Opioid HPI Opioid Management Most Recent Pain and Opioid Data: Last Pain Assessment 04/29/25, 19:00 Last ORT Total Score 3 04/29/25, 18:45 Last ORT Risk Category Low Risk 04/29/25, 18:45 Review of Systems ROS Narrative 10 point review of systems was completed and is negative except as mention above in history present illness. [facility] Medical History High cholesterol ?E78.00 - Pure hypercholesterolemia, unspecified (ICD-10) HTN (hypertension) ?I10 - Essential (primary) hypertension (ICD-10) Diabetes ?E11.9 - Type 2 diabetes mellitus without complications (ICD-10) Surgical History Status post carotid surgery ?Z98.890 - Other specified postprocedural states (ICD-10) Social History Little interest or pleasure in doing things: not at all Feeling down, depressed, or hopeless: not at all Do you think of yourself as: straight/heterosexual Gender Identity: male Meds Home Medications and Allergies Home Medications ?Medication ?Instructions ?Recorded ?Confirmed ?Type amlodipine 10 mg tablet 10 mg PO QAM 04/29/25 04/29/25 History atorvastatin 80 mg tablet 80 mg PO QPM 04/29/25 04/29/25 History carvedilol 25 mg tablet 25 mg PO BID 04/29/25 04/29/25 History chlorthalidone 25 mg tablet 25 mg PO QAM 04/29/25 04/29/25 History cholecalciferol (vitamin D3) 50 50 mcg PO DAILY 04/29/25 04/29/25 History mcg (2,000 unit) capsule clopidogrel 75 mg tablet 75 mg PO DAILY 04/29/25 04/29/25 History levothyroxine 125 mcg tablet 125 mcg PO .ACB 04/29/25 04/29/25 History liothyronine 5 mcg tablet 10 mcg PO QAM 04/29/25 04/29/25 History losartan 100 mg tablet 100 mg PO DAILY 04/29/25 04/29/25 History metformin 500 mg tablet 500 mg PO BID 04/29/25 04/29/25 History insulin glargine 100 unit/mL (3 15 unit (0.15 mL) subcut BID #0 mL 04/30/25 04/29/25 Rx mL) subcutaneous pen (Lantus Solostar U-100 Insulin) Allergies Allergy/AdvReac Type Severity Reaction Status Date / Time No Known Drug Allergies Allergy Verified 04/29/25 15:49 Exam Narrative Exam Narrative: General: Awake. Alert. Oriented x 3. Neurologic: No neurologic deficits. Neck: Right carotid endarterectomy site is excellent. It is clean. It is dry. Is intact. No drainage. Minimal bruising. Minimal edema. Eyes: EOMI. PERRLA. Mouth: Oropharynx clear with. Tongue is midline. Psychiatric: Mood and affect are normal. He is pleasant and delightful to the interview. Pulmonary: Clear to auscultation throughout. No wheezing. No rhonchi. No crackles. Cardiac: Regular rate and rhythm to auscultation. No murmurs to auscultation. GI: Abdomen soft, normal bowel sounds throughout. Lower extremities: No edema in the ankles bilaterally. Constitutional Vital Signs, click to edit/add: Last Vital Signs Temp 97.9 F 04/30/25 12:00 Pulse 68 04/30/25 15:50 Resp 16 04/30/25 12:00 BP 121/63 04/30/25 12:00 Pulse Ox 98 04/30/25 12:00 O2 Del Method Room Air 04/30/25 12:00 Results Labs Labs: Short CBC 04/30/25 Range/Units 05:41 WBC 7.5 (4.0-11.0) 10^3/uL Hgb 9.6 L (14.0-18.0) g/dL Hct 27.6 L (42.0-54.0) % Plt Count 257 (150-450) 10^3/uL BMP 04/30/25 05:41 Sodium 138 Potassium 4.1 Chloride 105 Carbon Dioxide 24.0 BUN 25.0 H Creatinine 1.12 Glucose 106 Calcium 8.1 L Assessment and Plan Assessment and Plan (1) Hypoglycemia: (2) HANDY (acute kidney injury): (3) Dizziness: (4) Diabetes: Qualifiers: Diabetes mellitus type: type 2 Diabetes mellitus exterminator insulin use: with exterminator use Diabetes mellitus complication status: with circulatory complication Diabetes mellitus complication detail: with other circulatory complications Qualified Code(s): E11.59 - Type 2 diabetes mellitus with other circulatory complications; Z79.4 - exterminator (current) use of insulin (5) Status post carotid surgery: Plan During the hospital stay the patient's hemoglobin A1c was found to be 4.8. On the next hospital morning he worked with physical therapy and Occupational Therapy and was found to do well and had no deficits. The patient has been checking his blood glucose only 1 time per day. He bleeds easily and is reluctant to check his blood sugars more frequently. On discharge I recommended that he reduce his dose of insulin by roughly half. So he takes 30 units in the evening and 26 units in the morning so I told him to back it off to 15 units and 10 units. The patient's daughter was present in the room and I requested that she or other family members work with the patient to check his blood sugars 3 times a day with meals and at bedtime. I counseled the patient and his family that he is likely to experience hyperglycemia after this acute hypoglycemic event but that is appropriate. I counseled the patient to watch his symptoms very closely and if he has any signs or symptoms of hypoglycemia he must check his blood sugar immediately and reduce the insulin dose at home. His daughter works in the mental health field and so she is can work closely with the patient's primary care provider to get a continuous glucose monitor. I think the patient would do well being able to check his blood glucoses on his phone and I think this would be very helpful and the patient would be of very good and reliable user of this technology. The patient was therefore discharged from observation status after about 24 hours in stable condition and with no more risk of hypoglycemia.
--- NOTE | 2025-05-03 15:17 | CM.DCFOLLOWU ---
1st attempt 05/03/25, no answer
--- NOTE | 2025-05-07 14:39 | CM.DCFOLLOWU ---
Person spoke with:patient How are you feeling?well How is your pain?none Did you understand your discharge instructions?yes Do you have any questions about your discharge instructions?no Were you given any prescriptions at discharge?no Were you able to get your prescriptions filled?N/A Do you understand how to take your medications as ordered?yes Do you have any questions about your follow up appointment and do you plan to keep your follow up appointment? no questions, he did call PCP and was able to schedule follow up Is there anything else that you would like to discuss?no Questions/Comments/Concerns/Other: none
== END 2025-04-30 17:57 | disposition home or self-care (01) ==
LOC: ER 17:48 → MS 18:35
PROVIDERS: Hospitalist; Admitting Provider Internal Medicine; Emergency Provider Emergency Medicine; PCP Nurse Practitioner; Visit Provider Internal Medicine
DX: E11.649 Type 2 diabetes mellitus with hypoglycemia without coma (principal); Z79.4 Long term (current) use of insulin; Z79.84 Long term (current) use of oral hypoglycemic drugs; E11.59 Type 2 diabetes mellitus with other circulatory complications; N17.9 Acute kidney failure, unspecified; R42 Dizziness and giddiness; Z98.890 Other specified postprocedural states; Z91.81 History of falling
CPT/HCPCS: 36415; 70450; 80048; 80053; 82948; 83036; 83735; 84439; 84443; 84484; 85025; 85610; 93005; 96361; 96374; 97161; 97165; 99285; G0378